=== PATIENT | male | born 1965 ===

== ENCOUNTER 2023-10-28 15:34 | Outpatient (REF) | payer MEDICARE, SELFPAY ==
--- NOTE | ~2023-10-28 | CT_ITS ---
EXAMINATION: CT SOFT TISSUE NECK WITH CONTRAST CLINICAL INFORMATION: Nontoxic thyroid nodule COMPARISON: None. TECHNIQUE: Following the administration of 60 mL of Omnipaque 300 intravenous contrast, helical imaging was performed in the axial plane with generation of coronal and sagittal reformatted images. This CT examination was performed using dose optimization techniques as appropriate, variously including the following: *Automated exposure control. *Adjustment of mA and/or kV according to patient size (this includes techniques or standardized protocols for targeted exams where dose is matched to indication/reason for exam; i.e. extremities or head). *Use of iterative reconstruction technique. DLP: 403 mGy-cm. FINDINGS: Please note that assessment of the lower neck soft tissues is partially nondiagnostic related to artifact from patient's body habitus. Nondiagnostic assessment of the thyroid gland. The fat planes of the skull base and soft tissues of the nasopharynx are unremarkable. Chronic mucoperiosteal thickening of the right maxillary sinus. Mineralized lesion along the anterior floor of the left maxillary sinus which may be postinflammatory or reflective of a mycetoma. The temporomandibular joints are normal. Dentulous maxillary alveolus. The oral cavity is normal. The soft palate is interposed between the dorsal tongue and posterior nasopharyngeal wall, limiting assessment of the mucosal surfaces. Presumably lobulated lingual tonsillar hyperplasia projects into the vallecula and along the median glossoepiglottic fold. Asymmetric prominence of the left laryngeal ventricle that can be correlated for left vocal cord paresis/paralysis with otherwise unremarkable larynx. The submandibular and parotid glands are normal. No pathologic size criteria or morphologically suspicious cervical chain lymph nodes. The partially visualized lung apices are clear. Normal opacification of the major neck vessels. Mild cervical spondylosis. The imaged portions of the brain parenchyma are unremarkable. Mild patchy calcific plaque along the carotid siphons. CT/CT soft tissue neck w IV con IMPRESSION: 1. Essentially nondiagnostic assessment of the thyroid gland that would be better evaluated with dedicated soft tissue ultrasound. 2. Asymmetric prominence of the left laryngeal ventricle that can be correlated for left vocal cord paresis/paralysis Electronically signed by: Ira Haney MD 11/17/2023 01:45 PM EDT
[2023-11-01] MEDS: iohexoL 350 MG/ML 100 ML INFUS..BTL 60 ML IV (09:32)
[2023-11-07 09:04] LABS: Creatinine POC 0.7 mg/dL (0.5-1.4); GFR POC > 60
== END 2023-10-28 15:35 | disposition home or self-care (01) ==
LOC: HO.CT 15:34
PROVIDERS: PCP Pediatrics; Visit Provider Pediatrics
DX: E04.1 Nontoxic single thyroid nodule (principal)
CPT/HCPCS: 70491; 82565; Q9967

== ENCOUNTER 2025-01-17 15:00 | Outpatient (REF) | payer MEDICARE, SELFPAY ==
--- NOTE | ~2025-01-17 | US_ITS ---
EXAMINATION: US THYROID HISTORY: NONTOXIC GOITER TECHNIQUE: Real-time grayscale ultrasound imaging was performed and images were reviewed. COMPARISON: CT of the soft tissues of the neck October 2023 FINDINGS: SIZE: The right thyroid lobe measures 3.9 x 2.4 x 1.9 cm. The left thyroid lobe measures 3.7 x 2.2 x 1.7 cm. The isthmus measures 4 mm. The thyroid gland is normal in size. FLOW: Flow to the gland is normal. ECHOGENICITY: The echotexture of the gland is normal. NODULES: No nodules. US/US thyroid IMPRESSION: Unremarkable thyroid ultrasound. Electronically signed by: Anitha Riddle MD 01/17/2025 04:25 PM [facility]
--- OUTSIDE RECORDS SUMMARY | 2025-01-17 18:21 | XMS_ITS ---
Author Name Donavon Fernandez NP Address [address] [place] [address] Phone [phone] [facility] Care Team Providers Care Fur Mixer Name Role Phone Jim oDnavon Unavailable [phone] Jaye Dickey Unavailable [phone] Reason for Referral Not Available Allergies, adverse reactions, alerts Allergen Type Reaction Severity Status Onset Date Aspirin Allergy to substance (disorder) Unknown Active N/A History of medication use Medication Class Instructions Start Date End Date amLODIPine Besylate 5 mg Tab No Data Available 2023-07 No Data Available Spironolactone 50 mg Tab 1 tablets orally BID No Data Available Docusate Sodium 100 mg Cap TAKE 1 CAPSUL E BY MOUTH EVERY DAY 2022-09-01 No Data Available Allopurinol 100 mg Tab TAKE 2 TABLETS BY MOUTH EVERY BID 2023-07-07 No Data Available Atorvastatin Calcium 20 mg Tab TAKE 1 TABLET BY MOUTH EVERY DAY 2023-03-09 No Data Available Torsemide 10 mg Tab 3 tablets twice daily 2023-09-02 No Data Available Tadalafil 20 mg Tab TAKE ONE TABLET BY M OUTH EVERY DAY NEEDED 2023-09-08 No Data Available Metoprolol Succinate ER 200 mg Tab ER 24hr TAKE 1 TABLET BY MOUTH DAILY 2023-01-29 No Data Available VITAMIN D 1000IU H/PTNCY CAPSULES TAKE 1 CAPSULE BY MOUTH DAILY 2023-10-04 No Data Available Eliquis 5 mg Tab TAKE 1 TABLET BY RUBEN TH TWICE DAILY 2023-10-04 No Data Available Terbinafine 250 mg Tab TAKE 1 TABLET BY MOUTH DAILY 2023-11-11 No Data Available Ciprofloxacin 500 mg Tab TAKE 1 TABLET B Y MOUTH EVERY 12 HOURS FOR 14 DAYS 2024-01-31 No Data Available VITAMIN D3 1000UNIT SOFTGEL CAPS TAKE 1 CAPSULE BY MOUTH DAILY 2024-06-12 No Data Available Problem List Problem Status Onset Date Resolved Date Synopsis Major depressive disorder, recurrent, moderate Active 2024-01-21 N/A Rx: not curr ently on medicationFollow up prn with local providers and call CB prn Essential hypertension Active 2024-01-21 N/A Rx : Amlodipine, Spironolactone, Metoprolol Succinate, TorsemideMonitor BP dailyLow sodium diet Exercise as toleratedRoutine follow up with labsCardiology follow up Gout Active 2024-01-21 N/A Rx: Allopurino lEat more fruits, vegetables and whole grains, which provide complex carbohydrates. Avoid foods and beverages with high-fructose corn syrup, and limit consumption of naturally sweet fruit juices. Water. Stay well-hydrated by drinking waterFollow up PRNCardiology follow upNo recent flares Hypercoagulable state due to chronic atrial fibrillation Active 2024-01-21 N/A Rx: Eliquis, Metoprolol SuccinateContinue CV medications as directedFollow up PRN Peripheral vascular disease, unspecifiedHyperlipidemia Active 2024-01-21 N/A Rx: At orvastatinContinue CV medicationsMonitor BP dailyRoutine follow up with labs Morbid obesity due to excess caloriesBMI 38.0-38.9,adult Active 2024-01-28 N/A BMI 38.75 on 05/30/24 ECCAHealthy diet to assist with weight loss, take medications as prescribed, avoid alcohol, spicy and fatty foods, caffeine, do not eat late at night, and do not lay down after meals for at least 30 minutes. Follow up prn. 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 Active 2024-01-21 N/A Rx: Tadalafilsym ptoms present following radiation to prostateFollow up PRN Other problems related to medical facilities and other health care Active 2024-01-28 N/A HEART FAILURE CONTINGENCY PLANLast updated: 01/28/2024Member to call for the following symptoms: Edema/ Exertional dyspnea/ Weight gain or lossPlanned intervention: Increase torsemide (Demadex) to 20 mg for 3 days/ Order chest x-ray/ Elevate legs/ Put on compression stockings/ Eat lower sodium foods/ Take medication every single day Chronic pain syndromeRotator cuff injury Active 2024-05-30 N/A Has been told he has rotator cuff injuryHas PCP f/u 3/31/25, would like ortho referral or PT if appropriate Hypertensive heart disease with heart failureSecondary pulmonary arterial hypertensionSecondary hyperaldosteronism Active 2024-01-21 N/A Rx: Metoprolo l Succinate, Spironolactone, Torsemide, AmlodipineeGFR 90 (01/19/24 Outside Care)EDW 310-314 lbs, monitors daily for edemaMonitor VS daily and prnLow sodium diet and exercise as toleratedMonitor daily weight and call if weight gain > 3 lbs over 24 hrs or 5 lbs over one week. Routine follow up with labsx: Amlodipine, Spironolactone, Metoprolol Succinate, TorsemideMonitor BP dailyLow sodium diet Exercise as toleratedRoutine follow up with labsCardiology follow up DOREEN (obstructive sleep apnea)Pulmonary hypertensionChronic respiratory failure Active 2024-05-30 N/A Wears CPAP a nd 2.5 - 3L oxygen overnightSleep pulm follow up Malignant neoplasm of prostate Active 2024-01-21 N/A Treated with radiationFollow up prn Encounters Encounters Type Facility Date of Service Diagnosis/Complaint New patient, 30-44min 1 stable chronic or 2 minor; add modifier 95 for video, modifier 93 for phone [facility], [place] 01/21/2024 Gout, unspecifiedEssential ( primary) hypertensionErectile dysfunction following radiation therapyOther thrombophiliaChronic atrial fibrillation, unspecifiedMajor depressive disorder, recurrent, moderatePeripheral vascular disease, unspecifiedHyperlipidemia, unspecifiedMalignant neoplasm of prostatePersonal history of malignant neoplasm of prostateChronic diastolic (congestive) heart failureSecondary hyperaldosteronismSecondary pulmonary arterial hypertensionMorbid (severe) obesity due to excess caloriesBody mass index (bmi) 38.0-38.9, adultOther problems related to medical facilities and other health care New patient, 30-44min 1 stable chronic or 2 minor; add modifier 95 for video, modifier 93 for phone [facility], ([place] 01/21/2024 New patient, 30-44min 1 stable chronic or 2 minor; add modifier 95 for video, modifier 93 for phone [facility], ([place] 01/21/2024 New patient, 30-44min 1 stable chronic or 2 minor; add modifier 95 for video, modifier 93 for phone [facility] New patient, 30-44min 1 stable chronic or 2 minor; add modifier 95 for video, modifier 93 for phone [facility] 01/21/2024 New patient, 30-44min 1 stable chronic or 2 minor; add modifier 95 for video, modifier 93 for phone [facility] 01/21/2024 New patient, 30-44min 1 stable chronic or 2 minor; add modifier 95 for video, modifier 93 for phone [facility] 01/21/2024 New patient, 30-44min 1 stable chronic or 2 minor; add modifier 95 for video, modifier 93 for phone [facility] ([place] 01/21/2024 New patient, 30-44min 1 stable chronic or 2 minor; add modifier 95 for video, modifier 93 for phone [facility] 01/21/2024 Estab. patient 20-29min; 1 stable chronic or 2 minor; add add modifier 95 for video, modifier 93 for phone [facility], ([place] 05/30/2024 Gout, unspecifiedErectile dy sfunction following radiation therapyOther thrombophiliaChronic atrial fibrillation, unspecifiedMajor depressive disorder, recurrent, moderatePeripheral vascular disease, unspecifiedHyperlipidemia, unspecifiedMalignant neoplasm of prostatePersonal history of malignant neoplasm of prostateSecondary hyperaldosteronismHypertensive heart disease with heart failureChronic diastolic (congestive) heart failureSecondary pulmonary arterial hypertensionMorbid (severe) obesity due to excess caloriesBody mass index (bmi) 38.0-38.9, adultChronic pain syndromeUnsp inj musc/tend the rotator cuff of unsp shldr, sequelaChronic respiratory failure, unsp w hypoxia or hypercapniaPulmonary hypertension, unspecifiedObstructive sleep apnea (adult) (pediatric)Other problems related to medical facilities and other health care Estab. patient 20-29min; 1 stable chronic or 2 minor; add add modifier 95 for video, modifier 93 for phone [facility] Estab. patient 20-29min; 1 stable chronic or 2 minor; add add modifier 95 for video, modifier 93 for phone [facility], [place] 05/30/2024 Estab. patient 20-29min; 1 stable chronic or 2 minor; add add modifier 95 for video, modifier 93 for phone [facility], ([place] 05/30/2024 Estab. patient 20-29min; 1 stable chronic or 2 minor; add add modifier 95 for video, modifier 93 for phone [facility], ([place] 05/30/2024 Vital Signs Date of Collection Vitals 2024-01-21 12:15:55 Height - 190.5 cmWei ght - 138.8 kgBody Mass Index (BMI) - 38.25 kg/m2BP Diastolic - 85.0 mm[Hg]BP Systolic - 122.0 mm[Hg] 2024-05-30 12:00:04 Weight - 140.62 kgBo dy Mass Index (BMI) - 38.75 kg/m2 Social History Social History Social History Observation Description Effec tive Time Current Smoking Status Never smoker 2025-01-06 2 Sex Male History of Procedures Procedures Service Procedure code Service date Servicing provider Phone# New patient, 30-44min 1 stable chronic or 2 minor; add modifier 95 for video, modifier 93 for phone [id number] 2024-01-21 No Data Available No Data Available BMI obtained (3008F) 3008F 2024-01-21 No Data Availab le No Data Available Advance Care Directive Advance care planning discussion documented in the medical record (1158F) 1158F 2024-01-21 No Data Available No Data Availa ble SBP < 130 (3074F) 3074F 2024-01-21 No Data Available No Data Available DBP 80-89 (3079F) 3079F 2024-01-21 No Data Available No Data Available Pain Assessment - NO pain present (1126F) 1126F 2024-01-21 No Data Available No Data A vailable No Data Available G8510 2024-01-21 No Data Available No Data Available Functional Status Assessed (1170F) 1170F 2024-01-21 No Data Available No Data Avail able Medication List Documented (1159F) 1159F 2024-01-21 No Data Available No Data Cammie ilable Estab. patient 20-29min; 1 stable chronic or 2 minor; add add modifier 95 for video, modifier 93 for phone [id number] 2024-05-30 No Data Available No Data Availa ble Medication List Documented (1159F) 1159F 2024-05-30 No Data Available No Data Cammie ilable Medication Review by prescribing provider or pharmacist documented (1160F) 1160F 2024-05-30 No Data Available No Data Cammie ilable Functional Status Assessed (1170F) 1170F 2024-05-30 No Data Available No Data Avail able Pain Assessment - NO pain present (1126F) 1126F 2024-05-30 No Data Available No Data A vailable Functional Status Functional Category Effective Dates ADL: Bathing Independent , D ressing Independent , Eating Independent , Transferring Independent and Toileting Independent 2024-01-21 IADL: Medication Independent , Meal Prep Needs Assistance , Shopping Needs Assistance , Driving or Public Transport Needs Assistance , Housework Needs Assistance , Finances Needs Assistance 2024-01-21 How many falls within the last 6 months? None 2024-01-21 Near falls within the last 6 months? Non e 2024-01-21 Do you feel unsteady on your feet? No 20 29-01-15 Do you worry about falling? No 2024-01-07 5 DME used with ambulation: None 2024-01-07 5 Social Supports - # of Inter actions with Friends/Family in a typical week: Daily 2024-05-30 Uses knee brace 2024-05-30 Mental Status Status Date Cognition Status: Oriented to Person, Pl som and Time 2024-05-30 Assessments Date of Service Assessments 2024-01-21 12:15:55 GoutEssential hypert ension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Hypercoagulable state due to chronic atrial fibrillationMajor depressive disorder, recurrent, moderatePeripheral vascular disease, unspecifiedHyperlipidemiaMalignant neoplasm of prostateChronic diastolic (congestive) heart failureSecondary pulmonary arterial hypertensionSecondary hyperaldosteronismMorbid obesity due to excess caloriesBMI 38.0-38.9,adultOther problems related to medical facilities and other health care 2024-05-30 12:00:04 GoutEssential hypert ension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Hypercoagulable state due to chronic atrial fibrillationMajor depressive disorder, recurrent, moderatePeripheral vascular disease, unspecifiedHyperlipidemiaMalignant neoplasm of prostateChronic diastolic (congestive) heart failureSecondary pulmonary arterial hypertensionSecondary hyperaldosteronismMorbid obesity due to excess caloriesBMI 38.0-38.9,adultOther problems related to medical facilities and other health careChronic pain syndromeRotator cuff injuryOSA (obstructive sleep apnea)Pulmonary hypertensionChronic respiratory failure Plan of Care Date of Service Plans 2024-01-21 12:15:55 BMI obtained (3008F) SBPDBPTelevideo new patient, 30-44min 1 stable chronic or 2 minor; add modifier 95Advance care planning discussed and documented in the medical record beneficiary/patient did not wish to or was unable to provide an advance care plan or name a surrogate decision-maker. (1124F)Pain Assessment - NO pain documented (1126F)Continue to see PCP. Follow-up with [facility] as needed for any acute or disease education needs that may arise 28/09.Rx: AllopurinolEat more fruits, vegetables and whole grains, which provide complex carbohydrates. Avoid foods and beverages with high-fructose corn syrup, and limit consumption of naturally sweet fruit juices. Water. Stay well-hydrated by drinking water.Follow up prnRx: amlodipine, spironolactone, metoprolol succinate, TorsemideMonitor Bp dailyLow sodium diet Exercise as toleratedRoutine follow up with labsRx: Tadalafilsymptoms present following radiation to prostateFollow up prnRx: Eliquis, metoprolol succinateContinue CV medications as directedFollow up prnRx: not currently on medicationFollow up prn with local providers and call CB prnRx: atorvastatinContinue CV medicationsMonitor Bp dailyRoutine follow up with labsTreated with radiationFollow up prnRx: metoprolol succinate, spironolactone, Torsemide, amlodipineMonitor VS daily and prnLow sodium diet and exercise as toleratedMonitor daily weight and call if weight gain > 3 lbs over 24 hrs or 5 lbs over one week. Routine follow up with labsBMI 38.25Healthy diet to assist with weight loss, take medications as prescribed, avoid alcohol, spicy and fatty foods, caffeine, do not eat late at night, and do not lay down after meals for at least 30 minutes. Follow up prn.HEART FAILURE CONTINGENCY PLANLast updated: 01/28/2024 to call for the following symptoms: Edema/ Exertional dyspnea/ Weight gain or lossPlanned intervention: Increase torsemide (Demadex) to 20 mg for 3 days/ Order chest x-ray/ Elevate legs/ Put on compression stockings/ Eat lower sodium foods/ Take medication every single day 2024-05-30 12:00:04 Functional Status As sessed (1170F)Advance Care Directive Advance care planning discussion documented in the medical record (1158F)Advance care planning discussed and documented advance care plan or surrogate decision-maker was documented in the medical record. (1123F)Estab. patient 20-29min; 1 stable chronic or 2 minor; add add modifier 95 for video, modifier 93 for phoneMedication List Documented (1159F)Medication Review by prescribing provider or pharmacist documented (1160F)Pain Assessment - NO pain present (1126F)Continue to see PCP. Follow-up with [facility] as needed for any acute or disease education needs that may arise.Rx: AllopurinolEat more fruits, vegetables and whole grains, which provide complex carbohydrates. Avoid foods and beverages with high-fructose corn syrup, and limit consumption of naturally sweet fruit juices. Water. Stay well-hydrated by drinking waterFollow up PRNCardiology follow upNo recent flaresRx: Amlodipine, Spironolactone, Metoprolol Succinate, TorsemideMonitor BP dailyLow sodium diet Exercise as toleratedRoutine follow up with labsCardiology follow upRx: Tadalafilsymptoms present following radiation to prostateFollow up PRNRx: Eliquis, Metoprolol SuccinateContinue CV medications as directedFollow up PRNRx: not currently on medicationFollow up prn with local providers and call CB prnRx: AtorvastatinContinue CV medicationsMonitor BP dailyRoutine follow up with labsTreated with radiationFollow up prnRx: Metoprolol Succinate, Spironolactone, Torsemide, AmlodipineeGFR 90 (01/19/24 Outside Care)Monitor VS daily and prnLow sodium diet and exercise as toleratedMonitor daily weight and call if weight gain > 3 lbs over 24 hrs or 5 lbs over one week. Routine follow up with labsBMI 38.75 on 05/30/24 ECCAHealthy diet to assist with weight loss, take medications as prescribed, avoid alcohol, spicy and fatty foods, caffeine, do not eat late at night, and do not lay down after meals for at least 30 minutes. Follow up prn.HEART FAILURE CONTINGENCY PLANLast updated: 01/28/2024Member to call for the following symptoms: Edema/ Exertional dyspnea/ Weight gain or lossPlanned intervention: Increase torsemide (Demadex) to 20 mg for 3 days/ Order chest x-ray/ Elevate legs/ Put on compression stockings/ Eat lower sodium foods/ Take medication every single dayHas been told he has rotator cuff injuryHas PCP f/u 06/05/24, would like ortho referral or PT if appropriateWears CPAP and 2.5 - 3L oxygen overnightSleep pulm follow up Health Concerns Date Concern 2024-05-30 Visit completed radha reeves audio/video. Patient/Guardian agreed to visit via telehealth. Today, patient has chief complaint of: follow up care and comprehensive review.Reviewed Allergies, Medications, Active Medical conditions, past medical/surgical history, Social history. 2024-05-30 Advance Care Planjenna reeves - See Legal 2024-05-30 Most recent hospital stay(s) or ER visit(s) and precipitating factors: Denies 2024-05-30 Open HEDIS Measure r carlo: Controlling High Blood Pressure < 140/90Colorectal Cancer Screening - COL-E
--- OUTSIDE RECORDS SUMMARY | 2025-01-17 18:21 | XMS_ITS | Data Portability ---
Author Organization [facility], Main Office Address [address] [facility] [place] [address] Care Team Providers Care Accounting Coordinator Name Role Phone SETH SOLORZANO Primary Care Provider [phone] MILENA WANG Sleep Medicine [facility] ([facility]) Orthopedic Surgeon VINOD PRESTON Booking Clerk RUSS PLAZA Classification Case Manager [facility] Sleep Medicine TJ RODAS Orthopedic Surgeon KATHY STEVE Warranty Administrator TOMMY TINEO Referring Provider [phone] GRANT DANIEL Urologist IVNOD MAHONEY Junior Legal Secretary [facility] Orthopedic Surgeon Assessment No assessment recorded. Plan of Treatment Reminders Order Date Submit Date Provider Last Modified By Organization Details Last Modified Time Details Appointments [id number] 2025 11:00A M Seth Solorzano MD Not available Not available Not available Lab thyroi d cascad e, serum 2023 024 [place], [address] [place], [address], 08/11/2023 19:24:53 CMP, serum or plasma 2023 024 [facility], [address] [place], [address], 08/11/2023 19:16:41 Referral orthop edic surgeo n referr al - for eval of right shoudl er pain, 2024 025 GUY Fisher MD, [address] [place] [address] [address], [address], [place], [address], 10/26/2024 10:05:42 orthop edic ximenao n referr al - for eval of chroni c right should er pain 2024 025 [email or web address] [facility], [address], [address], [place], [address], 07/11/2024 15:54:48 nutrit ionist /racqueli mary ann referr al 2023 024 Not available 01/31/2024 14:07:28 orthop edic ximenao n referr al - for eval of right should er pain 2023 024 MADALYN Rodas MD, [address], [place], [address], 04/06/2024 12:46:24 Procedures nerve conduc tion study/ EMG, upper extrem ity (PROC) - rule out bilate ral carpal tunnel 2024 025 [facility] (Imaging), [address] [place], [address], 12/11/2024 14:15:49 Surgeries None record ed. Imaging US, thyroi d - f/u (para) thyroi d nodule /mass 2024 025 [email or web address] [facility] (Ultrasound), [address] [place], [address], 10/24/2024 15:27:41 Medication Orders meloxi cam 15 mg tablet 2024 025 [id number], [address], [place], [place], [id number], 10/26/2024 09:59:35 ciprof loxaci n 500 mg tablet 2023 024 [email or web address] Not available 06/05/2024 10:33:24 tadala harpreet 20 mg tablet 2023 024 [id number], [address] [place], [address], 11/29/2024 07:41:00 Patient TargetsNo targets recorded. Patient Instructions Encounter Date Encounter Id Patient Instructions Last Modified By Organization Details Last Modified Time 08/10/2023 [id number] high blood pressure: care instructions awychowski Not available 08/10/2023 10:32:08 learning about high blood pressure awychowski Not available 08/10/2023 10:32:08 01/31/2024 [id number] preventing falls: care instructions awychowski Not available 01/31/2024 13:53:39 well visit, over 65: care instructions awychowski Not available 01/31/2024 13:53:39 Starting a Weight-Loss Plan: Care Instructions awychowski Not available 01/31/2024 13:53:40 Nutrition Referral and Weight Management Follow-up Information awychowski Not available 01/31/2024 13:53:39 06/05/2024 [id number] high cholesterol: care instructions awychowski Not available 06/05/2024 11:14:33 carpal tunnel syndrome: care instructions awychowski Not available 06/05/2024 11:15:56 high blood pressure: care instructions awychowski Not available 06/05/2024 11:14:33 learning about high blood pressure awychowski Not available 06/05/2024 11:14:33 12/11/2024 [id number] high cholesterol: care instructions awychowski Not available 12/11/2024 12:12:16 Reason for Referral Advertising Display Rotator/dietitian Refer ral for Body mass index 40+ - severely obese Referring Physician: Seth Solorzano, Family Medicine, Encounter Date: 01/31/2024 Orthopedic Surgeon Referral for Pain of right shoulder joint for eval of right shoulder pain Referring Physician: Seth Solorzano [facility], Encounter Date: 01/31/2024 Orthopedic Surgeon Referral for Pain of right shoulder joint for eval of chronic right shoulder pain Referring Physician: Seth Solorzano [facility], Encounter Date: 06/05/2024 Orthopedic Surgeon Referral for Pain of right shoulder joint for eval of right shoudler pain, Referring Physician: Seth Solorzano [facility], Encounter Date: 10/26/2024 Results Created Date Observation Date Name Description Value Unit Range Abnormal Flag Note LastModifiedBy Organization Detail LastModifiedTime 06/02/1906/01/2024 URINA LYSIS WITH REFLE X MICRO SCOPI C specific gravity urine 1.007 1.003- 1.030 Not Available [address], [address], 06/01/2024 14:25:55 06/02/1906/01/2024 URINA LYSIS WITH REFLE X MICRO SCOPI C pH, urine 6.5 pH 5.0-8. 0 Not Available [address], [address], 06/01/2024 14:25:55 06/02/19 25 06/01/2024 URINA LYSIS WITH REFLE X MICRO SCOPI C leukocytes, urine NEGATI VE negati ve Not Available [address], [address], 06/01/2024 14:25:55 06/02/1906/01/2024 URINA LYSIS WITH REFLE X MICRO SCOPI C nitrite, urine NEGATI VE negati ve Not Available [address], [address], 06/01/2024 14:25:55 06/02/19 25 06/01/2024 URINA LYSIS WITH REFLE X MICRO SCOPI C protein, urine NEGATI VE mg/dL <=trac e Not Available [address], [address], 06/01/2024 14:25:55 06/02/19 25 06/01/2024 URINA LYSIS WITH REFLE X MICRO SCOPI C glucose, urine NEGATI VE mg/dL negati ve Not Available [address], [address], 06/01/2024 14:25:55 06/02/19 25 06/01/2024 URINA LYSIS WITH REFLE X MICRO SCOPI C ketones, urine NEGATI VE mg/dL negati ve Not Available [address], [address], 06/01/2024 14:25:55 06/02/19 25 06/01/2024 URINA LYSIS WITH REFLE X MICRO SCOPI C urobilinogen , urine 0.2 mg/dL 0.2-1. 0 Not Available [address], [address], 06/01/2024 14:25:55 06/02/19 25 06/01/2024 URINA LYSIS WITH REFLE X MICRO SCOPI C bilirubin, urine NEGATI VE negati ve Not Available [address], [address], 06/01/2024 14:25:55 06/02/19 25 06/01/2024 URINA LYSIS WITH REFLE X MICRO SCOPI C blood, urine NEGATI VE negati ve Not Available [address], [address], 06/01/2024 14:25:55 06/02/19 25 06/01/2024 URINA LYSIS WITH REFLE X MICRO SCOPI C note SEE REPORT [facility], [address] [facility] [address], Marekin cezar d, [place] [facility] [place] [address] Not Available [address], [address], 06/01/2024 14:25:55 06/02/19 25 06/01/2024 LIPID PANEL WITH REFLE X TO DIREC T LDL cholesterol 168 mg/dL 0-200 Not Available [address], [address], 06/01/2024 16:07:09 06/02/19 25 06/01/2024 LIPID PANEL WITH REFLE X TO DIREC T LDL triglyceride s 122 mg/dL 0-150 Not Available [address], [address], 06/01/2024 16:07:09 06/02/19 25 06/01/2024 LIPID PANEL WITH REFLE X TO DIREC T LDL HDL 48 mg/dL >=40 Not Available [address], [address], 06/01/2024 16:07:09 06/02/19 25 06/01/2024 LIPID PANEL WITH REFLE X TO DIREC T LDL LDL calculated 96 mg/dL 0-100 Not Available [address], [address], 06/01/2024 16:07:09 06/02/19 25 06/01/2024 LIPID PANEL WITH REFLE X TO DIREC T LDL VLDL cholesterol curtis 24.4 mg/dL Not Available [address], [address], 06/01/2024 16:07:09 06/02/19 25 06/01/2024 LIPID PANEL WITH REFLE X TO DIREC T LDL non HDL chol. (LDL+VLDL) 120 mg/dL <145 Not Available [address], [address], 06/01/2024 16:07:09 06/02/19 25 06/01/2024 LIPID PANEL WITH REFLE X TO DIREC T LDL chol/HDL ratio 3.5 0.0-4. 4 Not Available [address], [address], 06/01/2024 16:07:09 06/02/19 25 06/01/2024 LIPID PANEL WITH REFLE X TO DIREC T LDL note SEE REPORT [facility], [address], [place], [place] [address] Not Available [address], [address], 06/01/2024 16:07:09 06/02/19 25 06/01/2024 COMPR EHENS LIUDMILA METAB OLIC PANEL sodium 135 mmol/ L 133-14 5 Not Available [address], [address], 06/01/2024 16:07:18 06/02/19 25 06/01/2024 COMPR EHENS LIUDMILA METAB OLIC PANEL potassium 4.4 mmol/ L 3.5-5. 5 Not Available [address], [address], 06/01/2024 16:07:18 06/02/19 25 06/01/2024 COMPR EHENS LIUDMILA METAB OLIC PANEL chloride 97 mmol/ L 96-110 Not Available [address], [address], 06/01/2024 16:07:18 06/02/19 25 06/01/2024 COMPR EHENS LIUDMILA METAB OLIC PANEL CO2 33 mmol/ L 21-32 high Not Available [address], [address], 06/01/2024 16:07:18 06/02/19 25 06/01/2024 COMPR EHENS LIUDMILA METAB OLIC PANEL anion gap 5 3-11 Not Available [address], [address], 06/01/2024 16:07:18 06/02/19 25 06/01/2024 COMPR EHENS LIUDMILA METAB OLIC PANEL glucose 100 mg/dL 70-100 Not Available [address], [address], 06/01/2024 16:07:18 06/02/19 25 06/01/2024 COMPR EHENS LIUDMILA METAB OLIC PANEL BUN 12 mg/dL 5-25 Not Available [address], [address], 06/01/2024 16:07:18 06/02/19 25 06/01/2024 COMPR EHENS LIUDMILA METAB OLIC PANEL creatinine 1.11 mg/dL 0.70-1 .30 Not Available [address], [address], 06/01/2024 16:07:18 06/02/19 25 06/01/2024 COMPR EHENS LIUDMILA METAB OLIC PANEL eGFR 76 mL/mi n/1.7 3m2 >=60 Calcu latio n based on the C hroni c Kidne y Disea se Epide miolo gy Colla borat ion (CKD- EPI) equat ion refit w [facility] tment for race. Not Available [address], [address], 06/01/2024 16:07:18 06/02/19 25 06/01/2024 COMPR EHENS LIUDMILA METAB OLIC PANEL BUN/creatini ne ratio 10.8 Not Available [address], [address], 06/01/2024 16:07:18 06/02/19 25 06/01/2024 COMPR EHENS LIUDMILA METAB OLIC PANEL calcium 9.8 mg/dL 8.5-10 .5 Not Available [address], [address], 06/01/2024 16:07:18 06/02/19 25 06/01/2024 COMPR EHENS LIUDMILA METAB OLIC PANEL AST (SGOT) 13 unit/ L 10-42 Not Available [address], [address], 06/01/2024 16:07:18 06/02/19 25 06/01/2024 COMPR EHENS LIUDMILA METAB OLIC PANEL ALT (SGPT) 16 unit/ L 10-60 Not Available [address], [address], 06/01/2024 16:07:18 06/02/19 25 06/01/2024 COMPR EHENS LIUDMILA METAB OLIC PANEL alkaline phosphatase 134 unit/ L 42-121 high Not Available [address], [address], 06/01/2024 16:07:18 06/02/19 25 06/01/2024 COMPR EHENS LIUDMILA METAB OLIC PANEL total protein 7.8 g/dL 6.0-8. 0 Not Available [address], [address], 06/01/2024 16:07:18 06/02/19 25 06/01/2024 COMPR EHENS LIUDMILA METAB OLIC PANEL albumin 3.8 g/dL 3.2-5. 0 Not Available [address], [address], 06/01/2024 16:07:18 06/02/19 25 06/01/2024 COMPR EHENS LIUDMILA METAB OLIC PANEL total bilirubin 0.4 mg/dL 0.0-1. 4 Not Available [address], [address], 06/01/2024 16:07:18 06/02/19 25 06/01/2024 COMPR EHENS LIUDMILA METAB OLIC PANEL note SEE REPORT [facility], [address] [facility] [address], Lisa robb d, [place] [address] Not Available [address], [address], 06/01/2024 16:07:18 06/02/19 25 06/01/2024 VITAM IN D 25 HYDRO XY vit D, 25-hydroxy 41.2 NG/mL 30.0-8 0.0 Not Available [address], [address], 06/01/2024 16:50:24 06/02/19 25 06/01/2024 VITAM IN D 25 HYDRO XY note SEE REPORT [facility], [address] [facility], Lisa leviabram shah, [facility] [place] [address] Not Available [address], [address], 06/01/2024 16:50:24 06/02/19 25 06/01/2024 HEMOG LOBIN A1C hemoglobin A1C 6.2 % <6.5 Not Available [address], [address], 06/01/2024 21:27:48 06/02/19 25 06/01/2024 HEMOG LOBIN A1C mean bld glu estim. 131 mg/dL Not Available [address], [address], 06/01/2024 21:27:48 06/02/19 25 06/01/2024 HEMOG LOBIN A1C note SEE REPORT [facility], [address] [facility], Lisa leviabram shah, [facility] [place] [address] Not Available [address], [address], 06/01/2024 21:27:48 08/11/19 24 08/11/2023 COMPR EHENS LIUDMILA METAB OLIC PANEL comments [facility], winston rahman r of [facility]olyn [facility] [address] [facility] [place] [address] Medic al Direc kenneth reza MD Not Available [facility] [address] [place] [address], [place], [address], 08/11/2023 19:16:41 08/11/19 24 08/11/2023 COMPR EHENS LIUDMILA METAB OLIC PANEL glucose 71 mg/dL 70-100 Refer ence range appli cable to fasti ng speci mens only Not Available [facility] [address] [place], [address], 08/11/2023 19:16:41 08/11/19 24 08/11/2023 COMPR EHENS LIUDMILA METAB OLIC PANEL BUN 13 mg/dL 5-25 Not Available [facility] [address] [place], [address], 08/11/2023 19:16:41 08/11/19 24 08/11/2023 COMPR EHENS LIUDMILA METAB OLIC PANEL creat 1.11 mg/dL 0.7-1. 3 Not Available [facility] [address] [place], [address], 08/11/2023 19:16:41 08/11/19 24 08/11/2023 COMPR EHENS LIUDMILA METAB OLIC PANEL glomerular filtration rate 77 >60 This eGFR resul t was calcu lated using the CKD-E PI 2020 Creat inine Equat ion Not Available [facility] [address] [place], [address], 08/11/2023 19:16:41 08/11/19 24 08/11/2023 COMPR EHENS LIUDMILA METAB OLIC PANEL sodium 139 mEq/L 135-14 5 Not Available [facility] [address] [place], [address], 08/11/2023 19:16:41 08/11/19 24 08/11/2023 COMPR EHENS LIUDMILA METAB OLIC PANEL potassium 3.7 mmol/ L 3.5-5. 5 Not Available [facility] [address] [place], [address], 08/11/2023 19:16:41 08/11/19 24 08/11/2023 COMPR EHENS LIUDMILA METAB OLIC PANEL chloride 102 mmol/ L 96-110 Not Available [facility] [address] [place], [address], 08/11/2023 19:16:41 08/11/19 24 08/11/2023 COMPR EHENS LIUDMILA METAB OLIC PANEL CO2 32 mmol/ L 21-32 Not Available [facility] [address] [place], [address], 08/11/2023 19:16:41 08/11/19 24 08/11/2023 COMPR EHENS LIUDMILA METAB OLIC PANEL anion gap 5 3-11 Not Available [facility] [address] [place], [address], 08/11/2023 19:16:41 08/11/19 24 08/11/2023 COMPR EHENS LIUDMILA METAB OLIC PANEL calcium 9.5 mg/dL 8.5-10 .5 Not Available [facility] [address] [place], [address], 08/11/2023 19:16:41 08/11/19 24 08/11/2023 COMPR EHENS LIUDMILA METAB OLIC PANEL total protein 7.5 g/dL 6.0-8. 0 Not Available [facility] [address] [place], [address], 08/11/2023 19:16:41 08/11/19 24 08/11/2023 COMPR EHENS LIUDMILA METAB OLIC PANEL albumin 3.9 g/dL 3.2-5. 0 Not Available [facility] [address] [place], [address], 08/11/2023 19:16:41 08/11/19 24 08/11/2023 COMPR EHENS LIUDMLIA METAB OLIC PANEL bili,total 0.5 mg/dL 0.0-1. 4 Not Available [facility] [address] [place], [address], 08/11/2023 19:16:41 08/11/19 24 08/11/2023 COMPR EHENS LIUDMILA METAB OLIC PANEL SGOT 15 U/L 10-42 Not Available [facility] [address] [place], [address], 08/11/2023 19:16:41 08/11/19 24 08/11/2023 COMPR EHENS LIUDMILA METAB OLIC PANEL SGPT 14 U/L 10-60 Not Available [facility] [address] [place], [address], 08/11/2023 19:16:41 08/11/19 24 08/11/2023 COMPR EHENS LIUDMILA METAB OLIC PANEL alk phos 115 U/L 42-121 Not Available [facility] [address] [place], [address], 08/11/2023 19:16:41 08/11/19 24 08/11/2023 TSH CASCA DE comments [facility] [address] [facility] [place] [address] Medic al Direc kenneth reza MD Not Available [facility] [address] [place], [address], 08/11/2023 19:24:53 08/11/19 24 08/11/2023 TSH CASCA DE TSH cascade 0.71 uIU/m L 0.40-4 .00 Not Available [facility] [address] [place], [address], 08/11/2023 19:24:53 12/22/19 24 12/22/2023 HEMOG LOBIN A1C hemoglobin A1C 6.2 % 4.8-5. 6 above high normal Predi abete s: 5.7 - 6.4 Diabe gisell: >6.4 Glyce lonny contr ol for adult s with diabe gisell: <7.0 Not Available [facility] ([facility]) [address] [facility], [place], [address], 12/23/2023 06:08:18 12/31/19 24 01/01/2024 CBC WITH DIFFE RENTI AL/PL ATELE T WBC 7.9 x10e3 /uL 3.4-10 .8 normal Not Available [facility] ([facility]) [address] [facility], [place], [address], 01/01/2024 06:08:23 12/31/19 24 01/01/2024 CBC WITH DIFFE RENTI AL/PL ATELE T RBC 4.77 x10e6 /uL 4.14-5 .80 normal Not Available [facility] ([facility]) [address] [place], [address], 01/01/2024 06:08:23 12/31/1901/01/2024 CBC WITH DIFFE RENTI AL/PL ATELE T hemoglobin 12.9 g/dL 13.0-1 7.7 below low normal Not Available [facility] ([facility]) [address] [place], [address], 01/01/2024 06:08:23 12/31/1901/01/2024 CBC WITH DIFFE RENTI AL/PL ATELE T hematocrit 39.9 % 37.5-5 1.0 normal Not Available [facility] ([facility]) [address] [place], [address], 01/01/2024 06:08:23 12/31/1901/01/2024 CBC WITH DIFFE RENTI AL/PL ATELE T MCV 84 fL 79-97 normal Not Available [facility] ([facility]) [address] [place], [address], 01/01/2024 06:08:23 12/31/1901/01/2024 CBC WITH DIFFE RENTI AL/PL ATELE T MCH 27.0 pg 26.6-3 3.0 normal Not Available [facility] ([facility]) [address] [place], [address], 01/01/2024 06:08:23 12/31/1901/01/2024 CBC WITH DIFFE RENTI AL/PL ATELE T MCHC 32.3 g/dL 31.5-3 5.7 normal Not Available [facility] ([facility]) [address] [place], [address], 01/01/2024 06:08:23 12/31/1901/01/2024 CBC WITH DIFFE RENTI AL/PL ATELE T RDW 14.5 % 11.6-1 5.4 Not Available [facility] ([facility]) [address] [facility], [place], [address], 01/01/2024 06:08:23 12/31/1901/01/2024 CBC WITH DIFFE RENTI AL/PL ATELE T platelets 269 x10e3 /uL 150-45 0 normal Not Available [facility] ([facility]) [address] [facility], [place], [address], 01/01/2024 06:08:23 12/31/1901/01/2024 CBC WITH DIFFE RENTI AL/PL ATELE T neutrophils 66 % not estab. normal Not Available [facility] ([facility]) [address] [facility], [place], [address], 01/01/2024 06:08:23 12/31/1901/01/2024 CBC WITH DIFFE RENTI AL/PL ATELE T lymphs 22 % not estab. normal Not Available [facility] ([facility]) [address] [facility], [place], [address], 01/01/2024 06:08:23 12/31/1901/01/2024 CBC WITH DIFFE RENTI AL/PL ATELE T monocytes 8 % not estab. normal Not Available [facility] ([facility]) [address] [facility], [place], [address], 01/01/2024 06:08:23 12/31/1901/01/2024 CBC WITH DIFFE RENTI AL/PL ATELE T eos 3 % not estab. normal Not Available [facility] ([facility]) [address] [facility], [place], [address], 01/01/2024 06:08:23 12/31/1912/3101/01/2024 CBC WITH DIFFE RENTI AL/PL ATELE T basos 1 % not estab. normal Not Available [facility] ([facility]) [address] [place], [address], 01/01/2024 06:08:23 12/31/19 24 01/01/2024 CBC WITH DIFFE RENTI AL/PL ATELE T immature cells AIR SUPPORT CONTROL OFFICER Not Available [facility] ([facility]) [address] [place], [address], 01/01/2024 06:08:23 12/31/1901/01/2024 CBC WITH DIFFE RENTI AL/PL ATELE T neutrophils (absolute) 5.3 x10e3 /uL 1.4-7. 0 normal Not Available [facility] ([facility]) [address] [place], [address], 01/01/2024 06:08:23 12/31/19 24 01/01/2024 CBC WITH DIFFE RENTI AL/PL ATELE T lymphs (absolute) 1.7 x10e3 /uL 0.7-3. 1 normal Not Available [facility] ([facility]) [address] [place], [address], 01/01/2024 06:08:23 12/31/19 24 01/01/2024 CBC WITH DIFFE RENTI AL/PL ATELE T monocytes(ab solute) 0.6 x10e3 /uL 0.1-0. 9 normal Not Available [facility] ([facility]) [address] [place], [address], 01/01/2024 06:08:23 12/31/1901/01/2024 CBC WITH DIFFE RENTI AL/PL ATELE T eos (absolute) 0.2 x10e3 /uL 0.0-0. 4 normal Not Available [facility] ([facility]) [address] [place], [address], 01/01/2024 06:08:23 12/31/19 24 01/01/2024 CBC WITH DIFFE RENTI AL/PL ATELE T baso (absolute) 0.0 x10e3 /uL 0.0-0. 2 normal Not Available [facility] ([facility]) [address] [facility], [place], [address], 01/01/2024 06:08:23 12/31/1901/01/2024 CBC WITH DIFFE RENTI AL/PL ATELE T immature granulocytes 0 % not estab. Not Available [facility] ([facility]) [address] [place], [address], 01/01/2024 06:08:23 12/31/1901/01/2024 CBC WITH DIFFE RENTI AL/PL ATELE T immature grans (abs) 0.0 x10e3 /uL 0.0-0. 1 Not Available [facility] ([facility]) [address] [facility], [place], [address], 01/01/2024 06:08:23 12/31/1901/01/2024 CBC WITH DIFFE RENTI AL/PL ATELE T NRBC AIR SUPPORT CONTROL OFFICER Not Available [facility] ([facility]) [address] [facility], [place], [address], 01/01/2024 06:08:23 12/31/1901/01/2024 CBC WITH DIFFE RENTI AL/PL ATELE T hematology comments: AIR SUPPORT CONTROL OFFICER Not Available [facility] ([facility]) [address] [place], [address], 01/01/2024 06:08:23 12/31/1901/01/2024 HEMOG LOBIN A1C hemoglobin A1C 6.1 % 4.8-5. 6 above high normal Predi abete s: 5.7 - 6.4 Diabe gisell: >6.4 Glyce lonny contr ol for adult s with diabe gisell: <7.0 Not Available [facility] ([facility]) [address] [facility], [place], [address], 01/01/2024 06:08:24 12/31/1901/01/2024 THYRO ID CASCA DE PROFI LE TSH 0.753 uIU/m L 0.450- 4.500 No appar ent thyro id disor césar. Addit ional testi ng not indic ated. In rare insta nces, Secon jaqueline Hypot hyroi dism as well as Subcl inica l Hypot hyroi dism have been repor chapito in some patie nts with sera l TSH value s. Not Available [facility] ([facility]) [address] [facility], [place], [address], 01/01/2024 06:08:25 11/17/1910/28/2023 CT, neck, w/ contr ast No observ ation record ed. [facility] (Medical Records) [address] [place], [address], 01/31/2024 13:40:02 02/09/2002/02/2024 trans thora cic echoc ardio gram (TTE) compl ete (cont rast/ bubbl e/3D PRN) No observ ation record ed. [facility] [address] [facility], [place], [address], 06/05/2024 11:05:08 02/09/2002/02/2024 trans -thor acic echoc ardio gram (TTE) (PROC ) No observ ation record ed. [facility] Not Available 06/05 11:05:08 08/22/19 ECG 12-le ad No observ ation record ed. [facility] [address], [place], [address], 08/29/2024 05:40:05 10/25/19 25 10/23/2024 US head neck soft tissu e See Note [facility] , [facility] t Name: NOVA WILKINSON Date of : 1965 Reason for Exam: NON TOXIC GOITER UNSPEC IFIED . Exam Date: 2024 [id number] EST Report Status : Final Orderi ng Provid er: SETH MCFARLAND PCP: SETH MCFARLAND HISTOR Y: Goiter TECHNI QUE: Graysc tim assess ment of the thyroi d was perfor med with a high freque ncy linear transd ucer. COMPAR BRISA: None FINDIN GS: Qualit y: The study is somewh at limite d. The patien t habitu s limits assess ment in the lower aspect of the gland The right lobe of the thyroi d measur es: 4.2 x 2.3 x 2.0 cm Previo us measur ement: No previo us availa ble Right lobe contou r: The right lobe contou r is smooth . Right lobe echoge nicity : Homoge neous Right lobe vascul arity: Normal The left lobe of the thyroi d measur es: 3.4 x 2.4 x 1.6 cm Previo us measur ement: No previo us availa ble Left lobe contou r: The left lobe contou r is smooth . Left lobe echoge nicity : Homoge neous Left lobe vascul arity: Normal Isthmu s measur es (AP): 0.3 cm Previo us measur ement: No previo us availa ble Isthmu s contou r: The isthmi c contou r is smooth . Isthmu s echoge nicity : Homoge neous Isthmu s vascul arity: Normal Masses : No suspic ious masses OTHER: Extrat hyroid al extens ion: None Region al lymph nodes: No enlarg ed lymph nodes demons trated IMPRES DEX: Slight ly limite d assess ment of the lower aspect of the gland. No mass demons trated TI-RAD S Assess ment (updat ed June 2016) Compos ition: cystic or spongi form: 0 pt mixed cystic and solid: 1 pt solid or almost comple tely solid: 2 pts Echoge nicity : anecho ic: 0 pt hypere choic or isoech oic: 1 pt hypoec hoic: 2 pts very hypoec hoic: 3 pt Shape: wider than tall: 0 pt taller than wide: 3 pts Margin : smooth : 0 pt ill-de fined: 0 pt lobula chapito/ir regula r: 2 pts extra- thyroi claudia extens ion: 3 pts Echoge veronique foci none or large comet tail artifa ct: 0 pt macro- calcif icatio n: 1 pt periph eral/r im ca++: 2 pts puncta te echoge veronique foci: 3 pts TR1: 0 pts; benign ; no follow -up TR2: 2 pts; not suspic ious; no FNA TR3: 3 pts; mildly suspic ious; < or = 1.5 cm f/u; > or = 2.5 cm FNA TR4: 4-6 pts; modera tely suspic ious; < or = 1.0 cm follow -up; 1.5 cm FNA TR5: 7 or > pts; highly suspic ious; .5-.9 cm f/u; 1.0 cm or > FNA ------ -- FINAL REPORT ------ -- Dictat ed By: Darrin Palmer Dictat ed Date: 2024 11:58 ET Assign ed Physic kim: Darrin Palmer Review ed and Electr onical ly Signed By: Darrin Palmer Signed Date: 2024 12:00 ET Workst ation ID: [id number] Transc ribed By: Self Edit Transc ribed Date: 2024 11:58 ET [email or web address] [facility]/S Dept [address] [place] [address], [address], 11/09/2024 10:38:24 12/26/1912/25/2024 ECG 12-le ad No observ ation record ed. [facility]/S Dept [address] [place] [address], [address], 12/26/2024 06:47:48 12/26/19 ECG 12-le ad No observ ation record ed. [facility] [address] [place], [address], 12/26/2024 06:47:48 01/12/2001/08/2025 nm stres s test with myoca rdial perfu dex No observ ation record ed. [facility]/S Dept [address] [place], [address], 01/12/2025 06:55:15 01/16/2001/09/2025 nucle ar stres s test No observ ation record ed. [facility] (Human Resources) [address], [place], [address], 01/16/2025 07:25:18 01/18/2001/17/2025 US, thyro id No observ ation record ed. [facility] (Medical Records) [address] [place], [address], 01/17/2025 16:29:59 Result Notes None recorded. Problems Name Problem SNOMED Code Status Onset Date Resolution Date Notes Provider Name and Address Organization Details Recorded Time Pain of wrist region 44891161 Completed 07/13/2014 Seth Solorzano MD [address] [facility] [address], [place], [address] , [facility] 5 14:20:56 Dyspnea on exertion 96282252 Completed 07/13/2014 [facility], [facility] 7 12:55:52 Body mass index 30+ - obesity 286332742 Completed 07/21/2017 Seth Solorzano MD [address], [place], [address] , [facility] 8 11:57:46 Irregula r heart beat 090303683 Completed 11/10/2016 RALPH Aceves, [facility] 7 12:55:33 Atrial fibrilla tion and flutter 187757118 Completed 07/21/2017 Seth Solorzano MD [address] [facility] [address], [place], [address] , [facility] 8 11:59:07 Body mass index 40+ - severely obese 035730115 Completed 11/10/2016 Seth Solorzano MD [address] [facility] [address], [place], [address] , [facility] 1 09:19:07 Excessiv e thirst 41552272 Completed 11/10/2016 RALPH Aceves, [facility] 7 12:55:17 Dyspnea on exertion 63293845 Completed 11/10/2016 RALPH Aceves, [facility] 7 12:55:52 Increase d frequenc y of urinatio n 209536425 Completed 11/10/2016 RALPH Aceves, [facility] 7 12:55:11 Dyspnea 354592714 Completed 11/10/2016 RALPH Aceves, [facility] 7 12:55:23 Tinea pedis 6340254 Completed 201209/19/2013 RECORDED 04/06/19 13 2:51PM BY ANASTASIIA ISSA MA, ANNOTATI ON/ADDEN DUM Seth Solorzano MD [address] [facility] [address], [place], [address] , [facility] 5 14:20:56 Tinea pedis 1660249 Completed 201210/16/2013 RECORDED 04/06/19 13 2:51PM BY ANASTASIIA ISSA MA, ANNOTATI ON/ADDEN DUM Seth Solorzano MD [address] [facility] [address], [place], [address] , [facility] 5 14:20:56 Essentia l hyperten dex 27060351 Completed 201209/19/2013 RECORDED 04/18/19 13 9:48AM BY DIANE TAMEZ MA, HELEN CABRERA/ALINE Solorzano MD [address], [place], [address] , [facility] 8 11:59:45 Screenin g procedur e Completed 201209/19/2013 IMPRESSI ON: GIVEN FAMILY HISTORY WILL CONTINUE SCREENIN G. EMIL DEFERRED TO NEXT APPT.; RECORDED 05/21/19 13 10:39AM BY DIANE TAMEZ MA, HELEN ON/ALINE Solorzano MD [address], [place], [address] , [facility] 5 14:20:57 Syncope and collapse 647751343 Completed 201209/19/2013 RESOLVED DATE: 02/25/20 12; IMPRESSI ON: NO RECURREN T EVENTS AND GUIVEN NORMAL ECHO, ECG AND HOLTER MONITOR UNLIKEY A SIGNIFIC ANT CARDIAC ISSUE. ADEQUATE HYDRATIO N ADVISED WELL HOLDING DIURETIC DURING TIMES OF SIGNIFIC ANT/SUST AINED NEGATIVE FLUID BALANCE. CALL/GO TO ED IF RECURS.; RECORDED 05/21/19 13 10:39AM BY DIANE TAMEZ MA, HELEN ON/ALINE Solorzano MD [address], [place], [address] , [facility] 5 14:20:56 Screenin g procedur e Completed 201210/16/2013 IMPRESSI ON: GIVEN FAMILY HISTORY WILL CONTINUE SCREENIN G. EMIL DEFERRED TO NEXT APPT.; RECORDED 05/21/19 13 10:39AM BY DIANE TAMEZ MA, ANNOTATI ON/ALINE Solorzano MD [address], [place], [address] , [facility] 5 14:20:57 Syncope and collapse 325046595 Completed 201210/16/2013 RESOLVED DATE: 02/25/20 12; IMPRESSI ON: NO RECURREN T EVENTS AND GUIVEN NORMAL ECHO, ECG AND HOLTER MONITOR UNLIKEY A SIGNIFIC ANT CARDIAC ISSUE. ADEQUATE HYDRATIO N ADVISED WELL HOLDING DIURETIC DURING TIMES OF SIGNIFIC ANT/SUST AINED NEGATIVE FLUID BALANCE. CALL/GO TO ED IF RECURS.; RECORDED 05/21/19 13 10:39AM BY DIANE TAMEZ MA, HELEN ON/ALINE Solorzano MD [address], [place], [address] , [facility] 5 14:20:56 Patient status finding [id number] Completed 201209/19/2013 RECORDED 08/26/19 13 9:30AM BY DIANE TAMEZ MA, HELEN ON/ALINE Solorzano MD [address] [facility] [address], [place], [address] , [facility] 5 14:20:57 Adult health examinat ion Completed 201209/19/2013 IMPRESSI ON: IMMUNIZA TION STATUS UTD WILL SCREEN BASED ON RISK FACTORS. REGULAR DENTAL CARE AND SEATBELT USE ADVISED. DISTRACT ED DRIVING DISCUSSE D.; RECORDED 08/26/19 13 9:30AM BY DIANE TAMEZ MA, HELEN ON/ALINE Solorzano MD [address] [facility] [address], [place], [address] , [facility] 5 14:20:57 Disorder of upper respirat ory system Completed 201209/19/2013 IMPRESSI ON: TRY NASAL SALINE, IF PERSISTA NT TRY NASAL STEROID. ; RECORDED 08/26/19 13 9:30AM BY DIANE TAMEZ MA, HELEN ON/ALINE Solorzano MD [address] [facility] [address], [place], [address] , [facility] 5 14:20:57 Patient status finding [id number] Completed 201210/16/2013 RECORDED 08/26/19 13 9:30AM BY DIANE TAMEZ MA, HELEN ON/ALINE Solorzano MD [address], [place], [address] , [facility] 5 14:20:57 Disorder of upper respirat ory system Completed 201210/16/2013 IMPRESSI ON: TRY NASAL SALINE, IF PERSISTA NT TRY NASAL STEROID. ; RECORDED 08/26/19 13 9:30AM BY DIANE TAMEZ MA, HELEN ON/ALINE Solorzano MD [address] [facility] [address], [place], [address] , [facility] 5 14:20:57 Follow-u p encounte r Completed 201209/19/2013 RECORDED 12/21/19 13 10:31AM BY DIANE TAMEZ MA, HELEN ON/ALINE Solorzano MD [address] [facility] [address], [place], [address] , [facility] 5 14:20:57 Influenz a vaccine needed 28030027630 06 Completed 201209/19/2013 RECORDED 12/21/19 13 10:31AM BY DIANE TAMEZ MA, HELEN ON/ALINE Solorzano MD [address] [facility] [address], [place], [address] , [facility] 5 14:20:57 Pain in limb 22297564 Completed 201209/19/2013 RECORDED 12/21/19 13 10:32AM BY DIANE TAMEZ MA, HELEN CABRERA/ALINE Solorzano MD [address] [facility] [address], [place], [address] , [facility] 5 14:20:56 Follow-u p encounte r Completed 201210/16/2013 RECORDED 12/21/19 13 10:31AM BY DIANE TAMEZ MA, ANNOTATI ON/ADDJESSICA DUM Seth Solorzano MD [address] [facility] [address], [place], [address] , [facility] 5 14:20:57 Influenz a vaccine needed 35932464276 06 Completed 201210/16/2013 RECORDED 12/21/19 13 10:31AM BY DIANE TAMEZ MA, HELEN ON/ALINE Solorzano MD [address] [facility] [address], [place], [address] , [facility] 5 14:20:57 Pain in limb 69866337 Completed 201210/16/2013 RECORDED 12/21/19 13 10:32AM BY DIANE TAMEZ MA, ANNOTATI ON/ALINE Solorzano MD [address] [address], [place], [address] , [facility] 5 14:20:56 Localize d superfic ial swelling of skin 177415321 Completed 201309/19/2013 IMPRESSI ON: ? NEUROMA. WILL CONSULT PODIATRY .; RECORDED 06/03/19 14 12:59PM BY DIANE TAMEZ MA, ANNOTATI ON/ALINE Solorzano MD [address] [address], [place], [address] , [facility] 5 14:20:56 Neck sprain 586312414 Completed 201312/08/2013 IMPRESSI ON: RECURREN T ISSUE IN CONTEXT OF CHRONICA LLY ELEVATE CREATINE KINASE. WILL ASK RHEUM FOR RE-EVALU ATION NOW THAT SYMPTOMS HAVE DEVELOPE D.; RECORDED 06/03/19 14 2:24PM BY DIANE TAMEZ MA, OFFICE VISIT Seth Solorzano MD [address] [address], [place], [address] , [facility] 5 14:20:57 Localize d superfic ial swelling of skin 765616579 Completed 201310/16/2013 IMPRESSI ON: ? NEUROMA. WILL CONSULT PODIATRY .; RECORDED 06/03/19 14 12:59PM BY DIANE TAMEZ MA, ANNOTATI ON/ALINE Solorzano MD [address] [facility] [address], [place], [address] , [facility] 5 14:20:56 Renewal of prescrip tion Completed 201309/19/2013 RECORDED 07/06/19 14 9:12AM BY DIANE TAMEZ MA, ANNOTATI ON/ADDJESSICA DUM Seth Solorzano MD [address] [facility] [address], [place], [address] , [facility] 5 14:20:57 Renewal of prescrip tion Completed 201310/16/2013 RECORDED 07/06/19 14 9:12AM BY DIANE TAMEZ MA, ANNOTATI ON/ALINE Solorzano MD [address] [facility] [address], [place], [address] , [facility] 5 14:20:57 Joint pain in ankle and foot Completed 201307/13/2014 IMPRESSI ON: WEVENT WITH UNIMPRES SICE UA LEVEL, SYMPTOMS RESPONDE D TO COLCHICI NE. WILL CONTINUE PRN AND CONSIDER FURTHER EVAL IF RECURREN T/WORSE. ; RECORDED 08/19/19 14 12:55PM BY SETH Phipps MD, OFFICE VISIT Seth Solorzano MD [address] [facility] [address], [place], [address] , [facility] 5 14:20:56 Asthma 959393388 Completed 201311/21/2019 Seth Solorzano MD [address] [facility] [address], [place], [address] , [facility] 0 11:16:59 Pure hypercho lesterol emia 672016228 Active 2013 Not Available [facility] 3 01:53:06 Essentia l hyperten dex 92908904 Active 2013 Not Available [facility] 3 01:53:07 Insomnia 876976848 Active 2013 Not Available [facility] 3 01:53:06 Fibromyo sitis 98022804 Completed 201312/08/2013 STORY: S/P RHEUM (REMI ) EVAL- PRESUMED PHYSIOLO GIC; IMPRESSI ON: PT ASYMPTOM ATIC, WILL RECHECK TO SEE IF LAB FINDINGS PERSISTA NT.; RECORDED 08/19/19 14 11:39AM BY ANASTASIIA ISSA MA, OFFICE VISIT Seth Solorzano MD [address] [facility] [address], [place], [address] , [facility] 5 14:20:56 Obesity 784756224 Completed 201307/21/2017 RECORDED 08/19/19 14 11:39AM BY ANASTASIIA ISSA MA, OFFICE VISIT Lilia winters, [facility] 0 16:49:59 Obstruct liudmila sleep apnea syndrome 25012227 Active 2013 14cm H2O with 2L O2 Seth Solorzano MD [address] [facility] [address], [place], [address] , [facility] 5 13:41:36 Allergic rhinitis 27271646 Active 2013 Not Available [facility] 3 01:53:07 Psychose xual dysfunct ion 539302836 Active 2013 Not Available [facility] 3 01:53:06 Vitamin D deficien cy 47655660 Active 2013 Not Available [facility] 3 01:53:06 Neck sprain 101359701 Completed 201310/16/2013 IMPRESSI ON: RECURREN T ISSUE IN CONTEXT OF CHRONICA LLY ELEVATE CREATINE KINASE. WILL ASK RHEUM FOR RE-EVALU ATION NOW THAT SYMPTOMS HAVE DEVELOPE D.; RECORDED 08/19/19 14 11:36AM BY ANASTASIIA ISSA MA, ANNOTATI ON/ADDEN DUM Seth Solorzano MD [address], [place], [address] , [facility] 5 14:20:57 Left ventricu lar hypertro phy 64354041 Active 2016 Not Available [facility] 3 01:53:07 Atrial paroxysm al tachycar victor m 841876033 Active 2017 Not Available [facility] 3 01:53:06 Arthriti s of hand 356736612 Completed 201711/21/2019 Seth Solorzano MD [address], [place], [address] , [facility] 0 11:17:38 Chronic atrial fibrilla tion 626655377 Active 2018 Not Available [facility] 3 01:53:07 Impingem ent syndrome of shoulder region 240911009 Completed 201801/31/2024 Seth Solorzano MD [address] [facility] [address], [place], [address] , [facility] 4 13:42:11 Gout 23912189 Active 2019 Kelly Zuluaga MA null, [facility] 5 09:23:33 Paroxysm al atrial fibrilla tion 175323473 Active 2019 Not Available [facility] 3 01:53:06 Divertic ular disease 801250367 Active 2019 Not Available [facility] 3 01:53:07 Polyp of colon 13343203 Active 2019 Not Available [facility] 3 01:53:07 Family history of malignan t neoplasm of prostate 255155034 Active 2019 Not Available [facility] 3 01:53:07 History of asthma 041294894 Active 2019 Not Available [facility] 3 01:53:06 Prediabe gisell 086310863 Completed 201901/15/2023 Seth Solorzano MD [address] [facility] [address], [place], [address] , [facility] 4 06:42:51 Prediabe gisell 417343112 Active 2019 Seth Solorzano MD [address] [facility] [address], [place], [address] , [facility] 4 06:42:51 Morbid obesity 987436420 Active 2019 Not Available [facility] 3 01:53:06 Dyspnea on exertion 87475763 Active 2020 Kelly Zuluaga MA [facility], [facility] 5 09:23:33 Diastoli c heart failure 622810001 Active 2020 Not Available [facility] 3 01:53:07 Body mass index 40+ - severely obese 149836042 Active 2020 Not Available [facility] 3 01:53:07 Pulmonar y arterial hyperten dex 23129454 Active 2021 Not Available [facility] 3 01:53:06 Adjustme nt disorder with mixed emotiona l features 42344067 Completed 202101/31/2024 Seth Solorzano MD [address] [facility] [address], [place], [address] , [facility] 4 13:42:14 Prostate specific antigen above referenc e range 513805971 Active 2022 Not Available [facility] 3 01:53:07 Cholecys titis 49038051 Completed 202212/24/2022 Seth Solorzano MD [address] [facility] [address], [place], [address] , [facility] 3 21:26:05 History of cholecys tectomy 153584674 Active 2022 Sourav Rivas PA-C [address], [place], [address] , [facility] 3 15:25:56 Carcinom a of prostate 666564673 Active 2022 [employer] 3+4, unfavoir able intermed iate risk s/p radiatio n and ADT Seth Solorzano MD [address] [facility] [address], [place], [address] , [facility] 4 22:28:57 Thyroid nodule 533975079 Completed 202310/24/2024 right, 1.5cm Seth Solorzano MD [address] [facility] [address], [place], [address] , [facility] 5 12:36:45 Mass of thyroid gland 053717387 Active 2023 Seth Solorzano MD [address], [place], [address] , [facility] 4 19:26:16 Pain of bilatera l knee joints 77714437190 4104 Active 2023 Seth Solorzano MD [address] [facility] [address], [place], [address] , [facility] 4 06:43:43 Hypoxemi a 381484105 Active 2023 Seth Solorzano MD [address], [place], [address] , [facility] 4 10:25:31 Moderate major depressi on, single episode 72601933 Active 2023 Seth Solorzano MD [address] [facility] [address], [place], [address] , [facility] 4 13:47:37 Pain of right shoulder joint 24928578794 573898 Active 2023 Seth Solorzano MD [address] [address], [place], [address] , [facility] 4 14:14:02 Alkaline phosphat ase above referenc e range 498966170 Active 2024 Seth Solorzano MD [address] [address], [place], [address] , [facility] 5 21:51:37 Paresthe bj of upper limb 15322998 Active 2024 Seth Solorzano MD [address] [address], [place], [address] , [facility] 5 11:01:17 Bilatera l carpal tunnel syndrome 23444147108 899054 Active 2024 Seth Solorzano MD [address] [address], [place], [address] , [facility] 5 11:01:39 Notes:Some problems listed i n Document: #[id number] could not be added to this patient's chart. Please review this document and add these problems to the patient's chart manually as needed. Problem Notes None recorded. Procedures Surgical History Date Name Laterality Status Provider Name and Address Organization Details Recorded Time 01/10/20 25 radionuclide imaging of perfusion of myocardium under exercise stress completed Seth Solorzano MD [address], [address], [facility] 01/12/2025 06:54:44 02/02/20 24 Echo transthoracic completed Seth Solorzano MD [address], [address], [facility] 02/15/2024 07:26:27 01/13/20 23 needle biopsy of prostate completed Seth Solorzano MD [address], [address], [facility] 01/13/2023 08:05:06 12/21/19 23 laparoscopic cholecystectomy completed Nathaly Lacy [facility] 12/21/2022 11:22:23 05/21/19 22 catheterization of right heart completed Seth Solorzano MD [address] [facility] [address] [facility], [place], [address], [facility] 05/27/2021 12:57:10 07/07/19 21 stress echocardiography completed Seth Solorzano MD [address] [facility] [address] [facility], [place], [address], [facility] 06/01/2021 15:25:10 01/10/20 20 complete repair of rotator cuff completed Seth Solorzano MD [address], [address], [facility] 03/26/2020 14:24:20 01/05/20 20 Echo transthoracic completed Seth Solorzano MD [address], [address], [facility] 01/11/2020 19:41:20 10/23/19 20 Colonoscopy completed Seth Solorzano MD [address], [address], [facility] 10/23/2019 19:27:05 10/05/19 20 Cardiac Surgery completed Lisa Carmona CPPM [facility] 10/17/2019 09:23:32 10/05/19 20 Compre ep eval abltj atr fib completed Taylor Gonsalez [facility] 10/17/2019 09:25:03 10/05/19 20 Intracardiac ephys 3d mapg completed Taylor Gonsalez [facility] 10/17/2019 09:25:54 03/22/19 20 Cardioversion electric ext completed Seth Solorzano MD [address] [address], [place], [address], [facility] 04/02/2019 16:11:20 02/15/20 19 Echo transthoracic completed Seth Solorzano MD [address] [facility] [address], [place], [address], [facility] 02/26/2019 20:33:15 11/04/19 17 Echo transthoracic completed Seth Solorzano MD [address] [facility], [place], [address], [facility] 11/17/2016 11:31:41 01/23/20 16 Echo transthoracic completed Seth Solorzano MD [address] [facility], [place], [address], [facility] 02/02/2016 23:09:48 01/27/20 12 Echo Transthoracic completed Seth Solorzano MD [address] [facility] [address] [facility], [place], [address], [facility] 09/26/2015 16:35:39 03/08/19 08 Appendectomy completed Alla Smith MA [facility] 11/25/2020 08:29:52 Appendectomy completed Alla Smith MA [facility] 11/25/2020 08:29:52 Knee Surgery completed Aye Herrera [facility] 11/21/2019 09:56:32 Imaging Results None recorded. Procedure Notes None recorded. Medical Equipment None Reported. Allergies Allergen ID Allergen Name Allergen Category Reaction Reaction Severity Criticality Documentation Date Start Date Code Code System Note Provider Name and Address Organization Details Recorded Time 41291 aspirin medicatio n wheezing moderate Not available 04/03/20192020 1191 [facility] 10:54:50 4472 aspirin medicatio n respirato ry distress Not available Not available 09/19/20132013 1191 RxNorm not from 81 mg dose, only form 325 mg aller gic react ion Not Available [facility] 3 01:53:04 Medications Name Sig Start Date Stop Date Status Note LastModified by Organization Details LastModified Time d3-1000 25 mcg (1000 ut) caps 08/09 completed Not Available Not Available Not Available vitamin d 19842 unit caps active Not Available Not Available No t Available amlodipin e besylate 5 mg tabs active Not Available Not Available No t Available metoprolo l succinate er 25 mg tb24 active Not Available Not Available Not Available lisinopri l 40 mg tabs active Not Available Not Available Not Available tramadol hcl 50 mg tabs active Not Available Not Available Not Available cyclobenz aprine 10 mg tablet Take 1 tablet every 8 hours by oral route as needed for 4 days. 11/10 completed Not Available Not Available Not Available amoxicill in 500 mg capsule TAKE 1 CAPSULE BY MOUTH THREE TIMES DAILY UNTIL GONE 10/07 completed Not Available Not Available Not Available furosemid e 40 mg tablet TAKE 1 TABLET BY MOUTH TWICE DAILY 08/11 completed Not Available Not Available Not Available acetamino phen 325 mg tablet TAKE 1 TABLET BY MOUTH EVERY 6 HOURS NEEDED FOR PAIN 10/07 completed Not Available Not Available Not Available prednison e 10 mg tablet 09/18 completed Not Available Not Available Not Available atorvasta tin 20 mg tablet TAKE 1 TABLET BY MOUTH EVERY DAY 2024 active Not Available Not Available Not Avai lable torsemide 20 mg tablet Take 2 tablets every day by oral route for 90 days. 10/20 completed Not Available Not Available Not Available trazodone 50 mg tablet Take 1 tablet as needed by oral route at bedtime for 30 days. active Not Available Not Available No t Available atorvasta tin 10 mg tablet TAKE 1 TABLET BY MOUTH EVERY DAY active Not Available Not Available No t Available amiodaron e 200 mg tablet Take 1 tablet every day by oral route. 11/20 completed Not Available Not Available Not Available meloxicam 15 mg tablet TAKE 1 TABLET BY MOUTH EVERY DAY NEEDED FOR RIGHT SHOULDER PAIN 2024 active Not Available Not Available Not Avai lable metoprolo l succinate ER 200 mg tablet,ex tended release 24 hr TAKE 1 TABLET BY MOUTH DAILY active Not Available Not Available No t Available lisinopri l 20 mg tablet Take 1 tablet every day by oral route. 04/25 completed 2.10.20- hold med Not Available Not Available Not Available prednison e 20 mg tablet TK 2 T PO D FOR 5 DAYS 09/18 completed Not Available Not Available Not Available torsemide 10 mg tablet TAKE 3 TABLETS BY MOUTH TWICE DAILY active Not Available Not Available No t Available amlodipin e 5 mg tablet Take 1 tablet every day by oral route for 90 days. active Not Available Not Available No t Available allopurin ol 100 mg tablet TAKE 2 TABLETS BY MOUTH EVERY DAY 2024 active Not Available Not Available Not Avai lable ciproflox acin 500 mg tablet Take 1 tablet every 12 hours by oral route for 14 days. 06/05 completed Not Available Not Available Not Available aspirin 81 mg tablet,de layed release TAKE 1 TABLET BY MOUTH EVERY DAY DIRECTED 04/03 completed Not Available Not Available Not Available acetamino phen 500 mg tablet TAKE 2 TABLETS BY MOUTH EVERY 8 HOURS 01/14 completed Not Available Not Available Not Available spironola ctone 25 mg tablet Take 1 tablet twice a day by oral route. 01/30 completed Not Available Not Available Not Available amoxicill in 500 mg tablet TAKE 1 TABLET BY MOUTH THREE TIMES DAILY UNTIL GONE 03/26 completed Not Available Not Available Not Available terbinafi ne HCl 250 mg tablet TAKE 1 TABLET BY MOUTH DAILY 06/05 completed Not Available Not Available Not Available furosemid e 80 mg tablet Take 40 mg every 24 hours by oral route. 08/11 completed Not Available Not Available Not Available amlodipin e 10 mg tablet Take 1 tablet by mouth daily 11/10 completed Not Available Not Available Not Available prednison e 50 mg tablet Take 1 tablet every day by oral route. 08/02 completed Not Available Not Available Not Available metoprolo l tartrate 50 mg tablet TAKE 1 TABLET BY MOUTH TWICE DAILY DIRECTED 03/17 completed Not Available Not Available Not Available docusate sodium 100 mg capsule TAKE 1 CAPSULE BY MOUTH EVERY DAY 2024 active Not Available Not Available Not Avai lable lisinopri l 20 mg-hydroc hlorothia zide 25 mg tablet TAKE 1 TABLET BY MOUTH EVERY DAY DIRECTED 03/17 completed Not Available Not Available Not Available monteluka st 10 mg tablet TAKE 1 TABLET BY MOUTH EVERY DAY 11/10 completed Not Available Not Available Not Available hydrochlo rothiazid e 25 mg tablet DAILY 03/26 completed RECORDED 04/06/19 13 2:51PM BY SETH Phipps MD, MEDICATI ON AUTO-KARLA CTIVATIO N; Not Available Not Available Not Available furosemid e 20 mg tablet Take 3 tablets every day by oral route for 90 days. 04/15 completed Not Available Not Available Not Available metoprolo l succinate ER 25 mg tablet,ex tended release 24 hr Take 1 tablet every day by oral route. 03/17 completed Not Available Not Available Not Available ergocalci ferol (vitamin D2) 1,250 mcg (50,000 unit) capsule TAKE 1 CAPSULE BY MOUTH EVERY WEEK 11/10 completed Not Available Not Available Not Available Viagra 100 mg tablet Take 1 tablet every day by oral route as needed. 04/03 completed Not Available Not Available Not Available diazepam 10 mg tablet TAKE 30 MINSPRIO R TO PROCEDUR E 01/14 completed Not Available Not Available Not Available ibuprofen 600 mg tablet DAILY NEEDED WITH FOOD active Not Available Not Available No t Available colchicin e 0.6 mg tablet LUCIA, THEN 1 TABLET DAILY NEEDED FOR TOE PAIN 2013 active RECORDED 08/19/19 14 12:03PM BY SETH Phipps MD, OFFICE VISIT; Not Available Not Available Not Available lisinopri l 40 mg tablet TAKE 1 TABLET BY MOUTH DAILY 11/10 completed Not Available Not Available Not Available fluticaso ne propionat e 50 mcg/actua tion nasal spray,katlyn [place] 2 sprays every day by intranas al route. 11/10 completed Not Available Not Available Not Available clotrimaz ole 1 % topical cream Apply 1 applicat ion every day by topical route for 30 days. 07/28 completed Not Available Not Available Not Available loratadin e 10 mg tablet Take 1 tablet every day by oral route for 30 days. 11/10 completed Not Available Not Available Not Available spironola ctone 50 mg tablet Take 1 tablet twice a day by oral route for 90 days. active Not Available Not Available No t Available oxycodone 5 mg tablet TAKE 1 TO 2 TABLETS BY MOUTH EVERY 4 TO 6 HOURS NEEDED FOR SEVERE PAIN OR PAIN 01/14 completed Not Available Not Available Not Available Vitamin D 50,000 unit capsule DAILY active RECORDED 12/02/19 12 11:36AM BY DIANE TAMEZ MA, ANNOTATI ON/ALINE DUM; Not Available Not Available Not Available Vitamin D3 25 mcg (1,000 unit) capsule TAKE 1 CAPSULE EVERY DAY active Not Available Not Available No t Available tadalafil 20 mg tablet Take 1 tablet every day by oral route as needed for 30 days. 2023 active 12/01/22 Refills to [facility] Not Available Not Available Not Available phenyleph rine-acet aminophen 5 mg-325 mg tablet TWO TIMES DAILY 05/20 completed RECORDED 05/21/19 13 11:10AM BY SETH Phipps MD, OFFICE VISIT; Not Available Not Available Not Available aspirin 81 mg 1 po qd 07/20 completed Not Available Not Available Not Available metoprolo l tartrate 50 mg 1 po bid 07/21 completed Not Available Not Available Not Available blood pressure monitor DAILY MONITORI NG OF BP FOR HTN 12/30 completed RECORDED 04/28/19 14 11:42AM BY DIANE TAMEZ MA, MEDICATI ON AUTO-KARLA CTIVATIO N; Not Available Not Available Not Available cholecalc iferol (vitamin D3) 25 mcg (1,000 unit) tablet Take 1 tablet every day by oral route. 11/27 completed Not Available Not Available Not Available hydrochlo rothiazid e 12.5 mg tablet TAKE 1 TABLET BY MOUTH DAILY active Not Available Not Available No t Available diclofena c 1 % topical gel Apply 1 g twice a day by topical route for 7 days. 07/28 completed Not Available Not Available Not Available DOK 100 mg tablet TAKE 1 TABLET BY MOUTH TWICE DAILY NEEDED FOR CONSTIPA TION 01/14 completed Not Available Not Available Not Available GaviLyte- G 236 gram-22.7 4 gram-6.74 gram-5.86 gram oral solution MIX AND DRINK 8 OZ PO DIRECTED 09/18 completed Not Available Not Available Not Available testoster one 2 mg/24 hour transderm al 24 hour patch DAILY active RECORDED 12/02/19 12 11:36AM BY DIANE TAMEZ MA, ANNOTATI ON/ADDEN DUM; Not Available Not Available Not Available Eliquis 5 mg tablet TAKE 1 TABLET BY MOUTH TWICE DAILY active Not Available Not Available No t Available Kapspargo Sprinkle 200 mg capsule,e xtended release Take every 24 hours by oral route. 08/11 completed Not Available Not Available Not Available COVID-19 test specimen collectio n TEST DIRECTED TODAY 08/11 completed Not Available Not Available Not Available torsemide 40 mg tablet Take 1 tablet every day by oral route. 09/23 completed INSURANC E DOES NOT COVER 1 TABELETS . WILL COVER 2 20MG TABLETS Not Available Not Available Not Available Vitals Date Recorded Body height Body mass index (BMI) Body weight Heart rate Oxygen saturation Oxygen saturation in Arterial blood by Pulse oximetry Body temperature Systolic And Diastolic Provider Name and Address Organization Details Last Updated DateTime 5 184.79 cm 41.7 kg/m2 020479 g 67 /min 95 % 95 % 96.8 [degF] 122/67 mm[Hg] Xiao Payton [facility] 5 10:36:00 Date Recorded Body height Body mass index (BMI) Body weight Heart rate Oxygen saturation Oxygen saturation in Arterial blood by Pulse oximetry Body temperature Systolic And Diastolic Provider Name and Address Organization Details Last Updated DateTime 4 184.79 cm 41.5 kg/m2 980917. 62 g 66 /min 96 % 96 % 97.9 [degF] 119/72 mm[Hg] Arely Eli LPN [facility] 4 09:57:01 Date Recorded Body height Body mass index (BMI) Body weight Heart rate Oxygen saturation Oxygen saturation in Arterial blood by Pulse oximetry Body temperature Systolic And Diastolic Provider Name and Address Organization Details Last Updated DateTime 5 184.79 cm 40.9 kg/m2 011433. 45 g 57 /min 96 % 96 % 97.3 [degF] 117/73 mm[Hg] Kelly Zuluaga MA [facility] 5 09:27:31 Date Recorded Body height Body mass index (BMI) Body weight Heart rate Oxygen saturation Oxygen saturation in Arterial blood by Pulse oximetry Body temperature Systolic And Diastolic Provider Name and Address Organization Details Last Updated DateTime 5 184.79 cm 40.2 kg/m2 441298. 49 g 68 /min 95 % 95 % 97.5 [degF] 117/74 mm[Hg] Kelly Zuluaga MA [facility] 5 11:42:14 Date Recorded Body height Body mass index (BMI) Body weight Heart rate Oxygen saturation Oxygen saturation in Arterial blood by Pulse oximetry Body temperature Systolic And Diastolic Provider Name and Address Organization Details Last Updated DateTime 4 184.79 cm 40.6 kg/m2 993112. 27 g 60 /min 97 % 97 % 98.2 [degF] 117/68 mm[Hg] Xiao Payton MA [facility] 4 13:05:17 Social History Question Answer Notes LastModified by Organizat ion Details LastModified Time Tobacco Smoking Status Never Smoker Not Available [facility] 01/09/2020 03:36:40 Do You Have An Advance Directive? Yes HCP/ Girlfriend-Caitlin , Mother-Brandie chase Information not available 11/27/2021 Is Blood Transfusion Acceptable In An Emergency? Yes [id number] Information not available 01/09/2020 What Is Your Level Of Caffeine Consumption? Occasional Tea Information not available 12/01/2022 How Much Tobacco Do You Chew? None [id number] Information not available 01/09/2020 In The 14 Days Before Symptom Onset, Have You Had Close Contact With A Laboratory-conf irmed COVID-19 While That Case Was Ill? No Information not available 11/27/2021 In The 14 Days Before Symptom Onset, Have You Had Close Contact With A Person Who Is Under Investigation For COVID-19 While That Person Was Ill? No Information not available 11/27/2021 Have You Been To An Area Known To Be High Risk For COVID-19? No Information not available 11/27/2021 What Type Of Diet Are You Following? SPECIFIC Low Sodium, Eating Better, Fruits And Veggies [id number] Information not available 01/09/2020 Which Illicit Or Recreational Drugs Have You Used? None [id number] Information not available 01/09/2020 Live Alone Or With Others? With Others Girlfriend (Gabrielle Solo),2 Dtr, 2 Sons And 3 Grandchildren Information not available 12/01/2022 Do You Take Precautions To Prevent Distracted Driving? Yes [email or web address] Information not available 02/21/2015 How Often Do You Need To Have Someone Help You When You Read Instructions, Pamphlets, Or Other Written Material From Your Doctor Or Pharmacy? Never Information not available 07/21/2017 Have You Served In The ? No Information not available 07/18/2019 Have You Or Anyone In Your Household Had Any Of The Following Symptoms In The Last 14 Days: Sore Throat, Cough, Chills, Body Aches For Unknown Reasons, Shortness Of Breath For Unknown Reasons, Loss Of Smell, Loss Of Taste, Fever At Or Greater Than 100 Degrees Fahrenheit? No Information not available 09/19/2019 Are You Or Anyone In Your Household A Health Care Provider Or Emergency Responder? No Information not available 09/19/2019 To The Best Of Your Knowledge Have You Been In Close Proximity To Any Individual Who Tested Positive For COVID-19? No Information not available 09/19/2019 *AWV ONLY* Are You Presently Prescribed Opioid Medication By PCP Or Specialist? If YES -Provider Assess The Benefit For Other, Non-opioid Pain Therapies Instead, Even If The Patient Does Not Have OUD But Is Possibly At Risk. No Information not available 11/21/2019 Have You Recently Traveled To A COVID-19 High Risk Area Or Gathering In The Last 10 Days? No Information not available 03/26/2020 What Was The Date Of Your Most Recent Tobacco Screening? 06/05/2024 Information not available 06/05/2024 How Many Children Do You Have? 2 Son And Dtr [id number] Information not available 01/09/2020 Do You Use Protection During Sex? Always [id number] Information not available 01/09/2020 Do You Use Your Seat Belt Or Car Seat Routinely? No Information not available 11/25/2020 Seat Belts Used Routinely Yes Information not available 11/27/2021 Are You Sexually Active? Yes [id number] Information not available 01/09/2020 Smoke Alarm In Home Yes Information not available 11/27/2021 Do You Have Smoke And Carbon Monoxide Detectors In Your Home? Yes Information not available 11/25/2020 At What Age Did You Start Smoking Tobacco? 1 [id number] Information not available 01/09/2020 Are You Passively Exposed To Smoke? Yes Information not available 12/08/2013 How Much Tobacco Do You Smoke? No [id number] Information not available 01/09/2020 General Stress Level Medium Information not available 11/27/2021 Do You Use Sunscreen Routinely? Yes [id number] Information not available 01/09/2020 How Many Years Have You Smoked Tobacco? 0 [id number] Information not available 01/09/2020 Sex: Unknown Functional Status Question Answer Note LastModified by Organizat ion Details LastModified Time Do you use any illicit or recreational drugs? No Information not available 11/27/2021 Do you or have you ever used any other forms of tobacco or nicotine? No Information not available 11/27/2021 What is your level of alcohol consumption? Occasional [id number] Information not available 01/09/2020 Do you or have you ever used smokeless tobacco? Never used smokeless tobacco [id number] Information not available 01/09/2020 Are you currently employed? No disabled [id number] Information not available 01/09/2020 Are you able to walk independently without assistance or assistive devices? YESWOREST Information not available 11/27/2021 Are you able to care for yourself independently? Yes [id number] Information not available 01/09/2020 Do you or have you ever used e-cigarettes or vape? Never used electronic cigarettes Information not available 11/27/2021 What is your exercise level? Moderate Information not available 11/25/2020 Mental Status None recorded. Family History Relationship Description Onset Age of this Age Resolved Age Notes LastModified by Organization Details LastModified Time Father Malignant neoplastic disease prosta te Not available 11/27/2021 08:37:54 Father Hypertensive disorder abolcun Not available 2015 10:31:38 Father Pneumonia 72 Not available 11/27/2021 08:37:54 Mother Hypertensive disorder abolcun Not available 2015 10:31:38 Brother Well adult Not availabl e 11/27/2021 08:37:54 Brother Well adult Not availabl e 11/27/2021 08:37:54 Sister Well adult Not available 11/27/2021 08:37:54 Son Well adult rena Not avail able 11/27/2021 09:03:41 Daughter Well adult rena Not edwin ilable 11/27/2021 09:03:47 Medical History Condition Response Coronary Artery Disease N Other N Gout Y Kidney Stones N Blood Diseases N Hyperthyroidism N Breast Cancer N mrsa exposure N COPD N Depression Y Lung Disease N Hypothyroidism N Defects or Inherited Disease N Developmental or Behavioral Disorders N Breast Problem N Anesthesia Complications N Headaches/Migraines N Varicose Veins N Anxiety Disorder N Muscle, Joint, or Bone Problems N Obesity Y Vision or Eye Problems N Arthritis N Head Injury/Concussion N Polyps N Infertility N Mental Disorder N Congenital Anomalies N Acid Reflux (GERD) N Cancer N Stroke N ADHD N Endometriosis N High Cholesterol Y Liver Disease N Fibromyalgia N Headaches N Kidney Disease N Heart Problems Y Ear or Hearing Problems N Hospitalizations N Thyroid Problems N GI Problems N Developmental Delay N Acne N Skin Problems N Eating Disorder N Anemia N Constipation N Bladder Problems N Mental Illness N Ovarian Cancer N Diabetes N Bedwetting N Blood Transfusions N Seizures/Epilepsy N Heart Problems/Murmur N Tuberculosis N AIDS/HIV N Congestive Heart Failure (CHF) N Eczema N Diverticulitis N Abuse/Domestic Violence N Asthma Y Allergies Y Reflux/GERD N Hepatitis N Heart Disease N Pulmonary Embolism N Hypertension Y Osteoporosis N Chicken Pox N Autism Spectrum Disorder (ASD) N Immunizations Vaccine Type Date Status Note Provider Name and Address Organization Details Recorded Time pneumococcal polysaccharide PPV23 017 completed Not Available [facility] 12/15/2022 01:53:07 pneumococcal polysaccharide PPV23 020 completed Not Available [facility] 12/15/2022 01:53:07 COVID-19, mRNA, LNP-S, PF, 30 mcg/0.3 mL dose 021 completed Not Available [facility] 12/15/2022 01:53:07 COVID-19, mRNA, LNP-S, PF, 30 mcg/0.3 mL dose 021 completed Not Available [facility] 12/15/2022 01:53:07 Influenza, split virus, quadrivalent, PF 020 completed Not Available [facility] 01:53:07 COVID-19, mRNA, LNP-S, PF, 30 mcg/0.3 mL dose 021 completed Not Available [facility] 12/15/2022 01:53:07 Influenza, split virus, trivalent, PF 014 completed Not Available [facility] 12/15/2022 01:53:07 Influenza, split virus, quadrivalent, PF 015 completed Not Available [facility] 12/15/2022 01:53:07 Influenza, split virus, quadrivalent, PF 018 completed Not Available [facility] 12/15/2022 01:53:07 Influenza, split virus, quadrivalent, PF 020 completed Not Available [facility] 12/15/2022 01:53:08 Influenza, split virus, quadrivalent, PF 016 completed Not Available [facility] 12/15/2022 01:53:08 COVID-19, mRNA, LNP-S, bivalent, PF, 30 mcg/0.3 mL dose 022 completed Not Available [facility] 12/15/2022 01:53:07 Td (adult), 2 Lf tetanus toxoid, preservative free, adsorbed 005 completed Not Available [facility] 12/15/2022 01:53:07 Tdap 012 completed Not Available [facility] 12/15/2022 01:53:07 Influenza, split virus, trivalent, preservative 012 completed Not Available [facility] 12/15/2022 01:53:07 influenza, seasonal, intradermal, preservative free 013 completed Not Available [facility] 12/15/2022 01:53:07 Td (adult), 2 Lf tetanus toxoid, preservative free, adsorbed 022 completed RALPH Deutsch MA - [facility] 11/27/2021 13:20:56 Influenza, split virus, quadrivalent, PF 022 completed Diane Tamez MA null, [facility] 11/27/2021 13:22:40 Influenza, split virus, quadrivalent, PF 023 completed Seth Solorzano MD [address] [facility] [address], [place], [address], [facility] 12/01/2022 10:22:09 Influenza, split virus, trivalent, PF 024 cancelled patient objection Seth Solorzano MD [address] [facility] [address], [place], [address], [facility] 01/31/2024 14:10:48 Influenza, split virus, trivalent, PF 025 completed RALPH Ruiz, [facility] 12/11/2024 11:43:14 Past Encounters Encounter ID Performer Location Encounter Start Date Encounter Closed Date Diagnosis/Indication Diagnosis SNOMED-CT Code Diagnosis ICD10 Code Diagnosis IMO Codes Diagnosis Note [id number] [facility] [facility] [address] [facility] [facility] [place] [address] 12/02/2011 00:00:00 [id number] autoEComm erce [address] [facility] [place] [address] 12/25/2011 00:00:00 [id number] auto[employer]Comm erce [address] [facility] [place] [address] 01/05/2012 00:00:00 [id number] auto[employer]Comm erce [address] [facility] [place] [address] 02/25/2012 00:00:00 [id number] autoEComm erce [address] [facility] [place] [address] 04/18/2012 00:00:00 [id number] auto[employer] erce [address] [facility] [place] [address] 05/20/2012 00:00:00 [id number] auto[employer] erce [address] [place] [address] 08/25/2012 00:00:00 [id number] [address] [address] [place] [address] 12/02/2012 00:00:00 [id number] [place] [address] 12/22/2012 00:00:00 [id number] auto[employer]Comm erce [address] [place] [address] 04/28/2013 00:00:00 [id number] [address] [address] [place] [address] 06/02/2013 00:00:00 [id number] auto[employer]Comm erce [address] [facility] [place] [address] 07/05/2013 00:00:00 [id number] auto[employer]Comm erce [address] [facility] [place] [address] 08/18/2013 00:00:00 [id number] Seth Solorzano MD Main Office [address] [facility] [address] [place], [place] [address] 12/08/2013 12:52:04 12/08/2013 14:00:06 Adult health examination [id number] WIll update immunizati on status and screen based on risk factors. Regular dental and ophtho care advised as well as sunscreen and seatbelt use. Distracted driving discussed. Advanc edirective s discussed. Needs infl uenza immunization [id number] Essential hypertension 96704204 Obesity 594836531 Obstructiv e sleep apnea syndrome 54304678 Vitamin D deficiency 24211938 Insomnia 442535424 [id number] Seth Solorzano MD Main Office [address] [facility] [address] [place] [address] 03/07/2014 10:20:49 03/07/2014 11:19:05 Pain of wrist region 71290334 Resolvi ng likely tendon vs muscle strain. Will continue splint at night and supportive tx otherwise. OK to RTW. Call if pain persists/w orsens as ortho referral would be next step. Essential hypertension 13764470 Psychosexu al dysfunction 034324602 Effective in the past. Refill requested. [id number] Seth Solorzano MD Main Office [address] [facility] [address] [place] [address] 07/06/2014 08:17:06 07/06/2014 09:36:51 Essential hypertension 15932844 Well controlled , continue other medication s for now. Dyspnea on exertion 75533398 Likely related to new onset atrial fibrillati on. Will screen for evidence of CHF or ischemia. If abnormal would warrant acute evaluation . Body mass index 30+ - obesity 363983680 Atrial fibrillation 64553554 New onset, potentiall y acute issue. Possibly paroxysmal . Pt had syncopal event on 2011 which prompted ECG, holter and ECHO that were unremarkab le except for mild biatrial enlargemen t. Certainly has risk factors predisposi ng him to this. Will arrange f/u ECHO and now cardiology consult. Pt is allergic to aspirin and CHADs score of 1 makes him lower risk. Will defer anticoagul ation until evalution is comlete and diagnosis confirmed. Will focus on rate control for now. [id number] Seth Solorzano MD Main Office [address] [facility] [address] [place] [address] 07/13/2014 08:58:22 07/13/2014 09:54:20 Atrial fibrillation 03555182 Appears paroxysmal . Pt had syncopal event on 2011 which prompted ECG, holter and ECHO that were unremarkab le except for mild biatrial enlargemen t. Certainly has risk factors predisposi ng him to this. ECHO and cardiology consult are pending. Pt is allergic to aspirin and CHADs score of 1 makes him lower risk. Will hold BB for now, and arrange holter to try and capture recurrent events. Insomnia 628007166 Obstructiv e sleep apnea syndrome 83453532 [id number] Seth Solorzano MD Main Office [address] [facility] [address] [place] [address] 07/16/2014 08:21:08 07/16/2014 09:57:55 Irregular heart beat [id number] Seth Solorzano MD Main Office [address] [address] [place] [address] 07/17/2014 08:36:36 07/17/2014 09:06:16 [id number] Seth Solorzano MD Main Office [address] [address] [place] [address] 11/14/2014 12:38:13 11/14/2014 13:55:10 Needs influenza immunization 436114406 Essential hypertension 44423772 Asymptomat ic but poor control secondary to compliance . Will resume CCB and ACEI lucia. Has apt with cardiology in 1 week, I will re-evaluat e his pressure back on meds, in 4 weeks. Atrial fib rillation and flutter 980032661 Pt did not start BB as prescribed by cards. Rx sent. Obstructiv e sleep apnea syndrome 10517326 Pt reports intermitte nt compliance with this as well. Advised him to be more consistent to help with energy levels and hope to minimize CV and pulmonary disease risk. Vitamin D deficiency 12695677 On high dose supplement , will reassess dosing effectiven ess. [id number] Seth Solorzano MD Main Office [address] [address] [place], [place] [address] 02/21/2015 13:33:10 02/21/2015 14:53:52 Adult health examination 696561104 Z00.00 Immunizati on status utd, will screen based on risk factors. Regular dental and ophtho care advised as well as sunscreen and seatbelt use. Distracted driving discussed. Advance directives discussed. Body mass index 40+ - severely obese 226666496 Z68.41 Excessive thirst 1694745 7 R63.1 Screen for DI. Essential hypertension 06321057 I10 Obstructiv e sleep apnea syndrome 96158954 G47.33 Pt reports intermitte nt compliance with this as well. Advised him to be more consistent to help with energy levels and hope to minimize CV and pulmonary disease risk. Vitamin D deficiency 347 62066 E55.9 On high dose supplement , will reassess dosing effectiven ess. Pure hypercholesterolemia 702035931 E78.0 Dyspnea on exertion 6084 5006 R06.09 Stable, likely weight related. Advised to call if persistent /worse or associated with chest pain. [id number] Seth Solorzano MD Main Office [address] [facility] [address] [place] [address] 05/23/2015 13:44:17 05/23/2015 14:30:18 Essential hypertension 44216466 I10 Well controlled on recheck. Continue current regimen. Increased frequency of urination 874684394 R35.0 Will see if u/s shows outflow obstructio n. Consider trial of terazosin is so. Atrial fib rillation and flutter 365172821 I48.0 No evidence for recurrence on BB. Will monitor clinically and refer back to cards if recurs. Allergic rhinitis 534757 04 J30.9 Call inb/worse Screening for malignant neoplasm of colon 636130917 Z12.11 [id number] Seth Solorzano MD Main Office [address] [facility] [address] [place] [address] 09/25/2015 10:17:49 09/25/2015 11:30:13 Essential hypertension 19806227 I10 Not well controlled but weight gain and BB non compliance are likely contributi ng factors. Will resume BB. Pt advised to limit Na and calorie intake with increasing physical activity. Atrial fib rillation and flutter 940254847 I48.0 No evidence for recurrence on BB. Will monitor clinically and refer back to cards if recurs. Asthma 176009048 J45.90 9 Vitamin D deficiency 347 18790 E55.9 Was on high dose supplement , but ran out. Will resume and reassess dosing effectiven ess. Dyspnea 503535397 R06.02 ? secondary to deconditio arianna/wt gain vs asthma vs CHF. Depending on lab results and symptom reassessme nt with better BP control further evaluation may be required. [id number] Seth Solorzano MD Main Office [address] [facility] [address] [facility] [address] 10/21/2015 10:54:06 10/21/2015 11:27:47 Dyspnea 267086473 R06.02 ? secondary to deconditio arianna/wt gain vs asthma vs CHF. Some improvemen t with addition of singulair. Will go for labs today. Essential hypertension 93736605 I10 Not well controlled but weight gain and amlodipine non compliance are likely contributi ng factors. Will resume amlodipine . Pt advised to limit Na and calorie intake with increasing physical activity. [id number] Seth Solorzano MD Main Office [address] [place] [address] 11/04/2015 11:11:26 11/04/2015 12:17:31 Essential hypertension 20896639 I10 Improving, will titrate amlodipine dose further, to goal BP control. Dyspnea 748156058 R06.02 likely secondary to deconditio arianna vs asthma vs diastolic dysfunctio n. Will check CXR and if persistent with adequate BP control will consider PFT's and f/u ECHO. [id number] Seth Solorzano MD Main Office [address] [place] [address] 11/28/2015 10:41:58 11/28/2015 11:45:28 Pure hypercholesterolemia 027797205 E78.0 Essential hypertension 68415691 I10 Improving, will titrate amlodipine dose further, to goal BP control. Dyspnea on exertion 6084 5006 R06.09 Better, but now need to suspect afib as contributo r. Needs infl uenza immunization 155865790 Z23 Obstructiv e sleep apnea syndrome 55575799 G47.33 Pt reports intermitte nt compliance with this as well. Advised him to be more consistent to help with energy levels and hope to minimize CV and pulmonary disease risk. Atrial tachycardia 99853 6006 I47.1 Atrial fibrillation 4943 6004 I48.91 Appears paroxysmal and rate controlled . Pt had syncopal event on 2011 which prompted ECG, holter and ECHO that were unremarkab le except for mild biatrial enlargemen t. Has had echo and cardiology consult in the past, will reassess echo. Pt is allergic to aspirin and CHADs score of 1 makes him lower risk. [id number] Seth Solorzano MD Main Office [address] [place] [address] 01/09/2016 09:58:01 01/09/2016 10:53:33 Atrial fibrillation and flutter 502147196 I48.0 Still irregular on exam. CHADs score of one does not justify anticoagul ation at this time. Will try again to book echo. Await cardiology input. Essential hypertension 22998813 I10 Well controlled . Continue current regimen. Obstructiv e sleep apnea syndrome 93276362 G47.33 Pt reports intermitte nt compliance with this as well. Pt will go to sleep medicine today to schedule a follow up. [id number] Sourav Rivas PA-C Main Office [address] [facility] [address] [place] [address] 11/10/2016 12:52:45 11/10/2016 13:59:00 Chest pain 52601996 R07.9 cp resolved, and nl stress test. pt admitted to 8.27 - 8. for cp and hypertensi ve urgency - had cardiac w/u - rev. card consult note, will attempt to get dc summary. Essential hypertension 05877323 I10 stable, cont meds as dir cont to f/u c PVC as an outpt had nl bmp on 10.31.16 Dyspnea on exertion 6084 5006 R06.09 better lately, had nl stress test, ? if endurance / obesity related Body mass index 40+ - severely obese 666724277 Z68.41 Obstructiv e sleep apnea syndrome 33553576 G47.33 cont doreen, f/u c sleep specialist Atrial fib rillation and flutter 607388566 I48.91 in sinus rhythm Morbid obesity 651552486 E66.01 [id number] Sourav Rivas PA-C Main Office [address] [facility] [address] [place] [address] 11/18/2016 13:36:47 11/18/2016 15:24:27 Pain in left knee 8351172969 27364 M25.562 most likely d/t PFS, and degree of pain has raised his BP as well - had NL bp here last week - pending see card Essential hypertension 34388932 I10 increased d/t pain, cont meds as dir pending see PVC as an outpt had nl bmp on 10.31.16 Patellofem oral stress syndrome 194241994 M22.2X9 [id number] Seth Solorzano MD Main Office [address] [facility] [address] [place] [address] 07/21/2017 11:07:17 07/21/2017 12:14:28 Adult health examination 130374128 Z00.00 Immunizati on status utd, flu advised in the Fall. Will screen based on risk factors. Regular dental and ophtho care advised as well as sunscreen and seat belt use. Distracted driving discussed. Advance directives discussed. Morbid obesity 734386015 E66.01 Atrial par oxysmal tachycardia 449037185 I47.1 Due for cardiology follow up which he will arrange. Pure hypercholesterolemia 894154012 E78.00 Statin therapy recommende d/offered based on CVD risk score but pt declines and wants to see what impact TLC has on his levels. Psychosexu al dysfunction 102524685 F52.9 Effective in the past. Refill requested. Vitamin D deficiency 347 28975 E55.9 Level on the low end of normal. Advised to start low dose daily supplement year round. Essential hypertension 01318404 I10 Well controlled . Continue current regimen. Obstructiv e sleep apnea syndrome 97278469 G47.33 Pt reports intermitte nt compliance with this as well. Pt will go to sleep medicine today to schedule a follow up. Screening for malignant neoplasm of colon 267601801 Z12.11 Overdue for screening. Did not discuss during visit but will forward pt a copy of GI contact info. Will f/u in 4 months. Body mass index 40+ - severely obese 263768385 E66.01 Z68.41 [id number] Seth Solorzano MD Main Office [address] [facility] [address] [facility] [place] [address] 11/22/2017 08:18:49 11/22/2017 08:56:13 Essential hypertension 11651350 I10 Well controlled . Continue current regimen. Needs infl uenza immunization 878015847 Z23 Atrial par oxysmal tachycardia 448094929 I47.1 Establishe d with cards. Rate well controlled . On ASA. Allergic rhinitis 222136 04 J30.9 Call inb/worse. ICS technique discussed. Bursitis of shoulder 239 771457 M75.50 vs tendinitis . WIll see if NSAID and home PT helps. If not will need ortho eval. [id number] Seth Solorzano MD Main Office [address] [facility] [address] [facility] [place] [address] 11/10/2018 15:17:31 11/10/2018 16:13:05 Essential hypertension 44729441 I10 Well controlled . Continue current regimen. Overdue for labs. Atrial par oxysmal tachycardia 953001427 I47.1 Establishe d with cards. Rate well controlled . On ASA. Need to re establish with cardiology to see if mgmt options have changed. Vitamin D deficiency 347 77886 E55.9 Level on the low end of normal. Advised to start low dose daily supplement year round. Pain of le ft shoulder joint 0269596260 9826518 M25.512 Chronic issue. Likely ACJ pathology. Will ask ortho for help. Chronic at rial fibrillation 170590661 I48.2 Based on CHADS score of 1 will continue with ASA for risk reduction at this time. [id number] Seth Solorzano MD Main Office [address] [place] [address] 03/17/2019 14:06:01 03/17/2019 15:27:10 Adult health examination 775278928 Z00.00 Immunizati on status utd, flu advised in the Fall. Will screen based on risk factors. Regular dental and ophtho care advised as well as sunscreen and seat belt use. Distracted driving discussed. Advance directives discussed. Morbid obesity 523428920 E66.01 Atrial par oxysmal tachycardia 989234338 I47.1 Establishe d with cards. Rate not well controlled . On ASA. Body mass index 40+ - severely obese 713969674 E66.01 Z68.41 Chronic at rial fibrillation 224079186 I48.21 Suspect this is chronic. Will request recent holter report that was done by cardiology per patient. Left sided chest pain 28 7623509 R07.9 Pt presented for routine physical but having left sided chest pressure with edema. Significan t concern for ACS or at least decompensa chapito afib with RVR. EMS [place] [facility] [place] Needs infl uenza immunization 470911565 Z23 [id number] Seth Solorzano MD Main Office [address] [place] [address] 04/03/2019 15:08:52 04/03/2019 16:48:47 Congestive heart failure 96051006 I50.9 c reduced EF - pt has re-gained 8 lbs since dc - ? d/t pred use for gout and/or fluid - pt states has been on lasix 20mg bid lately - advised him to take 2 tabs of furosemide 20mg in am and 1 tab at 2 pm advised low salt diet, cont fluid restrictio n as per card cont meds and cardiac rehab as dir by card *will fwd this note to Dr. Preston* Gout 52403201 M10.9 pt took pred pulse at dc since colchicine not covered - will initiate allopurino l and check uric acid level Essential hypertension 30452056 I10 likely increased d/t pain of ankle (had nl bp c card on 03.29.19) - cont meds as dir c slightly increase furosemide as above, cont to monitor Acute nont raumatic kidney injury 4147949455 38665 N17.9 recheck bmp - see above Atrial fibrillation 4943 6004 I48.91 cont f/u c card, has pending ablation, cont meds as dir [id number] Seth Solorzano MD Main Office [address] [facility] 207 [facility] [place] [address] 04/17/2019 09:20:51 04/17/2019 10:52:29 Chronic atrial fibrillation 204771749 I48.20 cont meds, f/u c card Congestive heart failure 66986741 I50.9 c reduced EF - pt cont to gain wt but likely d/t eating too much over w/e (pt is euvolemic) - believe wt gain d/t calories not fluid - advised him to decrease furosemide 20mg to 1 tab am and 1 tab at 2 pm stressed importance of low salt diet, cont fluid restrictio n as per card - make sure is water as opposed to juice or energy drinks cont meds and cardiac rehab as dir by card *will fwd this note to Dr. Preston* Gout 87983156 M10.9 pt tolerating allopurino l and feeling much better - no further flares Chronic ki dney disease stage 3 474714512 N18.3 consider renal eval if cr cont to climb despite decrease in diuretics and holding acei - see below Essential hypertension 26374001 I10 bp stabilized - no longer in pain from gout flare - rec hold acei for a few days then recheck bmp in a few days, resume acei if bp climbs [id number] Seth Solorzano MD Main Office [address] [place] [address] 04/25/2019 13:00:15 04/25/2019 14:53:44 Chronic atrial fibrillation 434242903 I48.20 stable - cont meds, f/u c card - ? next 3.2.20 Essential hypertension 76997239 I10 bp stabilized - cont meds as dir - off acei Congestive heart failure 59441598 I50.9 c reduced EF - pt cont to gain wt but likely d/t eating too much over w/e (pt is euvolemic) - believe wt gain d/t calories not fluid - advised him to cont. furosemide 20mg to 1 tab am and 1 tab at 2 pm stressed importance of low salt diet, cont fluid restrictio n as per card - make sure is water as opposed to juice or energy drinks cont meds and cardiac rehab as dir by card *will fwd this note to Dr. Preston* Chronic ki dney disease stage 3 402842345 N18.3 consider renal eval if cr cont to climb despite decrease in diuretics and holding acei - see below check bmp in a few wks - a day or two ac see card Body mass index 30+ - obesity 844843080 Z68.[address] 05.17.19 Obesity 120815890 E66.9 [id number] Seth Solorzaon MD Main Office [address] [facility] [address] [facility] [place] [address] 07/14/2019 08:18:20 07/14/2019 13:06:10 Gout 41013931 M10.9 Sounds like a gout flare which is a little unusual given his reported compliance with allopurino l and most recent uric acid level of 6.9. Given his comorbidit ies phuc try to simmer down his flare with a short course of prednisone . COnsider colchicine trial vs rheum referral at f/u to help confirm the diagnosis. [id number] Seth Solorzano MD Main Office [address] [facility] [address] [facility] [place] [address] 07/18/2019 13:14:57 07/18/2019 14:17:48 Essential hypertension 14936654 I10 Not well controlled and appears to be fluid overloaded . Will increase diuretic dose and follow BP and labs. Screening for malignant neoplasm of colon 766013807 Z12.11 Overdue for screening. Did not discuss during visit but will forward pt a copy of GI contact info. Varicella vaccination 68 846027 Z23 Gout 82807626 M10.9 Sounds like a gout flare which is a little unusual given his reported compliance with allopurino l and most recent uric acid level of 6.9. Given his comorbidit ies phuc try to simmer down his flare with a short course of prednisone . COnsider colchicine trial vs rheum referral at f/u to help confirm the diagnosis. Impingemen t syndrome of shoulder region 359793963 M75.42 Pt will call to arrange f/u. [id number] Seth Solorzano MD Telehealt h [address] [place] [address] 08/03/2019 11:27:51 08/03/2019 14:13:53 Essential hypertension 92167851 I10 Unable to measure response to diuretic increase today because of virtual visit. Will continue current diuretic regimen and BB for now. Recheck labs Gout 80907525 M10.9 Has follow up labs pending since starting allopurino l. Will titrate to goal <6.5. Chronic at rial fibrillation 020704830 I48.21 Pt reports taking amiodarone BID. Review of recent cardiology note reports that it should be QD only. Pt advised to f/u with cards/EP in September as planned. Advised to call cardiology for refills on amio as I am not comfortabl e managing this. Screen for thyroid issues. Diastolic heart failure 757701186 I50.30 Seems fluid overloaded . Will await labs and adjust diuretic regimen as warranted. Paroxysmal atrial fibrillation 099975318 I48.0 Pt reports taking amiodarone BID. Review of recent cardiology note reports that it should be QD only. Pt advised to f/u with cards/EP in September as planned. Advised to call cardiology for refills on amio as I am not comfortabl e managing this. Screen for thyroid issues. [id number] Seth Solorzano MD Main Office [address] [place] [address] 09/19/2019 13:22:20 09/19/2019 15:21:04 Essential hypertension 50942502 I10 Well controlled , will continue current Gout 97973216 M10.9 Well controlled , continue current dose. Chronic at rial fibrillation 526730935 I48.21 Pt advised to f/u with cards/EP in September as planned. Advised to call cardiology for refills on amio as I am not comfortabl e managing this. Screen for thyroid issues. Obstructiv e sleep apnea syndrome 60924705 G47.33 Pt reports intermitte nt compliance with this as well. Will arrange sleep medicine f/u lcuia. Fatigue 97599838 R53.83 Potentiall y multifacto rial. Will arrange sleep med f/u and reassess after cardiac ablation. If persistent /worse consider depression as a factor. BB also a possible issue which can hopefully be stopped after ablation. Screening for malignant neoplasm of prostate 941149264 Z12.5 [id number] Seth Solorzano MD Main Office [address] [facility] [place] [address] 11/21/2019 09:53:15 11/21/2019 11:29:13 Adult health examination 512098272 Z00.00 Immunizati on status utd, flu advised in the Fall. Will screen based on risk factors. Regular dental and ophtho care advised as well as sunscreen and seat belt use. Distracted driving discussed. Advance directives discussed. Varicella vaccination 68 745848 Z23 Gout 37434032 M10.9 Well controlled , continue current dose. Essential hypertension 60727096 I10 Well controlled , will continue current Body mass index 40+ - severely obese 171534747 E66.01 Z68.41 Restless l egs syndrome 88948248 G25.81 Screen for anemia. See what sleep study showed. Obstructiv e sleep apnea syndrome 85691924 G47.33 Had sleep study last week. Will request report. Will likely need to resume CPAP. Polyp of colon 96081112 K63.5 Impingemen t syndrome of shoulder region 039853649 M75.42 Pt will call to arrange f/u with ortho. Family his tory of malignant neoplasm of prostate 625145711 Z80.42 Pure hypercholesterolemia 118717180 E78.00 Reassess CVD risk score and discuss mgmt based on results. Vitamin D deficiency 347 16150 E55.9 Lelvel was normal last year on current supplement dose. Will continue. Chronic go uty arthritis 80820510 M1A.0110 Screen for inflammato ry arthropath y. Consider rheum referral. Impaired f asting glycemia 962349096 R73.01 [id number] Mayito Boston MD Main Office [address] [facility] [place] [address] 12/29/2019 08:59:16 12/29/2019 09:45:51 Pre-surgery evaluation 975793096 Z01.818 pre-surger y evaluation Pre-Surgic al Evaluation /Surgical Clearance for b/l Left rotator cuff injury -- Clinical cardiac predictor( s): Afib, LVH -- Surgical risk level: Moderate - Functional Status: EXCELLENT -- Revised Cardiac Risk Index (RCRI) for Pre-Operat liudmila Risk: 1 -- Vitals and labs reviewed -- Imaging: Not indicated -- Surgeon not requesting labs he had recent labs done 11/2019-- EKG: Preformed in chart -- I advised him to confirm with cardiologi st regarding holding eliquis (on it for afib), 48 hrs of procedure and metoprolol morning off. All other medication can be taken the night off procedure. -- Plan of care discussed with patient. -- Medical clearance: Stable to proceed for procedure from a medical stand point only after clearance from a cardiology given cardiac comorbidit ies. He has appointmen t with cardiologi sts on 01/03/2020 . Patient is at low/modera te risk for cardiopulm onary complicati ons with planned procedure based on comorbidit ies, good exertional tolerance and overall procedure risk. Advised to avoid aspirin and NSAIDS for 7 days prior and to confirm with cardiologi st regarding eliquis and metoprolol .HAHN Score: 0.1 % Risk of myocardial infarction or cardiac arrest, intraopera tively or up to 30 days post-op Inflammati on of rotator cuff tendon 129643887 M67.819 patient to have surgery Essential hypertension 53327185 I10 Needs infl uenza immunization 098461853 Z23 [id number] Seth Solorzano MD Main Office [address] [place] [address] 03/26/2020 13:37:55 03/26/2020 14:38:29 Gout 66468424 M10.9 Well controlled based on symptoms and uric acid level. Continue current dose. Essential hypertension 21983885 I10 Suspect fluid overload might be a factor. Will monitor with increased diuretic dose. Prediabetes 177197087 R7 3.03 Stable. Will continue monitor. Dyspnea 482151919 R06.02 Likely secondary to deconditio arianna. Screen for failure and try titrating diuretic dose. [id number] Seth Solorzano MD Main Office [address] [address] [place] [address] 04/16/2020 10:44:47 04/16/2020 11:15:13 Essential hypertension 00937223 I10 Well controlled . Continue current regimen. Chronic at rial fibrillation 496917172 I48.21 Pt advised to f/u with cards in June. Obstructiv e sleep apnea syndrome 47706084 G47.33 Following with sleep medicine to work on CPAP compliance . [id number] Sourav Rivas PA-C Main Office [address] [address] [place] [address] 10/07/2020 09:03:08 10/07/2020 10:31:23 Syncope 052870321 R55 more so pre-syncop e twice about 2 wks ago - will check glucose and ekg - no h/o DM glucose stable ekg - sinus rhythm, no significan t S-T changes ? had orthostasi s, now better p off ccb - rec stay hydrated - see below Essential hypertension 00389392 I10 bp stable - cont meds as dir -- has been off aml x ~ 2 wks as per card -- no further pre-syncop e Paroxysmal atrial fibrillation 867975986 I48.0 HR controlled , cont meds, f/u c card as dir [id number] Seth Solorzano MD Main Office [address] [place] [address] 11/25/2020 08:16:30 11/25/2020 09:34:28 Adult health examination 937761069 Z00.00 Immunizati on status utd, flu advised when available. Will screen based on risk factors. Regular dental and ophtho care advised as well as sunscreen and seat belt use. Distracted driving discussed. Advance directives discussed. Pain in bi lateral feet 1576198169 9034517 M79.671 M79.672 suspect lipoma are the cause. Will see if u/s confirms and refer to podiatry or ortho depending on result. Body mass index 40+ - severely obese 358743981 E66.01 Z68.41 Diastolic heart failure 975156079 I50.32 Chronic at rial fibrillation 941762745 I48.21 Pt advised to f/u with cards in June. Family his tory of malignant neoplasm of prostate 334868404 Z80.42 If PSA elevated or urinary symptoms worsen will refer to urology. Gout 65942710 M10.9 Well controlled based on symptoms and uric acid level. Continue current dose. Obstructiv e sleep apnea syndrome 33845852 G47.33 Following with sleep medicine to work on CPAP compliance . Prediabetes 801539260 R7 3.03 Stable. Will continue monitor. Pure hypercholesterolemia 517741074 E78.01 Reassess CVD risk score and discuss mgmt based on results. Vitamin D deficiency 347 81596 E55.9 Level was normal last year on current supplement dose. Will continue. Mass of foot 630824551 R 22.41 Nocturia 789827489 R35.1 Primary er ectile dysfunction 064856598 N52.9 [id number] Seth Solorzano MD Telehealt h [address] [facility] [address] [facility] [address] 03/21/2021 07:59:06 03/21/2021 15:38:44 Exposure to viral disease 0626542814 03018 Z03.818 Advised to continue wearing mask and to have testing done lucia. If positive will likely be out of the window for Mab therapy. Psychosexu al dysfunction 536622995 F52.9 Effective in the past. Refill requested. Acute sinusitis 83114047 J01.90 At this poitn still most likely a viral process. Need to r/o COVID. If negative and symptoms worsen/per sist or if second sickening occurs will prescribe abx for sinusitis. Cough 39208969 R05.1 Secondary to URI. Consider CXR depensing on symptom progressio n and COVID 19 status. [id number] Seth Solorzano MD Main Office [address] [facility] [address] [facility] [place] [address] 05/15/2021 14:53:40 05/15/2021 15:53:43 Prediabetes 476600342 R73.03 Stable. Will continue monitor. Discussed need to reduce CHO intake and work on weight loss. Atrial par oxysmal tachycardia 155989009 I47.1 Establishe d with cards. Rate well controlled on BB and DOAC. Essential hypertension 16478136 I10 Well controlled . Continue current regimen. Psychosexu al dysfunction 153402119 F52.9 Effective in the past. Refill requested. Pure hypercholesterolemia 479892953 E78.01 Based on CVD score statin warranted but declined. Will continue to monitor. Pulmonary hypertension 91612318 I27.[address] Steve at [facility] and [facility] for right heart cath on 05/20. [id number] Seth Solorzano MD Main Office [address] [facility] [address] [place] [address] 08/11/2021 12:43:10 08/11/2021 13:19:26 Prediabetes 747721456 R73.03 Stable. Will continue monitor. Discussed need to reduce CHO intake and work on weight loss. Essential hypertension 15970923 I10 Well controlled . Continue current regimen. Pure hypercholesterolemia 409856198 E78.01 Based on CVD score statin warranted will start low dose atorvastat in and titrate as tolerated to goal LDL <100. Vitamin D deficiency 347 03365 E55.9 Level was normal last year on current supplement dose. Will continue. Constipation 66208936 K5 9.00 [id number] Seth Solorzano MD Main Office [address] [facility] [address] [place] [address] 11/27/2021 08:37:31 11/27/2021 09:27:17 Adult health examination 387102495 Z00.00 Immunizati on status updated short of COVID 19 which was advised via local pharmacy. Screening utd based on risk factors. Regular dental and ophtho care advised as well as sunscreen and seat belt use. Distracted driving discussed. Advance directives discussed. Varicella vaccination 68 501120 Z23 Pure hypercholesterolemia 489287058 E78.01 Well controlled on low dose statin. Essential hypertension 75831738 I10 Well controlled . Continue current regimen. Viral hepatitis C 510102 07 B19.20 Requires a tetanus booster 289201017 Z23 Needs infl uenza immunization 363534752 Z23 Psychosexu al dysfunction 234075065 F52.9 Effective in the past. Refill requested. Prediabetes 946649701 R7 3.03 Stable. Will continue monitor. Discussed need to reduce CHO intake and work on weight loss. Body mass index 40+ - severely obese 966849386 E66.01 Will refer to weight management to see if they have suggestion s. Adjustment disorder with mixed emotional features 75272004 F43.23 Coping fairly well except for some anhedonia. Will monitor for now. [id number] Seth Solorzano MD Main Office [address] [facility] [address] [facility] [address] 03/31/2022 10:44:55 03/31/2022 11:20:53 Morbid obesity 696297505 E66.01 Adjustment disorder with mixed emotional features 92469440 F43.23 Coping fairly well except for some anhedonia. Will monitor for now. Diastolic heart failure 105633934 I50.32 Will titrate diuretic dose for 40mg daily. Pt will go for labs 1-2 weeks after. Prediabetes 464246510 R7 3.03 Stable. Will continue monitor. Discussed need to reduce CHO intake and work on weight loss. Due for labs. Psychosexu al dysfunction 189792413 F52.9 Effective in the past. Refill requested. Atrial par oxysmal tachycardia 778801571 I47.1 Establishe d with cards. Rate well controlled on BB and on DOAC. Nocturia 194218735 R35.1 Obstructiv e sleep apnea syndrome 35513536 G47.33 Following with sleep medicine to work on CPAP compliance . [id number] Seth Solorzano MD Main Office [address] [facility] [address] [facility] [address] 07/28/2022 09:46:42 07/28/2022 10:51:24 Prediabetes 359580776 R73.03 Stable. Will continue monitor. Discussed need to reduce CHO intake and work on weight loss. Due for labs. Chronic at rial fibrillation 727745098 I48.21 Following with cardiology . Body mass index 40+ - severely obese 807215236 E66.01 Z68.41 Has failed conservati ve treatment approaches /nutrition al counseling . May be a candidate for GLP1 agonist tx trial. Prostate s pecific antigen above reference range 025471448 R97.20 Persistent issue, urology input needed. Family his tory of malignant neoplasm of prostate 667389870 Z80.42 Will refer to urology. Psychosexu al dysfunction 955617136 F52.9 Effective in the past. Refill requested. Heart fail ure with normal ejection fraction 070413932 I50.32 Titrate diuretic based on weight shifts/BP. Diastolic heart failure 091601238 I50.32 Currently compensate d, followed by cards. [id number] Seth Solorzano MD Main Office [address] [facility] [address] [facility] [place] [address] 10/20/2022 11:30:41 10/20/2022 12:12:29 Prostate specific antigen above reference range 618450072 R97.20 Has urology f/u next week, going for PSA check this Wednesday. From there MRI vs biopsy will be discussed. Body mass index 40+ - severely obese 733560302 E66.01 Z68.41 Has failed conservati ve treatment approaches /nutrition al counseling . May be a candidate for GLP1 agonist tx trial. Prediabetes 334488108 R7 3.03 Stable. Will continue monitor. Discussed need to reduce CHO intake and work on weight loss. Due for labs. [facility] but insurance is not covering. Will call [facility] to see if maybe they particiapt e. Essential hypertension 05099395 I10 Well controlled . Continue current regimen. Serum crea tinine above reference range 492876722 R79.89 Likely from over diuresis. Will reassess following recent dose change. Hepatitis C screening 41 2709395 Z11.59 [id number] Seth Solorzano MD Main Office [address] [facility] [address] [facility] [address] 12/01/2022 09:15:46 12/01/2022 10:19:23 Adult health examination 732157983 Z00.00 Immunizati on status updated short of COVID booster which was advised via local pharmacy. Screening utd based on risk factors. Regular dental and ophtho care advised as well as sunscreen and seat belt use. Distracted driving discussed. Advance directives discussed. Needs infl uenza immunization 985561818 Z23 Varicella vaccination 68 946080 Z23 Prediabetes 484680612 R7 3.03 Stable. Will continue monitor. Discussed need to reduce CHO intake and work on weight loss. Due for labs. He wants to see a nutritioni st but insurance is not covering. Prostate s pecific antigen above reference range 152576784 R97.20 Being scheduled for biopsy Pure hypercholesterolemia 762584904 E78.01 LDL >100, will titrate statin dose. Vitamin D deficiency 347 66882 E55.9 Level was normal last year on current supplement dose. Will continue. Body mass index 40+ - severely obese 706313091 E66.01 Z68.41 Has failed conservati ve treatment approaches /nutrition al counseling . May be a candidate for GLP1 agonist tx trial. Insurance would not cover nutritiona l counseling . Obstructiv e sleep apnea syndrome 15368094 G47.33 Reprts compliance and good symptoms relief with CPAP therapy. [id number] Seth Solorzano MD Main Office [address] [place] [address] 12/24/2022 15:01:48 12/24/2022 17:46:53 [id number] Seth Solorzano MD Main Office [address] [place] [address] [place] [address] 01/14/2023 14:13:15 01/14/2023 15:30:09 History of cholecystectomy 835822761 Z90.49 recently dc'd ~ 3 wks ago - had lap phillip on 12.18.21 - doing okay now, pending f/u c general surgeon next week Prostate s pecific antigen above reference range 781994519 R97.20 just had prostate bx 2 days ago, pending results, cont f/u c uro Essential hypertension 22939084 I10 bp stable - cont meds as dir Prediabetes 786992086 R7 3.03 Diastolic heart failure 351440805 I50.32 stable, cont meds as dir, cont f/u c card Chronic at rial fibrillation 208134557 I48.21 stable - cont meds, f/u c card [id number] Seth Solorzano MD Main Office [address] [facility] [address] [facility] [address] 04/05/2023 10:00:03 04/05/2023 10:58:42 Essential hypertension 16917566 I10 Well controlled . Continue current regimen. Pain of bi lateral knee joints 4594361839 14643 M25.561 M25.562 Will ask ortho to help evaluate further Carcinoma of prostate 25 7513764 C61 Scheduling prostatect ayanna with Dr. Daniel Mass of thyroid gland [address] scan scheduling to elaborate further on anatomy, screen for abnl thyroid function. [id number] Seth Solorzano MD Main Office [address] [place] [address] 08/10/2023 09:44:56 08/10/2023 10:35:14 Essential hypertension 27930240 I10 Well controlled . Continue current regimen. Pulmonary arterial hypertension 97613687 I27.21 Symptomati meredith stable, on diuretic regimen and following with pulm in [place]. Chronic at ria fibrillation 469179487 I48.21 Following with cardiology . Mass of thyroid gland [address] scan at [facility] for comparison reasons with previous u/s. Thyroid nodule 214420793 E04.1 [id number] Seth Solorzano MD Main Office [address] [facility] [address] [place] [address] 01/31/2024 12:51:54 01/31/2024 14:00:20 Adult health examination 726969972 Z00.00 PCV20, COVID and Shingrix were advised via local pharmacy. Screening utd based on risk factors. Regular dental and ophtho care advised as well as sunscreen and seat belt use. Distracted driving discussed. Advance directives discussed. Psychosexu al dysfunction 740377567 F52.9 Low T post prostate CA treatment is likely a factor. Effective in the past. Refill requested. Needs infl uenza immunization 732308952 Z23 patient will get flu shot after [place] Carcinoma of prostate 25 7634371 C61 s/p ADT/radiat ion therapy, following closely with Dr. Daniel. Body mass index 40+ - severely obese 959340322 E66.01 Z68.41 Has failed conservati ve treatment approaches /nutrition al counseling . Insurance would not cover nutritiona l counseling . Administra tion of pneumococcal vaccine 87209174 Z23 Varicella vaccination 68 175897 Z23 Pain of ri ght shoulder joint 4258340330 5730224 M25.511 Pt would like to follow up with Dr. Rodas who addressed his left shoulder issues. Thyroid nodule 938285129 E04.1 need u/s in Oct 2024 Moderate m ajor depression, single episode 13427795 F32.1 Symptoms currently not limiting. Will monitor. Acute prostatitis 562546 02 N41.0 Having symptoms, so will treat but if persistent /worse advised to follow up with urology. Pulmonary arterial hypertension 94404969 I27.21 Symptomati meredith stable, on diuretic regimen and following with pulm in [place]. Chronic at rial fibrillation 516730096 I48.21 Following with cardiology . Essential hypertension 75125008 I10 Well controlled . Continue current regimen. [id number] Seth Solorzano MD Main Office [address] [place] [address] 06/05/2024 10:20:53 06/05/2024 11:12:41 Essential hypertension 28626414 I10 Well controlled . Continue current regimen. Prediabetes 029798831 R7 3.03 Stable. Will continue monitor. Discussed need to reduce CHO intake and work on weight loss. Due for labs. He wants to see a nutritioni st but insurance is not covering. Pain of ri ght shoulder joint 4131366677 3258193 M25.511 Could not see [facility] because of insurance. Will refer to [facility]. Bilateral carpal tunnel syndrome 5117147206 1651473 G56.03 Will use splints and consider EMG/ortho referral inb/worse. Mass of thyroid gland 23 0361624 E04.9 Will schedule US in the Fall for follow up for comparison . Pure hypercholesterolemia 534403044 E78.01 LDL <100, continue current statin dose. Major depr ession single episode, in partial remission 31502393 F32.4 Symptoms currently not limiting, not on meds. Will monitor. [id number] Seth Solorzano MD Main Office [address] [place] [address] 10/26/2024 09:13:36 10/26/2024 10:04:24 Pain of right shoulder joint 8958682641 1016670 M25.511 [id number] Could not see [facility] because of insurance. Will refer to [facility], see if NSAID helps in meantime. [id number] Seth Solorzano MD Main Office [address] [facility] [place] [address] 12/11/2024 11:20:01 12/11/2024 12:18:28 Bilateral carpal tunnel syndrome 3422044638 9956859 G56.03 Persistent issue with shoulder pain, will refer for EMG to differenti ate between brachial plexopathy vs CTS vs cervical radiculopa thy. Needs infl uenza immunization 556998831 Z23 19 YEARS AND OLDER ONLY Pure hypercholesterolemia 619326334 E78.00 25534204 Well controlled on low dose statin. Will continue current dose and monitor. Mass of thyroid gland 23 6363736 E04.9 Labs and f/u imaging have been normal. Will monitor clinically for now. Chronic at rial fibrillation 092237633 I48.21 Rate well controlled on DOAC. Following with cardiology . Health Concerns Section Related Observation LastModified by Organization Detai ls LastModified Time None Recorded Concern Status LastModified by Organization Details LastModified Time None Recorded Advance Directives Directive Y: HCP/ Girlfriend-Yunior Anthony [facility] Payers Insurance Date Sequence Insurance Name Policy Number Policy Martinez Covered Member ID Martinez Member ID Guarantor Name 12/21/2024 1 [facility] (MEDICARE REPLACEMENT/ ADVANTAGE - HMO) MAMMP Nova Dark [id number] Nova Dark 01/20/2022 1 [employer] (PPO) Nova Dark [id number] Nova Dark 01/20/2022 1 [place] Nova Dark [id number] Nova Dark 01/20/2022 1 [employer] [id number] Nova Dark [id number] Nova Dark 01/20/2022 3 [place] Nova Dark [id number] Nova Dark 01/20/2022 1 [employer] [facility] (MEDICAID REPLACEMENT - HMO) [id number] Nova Dark [id number] Nova Dark 01/20/2022 1 [employer] (POS) [id number] Nova Dark IV [id number] Nova Dark 12/11/2024 2 [place] Nova Dark [id number] Nova Dark 01/20/2022 1 [facility] MEDICAID ESSENTIAL (MEDICAID HMO) [id number] Nova Wilkinson [id number] Nova Wilkinson Notes Date Note Type Note Provider Name and Address Organization Details Recorded Time 08/10/19 24 text/htm l CHF F/UReported by PatientHass not gone for follow up labs yet. Thyroid/Parathyroid NoduleReported by PatientHad a 1.7cm right lobe lesion, unclear if definite nodule. Endo reviewed scan and recommended additional imaging. CT scan ordered but pt missed the appt. Hypertension F/UReported by PatientHPIFor associated symptoms, patient reportsno dizziness,no lightheadedness,no chest pain,no shortness of breath,no palpitations,no edema, andno calf pain with exertion. For lifestyle, patient reportsregular exerciseandlimiting/avoiding salt. For medications, patient reportstaking medications as directedandno side effects from medication.Taking 60mg of torsemide daily. Creatinine high end of normal. Atrial FibrillationReported by PatientHPIFor associated symptoms, patient reportsno chest discomfort,no dyspnea,no decline in exercise capacity,no fatigue, andno associated dizziness.Feeling better. s/p ablation. Having some dyspnea/orthopnea. No exercising regularly. Responding to weight loss and diuretic dosing adjustment Seth Solorzano MD [address] [address], [place], [address], [facility] 08/10/2023 10:38:56 01/31/20 24 text/htm l Medicare Annual Wellness VisitReported by PatientSocial/Behavioral HistoryFor diet and nutrition, patient reportshigh carbohydrate mealsbut reportshealthy diet. For physical activity, patient reportsdecreased physical activity. For fracture risk, patient reportsno history of fractures,no recent explained fracture,no sudden unexplained fractures, andno previous musculoskeletal injuries.Mental Status:For depression risk, patient reportsnever feels sad, empty, or tearful,no significant changes in weight,no thoughts of suicide,no history of depression, andno history of mood disorders. For orientation, patient reportsno disorientation to time,no disorientation to date, andno disorientation to place. For concentration and memory, patient reportsno decreased concentrating ability,no memory lapses or loss, anddoes not forget words. For speech/motor difficulties, patient reportsno speech difficulties,no difficulty expressing formulated concepts,no difficulty with fine manipulative tasks,no difficulty writing/copying, anddoes not knock things over when trying to pick them up.Functional AbilityFor vision, patient reportsslow partial vision loss. For hearing, patient reportsno loss of hearing. For activities of daily living, patient reportsable to bathe with limited or no assistance,able to contol urination and bowels,able to dress with limited or no assistance,able to feed self with limited or no assistance,able to get out of chair or bed with limited or no assistance,able to groom with limited or no assistance, andable to toilet with limited or no assistance. For instrumental activities of daily living, patient reportsable to do house work with limited or no assistance,able to grocery shop with limited or no assistance,able to manage medications with limited or no assistance,able to manage money with limited or no assistance,able to prepare meals with limited or no assistance, andable to use the phone with limited or no assistance. For falls risk assessment, patient reportsno frequent falls while walking,no fall in the past year,no fall since last visit, andno dizziness/vertigo. For home safety, patient reportsno unsafe joseph hazzards,no unsafe stairs,working smoke/co detectors,use of seatbelts,no fire arms, andhas hand bars in the bathroom/shower.ROS as noted in the HPI Seth Solorzano MD [address] [address], [place], [address], [facility] 01/31/2024 14:16:37 06/06/19 25 text/htm l Musculoskeletal PainReported by PatientHPIFor quality, patient reportsachingandtingling. For severity, patient reportsworsening. For associated symptoms, patient reportstinglingbut reportsno feverandno weak limbs. For location, patient reportsright shoulderandbilateral hand. For duration, patient reportspresent for 1-6 months. For timing, patient reportsintermittentandpain at night.intermittent b/l hand numbness sparing 4th/5th digits on right occurring often at night. Was unable to follow up with [facility] for shoulder pain Thyroid/Parathyroid NoduleReported by PatientHad a 1.7cm right lobe lesion, unclear if definite thyroid nodule. CT scan did not demonstrate any concerning masses/characteristics. Hypertension F/UReported by PatientHPIFor associated symptoms, patient reportsno dizziness,no lightheadedness,no chest pain,no shortness of breath,no palpitations,no edema, andno calf pain with exertion. For lifestyle, patient reportsregular exerciseandlimiting/avoiding salt. For medications, patient reportstaking medications as directedandno side effects from medication.Taking 60mg of torsemide daily. Recnt renal function normal. HyperlipidemiaReported by PatientHPIFor type of hyperlipidemia, patient reportshypercholesterolemia. For duration, patient reportschronic. For compliance, patient reportsnoncompliant,noncomplia nt with diet, anddoes not exercise. For complications, patient reportscardiovascular diseasebut reportsno coronary artery diseaseandno peripheral artery disease. For risk factors, patient reportshypertensionandobesity. For control, patient reportsusually well controlledandat goal. For current therapy, patient reportscurrently taking: (atorvastatin 20mg),last cholesterol level: (168),last ldl level: (96),last triglyceride level: (122), andlast hdl level: (48). Atrial FibrillationReported by PatientHPIFor associated symptoms, patient reportsno chest discomfort,no dyspnea,no decline in exercise capacity,no fatigue, andno associated dizziness.Feeling better. s/p ablation. Having some dyspnea/orthopnea. No exercising regularly. Responding to weight loss and diuretic dosing adjustment Seth Solorzano MD [address], [address], [facility] 06/05/2024 16:23:23 10/27/19 25 text/htm l Musculoskeletal PainReported by PatientHPIFor quality, patient reportsaching. For severity, patient reportsworsening,interference with sleep, andinterference with workbut reportspain level without meds 09/14. For location, patient reportsright shoulder. For duration, patient reportspresent for >12 months. For associated symptoms, patient reportsno fever.Seen at [facility] for left shoulder ACJ arthritis/impingement in the past. Having difficulities connecting with [facility] becasue of insurance contracts. Seth Solorzano MD [address] [place], [address], [facility] 11/23/2024 07:27:58 12/12/19 25 text/htm l Musculoskeletal PainReported by PatientHPIFor quality, patient reportsachingandtingling. For severity, patient reportsworsening. For associated symptoms, patient reportstinglingbut reportsno feverandno weak limbs. For location, patient reportsright shoulderandbilateral hand. For duration, patient reportspresent for 1-6 months. For timing, patient reportsintermittentandpain at night.intermittent b/l hand numbness sparing 4th/5th digits on right occurring often at night. Was unable to follow up with [facility] for shoulder pain, Referral made to [facility] but pt did not connect with them. Thyroid/Parathyroid NoduleReported by PatientHad a 1.7cm right lobe lesion, unclear if definite thyroid nodule. CT scan did not demonstrate any concerning masses/characteristics. U/s last month was negative. Hypertension F/UReported by PatientHPIFor associated symptoms, patient reportsno dizziness,no lightheadedness,no chest pain,no shortness of breath,no palpitations,no edema, andno calf pain with exertion. For lifestyle, patient reportsregular exerciseandlimiting/avoiding salt. For medications, patient reportstaking medications as directedandno side effects from medication.Taking 60mg of torsemide daily. Recent renal function normal. HyperlipidemiaReported by PatientHPIFor type of hyperlipidemia, patient reportshypercholesterolemia. For duration, patient reportschronic. For complications, patient reportscardiovascular diseasebut reportsno coronary artery diseaseandno peripheral artery disease. For risk factors, patient reportshypertensionandobesity. For control, patient reportsusually well controlledandat goal. For current therapy, patient reportscurrently taking: (atorvastatin 20mg),last cholesterol level: (168),last ldl level: (96),last triglyceride level: (122), andlast hdl level: (48). For compliance, patient reportscompliant,compliant with diet, andexercises. Atrial FibrillationReported by PatientHPIFor associated symptoms, patient reportsno chest discomfort,no dyspnea,no decline in exercise capacity,no fatigue, andno associated dizziness.Feeling better. s/p ablation. Having some dyspnea/orthopnea more from [facility]. Seth Solorzano MD [address] [facility] [address], [place], [address], [facility] 12/11/2024 12:28:12
--- OUTSIDE RECORDS SUMMARY | 2025-01-17 18:22 | XMS_ITS | Encounter Summary ---
Author Organization [facility] Address [address] [facility] [address] [place] [phone] Phone Care Team Providers Care Home Builder Name Role Phone Seth Jordan MD Primary Care Provider Encounter Details Date Type Department Care Team (Late st Contact Info) Description 05/20/2021 Procedure Pass [facility] Cardiac Commissioned Fire Officer [address] [place] [id number] Social History Tobacco Use Types Packs/Day Years Used Date Smoking Tobacco: Never Smokeless Tobacco: Never Sex and Gender Information Value Date Recorded Sex Assigned at Male 08/16/2020 12:31 PM EDT Legal Sex Male 12:16 PM EDT Gender Identity Male 08/16/2020 12:31 PM EDT Sexual Orientation Straight 08/16/2020 12 :31 PM EDT documented as of this encounter Plan of Treatment Upcoming Encounters Date Type Department Care Team (Late st Contact Info) Description 01/24/2025 11:00 AM EST Office Visit [facility] Pulmonary Medicine Hypertension [address] [place] [address] Christian Steve MD, PhD [address] [place] [phone] [email or web address] documented as of this encounter Visit Diagnoses Not on filedocumented in this encounter Care Teams Home Builder Relationship Specialty Start Date End Date Seth Jordan MD [address] [place] [address] PCP - General Internal Medicine 08/16/20 documented as of this encounter Additional Source Comments The information contained in this document represents components of the legal health record. It is not the complete legal health record.[facility]
--- OUTSIDE RECORDS SUMMARY | 2025-01-17 18:22 | XMS_ITS | Clinical Summary ---
Author Organization [facility] Address [address] [place] [address] Care Team Providers Care Waste Hand Name Role Phone Unavailable Primary Care Provider Unavailabl e Social History Tobacco Use Types Packs/Day Years Used Date Smoking Tobacco: Never Assessed Sex and Gender Information Value Date Recorded Sex Assigned at Not on file Gender Identity Not on file Sexual Orientation Not on file Job Start Date Occupation Industry Not on file Not on file Not on file Plan of Treatment Health Maintenance Due Date Last Done Comments Hepatitis B Vaccines (1 of 3 - 3-dose series) 1965 Hepatitis C Screening 1965 COVID-19 Vaccine (#1) 1965 Depression Screening 1977 Preventative Health Evaluation 1983 DTap / Tdap / Td (1 - Tdap) 1984 Colon Cancer Screening (Colonoscopy) 2010 Shingrix-Zoster Vaccine (1 of 2) 2015 Influenza Vaccine (#1) 2024 Pneumococcal Vaccine Aged Out No long er eligible based on patient's age to complete this topic RSV Ped < 20 months Aged Out No longe r eligible based on patient's age to complete this topic
--- OUTSIDE RECORDS SUMMARY | 2025-01-17 18:22 | XMS_ITS | Clinical Summary ---
Author Organization [facility] Address [address] [facility] [address] [place] [phone] Phone Care Team Providers Care Bottle Sorter Name Role Phone Seth Jordan MD Primary Care Provider Allergies Active Allergy Reactions Criticality Noted Date Comments Aspirin Wheezing Medium 09/04/2020 Medications metoprolol succinate 200 mg CSpX daily. Active apixaban (ELIQUIS) 5 mg tablet Take 5 mg by mouth 2 (two) times a day. Active cholecalciferol (VITAMIN D3) 25 MCG (1,000 unit) tablet daily. Active allopurinol (ZYLOPRIM) 100 MG tablet allopurinol 100 mg tablet TAKE 2 TABLETS BY MOUTH EVERY DAY Active atorvastatin (LIPITOR) 10 MG tablet Take 20 mg by mouth every morning. 3 Active docusate sodium (COLACE) 100 MG capsule Take 1 capsule by mouth daily. Active spironolactone (ALDACTONE) 50 MG tablet Take 1 tablet (50 mg total) by mouth 2 (two) times a day. 180 tablet 3 4 Active amLODIPine (NORVASC) 2.5 MG tabletIndication s:Heart failure with preserved left ventricular function (HFpEF),Hyperten dex, unspecified type Take 1 tablet (2.5 mg total) by mouth daily. 30 tablet 11 5 Active torsemide (DEMADEX) 10 MG tablet Take 3 tablets (30 mg total) by mouth 2 (two) times a day (once in the morning and once in the afternoon). TAKE 3 TABLETS BY MOUTH 2 TIMES A DAY(ONCE IN THE MORNING AND ONCE IN THE AFTERNOON) 200 tablet 6 5 Active Active Problems Problem Noted Date Diagnosed Date Heart failure with preserved left ventricular function (HFpEF) 07/29/2022 Assessment & Plan (01/19/2024 5:05 PM EST): We are going to have you continue your medications as follows: 1) Spironolactone 50mg twice daily 2) Continue torsemide 30mg twice daily Continue the following dietary restrictions: 1) Follow a low-salt diet (no more than 2g daily) 2) Restrict your fluid to less than 2L (64 ounces) per day 3) Weigh yourself every morning Follow up in 6-months Assessment & Plan (07/07/2023 10:34 AM EDT): We are going to have you continue your medications as follows: 1) Continue spironolactone 25mg twice daily 2) Continue torsemide 30mg twice daily Continue the following dietary restrictions: 1) Follow a low-salt diet (no more than 2g daily) 2) Restrict your fluid to less than 2L (64 ounces) per day 3) Weigh yourself every morning Follow up in 6-months Assessment & Plan (01/20/2023 11:10 AM EST): We are going to have you continue your medications as follows: 1) Continue spironolactone 25mg twice daily 2) Continue torsemide 30mg twice daily Continue the following dietary restrictions: 1) Follow a low-salt diet (no more than 2g daily) 2) Restrict your fluid to less than 2L (64 ounces) per day 3) Weigh yourself every morning Follow up in 6-months Assessment & Plan (07/29/2022 2:31 PM EDT): We are going to have you continue your medications as follows: 1) Continue spironolactone 25mg twice daily 2) Continue torsemide 30mg twice daily Continue the following dietary restrictions: 1) Follow a low-salt diet (no more than 2g daily) 2) Restrict your fluid to less than 2L (64 ounces) per day 3) Weigh yourself every morning Follow up in 6-months KEVIN (dyspnea on exertion) 05/20/2021 Dyspnea on exertion 09/04/2020 Assessment & Plan (07/02/2021 7:21 PM EDT): -- for diuretics, will plan to do the following: Stop furosemide Start torsemide 30mg BID Start spironolactone 25mg qd -- will check labs now, then again 5-7 days after initiation of new diuretic regimen -- will likely benefit from addition of SGLT-2 inhibitor -- depending on trajectory of improvement with diuresis, will consider reduction in beta-blockade -- counseled on: Salt restriction to 2g qd Fluid restriction to 2L (64 ounces) qd Assessment & Plan (09/04/2020 3:40 PM EDT): Weigh yourself every morning Limit liquid intake to less than 2L/day (64oz) Limit salt to less than 2gm per day Continue Lasix 40mg twice daily Level-3 CPET to be scheduled Diverticular disease 10/23/2019 Gout 03/31/2019 Chronic atrial fibrillation 11/13/2018 Obstructive sleep apnea syndrome 08/18/2013 Vitamin D deficiency 08/18/2013 Pure hypercholesterolemia 08/18/2013 Encounters Date Type Department Care Team Description 10/25/2024 Refill [facility] [address] [address] Christian Steve MD, PhD Medication Refill from Last 3 Months Immunizations Immunization Administration Dates Next Due COVID-19 (Pre-12/28) Pfizer Vaccine, mRNA, PF 07/09/2020,06/18/2020 INFLUENZA, SPLIT VIRUS, TRIVALENT PF 12/08/2013 INFLUENZA, SPLIT VIRUS, TRIV ALENT W/ PRESERVATIVE IM 12/02/2011 Influenza Quadrivalent Prese rvative Free IM 12/29/2019,03/17/2019,11/22/2017,11/27,11/14/2014 Influenza trivalent preserva tive free intradermal 12/02/2012 Pneumococcal polysaccharide PPSV23 03/19/2019, Td (adult),2 Lf Tetanus Toxo id, PF, Adsorbed 11/13/2004 Tdap 04/29/2011 Family History Medical History Relation Comments Hypertension Father Hypertension Mother Relation Status Comments Father Mother Social History Tobacco Use Types Packs/Day Years Used Date Smoking Tobacco: Never Smokeless Tobacco: Never Tobacco Cessation:Counseling Given: Not Answered Education Answer Date Recorded Are you interested in more education? Not on harpreet e 07/04/2022 Are you concerned about learning? Not on file 07/04/2022 No 07/04/2022 No 07/04/2022 Digital Access Answer Date Recorded No 07/29/2022 No 07/29/2022 Reliable internet access at home? Not on file 07/29/2022 Device with a working camera? Not on file Sex and Gender Information Value Date Recorded Sex Assigned at Male 08/16/2020 12:31 PM EDT Legal Sex Male 12:16 PM EDT Gender Identity Male 08/16/2020 12:31 PM EDT Sexual Orientation Straight 08/16/2020 12 :31 PM EDT Last Filed Vital Signs Vital Sign Reading Time Taken Comments Blood Pressure 106/64 07/19/2024 2:58 PM EDT Pulse 67 07/19/2024 2:58 PM EDT Temperature 36.1 C (97 F) 05/20/2021 1:47 PM EDT Respiratory Rate 14 05/20/2021 2:01 PM EDT Oxygen Saturation 98% 07/19/2024 2:58 PM EDT Inhaled Oxygen Concentration - - Weight 141.1 kg (311 lb 1.6 oz) 07/19/2024 2:58 PM EDT Height 188 cm (6' 2 ) 05/20/2021 12:00 PM EDT Body Mass Index 39.94 05/20/2021 12:00 PM EDT Plan of Treatment Upcoming Encounters Date Type Department Care Team (Late st Contact Info) Description 01/24/2025 11:00 AM EST Office Visit [facility] Pulmonary Medicine Hypertension [address] [place] [phone] Christian Steve MD, PhD [address] [place] [address] [email or web address] Health Maintenance Due Date Last Done Comments DEPRESSION SCREENING 1977 HEPATITIS C SCREENING 1983 HIV ONE-TIME SCREENING (18-65 YEARS) 1983 COLOGUARD 2010 COLONOSCOPY 2010 COLORECTAL CANCER SCREENING 2010 FIT TEST 2010 FOBT 2010 SIGMOIDOSCOPY 2010 VIRTUAL COLONOSCOPY 2010 RSV VACCINE (1 - Risk 50-74 years 1-dose series) 2015 ZOSTER VACCINES (1 of 2) 2015 PNEUMOCOCCAL VACCINES (50+ years) (2 of 2 - PCV) 03/19/2020 03/19/2019, 10/06/2016 INFLUENZA VACCINE (#1) 2024 , 11/27/2021, 12/29/2019, Additional history exists COVID-19 VACCINE (2024- season) 2024 02/11/2021, 07/09/2020, 06/18/2020 CREATININE LEVEL 01/18/2025 01/19/2024, 03/2023, 07/02/2021, Additional history exists POTASSIUM LEVEL 01/18/2025 01/19/2024, 05/0 03/2023, 07/02/2021, Additional history exists SCREENING FOR DIABETES 01/18/2027 01/19/2024, 2023 LIPID PANEL 06/01/2029 06/01/2024 Adult Td,Tdap Booster 11/28/2031 11/27/2021 , 04/29/2011, 11/13/2004 SMOKING STATUS SCREENING (Once After 26 Yrs) Completed 07/19/2024 HEPATITIS A VACCINES Aged Out No long er eligible based on patient's age to complete this topic HIB VACCINES Aged Out No longer eligi ble based on patient's age to complete this topic IPV VACCINES Aged Out No longer eligi ble based on patient's age to complete this topic MENINGOCOCCAL VACCINES (ACWY) Aged Out No longer eligible based on patient's age to complete this topic MENINGOCOCCAL VACCINES (B) Aged Out N o longer eligible based on patient's age to complete this topic Medical Devices Not on file Procedures Procedure Name Priority Date/Time Associated Diagnosis Comments COMPREHENSIVE METABOLIC PANEL (CMP) Routine 01/19/2024 5:09 PM EST Chronic diastolic heart failure from Last 3 Months or Most Recently Relevant to Health Maintenance Results * (ABNORMAL) Comprehensive metabolic panel (01/19/2024 5:09 PM EST) SODIUM 141 136 - 145 mmol/L [facility] POTASSIUM 4.2 3.4 - 5.1 mmol/L [facility] CHLORIDE 101 98 - 107 mmol/L [facility] CO2 31 22 - 31 mmol/L [facility] BUN 13 6 - 23 mg/dL [facility] CREATININE 0.97 0.50 - 1.20 mg/dL [facility] GLUCOSE 90 70 - 100 mg/dL [facility] ALBUMIN 4.2 3.5 - 5.2 g/dL [facility] TOTAL PROTEIN 7.4 6.4 - 8.3 g/dL [facility] CALCIUM 9.5 8.8 - 10.7 mg/dL [facility] ALKALINE PHOSPHATASE 132(H) 35 - 130 U/L [facility] TOTAL BILIRUBIN 0.2 0.0 - 1.0 mg/dL [facility] AST 12 10 - 50 U/L [facility] ALT 9(L) 10 - 50 U/L [facility] GLOBULIN 3.2 2.2 - 4.2 g/dL [facility] EGFR 90 >59 mL/min/1. 73m2 [facility] Comment:Estimated glomerular filtration rate calculated using the CKD-EPI refit equation. ANION GAP 9 7 - 17 mmol/L [facility] 01/19/2024 5:09 PM EST 01/19/2024 5:12 PM EST us Christian Steve MD, PhD LAB BLOOD BKR ORDERABLES Final Result [facility] [address] [place] [phone] from Last 3 Months or Most Recently Relevant to Health Maintenance Insurance [employer] MEDICARE REPLACEMENT [place] [address] MEDICARE REPLACEMENT [facility] MEDICARE REPLACEMENT [place] [address] MEDICARE REPLACEMENT [facility] MEDICARE REPLACEMENT [facility] MEDICARE REPLACEMENT Care Teams Bottle Sorter Relationship Specialty Start Date End Date Seth Jordan MD [address] [place] [address] [address] [place] [address] PCP - General Internal Medicine 08/16/20 Additional Source Comments The information contained in this document represents components of the legal health record. It is not the complete legal health record.[facility]
== END 2025-01-17 15:01 | disposition home or self-care (01) ==
LOC: HO.US 15:00
PROVIDERS: PCP Pediatrics; Visit Provider Pediatrics
DX: E04.9 Nontoxic goiter, unspecified (principal)
CPT/HCPCS: 76536

== ENCOUNTER → 2025-01-17 15:04 | Outpatient (BNV) | payer MEDICARE, SELFPAY | PROVIDERS: PCP Pediatrics; Visit Provider Radiology Diagnostic Radiology | DX: E04.9 Nontoxic goiter, unspecified (principal) | CPT/HCPCS: 76536 ==

== ENCOUNTER 2025-02-23 06:27 | Outpatient (REF) | payer MEDICARE, SELFPAY ==
--- NOTE | ~2025-02-23 | XR_ITS ---
EXAMINATION: XR SHOULDER, RIGHT CLINICAL INFORMATION: M25.511 - Pain in right shoulder COMPARISON: None available. TECHNIQUE: AP view, Y-view and axillary projection,of the right shoulder. FINDINGS: No acute fracture or dislocation. No lytic or blastic lesions. Mild degenerative changes in the acromioclavicular joint and subchondral cyst formation greater tuberosity of the humerus. No soft tissue calcification. XR/XR shoulder RT min 2V IMPRESSION: Mild degenerative changes, acromioclavicular joint. Electronically signed by: Yair Izquierdo MD 02/23/2025 08:54 AM EST
--- OUTSIDE RECORDS SUMMARY | 2025-02-23 06:30 | XMS_ITS | Clinical Summary ---
Author Organization [facility] Address [address] [facility] [address] [place] [phone] Phone Care Team Providers Care Client Service Associate Name Role Phone Seth Jordan MD Primary [...] Encounters Date Type Department Care Team Description 01/24/2025 11:00 AM EST Office Visit [facility] [address] [place] [address] Christian Steve MD, PhD Heart failure with preserved left ventricular function (HFpEF) (Primary Dx) from Last 3 Months Immunizations Immunization Administration [...] Sign Reading Time Taken Comments Blood Pressure 110/64 01/24/2025 11:39 AM EST Pulse 66 01/24/2025 11:39 AM EST Temperature 36.1 C (97 F) 05/20/2021 1:47 PM EDT Respiratory Rate 14 05/20/2021 2:01 PM EDT Oxygen Saturation 100% 01/24/2025 11:39 AM EST Inhaled Oxygen Concentration - - Weight 139.7 kg (308 lb) 01/24/2025 11:39 AM EST w shoes Height 188 cm (6' 2 ) 05/20/2021 12:00 PM EDT Body Mass Index 39.54 05/20/2021 12:00 PM EDT Plan of Treatment Upcoming Encounters Date Type Department Care Team (Late st Contact Info) Description 07/25/2025 10:00 AM EDT Office Visit [facility] [address] [place], [place] [phone] Christian Steve MD, PhD [address] [place] [address] [email or web address] Health Maintenance Due Date Last Done Comments [...] of 2 - PCV) 03/19/2020 03/19/2019, 10/06/2016 COVID-19 VACCINE (4 - 2024- season) 2024 02/11/2021, 07/09/2020, 06/18/2020 CREATININE LEVEL 01/18/2025 01/19/2024, 03/2023, 07/02/2021, Additional history exists POTASSIUM LEVEL 01/18/2025 01/19/2024, 05/0 03/2023, 07/02/2021, Additional history exists SCREENING FOR DIABETES 01/18/2027 01/19/2024, 2023 LIPID PANEL 06/01/2029 06/01/2024 Adult Td,Tdap Booster 11/28/2031 11/27/2021 , 04/29/2011, 11/13/2004 INFLUENZA VACCINE Completed 12/11/2024, , 11/27/2021, Additional history exists SMOKING STATUS SCREENING (Once After 26 Yrs) Completed 01/24/2025 HEPATITIS A VACCINES Aged Out No long [...] EST) SODIUM 141 136 - 145 mmol/L [facility] POTASSIUM 4.2 3.4 - 5.1 mmol/L [facility] CHLORIDE 101 98 - 107 mmol/L [facility] CO2 31 22 - 31 mmol/L [facility] BUN 13 6 - 23 mg/dL [facility] CREATININE 0.97 0.50 - 1.20 mg/dL [facility] GLUCOSE 90 70 - 100 mg/dL [facility] ALBUMIN 4.2 3.5 - 5.2 g/dL [facility] TOTAL PROTEIN 7.4 6.4 - 8.3 g/dL [facility] CALCIUM 9.5 8.8 - 10.7 mg/dL [facility] ALKALINE PHOSPHATASE 132(H) 35 - 130 U/L [facility] TOTAL BILIRUBIN 0.2 0.0 - 1.0 mg/dL [facility] AST 12 10 - 50 U/L [facility] ALT 9(L) 10 - 50 U/L [facility] GLOBULIN 3.2 2.2 - 4.2 g/dL [facility] EGFR 90 >59 mL/min/1. 73m2 [facility] Comment:Estimated glomerular filtration rate calculated using the CKD-EPI refit equation. ANION GAP 9 7 - 17 mmol/L [facility] 01/19/2024 5:09 PM EST 01/19/2024 5:12 PM EST us Christian Steve MD, PhD LAB BLOOD BKR ORDERABLES Final Result [facility] [address] [place] [phone] from Last 3 Months or Most Recently Relevant to Health Maintenance Insurance [employer] MEDICARE RE[place] [address] [address] MEDICARE REPLACEMENT [facility] MEDICARE REPLACEMENT [facility] MEDICARE REPLACEMENT Member Subscriber Plan / Payer (Ef fective 2022-) Name:Oscar Young IV Relation to Subscriber:Self Name:Oscar Young IV Payer ID:[id number] (NAIC) Group ID:[id number] Type:Medicare Address: [place] [phone] [facility] MEDIC[facility] REPLACEMENT Member Subscriber Plan / Payer ( fective 2022-Present) Name:Oscar Young IV Relation to Subscriber:Self Name:Oscar oYung IV Payer ID:[id number] (NAIC) Group ID:[id number] Type:Medicare Address: [place] [phone] [facility] MEDICARE REPLACEMENT Member Subscriber Plan / Payer (Ef fective 2022-Present) Name:Oscar Young IV Relation to Subscriber:Self Name:Oscar Young IV Payer ID:[id number] (NAIC) Group ID:[id number] Type:Medicare Address: [place] [phone] Care Teams Client Service Associate Relationship Specialty Start Date End Date Seth Jordan MD [address] [place] [address] [address] [place] [address] PCP - General Internal Medicine 08/16/20 Additional Source Comments The information contained in this document represents components of the legal health record. It is not the complete legal health record.[facility]
--- OUTSIDE RECORDS SUMMARY | 2025-02-23 06:31 | XMS_ITS | Clinical Summary ---
Author Organization [facility] Address [address] [place] [address] Care Team Providers Care Intervention Manager Name Role Phone Seth Jordan MD Primary Care Provider [phone] Allergies Active Allergy Reactions Criticality Noted Date Comments Aspirin 12/21/2023 Medications allopurinoL (ZYLOPRIM) 100 mg tablet Take 1 tablet (100 mg total) by mouth 2 (two) times a day. Active apixaban (ELIQUIS) 5 mg tablet Take 1 tablet (5 mg total) by mouth 2 (two) times a day. Active atorvastatin (LIPITOR) 20 mg tablet Take 1 tablet (20 mg total) by mouth 1 (one) time each day. Active cholecalciferol (VITAMIN D-3) 25 mcg (1,000 unit) capsule Take 1,000 mcg by mouth 1 (one) time each day. Active clotrimazole (LOTRIMIN) 1 % cream 2 Active diclofenac (VOLTAREN) 1 % topical gel Apply 4 g topically 2 (two) times a day. 2 Active docusate sodium (COLACE) 100 mg capsule Take 1 capsule (100 mg total) by mouth 1 (one) time each day. Active tadalafiL (CIALIS) 20 mg tablet Take 1 tablet (20 mg total) by mouth 1 (one) time each day. Active traZODone (DESYREL) 50 mg tablet Take 1 tablet (50 mg total) by mouth at bedtime as needed. for 30 days. Active spironolactone (ALDACTONE) 50 mg tablet Take 1 tablet (50 mg total) by mouth 2 (two) times a day. Active torsemide (DEMADEX) 10 mg tablet Take 3 tablets (30 mg total) by mouth 2 (two) times a day. 4 Active amLODIPine (NORVASC) 2.5 mg tablet Take 1 tablet (2.5 mg total) by mouth 1 (one) time each day. Active metoprolol succinate (TOPROL-XL) 200 mg 24 hr tablet TAKE 1 TABLET BY MOUTH DAILY 90 tablet 3 5 Active meloxicam (MOBIC) 15 mg tablet Take 1 tablet (15 mg total) by mouth if needed. 5 Active Active Problems Problem Noted Date Diagnosed Date Gout 05/27/2023 Pulmonary HTN 11/06/2020 Dyspnea on exertion 06/17/2020 Atrial fibrillation 04/24/2020 Overview (12/21/2023): Atrial fibrillation Last Assessment & Plan: Patient denies perception of recurrence of arrhythmia. He continues to be anticoagulated on full dose Eliquis as his weight is greater than 60 kg and his age is less than 80. His [id number] score is 2 for heart failure and hypertension. Educated on risks and benefits of continuing with anticoagulation including increased risk for hemorrhage and decreased risk for stroke. Encouraged to seek emergent medical attention should the patient sustain a fall involving a head strike. The patient understands these risks and agrees to continue. Assessment & Plan (12/25/2024 12:01 PM EDT): Denies perception of arrhythmia. Continues to be anticoagulated with full dose Eliquis as his age is less than 80 years and his weight is greater than 60 kg. Educated on risks and benefits of continuing with anticoagulation including increased risk for hemorrhage and decreased risk for stroke. Encouraged to seek emergent medical attention should the patient sustain a fall involving a head strike. The patient understands these risks and agrees to continue. We will continue on his current dose of metoprolol succinate 200 mg. Assessment & Plan (08/21/2024 10:29 AM EDT): Orders: ECG 12 lead Cardiomyopathy 04/24/2020 Overview (12/21/2023): Last Assessment & Plan: Patient is euvolemic upon exam today. We will update surveillance echocardiogram. Patient educated on the importance of following a low-sodium diet and performing daily weights. He will call our office should he experience a 2 pound weight gain in 1 day or 5 pounds in 5 days accompanied by peripheral edema, abdominal distention and shortness of breath. At this time he will continue on his current dose of furosemide. Dyslipidemia 04/24/2020 Overview (12/21/2023): Dyslipidemia Last Assessment & Plan: Last fasting lipid profile from January 2023 revealed an LDL of 67. Continue on his current dose of statin therapy and be mindful of his dietary fat intake. Assessment & Plan (12/25/2024 12:01 PM EDT): He will continue on Lipitor 20 mg be mindful of dietary fat intake. Can consider updating fasting lipid profile prior to his next office visit unless already performed by his PCP. His fasting lipid profile from 6 months ago revealed an LDL of 96. Hypertensive disorder 04/24/2020 Overview (12/21/2023): Hypertensive disorder Assessment & Plan (12/25/2024 12:01 PM EDT): Blood pressure well-controlled during today's exam with a reading of 112/64. Continue amlodipine, metoprolol and spironolactone. Educated on the importance of diet lifestyle to help further assist in reducing blood pressure. The patient was encouraged to follow low-salt low-fat diet, make purposeful strides towards weight loss, and engage in routine aerobic exercise as tolerated. Assessment & Plan (08/21/2024 10:45 AM EDT): Paroxysmal atrial flutter 04/24/2020 Overview (12/21/2023): Paroxysmal atrial flutter Encounters Date Type Department Care Team Description 01/11/2025 Results Follow-Up [facility] - [address] [place] [address] Trupti Valiente NP 01/09/2025 9:00 AM EST Ancillary Procedure [facility] [address] [place] [address] 01/08/2025 9:30 AM EST Ancillary Procedure [facility] [address] [facility] [address] [place] [address] Chest pain, unspecified type 12/25/2024 11:10 AM EDT Office Visit [facility] - [facility] [address] [facility] [address] [place] [address] Trupti Valiente NP Chest pain, unspecified type (Primary Dx); Paroxysmal atrial fibrillation (CMS/HCC V24, CMS/HCC V28); Primary hypertension; Dyslipidemia from Last 3 Months Immunizations Immunization Administration Dates Next Due Pfizer SARS-CoV-2 COVID-19, mRNA, LNP-S, preservative free 07/09/2020,06/18/2020 Family History Medical History Relation Name Comments Other: Irregular Heart Rate Father Hypertension Maternal Grandmother Hypertension Mother Relation Name Status Comments Father Maternal Grandmother Mother Social History Tobacco Use Types Packs/Day Years Used Date Smoking Tobacco: Never Smokeless Tobacco: Never Alcohol Use Standard Drinks/Week Comments Not Currently 2 (1 standard drink = 0.6 oz pur e alcohol) Sex and Gender Information Value Date Recorded Sex Assigned at Male 10/11/2024 12:42 PM EDT Legal Sex Male 2:53 PM EST Gender Identity Male 10/11/2024 12:42 PM EDT Sexual Orientation Straight 10/11/2024 12 :42 PM EDT Last Filed Vital Signs Vital Sign Reading Time Taken Comments Blood Pressure 118/71 01/09/2025 9:24 AM EST Pulse 64 12/25/2024 11:10 AM EDT Temperature - - Respiratory Rate - - Oxygen Saturation 96% 12/25/2024 11:10 AM EDT Inhaled Oxygen Concentration - - Weight 140 kg (309 lb) 01/09/2025 9:22 AM EST Height 190.5 cm (6' 3 ) 01/09/2025 9:22 AM EST Body Mass Index 38.62 01/09/2025 9:22 AM EST Plan of Treatment Health Maintenance Due Date Last Done Comments Colorectal Cancer Screening: Colonoscopy 1965 Hepatitis B Vaccines (1 of 3 - 19+ 3-dose series) 1984 RSV Immunization Adult Patients (1 - Risk 50-74 years 1-dose series) 2015 Zoster Vaccines (1 of 2) 2015 Pneumococcal Vaccine: 50+ Years (2 of 2 - PCV) 03/19/2020 03/19/2019, 10/06/2016 HIV Screening 02/12/2022 Hepatitis C Screening 02/12/2022 Medicare Annual Wellness Visit 02/12/2022 Social Influencers of Health Screening 02/12/2022 Depression Screening 03/08/2024 COVID-19 Vaccine ( season) 2024 02/19/2022, 02/11/2021, 07/09/2020, Additional history exists Hypertension/CHF/CAD Annual BMP Blood Test 06/01/2025 06/01/2024, 01/19/2024, 07/07/2023, Additional history exists Cholesterol Screening (Lipid Panel) 06/01/2029 06/01/2024 DTaP,Tdap,and Td Vaccines (4 - Td or Tdap) 11/28/2031 11/27/2021, 04/29/2011, 11/13/2004 Influenza Vaccine Completed 12/11/2024, , 11/27/2021, Additional history exists HIB Vaccines Aged Out No longer eligi ble based on patient's age to complete this topic HPV Vaccines Aged Out No longer eligi ble based on patient's age to complete this topic Hepatitis A Vaccines Aged Out No long er eligible based on patient's age to complete this topic IPV Vaccines Aged Out No longer eligi ble based on patient's age to complete this topic MMR Vaccines Aged Out No longer eligi ble based on patient's age to complete this topic Meningococcal ACWY Vaccine Aged Out N o longer eligible based on patient's age to complete this topic Meningococcal B Vaccine Aged Out No l onger eligible based on patient's age to complete this topic RSV Immunization Patients Under 20 months Aged Out No longer eligible based on patient's age to complete this topic Varicella Vaccines Aged Out No longer eligible based on patient's age to complete this topic Procedures Procedure Name Priority Date/Time Associated Diagnosis Comments NM LEXISCAN STRESS TEST W/ MYOCARDIAL PERFUSION Routine 01/09/2025 11:01 AM EST Chest pain, unspecified type ECG 12-LEAD Routine 12/25/2024 12:01 PM EDT Chest pain, unspecified type COMPREHENSIVE METABOLIC PANEL Routine 06/01/2024 12:31 PM EDT High blood pressure Vitamin D deficiency disease Pre-diabetes LIPID PANEL WITH REFLEX TO DIRECT LDL Routine 06/01/2024 12:31 PM EDT High blood pressure Vitamin D deficiency disease Pre-diabetes from Last 3 Months or Most Recently Relevant to Health Maintenance Results * NM LEXISCAN STRESS TEST W/ MYOCARDIAL PERFUSION (01/09/2025 11:01 AM EST) BSA 2.72 m2 CV PACS STRESS Exercise/inject ion duration (min) 0 CV PACS STRESS Exercise/inject ion duration (sec) 47 CV PACS STRESS Peak SBP 132 mmHg CV PACS STRESS Peak DBP 70 mmHg CV PACS STRESS Peak HR 93 bpm CV PACS STRESS Baseline HR 66 bpm CV PACS STRESS Baseline SBP 118 mmHg CV PACS STRESS Baseline DBP 71 mmHg CV PACS STRESS Estimated workload 1.0 METS CV PACS STRESS Percent HR 58 % CV PACS STRESS Rate Pressure Product 12,276.0 mmHg*bpm CV PACS STRESS Target HR 137 bpm CV PACS STRESS TID 1.28 CV PACS STRESS Nuc Stress EF 71 % CV PAC S STRESS Nuc Rest EF 78 % CV PACS STRESS O2 sat rest 97 % CV PACS STRESS ST Depression (mm) 0 mm CV PACS STRESS Anatomical Region Laterality Modality Nuclear Medicine 01/09/2025 9:24 AM EST 01/09/2025 9:56 AM EST Impressions 01/11/2025 3:06 PM EST 1. Abnormal pharmacological nuclear stress test. 2. Symptoms: No chest pain during the regadenoson infusion 3. Stress ECG: No ischemic ECG changes with the regadenoson infusion 4. Myocardial perfusion imaging: - The myocardial perfusion imaging showed evidence of a medium in size and moderate in intensity fixed perfusion defect in the basal to apical anterior wall. There is evidence of soft tissue attenuation on the raw images. However, this perfusion defect persisted even after attenuation correction was applied. This perfusion defect could represent evidence of an infarct of the anterior wall. Nevertheless, there is no significant wall motion abnormalities noted on the gated images. As such, this perfusion defect could also represent soft tissue attenuation artifact of the anterior wall that persisted despite attenuation correction attempts. If this were to be the case (persistent soft tissue attenuation artifact), then cannot rule out the possibility of underlying ischemia of the anterior wall. -No evidence of any reversible perfusion defects on the attenuation corrected myocardial images to suggest the presence of ischemia. 5. TID was normal at 1.28. 6. Gated images revealed normal LV wall motion and thickening; with a normal LV systolic function (LVEF 78%). Given the noted perfusion abnormality on the myocardial perfusion images (anterior wall infarct versus persistent soft tissue attenuation artifact), would recommend to consider alternatives testing (stress echocardiogram, cardiac nuclear PET scan, cardiac CT scan, or left heart catheterization) for further evaluation if there is ongoing concerns about the possibility of underlying CAD. Narrative 01/11/2025 3:06 PM EST Stress Findings A pharmacological stress test was performed using regadenoson, 0.4 mg IV over 10-15 seconds, followed by radiopharmacological injection 10 seconds post infusion. Total stress time was 0 min and 47 sec. The patient reached the end of the protocol. Blood pressure demonstrated a normal response. Heart rate demonstrated a normal response. The patient reported no symptoms during the stress test. ECG 69-year-old male with a past medical history significant for A-fib, hypertension, pulmonary hypertension, dyslipidemia, dyspnea on exertion and cardiomyopathy who has been experiencing chest pressure with radiation to the left arm on exertion, testing to rule out ischemia. Patient is on metoprolol and amlodipine during testing. Baseline EKG: Sinus rhythm There were no arrhythmias during stress. There is no ST segment changes during stress. There were no arrhythmias during recovery. The result of the stress ECG was negative for ischemia. Nuclear Study Quality Study technique: MPI, SPECT, multi, rest and stress, 2 day. Overall image quality is good. CT attenuation correction was utilized. Diaphragmatic attenuation artifact is present. There was no increased lung uptake of the radiopharmaceutical. No radiopharmaceutical dose was extravasated. The time from injection to rest imaging is 45 mins. The time from injection to stress imaging is 55 mins. Perfusion Defect Conclusion There is no evidence of transient ischemic dilation (TID). Stress Function Comments Left ventricular systolic function post-stress is normal. Stress ejection fraction is 71%. Rest Function Comments Left ventricular function at rest was normal. Resting ejection fraction was 78%. Stress Combined Conclusion SCAN FINDINGS: Nuclear imaging of the left ventricle reveals normal cavity size at rest with no change with stress imaging. Myocardial perfusion imaging of the left ventricle revealed a medium in size and moderate in intensity fixed perfusion defect in the basal to apical anterior wall. There is also a small in size and moderate in intensity fixed perfusion defect in the basal to mid inferior wall and basal inferoseptal wall. The raw images demonstrated the presence of diaphragmatic attenuation as well as soft tissue attenuation. CT attenuation correction was applied to the study which partially corrects the previously mentioned perfusion abnormality. The peer was noted fixed defect in the inferior wall/inferoseptal wall was completely corrected. However, even after attenuation correction was applied, there is evidence of a medium in size and moderate in intensity fixed perfusion defect in the basal to apical anterior wall. No evidence of ischemia. Gated SPECT imaging was performed which demonstrated normal LV function and thickening with a calculated LVEF of 78% Perfusion Scoring Resting Summed Score: 6 Percent Normal: 8.82% Moderate count reduction in the following segments: basal anterior, mid anterior and apical anterior. All other segments are normal. AC resting images Perfusion Scoring Stress Summed Score: 6 Percent Normal: 8.82% Moderate count reduction in the following segments: basal anterior, mid anterior and apical anterior. All other segments are normal. AC stress images Perfusion Scores: SRS Score: 6 Percentage Abnormal: 8.82% Perfusion Scores: SSS Score: 6 Percentage Abnormal: 8.82% Perfusion Scores: SDS Score: 0 Percentage Abnormal: 0.00% us Trupti Valiente NP CV STRESS PROCEDURES F inal Result * ECG 12 lead (12/25/2024 12:01 PM EDT) Ventricular Rate ECG 57 BPM GEMUSE Atrial Rate 57 BPM GEMUSE P-R Interval 176 ms GEMUSE QRS Duration 90 ms GEMUSE Q-T Interval 442 ms GEMUSE QTc 430 ms GEMUSE P Wave [place] 74 degrees GEMUSE R [place] 79 degrees GEMUSE T [place] 61 degrees GEMUSE ECG Interpretation Sinus bradycardia Nonspecific ST and T wave abnormality Abnormal ECG When compared with ECG of 21-AUG-2024 10:11, No significant change was found Confirmed by MD Rich Christopher ([id number]) on 12/25/2024 4:05:51 PM GEMUSE 12/25/2024 11:4 2 AM EDT 12/25/2024 4:05 PM EDT us Trupti Valiente NP ECG ORDERABLES Edited Result - Final GEMUSE * Lipid panel with reflex to direct LDL (06/01/2024 12:31 PM EDT) Cholesterol 168 0 - 200 mg/dL LAB CHEMISTRY METHOD 06/01/2024 4:04 PM EDT [facility] Triglycerides 122 0 - 150 mg/dL LAB CHEMISTRY METHOD 06/01/2024 4:04 PM EDT [facility] HDL 48 >=40 mg/dL LAB CHEMISTRY METHOD 06/01/2024 4:04 PM T [facility] LDL Calculated 96 0 - 100 mg/dL LAB CHEMISTRY METHOD 06/01/2024 4:04 PM [facility] VLDL Cholesterol Abbe 24.4 mg/dL LAB CHEMISTRY METHOD 06/01/2024 4:04 PM T [facility] Non HDL Chol. (LDL+VLDL) 120 <145 mg/dL LAB CHEMISTRY METHOD 06/01/2024 4:04 PM T [facility] Chol/HDL Ratio 3.5 0.0 - 4.4 LAB CHEMISTRY METHOD 06/01/2024 4:04 PM [facility] Blood Venous blood specimen / Unknown Venipuncture / Unknown 06/01/2024 12:31 PM EDT 06/01/2024 1:26 PM EDT us Seth Jordan MD LAB BLOOD ORDERABLES Final Res ult [facility] [address] [place] [address], [place] [phone] * (ABNORMAL) Comprehensive metabolic panel (06/01/2024 12:31 PM EDT) Sodium 135 133 - 145 mmol/L LAB CHEMISTRY METHOD 06/01/2024 4:04 PM T [facility] Potassium 4.4 3.5 - 5.5 mmol/L LAB CHEMISTRY METHOD 06/01/2024 4:04 PM [facility] Chloride 97 96 - 110 mmol/L LAB CHEMISTRY METHOD 06/01/2024 4:04 PM [facility] CO2 33(H) 21 - 32 mmol/L LAB CHEMISTRY METHOD 06/01/2024 4:04 PM [facility] Anion Gap 5 3 - 11 LAB CHEMISTRY METHOD 06/01/2024 4:04 PM [facility] Glucose 100 70 - 100 mg/dL LAB CHEMISTRY METHOD 06/01/2024 4:04 PM [facility] BUN 12 5 - 25 mg/dL LAB CHEMISTRY METHOD 06/01/2024 4:04 PM [facility] Creatinine 1.11 0.70 - 1.30 mg/dL LAB CHEMISTRY METHOD 06/01/2024 4:04 PM [facility] eGFR 76 >=60 mL/min/1. 73m2 LAB CHEMISTRY METHOD 06/01/2024 4:04 PM [facility] Comment:Calculation based on the Chronic Kidney Disease Epidemiology Collaboration (CKD-EPI) equation refit without adjustment for race. BUN/Creatinine Ratio 10.8 LAB CHEMISTRY METHOD 06/01/2024 4:04 PM [facility] Calcium 9.8 8.5 - 10.5 mg/dL LAB CHEMISTRY METHOD 06/01/2024 4:04 PM EDT [facility] AST (SGOT) 13 10 - 42 unit/L LAB CHEMISTRY METHOD 06/01/2024 4:04 PM EDT [facility] ALT (SGPT) 16 10 - 60 unit/L LAB CHEMISTRY METHOD 06/01/2024 4:04 PM EDT [facility] Alkaline Phosphatase 134(H) 42 - 121 unit/L LAB CHEMISTRY METHOD 06/01/2024 4:04 PM EDT [facility] Total Protein 7.8 6.0 - 8.0 g/dL LAB CHEMISTRY METHOD 06/01/2024 4:04 PM EDT [facility] Albumin 3.8 3.2 - 5.0 g/dL LAB CHEMISTRY METHOD 06/01/2024 4:04 PM [facility] Total Bilirubin 0.4 0.0 - 1.4 mg/dL LAB CHEMISTRY METHOD 06/01/2024 4:04 PM EDT [facility] Blood Venous blood specimen / Unknown Venipuncture / Unknown 06/01/2024 12:31 PM EDT 06/01/2024 1:26 PM EDT us Seth Jordan MD LAB BLOOD ORDERABLES Final Res ult [facility] [address] [place] [address], from Last 3 Months or Most Recently Relevant to Health Maintenance Insurance [employer] MEDICARE MEDICAID - [place] Care Teams Intervention Manager Relationship Specialty Start Date End Date Seth Jordan MD [address] PCP - General Internal Medicine 01/05/12
--- OUTSIDE RECORDS SUMMARY | 2025-02-23 06:31 | XMS_ITS | Clinical Summary ---
Author Organization [facility] Prior to 08/05/24 Address [address] [place] [address] Care Team Providers Care Rn Flight Name Role Phone Unavailable Primary Care Provider [...]
--- OUTSIDE RECORDS SUMMARY | 2025-02-23 06:31 | XMS_ITS | Data Portability ---
Author Organization [facility], Main Office Address [address] [place] [address] Care Team Providers Care Overnight Associate Name Role Phone SETH SOLORZANO Primary Care Provider MILENA WANG Sleep Medicine [employer] ([facility]) Orthopedic Surgeon VINOD PRESTON 4Th Grade Teacher [phone] [place] Content Specialist [phone] [facility] Sleep Medicine TJ RODAS Orthopedic Surgeon KATHY STEVE Clinical Support Manager TOMMY TINEO Referring Provider GRANT DANIEL Urologist VINOD MAHONEY Manager Acquisition [phone] [facility] Orthopedic Surgeon Assessment No assessment recorded. Plan of Treatment Reminders Order Date Submit Date Provider Last Modified By Organization Details Last Modified Time Details Appointments [id number] 2025 11:00A M Seth Solorzano MD Not available Not available Not available Lab thyroi d cascad e, serum 2023 024 [facility], [address] [place], [address], 08/11/2023 19:24:53 CMP, serum or plasma 2023 024 [facility], [address] [place], [address], 08/11/2023 19:16:41 Referral orthop edic surgeo n referr al - for eval of right shoudl er pain, 2024 025 GUY Fisher MD, [address] [place] [address] Dr, [address], [place], [address], 10/26/2024 10:05:42 orthop edic ximenao n referr al - for eval of chroni c right should er pain 2024 025 [place] [facility], [address], [address], [place], [address], 07/11/2024 15:54:48 nutrit ionist /racqueli mary ann referr al 2023 024 [email or web address] Not available 01/31/2024 14:07:28 orthop edic ximenao n referr al - for eval of right should er pain 2023 024 MADALYN oRdas MD, [address], [place], [address], 04/06/2024 12:46:24 Procedures nerve conduc tion study/ EMG, upper extrem ity (PROC) - rule out bilate ral carpal tunnel 2024 025 [facility], [address] [place], [address], 01/30/2025 15:15:26 Surgeries None record ed. Imaging US, thyroi d - f/u (para) thyroi d nodule /mass 2024 025 [email or web address] [facility] (Ultrasound), [address] [facility] [place], [address], 10/24/2024 15:27:41 Medication Orders meloxi cam 15 mg tablet 2024 025 [id number], [address], [place], [id number], 10/26/2024 09:59:35 ciprof loxaci n 500 mg tablet 2023 024 [email or web address] Not available 06/05/2024 10:33:24 tadala harpreet 20 mg tablet 2023 024 [id number] [facility], [address] [place], [address], 11/29/2024 07:41:00 Patient TargetsNo targets recorded. Patient Instructions Encounter Date Encounter Id Patient Instructions Last Modified By Organization Details Last Modified Time 08/10/2023 [id number] high blood pressure: care instructions [email or web address] Not available 08/10/2023 10:32:08 learning about high blood pressure awychowski Not available 08/10/2023 10:32:08 01/31/2024 [id number] preventing falls: care instructions [email or web address] Not available 01/31/2024 13:53:39 well visit, over 65: care instructions awychowski Not available 01/31/2024 13:53:39 Starting a Weight-Loss Plan: Care Instructions awychowski Not available 01/31/2024 13:53:40 Nutrition Referral and Weight Management Follow-up Information awychowski Not available 01/31/2024 13:53:39 06/05/2024 [id number] high cholesterol: care instructions awychowski Not available 06/05/2024 11:14:33 carpal tunnel syndrome: care instructions awychowski Not available 06/05/2024 11:15:56 high blood pressure: care instructions awychowski Not available 06/05/2024 11:14:33 learning about high blood pressure awychowski Not available 06/05/2024 11:14:33 12/11/2024 [id number] high cholesterol: care instructions awychowski Not available 12/11/2024 12:12:16 Reason for Referral 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/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 Refer ral for Body mass index 40+ - severely obese Referring Physician: Seth Solorzano, Family Medicine, Encounter Date: 01/31/2024 Orthopedic Surgeon Referral for Pain of right shoulder joint for eval of right shoulder pain Referring Physician: Seth Solorzano [facility], Encounter Date: 01/31/2024 Orthopedic Surgeon Referral for Pain of right shoulder joint for eval of chronic right shoulder pain Referring Physician: Seth Solorzano [facility], Encounter Date: 06/05/2024 Orthopedic Surgeon Referral for Pain of right shoulder joint for eval of right shoudler pain, Referring Physician: Seth Solorzano [facility], Encounter Date: 10/26/2024 Results Created Date Observation Date Name Description Value Unit Range Abnormal Flag Note LastModifiedBy Organization Detail LastModifiedTime 06/02/1906/01/2024 URINA LYSIS WITH REFLE X MICRO SCOPI C specific gravity urine 1.007 1.003- 1.030 Not Available [address], [address], 06/01/2024 14:25:55 06/02/1906/01/2024 URINA LYSIS WITH REFLE X MICRO SCOPI C pH, urine 6.5 pH 5.0-8. 0 Not Available [address], [address], 06/01/2024 14:25:55 06/02/19 25 06/01/2024 URINA LYSIS WITH REFLE X MICRO SCOPI C leukocytes, urine NEGATI VE negati ve Not Available [address], [address], 06/01/2024 14:25:55 06/02/1906/01/2024 URINA LYSIS WITH REFLE X MICRO SCOPI C nitrite, urine NEGATI VE negati ve Not Available [address], [address], 06/01/2024 14:25:55 06/02/1906/01/2024 URINA LYSIS WITH REFLE X MICRO SCOPI C protein, urine NEGATI VE mg/dL <=trac e Not Available [address], [address], 06/01/2024 14:25:55 06/02/19 25 06/01/2024 URINA LYSIS WITH REFLE X MICRO SCOPI C glucose, urine NEGATI VE mg/dL negati ve Not Available [address], [address], 06/01/2024 14:25:55 06/02/19 25 06/01/2024 URINA LYSIS WITH REFLE X MICRO SCOPI C ketones, urine NEGATI VE mg/dL negati ve Not Available [address], [address], 06/01/2024 14:25:55 06/02/19 25 06/01/2024 URINA LYSIS WITH REFLE X MICRO SCOPI C urobilinogen , urine 0.2 mg/dL 0.2-1. 0 Not Available [address], [address], 06/01/2024 14:25:55 06/02/19 25 06/01/2024 URINA LYSIS WITH REFLE X MICRO SCOPI C bilirubin, urine NEGATI VE negati ve Not Available [address], [address], 06/01/2024 14:25:55 06/02/19 25 06/01/2024 URINA LYSIS WITH REFLE X MICRO SCOPI C blood, urine NEGATI VE negati ve Not Available [address], [address], 06/01/2024 14:25:55 06/02/19 25 06/01/2024 URINA LYSIS WITH REFLE X MICRO SCOPI C note SEE REPORT [facility], [address] [facility] [address] [facility] [address], Mare[place] cezar d, [place] [facility] [place] [address] Not Available [address], [address], 06/01/2024 14:25:55 06/02/19 25 06/01/2024 LIPID PANEL WITH REFLE X TO DIREC T LDL cholesterol 168 mg/dL 0-200 Not Available [address], [address], 06/01/2024 16:07:09 06/02/19 25 06/01/2024 LIPID PANEL WITH REFLE X TO DIREC T LDL triglyceride s 122 mg/dL 0-150 Not Available [address], [address], 06/01/2024 16:07:09 06/02/19 25 06/01/2024 LIPID PANEL WITH REFLE X TO DIREC T LDL HDL 48 mg/dL >=40 Not Available [address], [address], 06/01/2024 16:07:09 06/02/19 25 06/01/2024 LIPID PANEL WITH REFLE X TO DIREC T LDL LDL calculated 96 mg/dL 0-100 Not Available [address], [address], 06/01/2024 16:07:09 06/02/19 25 06/01/2024 LIPID PANEL WITH REFLE X TO DIREC T LDL VLDL cholesterol curtis 24.4 mg/dL Not Available [address], [address], 06/01/2024 16:07:09 06/02/19 25 06/01/2024 LIPID PANEL WITH REFLE X TO DIREC T LDL non HDL chol. (LDL+VLDL) 120 mg/dL <145 Not Available [address], [address], 06/01/2024 16:07:09 06/02/19 25 06/01/2024 LIPID PANEL WITH REFLE X TO DIREC T LDL chol/HDL ratio 3.5 0.0-4. 4 Not Available [address], [address], 06/01/2024 16:07:09 06/02/19 25 06/01/2024 LIPID PANEL WITH REFLE X TO DIREC T LDL note SEE REPORT [facility], [address], [place], [place] [address] Not Available [address], [address], 06/01/2024 16:07:09 06/02/19 25 06/01/2024 COMPR EHENS LIUDMILA METAB OLIC PANEL sodium 135 mmol/ L 133-14 5 Not Available [address], [address], 06/01/2024 16:07:18 06/02/19 25 06/01/2024 COMPR EHENS LIUDMILA METAB OLIC PANEL potassium 4.4 mmol/ L 3.5-5. 5 Not Available [address], [address], 06/01/2024 16:07:18 06/02/19 25 06/01/2024 COMPR EHENS LIUDMILA METAB OLIC PANEL chloride 97 mmol/ L 96-110 Not Available [address], [address], 06/01/2024 16:07:18 06/02/19 25 06/01/2024 COMPR EHENS LIUDMILA METAB OLIC PANEL CO2 33 mmol/ L 21-32 high Not Available [address], [address], 06/01/2024 16:07:18 06/02/19 25 06/01/2024 COMPR EHENS LIUDMILA METAB OLIC PANEL anion gap 5 3-11 Not Available [address], [address], 06/01/2024 16:07:18 06/02/19 25 06/01/2024 COMPR EHENS LIUDMILA METAB OLIC PANEL glucose 100 mg/dL 70-100 Not Available [address], [address], 06/01/2024 16:07:18 06/02/19 25 06/01/2024 COMPR EHENS LIUDMILA METAB OLIC PANEL BUN 12 mg/dL 5-25 Not Available [address], [address], 06/01/2024 16:07:18 06/02/19 25 06/01/2024 COMPR EHENS LIUDMILA METAB OLIC PANEL creatinine 1.11 mg/dL 0.70-1 .30 Not Available [address], [address], 06/01/2024 16:07:18 06/02/19 25 06/01/2024 COMPR EHENS LIUDMILA METAB OLIC PANEL eGFR 76 mL/mi n/1.7 3m2 >=60 Calcu latio n based on the C hroni c Kidne y Disea se Epide miolo gy Colla borat ion (CKD- EPI) equat ion refit w ith t [facility] tment for race. Not Available [address], [address], 06/01/2024 16:07:18 06/02/19 25 06/01/2024 COMPR EHENS LIUDMILA METAB OLIC PANEL BUN/creatini ne ratio 10.8 Not Available [address], [address], 06/01/2024 16:07:18 06/02/19 25 06/01/2024 COMPR EHENS LIUDMILA METAB OLIC PANEL calcium 9.8 mg/dL 8.5-10 .5 Not Available [address], [address], 06/01/2024 16:07:18 06/02/19 25 06/01/2024 COMPR EHENS LIUDMILA METAB OLIC PANEL AST (SGOT) 13 unit/ L 10-42 Not Available [address], [address], 06/01/2024 16:07:18 06/02/19 25 06/01/2024 COMPR EHENS LIUDMILA METAB OLIC PANEL ALT (SGPT) 16 unit/ L 10-60 Not Available [address], [address], 06/01/2024 16:07:18 06/02/19 25 06/01/2024 COMPR EHENS LIUDMILA METAB OLIC PANEL alkaline phosphatase 134 unit/ L 42-121 high Not Available [address], [address], 06/01/2024 16:07:18 06/02/19 25 06/01/2024 COMPR EHENS LIUDMILA METAB OLIC PANEL total protein 7.8 g/dL 6.0-8. 0 Not Available [address], [address], 06/01/2024 16:07:18 06/02/19 25 06/01/2024 COMPR EHENS LIUDMILA METAB OLIC PANEL albumin 3.8 g/dL 3.2-5. 0 Not Available [address], [address], 06/01/2024 16:07:18 06/02/19 25 06/01/2024 COMPR EHENS LIUDMILA METAB OLIC PANEL total bilirubin 0.4 mg/dL 0.0-1. 4 Not Available [address], [address], 06/01/2024 16:07:18 06/02/19 25 06/01/2024 COMPR EHENS LIUDMILA METAB OLIC PANEL note SEE REPORT [facility], [address] [facility] [address], Lisa robb d, [place] [facility] [place] [address] Not Available [address], [address], 06/01/2024 16:07:18 06/02/19 25 06/01/2024 VITAM IN D 25 HYDRO XY vit D, 25-hydroxy 41.2 NG/mL 30.0-8 0.0 Not Available [address], [address], 06/01/2024 16:50:24 06/02/19 25 06/01/2024 VITAM IN D 25 HYDRO XY note SEE REPORT [facility], [address] [facility], [place] le[place]abram shah, [facility] [place] [address] Not Available [address], [address], 06/01/2024 16:50:24 06/02/19 25 06/01/2024 HEMOG LOBIN A1C hemoglobin A1C 6.2 % <6.5 Not Available [address], [address], 06/01/2024 21:27:48 06/02/19 25 06/01/2024 HEMOG LOBIN A1C mean bld glu estim. 131 mg/dL Not Available [address], [address], 06/01/2024 21:27:48 06/02/19 25 06/01/2024 HEMOG LOBIN A1C note SEE REPORT [facility], [address] [facility], [place] leviabram shah, [facility] [place] [address] Not Available [address], [address], 06/01/2024 21:27:48 08/11/19 24 08/11/2023 COMPR EHENS LIUDMILA METAB OLIC PANEL comments [facility] gabriele mejia, winston rahman [facility] [address] [facility] [place] [address] Medic al Direc kenneth reza MD Not Available [facility] [address] [place] [address], [place], [address], 08/11/2023 19:16:41 08/11/19 24 08/11/2023 COMPR EHENS LIUDMILA METAB OLIC PANEL glucose 71 mg/dL 70-100 Refer ence range appli cable to fasti ng speci mens only Not Available [facility] [address] [place], [address], 08/11/2023 19:16:41 08/11/19 24 08/11/2023 COMPR EHENS LIUDMILA METAB OLIC PANEL BUN 13 mg/dL 5-25 Not Available [facility] [address] [place], [address], 08/11/2023 19:16:41 08/11/19 24 08/11/2023 COMPR EHENS LIUDMILA METAB OLIC PANEL creat 1.11 mg/dL 0.7-1. 3 Not Available [facility] [address] [place], [address], 08/11/2023 19:16:41 08/11/19 24 08/11/2023 COMPR EHENS LIUDMILA METAB OLIC PANEL glomerular filtration rate 77 >60 This eGFR resul t was calcu lated using the CKD-E PI 2020 Creat inine Equat ion Not Available [facility] [address] [place], [address], 08/11/2023 19:16:41 08/11/19 24 08/11/2023 COMPR EHENS LIUDMILA METAB OLIC PANEL sodium 139 mEq/L 135-14 5 Not Available [facility] [address] [place], [address], 08/11/2023 19:16:41 08/11/19 24 08/11/2023 COMPR EHENS LIUDMILA METAB OLIC PANEL potassium 3.7 mmol/ L 3.5-5. 5 Not Available [facility] [address] [place], [address], 08/11/2023 19:16:41 08/11/19 24 08/11/2023 COMPR EHENS LIUDMILA METAB OLIC PANEL chloride 102 mmol/ L 96-110 Not Available [facility] [address] [place], [address], 08/11/2023 19:16:41 08/11/19 24 08/11/2023 COMPR EHENS LIUDMILA METAB OLIC PANEL CO2 32 mmol/ L 21-32 Not Available [facility] [address] [place], [address], 08/11/2023 19:16:41 08/11/19 24 08/11/2023 COMPR EHENS LIUDMILA METAB OLIC PANEL anion gap 5 3-11 Not Available [facility] [address] [place], [address], 08/11/2023 19:16:41 08/11/19 24 08/11/2023 COMPR EHENS LIUDMILA METAB OLIC PANEL calcium 9.5 mg/dL 8.5-10 .5 Not Available [facility] [address] [place], [address], 08/11/2023 19:16:41 08/11/19 24 08/11/2023 COMPR EHENS LIUDMILA METAB OLIC PANEL total protein 7.5 g/dL 6.0-8. 0 Not Available [facility] [address] [place], [address], 08/11/2023 19:16:41 08/11/19 24 08/11/2023 COMPR EHENS LIUDMILA METAB OLIC PANEL albumin 3.9 g/dL 3.2-5. 0 Not Available [facility] [address] [place], [address], 08/11/2023 19:16:41 08/11/19 24 08/11/2023 COMPR EHENS LIUDMILA METAB OLIC PANEL bili,total 0.5 mg/dL 0.0-1. 4 Not Available [facility] [address] [place], [address], 08/11/2023 19:16:41 08/11/19 24 08/11/2023 COMPR EHENS LIUDMILA METAB OLIC PANEL SGOT 15 U/L 10-42 Not Available [facility] [address] [place], [address], 08/11/2023 19:16:41 08/11/19 24 08/11/2023 COMPR EHENS LIUDMILA METAB OLIC PANEL SGPT 14 U/L 10-60 Not Available [facility] [address] [place], [address], 08/11/2023 19:16:41 08/11/19 24 08/11/2023 COMPR EHENS LIUDMILA METAB OLIC PANEL alk phos 115 U/L 42-121 Not Available [facility] [address] [place], [address], 08/11/2023 19:16:41 08/11/19 24 08/11/2023 TSH CASCA DE comments [facility], a [facility] of [facility] [address] [facility] [place] [address] Medic al Direc kenneth reza MD Not Available [facility] [address] [place], [address], 08/11/2023 19:24:53 08/11/19 24 08/11/2023 TSH CASCA DE TSH cascade 0.71 uIU/m L 0.40-4 .00 Not Available [facility] [address] [place], [address], 08/11/2023 19:24:53 12/22/19 24 12/22/2023 HEMOG LOBIN A1C hemoglobin A1C 6.2 % 4.8-5. 6 above high normal Predi abete s: 5.7 - 6.4 Diabe gisell: >6.4 Glyce lonny contr ol for adult s with diabe gisell: <7.0 Not Available [facility] ([facility] [place] [place] [facility] [address] [facility], [place], [address], 12/23/2023 06:08:18 12/31/19 24 01/01/2024 CBC WITH DIFFE RENTI AL/PL ATELE T WBC 7.9 x10e3 /uL 3.4-10 .8 normal Not Available [facility] ([facility] [place] [place] [facility] [address] [facility], [place], [address], 01/01/2024 06:08:23 12/31/19 24 01/01/2024 CBC WITH DIFFE RENTI AL/PL ATELE T RBC 4.77 x10e6 /uL 4.14-5 .80 normal Not Available [facility] ([facility] [place] [place] [facility] [address] [place], [address], 01/01/2024 06:08:23 12/31/1901/01/2024 CBC WITH DIFFE RENTI AL/PL ATELE T hemoglobin 12.9 g/dL 13.0-1 7.7 below low normal Not Available [facility] ([facility] [place] [place] [facility] [address] [place], [address], 01/01/2024 06:08:23 12/31/1901/01/2024 CBC WITH DIFFE RENTI AL/PL ATELE T hematocrit 39.9 % 37.5-5 1.0 normal Not Available [facility] ([facility] [place] [place] [facility] [address] [place], [address], 01/01/2024 06:08:23 12/31/1901/01/2024 CBC WITH DIFFE RENTI AL/PL ATELE T MCV 84 fL 79-97 normal Not Available [facility] ([facility] [place] [place] [facility] [address] [place], [address], 01/01/2024 06:08:23 12/31/1901/01/2024 CBC WITH DIFFE RENTI AL/PL ATELE T MCH 27.0 pg 26.6-3 3.0 normal Not Available [facility] ([facility] [place] [place] [facility]) [address] [place], [address], 01/01/2024 06:08:23 12/31/1901/01/2024 CBC WITH DIFFE RENTI AL/PL ATELE T MCHC 32.3 g/dL 31.5-3 5.7 normal Not Available [facility] ([facility] [place] [place] [facility]) [address] [place], [address], 01/01/2024 06:08:23 12/31/1901/01/2024 CBC WITH DIFFE RENTI AL/PL ATELE T RDW 14.5 % 11.6-1 5.4 Not Available [facility] ([facility] [place] [place] [facility] [address] [facility], [place], [address], 01/01/2024 06:08:23 12/31/1901/01/2024 CBC WITH DIFFE RENTI AL/PL ATELE T platelets 269 x10e3 /uL 150-45 0 normal Not Available [facility] ([facility] [place] [place] [facility]) [address] [facility], [place], [address], 01/01/2024 06:08:23 12/31/1901/01/2024 CBC WITH DIFFE RENTI AL/PL ATELE T neutrophils 66 % not estab. normal Not Available [facility] ([facility] [place] [place] [facility] [address] [facility], [place], [address], 01/01/2024 06:08:23 12/31/1901/01/2024 CBC WITH DIFFE RENTI AL/PL ATELE T lymphs 22 % not estab. normal Not Available [facility] ([facility] [place] [place] [facility] [address] [facility], [place], [address], 01/01/2024 06:08:23 12/31/1901/01/2024 CBC WITH DIFFE RENTI AL/PL ATELE T monocytes 8 % not estab. normal Not Available [facility] ([facility] [place] [place] [facility] [address] [facility], [place], [address], 01/01/2024 06:08:23 12/31/1901/01/2024 CBC WITH DIFFE RENTI AL/PL ATELE T eos 3 % not estab. normal Not Available [facility] ([facility] [place] [place] [facility]) [address] [facility], [place], [address], 01/01/2024 06:08:23 12/31/1901/01/2024 CBC WITH DIFFE RENTI AL/PL ATELE T basos 1 % not estab. normal Not Available [facility] (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 [place] [place] [facility]) [address] [place], [address], 01/01/2024 06:08:23 12/31/1901/01/2024 CBC WITH DIFFE RENTI AL/PL ATELE T neutrophils (absolute) 5.3 x10e3 /uL 1.4-7. 0 normal Not Available [facility] ([facility] [place] [place] [facility]) [address] [place], [address], 01/01/2024 06:08:23 12/31/19 24 01/01/2024 CBC WITH DIFFE RENTI AL/PL ATELE T lymphs (absolute) 1.7 x10e3 /uL 0.7-3. 1 normal Not Available [facility] ([facility] [place] [place] [facility]) [address] [place], [address], 01/01/2024 06:08:23 12/31/19 24 01/01/2024 CBC WITH DIFFE RENTI AL/PL ATELE T monocytes(ab solute) 0.6 x10e3 /uL 0.1-0. 9 normal Not Available [facility] ([facility] [place] [place] [facility] [address] [place], [address], 01/01/2024 06:08:23 12/31/1901/01/2024 CBC WITH DIFFE RENTI AL/PL ATELE T eos (absolute) 0.2 x10e3 /uL 0.0-0. 4 normal Not Available [facility] ([facility] [place] [place] [facility] [address] [place], [address], 01/01/2024 06:08:23 12/31/19 24 01/01/2024 CBC WITH DIFFE RENTI AL/PL ATELE T baso (absolute) 0.0 x10e3 /uL 0.0-0. 2 normal Not Available [facility] ([facility] [place] [place] [facility] [address] [facility], [place], [address], 01/01/2024 06:08:23 12/31/1901/01/2024 CBC WITH DIFFE RENTI AL/PL ATELE T immature granulocytes 0 % not estab. Not Available [facility] ([facility] [place] [place] [facility] [address] [place], [address], 01/01/2024 06:08:23 12/31/1901/01/2024 CBC WITH DIFFE RENTI AL/PL ATELE T immature grans (abs) 0.0 x10e3 /uL 0.0-0. 1 Not Available [facility] (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 [place] [facility] [address] [place], [address], 01/01/2024 06:08:23 12/31/1901/01/2024 HEMOG LOBIN A1C hemoglobin A1C 6.1 % 4.8-5. 6 above high normal Predi abete s: 5.7 - 6.4 Diabe gisell: >6.4 Glyce lonny contr ol for adult s with diabe gisell: <7.0 Not Available [facility] ([facility] [place] [place] [facility] [address] [facility], [place], [address], 01/01/2024 06:08:24 12/31/1901/01/2024 THYRO ID CASCA DE [...] l TSH value s. Not Available [facility] ([facility] [place] [place] [facility] [address] [facility], [place], [address], 01/01/2024 06:08:25 11/17/1910/28/2023 CT, neck, w/ contr ast No observ ation record ed. [facility] (Medical Records) [address] [place], [address], 01/31/2024 13:40:02 02/09/2002/02/2024 trans thora cic echoc ardio gram (TTE) compl ete (cont rast/ bubbl e/3D PRN) No observ ation record ed. [facility] [address] [facility], [place], [address], 06/05/2024 11:05:08 02/09/2002/02/2024 trans -thor acic echoc ardio gram (TTE) (PROC ) No observ ation record ed. [facility] Not Available 06/05 11:05:08 08/22/19 ECG 12-le ad No observ ation record ed. [facility] U/S Dept [address], [place], [address], 08/29/2024 05:40:05 10/25/19 25 10/23/2024 US head neck soft tissu e See Note [facility] , a [facility] Name: NOVA WILKINSON Date of : 1965 Reason for Exam: NON TOXIC GOITER UNSPEC IFIED . Exam Date: 2024 [id number] EST Report Status : Final Orderi ng [...] Transc ribed Date: 2024 11:58 ET [email or web address] [facility]/S Dept [address] [place] [address], [address], 11/09/2024 10:38:24 12/26/1912/25/2024 ECG 12-le ad No observ ation record ed. [facility]/S Dept [address] [place], [address], 12/26/2024 06:47:48 12/26/19 ECG 12-le ad No observ ation record ed. [facility] [address] [place], [address], 12/26/2024 06:47:48 01/12/2001/08/2025 nm stres s test with myoca rdial perfu dex No observ ation record ed. [facility]/S Dept [address] [place], [address], 01/12/2025 06:55:15 01/16/2001/09/2025 nucle ar stres s test No observ ation record ed. [facility] (Human Resources) [address], [place], [address], 01/16/2025 07:25:18 01/18/2001/17/2025 [place], thyro id No observ ation record ed. [facility] (Medical Records) [address] [place], [address], 01/18/2025 12:04:04 Result Notes None recorded. Problems Name Problem SNOMED Code Status Onset Date Resolution Date Notes Provider Name and Address Organization Details Recorded Time Pain of wrist region 73427887 Completed 07/13/2014 Seth Solorzano MD [address] [facility] [address], [place], [address] , [facility] 5 14:20:56 Dyspnea on exertion [id number] Completed 07/13/2014 [facility] 7 12:55:52 Body mass index 30+ - obesity [id number] Completed 07/21/2017 Seth Solorzano MD [address] [facility] [address], [place], [address] , [place] [facility] 8 11:57:46 Irregula r heart beat [id number] Completed 11/10/2016 RALPH Aceves, [facility] 7 12:55:33 Atrial fibrilla tion and flutter 784490606 Completed 07/21/2017 Seth Solorzano MD [address], [place], [address] , [facility] 8 11:59:07 Body mass index 40+ - severely obese 842124728 Completed 11/10/2016 Seth Solorzano MD [address] [facility] [address], [place], [address] , [facility] 1 09:19:07 Excessiv e thirst 04882635 Completed 11/10/2016 RALPH Aceves, [facility] 7 12:55:17 Dyspnea on exertion 37892931 Completed 11/10/2016 RALPH Aceves, [facility] 7 12:55:52 Increase d frequenc y of urinatio n 025734469 Completed 11/10/2016 RALPH Aceves, [facility] 7 12:55:11 Dyspnea 739857106 Completed 11/10/2016 RALPH Aceves, [facility] 7 12:55:23 Tinea pedis 8502288 Completed 201209/19/2013 RECORDED 04/06/19 13 2:51PM BY ANASTASIIA ISSA MA, ANNOTATI ON/ADDEN DUM Seth Solorzano MD [address] [facility] [address], [place], [address] , [facility] 5 14:20:56 Tinea pedis 8752479 Completed 201210/16/2013 RECORDED 04/06/19 13 2:51PM BY ANASTASIIA ISSA MA, ANNOTATI ON/ADDEN DUM Seth Solorzano MD [address] [facility] [address], [place], [address] , [facility] 5 14:20:56 Essentia l hyperten dex 20499007 Completed 201209/19/2013 RECORDED 04/18/19 13 9:48AM BY WILMER MCELROY MA, HELEN CABRERA/ALINE Solorzano MD [address], [place], [address] , [facility] 8 11:59:45 Screenin lala procedur e Completed 201209/19/2013 IMPRESSI ON: GIVEN FAMILY HISTORY WILL CONTINUE SCREENIN G. EMIL DEFERRED TO NEXT APPT.; RECORDED 05/21/19 13 10:39AM BY WILMER MCELROY MA, HELEN ON/ALINE Solorzano MD [address], [place], [address] , [facility] 5 14:20:57 Syncope and collapse 435472366 Completed 201209/19/2013 RESOLVED DATE: 02/25/20 12; IMPRESSI ON: NO RECURREN T EVENTS AND GUIVEN NORMAL ECHO, ECG AND HOLTER MONITOR UNLIKEY A SIGNIFIC ANT CARDIAC ISSUE. ADEQUATE HYDRATIO N ADVISED WELL HOLDING DIURETIC DURING TIMES OF SIGNIFIC ANT/SUST AINED NEGATIVE FLUID BALANCE. CALL/GO TO ED IF RECURS.; RECORDED 05/21/19 13 10:39AM BY WILMER MCELROY MA, HELEN ON/ALINE Solorzano MD [address], [place], [address] , [facility] 5 14:20:56 Screenin g procedur e Completed 201210/16/2013 IMPRESSI ON: GIVEN FAMILY HISTORY WILL CONTINUE SCREENIN G. EMIL DEFERRED TO NEXT APPT.; RECORDED 05/21/19 13 10:39AM BY WILMER MCELROY MA, ANNOTATI ON/ALINE Solorzano MD [address], [place], [address] , [facility] 5 14:20:57 Syncope and collapse [id number] Completed 201210/16/2013 RESOLVED DATE: 02/25/20 12; IMPRESSI ON: NO RECURREN T EVENTS AND GUIVEN NORMAL ECHO, ECG AND HOLTER MONITOR UNLIKEY A SIGNIFIC ANT CARDIAC ISSUE. ADEQUATE HYDRATIO N ADVISED WELL HOLDING DIURETIC DURING TIMES OF SIGNIFIC ANT/SUST AINED NEGATIVE FLUID BALANCE. CALL/GO TO ED IF RECURS.; RECORDED 05/21/19 13 10:39AM BY WILMER MCELROY MA, HELEN ON/ALINE Solorzano MD [address], [place], [address] , [facility] 5 14:20:56 Patient status finding [id number] Completed 201209/19/2013 RECORDED 08/26/19 13 9:30AM BY WILMER MCELROY MA, HELEN ON/ALINE Solorzano MD [address], [place], [address] , [facility] 5 14:20:57 Adult health examinat ion Completed 201209/19/2013 IMPRESSI ON: IMMUNIZA TION STATUS UTD WILL SCREEN BASED ON RISK FACTORS. REGULAR DENTAL CARE AND SEATBELT USE ADVISED. DISTRACT ED DRIVING DISCUSSE D.; RECORDED 08/26/19 13 9:30AM BY WILMER MCELROY MA, HELEN ON/ALINE Solorzano MD [address], [place], [address] , [facility] 5 14:20:57 Disorder of upper respirat ory system Completed 201209/19/2013 IMPRESSI ON: TRY NASAL SALINE, IF PERSISTA NT TRY NASAL STEROID. ; RECORDED 08/26/19 13 9:30AM BY WILMER MCELROY MA, HELEN ON/ALINE Solorzano MD [address], [place], [address] , [facility] 5 14:20:57 Patient status finding [id number] Completed 201210/16/2013 RECORDED 08/26/19 13 9:30AM BY WILMER MCELROY MA, HELEN ON/ALINE Solorzano MD [address], [place], [address] , [facility] 5 14:20:57 Disorder of upper respirat ory system Completed 201210/16/2013 IMPRESSI ON: TRY NASAL SALINE, IF PERSISTA NT TRY NASAL STEROID. ; RECORDED 08/26/19 13 9:30AM BY WILMER MCELROY MA, HELEN ON/ALINE Solorzano MD [address] [facility] [address], [place], [address] , [facility] 5 14:20:57 Follow-u p encounte r Completed 201209/19/2013 RECORDED 12/21/19 13 10:31AM BY WILMER MCELROY MA, HELEN ON/ALINE Solorzano MD [address] [facility] [address], [place], [address] , [facility] 5 14:20:57 Influenz a vaccine needed [id number] 06 Completed 201209/19/2013 RECORDED 12/21/19 13 10:31AM BY WILEMR MCELROY MA, HELEN ON/ALINE Solorzano MD [address] [facility] [address], [place], [address] , [facility] 5 14:20:57 Pain in limb 17809233 Completed 201209/19/2013 RECORDED 12/21/19 13 10:32AM BY WILMER MCELROY MA, ANNOTATI ON/ALINE Solorzano MD [address] [facility] [address], [place], [address] , [facility] 5 14:20:56 Follow-u p encounte r Completed 201210/16/2013 RECORDED 12/21/19 13 10:31AM BY WILMER MCELROY MA, ANNOTATI ON/ADDBELINDA DUM Seth Solorzano MD [address] [facility] [address], [place], [address] , [facility] 5 14:20:57 Influenz a vaccine needed 78460004485 06 Completed 201210/16/2013 RECORDED 12/21/19 13 10:31AM BY WILMER MCELROY MA, HELEN ON/ALINE Solorzano MD [address] [facility] [address], [place], [address] , [facility] 5 14:20:57 Pain in limb 52092625 Completed 201210/16/2013 RECORDED 12/21/19 13 10:32AM BY WILMER MCELROY MA, ANNOTATI ON/ALINE Solorzano MD [address] [address], [place], [address] , [facility] 5 14:20:56 Localize d superfic ial swelling of skin 555602581 Completed 201309/19/2013 IMPRESSI ON: ? NEUROMA. WILL CONSULT PODIATRY .; RECORDED 06/03/19 14 12:59PM BY WILMER MCELROY MA, ANNOTATI ON/ALINE Solorzano MD [address] [address], [place], [address] , [facility] 5 14:20:56 Neck sprain 162896912 Completed 201312/08/2013 IMPRESSI ON: RECURREN T ISSUE IN CONTEXT OF CHRONICA LLY ELEVATE CREATINE KINASE. WILL ASK RHEUM FOR RE-EVALU ATION NOW THAT SYMPTOMS HAVE DEVELOPE D.; RECORDED 06/03/19 14 2:24PM BY WILMER MCELROY MA, OFFICE VISIT Seth Solorzano MD [address] [facility] [address], [place], [address] , [facility] 5 14:20:57 Localize d superfic ial swelling of skin 771418049 Completed 201310/16/2013 IMPRESSI ON: ? NEUROMA. WILL CONSULT PODIATRY .; RECORDED 06/03/19 14 12:59PM BY WILMER MCELROY MA, ANNOTATI ON/ALINE Solorzano MD [address] [facility] [address], [place], [address] , [facility] 5 14:20:56 Renewal of prescrip tion Completed 201309/19/2013 RECORDED 07/06/19 14 9:12AM BY WILMER MCELROY MA, ANNOTATI ON/ADDEN DUM Seth Solorzano MD [address] [facility] [address], [place], [address] , [facility] 5 14:20:57 Renewal of prescrip tion Completed 201310/16/2013 RECORDED 07/06/19 14 9:12AM BY WILMER MCELROY MA, ANNOTATI ON/ADDBELINDA Solorzano MD [address] [facility] [address], [place], [address] , [facility] 5 14:20:57 Joint pain in ankle and foot Completed 201307/13/2014 IMPRESSI ON: WEVENT WITH UNIMPRES SICE UA LEVEL, SYMPTOMS RESPONDE D TO COLCHICI NE. WILL CONTINUE PRN AND CONSIDER FURTHER EVAL IF RECURREN T/WORSE. ; RECORDED 08/19/19 14 12:55PM BY SETH Phipps MD, OFFICE VISIT Seth Solorzano MD [address] [facility] [address], [place], [address] , [facility] 5 14:20:56 Asthma 172623972 Completed 201311/21/2019 Seth Solorzano MD [address] [facility] [address], [place], [address] , [facility] 0 11:16:59 Pure hypercho lesterol emia 997764042 Active 2013 Not Available [facility] 3 01:53:06 Essentia l hyperten dex 85859465 Active 2013 Not Available [facility] 3 01:53:07 Insomnia 810133596 Active 2013 Not Available [facility] 3 01:53:06 Fibromyo sitis 30225581 Completed 201312/08/2013 STORY: S/P RHEUM (REMI ) EVAL- PRESUMED PHYSIOLO GIC; IMPRESSI ON: PT ASYMPTOM ATIC, WILL RECHECK TO SEE IF LAB FINDINGS PERSISTA NT.; RECORDED 08/19/19 14 11:39AM BY ANASTASIIA ISSA MA, OFFICE VISIT Seth Solorzano MD [address] [facility] [address], [place], [address] , [facility] 5 14:20:56 Obesity 285392965 Completed 201307/21/2017 RECORDED 08/19/19 14 11:39AM BY ANASTASIIA ISAS MA, OFFICE VISIT Lilia winters, [facility] 0 16:49:59 Obstruct liudmila sleep apnea syndrome 87552257 Active 2013 14cm H2O with 2L O2 Seth Solorzano MD [address] [facility] [address], [place], [address] , [facility] 5 13:41:36 Allergic rhinitis 19535249 Active 2013 Not Available [facility] 3 01:53:07 Psychose xual dysfunct ion 177756919 Active 2013 Not Available [facility] 3 01:53:06 Vitamin D deficien cy 49942363 Active 2013 Not Available [facility] 3 01:53:06 Neck sprain 730765691 Completed 201310/16/2013 IMPRESSI ON: RECURREN T ISSUE IN CONTEXT OF CHRONICA LLY ELEVATE CREATINE KINASE. WILL ASK RHEUM FOR RE-EVALU ATION NOW THAT SYMPTOMS HAVE DEVELOPE D.; RECORDED 08/19/19 14 11:36AM BY ANASTASIIA ISSA MA, ANNOTATI ON/ADDEN DUM Seth Solorzano MD [address], [place], [address] , [facility] 5 14:20:57 Left ventricu lar hypertro phy 38620117 Active 2016 Not Available [facility] 3 01:53:07 Atrial paroxysm al tachycar victor m 497737322 Active 2017 Not Available [facility] 3 01:53:06 Arthriti s of hand 527885131 Completed 201711/21/2019 Seth Solorzano MD [address], [place], [address] , [facility] 0 11:17:38 Chronic atrial fibrilla tion 958605480 Active 2018 Not Available [facility] 3 01:53:07 Impingem ent syndrome of shoulder region 870685634 Completed 201801/31/2024 Seth Solorzano MD [address], [place], [address] , [facility] 4 13:42:11 Gout 23212512 Active 2019 Kelly Zuluaga MA null, [facility] 5 09:23:33 Paroxysm al atrial fibrilla tion 497020138 Active 2019 Not Available [facility] 3 01:53:06 Divertic ular disease 331251239 Active 2019 Not Available [facility] 3 01:53:07 Polyp of colon 51455790 Active 2019 Not Available [facility] 3 01:53:07 Family history of malignan t neoplasm of prostate 843709852 Active 2019 Not Available [facility] 3 01:53:07 History of asthma 581648370 Active 2019 Not Available [facility] 3 01:53:06 Prediabe gisell 961396258 Completed 201901/15/2023 Seth Solorzano MD [address] [facility] [address], [place], [address] , [facility] 4 06:42:51 Prediabe gisell 989843115 Active 2019 Seth Solorzano MD [address] [facility] [address], [place], [address] , [facility] 4 06:42:51 Morbid obesity 948459809 Active 2019 Not Available [facility] 3 01:53:06 Dyspnea on exertion 48947543 Active 2020 Kelly Zuluaga MA [facility], [facility] 5 09:23:33 Diastoli c heart failure 590152837 Active 2020 Not Available [facility] 3 01:53:07 Body mass index 40+ - severely obese 184751346 Active 2020 Not Available [facility] 3 01:53:07 Pulmonar y arterial hyperten dex 10987946 Active 2021 Not Available [facility] 3 01:53:06 Adjustme nt disorder with mixed emotiona l features 25122677 Completed 202101/31/2024 Seth Solorzano MD [address] [facility] [address], [place], [address] , [facility] 4 13:42:14 Prostate specific antigen above referenc e range 345240128 Active 2022 Not Available [facility] 3 01:53:07 Cholecys titis 04767590 Completed 202212/24/2022 Seth Solorzano MD [address] [facility] [address], [place], [address] , [facility] 3 21:26:05 History of cholecys tectomy 821481986 Active 2022 Sourav Rivas PA-C [address] [facility] [address], [place], [address] , [facility] 3 15:25:56 Carcinom a of prostate 194565699 Active 2022 [place] 3+4, unfavoir able intermed iate risk s/p radiatio n and ADT Seth Solorzano MD [address] [facility] [address], [place], [address] , [facility] 4 22:28:57 Thyroid nodule 919156475 Completed 202310/24/2024 right, 1.5cm Seth Solorzano MD [address] [facility] [address], [place], [address] , [facility] 5 12:36:45 Mass of thyroid gland 775010310 Active 2023 Seth Solorzano MD [address], [place], [address] , [facility] 4 19:26:16 Pain of bilatera l knee joints 64185598075 4104 Active 2023 Seth Solorzano MD [address] [facility] [address], [place], [address] , [facility] 4 06:43:43 Hypoxemi a 250904976 Active 2023 Seth Solorzano MD [address] [facility] [address], [place], [address] , [facility] 4 10:25:31 Moderate major depressi on, single episode 17024226 Active 2023 Seth Solorzano MD [address] [facility] [address], [place], [address] , [facility] 4 13:47:37 Pain of right shoulder joint 02631330962 901414 Active 2023 Seth Solorzano MD [address] [address], [place], [address] , [facility] 4 14:14:02 Alkaline phosphat ase above referenc e range 048237199 Active 2024 Seth Solorzano MD [address] [address], [place], [address] , [facility] 5 21:51:37 Paresthe bj of upper limb 73345895 Active 2024 Seth Solorzano MD [address] [address], [place], [address] , [facility] 5 11:01:17 Bilatera l carpal tunnel syndrome 31820752019 336090 Active 2024 Seth Solorzano MD [address] [address], [place], [address] , [facility] 5 11:01:39 Notes:Some problems listed i n Document: #[id number] could not be added to this patient's chart. Please review this document and add these problems to the patient's chart manually as needed. Problem Notes None recorded. Procedures Surgical History Date Name Laterality Status Provider Name and Address Organization Details Recorded Time 01/10/20 25 radionuclide imaging of perfusion of myocardium under exercise stress completed Seth Solorzano MD [address], [address], [facility] 01/12/2025 06:54:44 02/02/20 24 Echo transthoracic completed Seth Solorzano MD [address], [address], [facility] 02/15/2024 07:26:27 01/13/20 23 needle biopsy of prostate completed Seth Solorzano MD [address], [address], [facility] 01/13/2023 08:05:06 12/21/19 23 laparoscopic cholecystectomy completed Nathaly Lacy [facility] 12/21/2022 11:22:23 05/21/19 22 catheterization of right heart completed Seth Solorzano MD [address] [facility] [address] [facility], [place], [address], [facility] 05/27/2021 12:57:10 07/07/19 21 stress echocardiography completed Seth Solorzano MD [address] [facility] [address] [facility], [place], [address], [facility] 06/01/2021 15:25:10 01/10/20 20 complete repair of rotator cuff completed Seth Solorzano MD [address], [address], [facility] 03/26/2020 14:24:20 01/05/20 20 Echo transthoracic completed Seth Solorzano MD [address], [address], [facility] 01/11/2020 19:41:20 10/23/19 20 Colonoscopy completed Seth Solorzano MD [address], [address], [facility] 10/23/2019 19:27:05 10/05/19 20 Cardiac Surgery completed Lisa Carmona CPPM [facility] 10/17/2019 09:23:32 10/05/19 20 Compre ep eval abltj atr fib completed Taylor Wallace [facility] 10/17/2019 09:25:03 10/05/19 20 Intracardiac ephys 3d mapg completed Taylorgregory Gonsalez [facility] 10/17/2019 09:25:54 03/22/19 20 Cardioversion electric ext completed Seth Solorzano MD [address] [address], [place], [address], [facility] 04/02/2019 16:11:20 02/15/20 19 Echo transthoracic completed Seth Solorzano MD [address] [address], [place], [address], [facility] 02/26/2019 20:33:15 11/04/19 17 Echo transthoracic completed Seth Solorzano MD [address] [facility], [place], [address], [facility] 11/17/2016 11:31:41 01/23/20 16 Echo transthoracic completed Seth Solorzano MD [address] [facility] [address] [facility], [place], [address], [facility] 02/02/2016 23:09:48 01/27/20 12 Echo Transthoracic completed Seth Solorzano MD [address] [facility] [address] [facility], [place], [address], [facility] 09/26/2015 16:35:39 03/08/19 08 Appendectomy completed Alla Smith MA [facility] 11/25/2020 08:29:52 Appendectomy completed Alla Smith MA [facility] 11/25/2020 08:29:52 Knee Surgery completed Aye Herrera [facility] 11/21/2019 09:56:32 Imaging Results None recorded. Procedure Notes None recorded. Medical Equipment None Reported. Allergies Allergen ID Allergen Name Allergen Category Reaction Reaction Severity Criticality Documentation Date Start Date Code Code System Note Provider Name and Address Organization Details Recorded Time 05229 aspirin medicatio n wheezing moderate Not available 04/03/20192020 1191 RxNorm [facility] 3 10:54:50 4472 aspirin medicatio n respirato ry distress Not available Not available 09/19/20132013 1191 RxNorm not from 81 mg dose, only form 325 mg aller gic react ion Not Available [facility] 3 01:53:04 Medications Name Sig Start Date Stop Date Status Note LastModified by Organization Details LastModified Time d3-1000 25 mcg (1000 ut) caps 08/09 completed Not Available Not Available Not Available vitamin d 60419 unit caps active Not Available Not Available [...] e 50 mcg/actua tion nasal spray,katlyn pension [place] 2 sprays every day by intranas al [...] DAILY active RECORDED 12/02/19 12 11:36AM BY WILMER MCELROY MA, ANNOTATI ON/ALINE DUM; Not Available Not [...] 12/30 completed RECORDED 04/28/19 14 11:42AM BY WILMER MCELROY MA, MEDICATI ON AUTO-KARLA CTIVATIO N; Not [...] DAILY active RECORDED 12/02/19 12 11:36AM BY WILMER MCELROY MA, ANNOTATI ON/ADDEN DUM; Not Available Not [...] (BMI) Body weight Heart rate Oxygen saturation Body temperature Systolic And Diastolic Provider Name and Address Organization Details Last Updated DateTime 5 184.79 cm 41.7 kg/m2 069104 g 67 /min 95 % 96.8 [degF] 122/67 mm[Hg] Xiao [facility] 5 10:36:00 Date Recorded Body height Body mass index (BMI) Body weight Heart rate Oxygen saturation Body temperature Systolic And Diastolic Provider Name and Address Organization Details Last Updated DateTime 4 184.79 cm 41.5 kg/m2 006647. 62 g 66 /min 96 % 97.9 [degF] 119/72 mm[Hg] Arely Eli LPN [facility] 4 09:57:01 Date Recorded Body height Body mass index (BMI) Body weight Heart rate Oxygen saturation Body temperature Systolic And Diastolic Provider Name and Address Organization Details Last Updated DateTime 5 184.79 cm 40.9 kg/m2 856857. 45 g 57 /min 96 % 97.3 [degF] 117/73 mm[Hg] Kelly Zuluaga MA [facility] 5 09:27:31 Date Recorded Body height Body mass index (BMI) Body weight Heart rate Oxygen saturation Body temperature Systolic And Diastolic Provider Name and Address Organization Details Last Updated DateTime 5 184.79 cm 40.2 kg/m2 463166. 49 g 68 /min 95 % 97.5 [degF] 117/74 mm[Hg] Kelly Zuluaga MA [facility] 5 11:42:14 Date Recorded Body height Body mass index (BMI) Body weight Heart rate Oxygen saturation Body temperature Systolic And Diastolic Provider Name and Address Organization Details Last Updated DateTime 4 184.79 cm 40.6 kg/m2 557967. 27 g 60 /min 97 % 98.2 [degF] 117/68 mm[Hg] Xiao [facility] 4 13:05:17 Social History Question Answer Notes LastModified by Organizat ion Details LastModified Time Tobacco Smoking Status Never Smoker Not Available [facility] 01/09/2020 03:36:40 Do You Have An Advance Directive? Yes HCP/ Girlfriend-Caitlin , Mother-Brandie chase Information not available 11/27/2021 Is Blood Transfusion Acceptable In An Emergency? Yes [id number] Information not available 01/09/2020 What Is Your Level Of Caffeine Consumption? Occasional Tea Information not available 12/01/2022 How Much Tobacco Do You Chew? None [id number] Information not available 01/09/2020 In The 14 [...] Low Sodium, Eating Better, Fruits And Veggies [id number] Information not available 01/09/2020 Which Illicit Or Recreational Drugs Have You Used? None [id number] Information not available 01/09/2020 Live Alone Or [...] Do You Have? 2 Son And Dtr [id number] Information not available 01/09/2020 Do You Use Protection During Sex? Always [id number] Information not available 01/09/2020 Do You Use Your Seat Belt Or Car Seat Routinely? No Information not available 11/25/2020 Seat Belts Used Routinely Yes Information not available 11/27/2021 Are You Sexually Active? Yes [id number] Information not available 01/09/2020 Smoke Alarm In Home Yes Information not available 11/27/2021 Do You Have Smoke And Carbon Monoxide Detectors In Your Home? Yes Information not available 11/25/2020 At What Age Did You Start Smoking Tobacco? 1 [id number] Information not available 01/09/2020 Are You Passively Exposed To Smoke? Yes Information not available 12/08/2013 How Much Tobacco Do You Smoke? No [id number] Information not available 01/09/2020 General Stress Level Medium Information not available 11/27/2021 Do You Use Sunscreen Routinely? Yes [id number] Information not available 01/09/2020 How Many Years Have You Smoked Tobacco? 0 [id number] Information not available 01/09/2020 Sex: Unknown Functional Status Question Answer Note LastModified by Organizat ion Details LastModified Time Do you use any illicit or recreational drugs? No Information not available 11/27/2021 Do you or have you ever used any other forms of tobacco or nicotine? No Information not available 11/27/2021 What is your level of alcohol consumption? Occasional [id number] Information not available 01/09/2020 Do you or have you ever used smokeless tobacco? Never used smokeless tobacco [id number] Information not available 01/09/2020 Are you currently employed? No disabled [id number] Information not available 01/09/2020 Are you able to walk independently without assistance or assistive devices? YESWOREST Information not available 11/27/2021 Are you able to care for yourself independently? Yes [id number] Information not available 01/09/2020 Do you or have you ever used e-cigarettes or vape? Never used electronic cigarettes Information not available 11/27/2021 What is your exercise level? Moderate [id number] Information not available 11/25/2020 Mental Status None [...] Eczema N Diverticulitis N Abuse/Domestic Violence N Allergies Y Asthma Y Reflux/GERD N Hepatitis N Heart Disease N Pulmonary Embolism N Hypertension Y Osteoporosis N Chicken Pox N Autism Spectrum Disorder (ASD) N Immunizations Vaccine Type Date Status Note Provider Name and Address Organization Details Recorded Time pneumococcal polysaccharide PPV23 017 completed Not Available [facility] 12/15/2022 01:53:07 pneumococcal polysaccharide PPV23 020 completed Not Available [facility] 12/15/2022 01:53:07 COVID-19, mRNA, LNP-S, PF, 30 mcg/0.3 mL dose 021 completed Not Available [facility] 12/15/2022 01:53:07 COVID-19, mRNA, LNP-S, PF, 30 mcg/0.3 mL dose 021 completed Not Available [facility] 12/15/2022 01:53:07 Influenza, split virus, quadrivalent, PF 020 completed Not Available [facility] 12/15/2022 01:53:07 COVID-19, mRNA, LNP-S, PF, 30 mcg/0.3 mL dose 021 completed Not Available [facility] 12/15/2022 01:53:07 Influenza, split virus, trivalent, PF 014 completed Not Available [facility] 12/15/2022 01:53:07 Influenza, split virus, quadrivalent, PF 015 completed Not Available [facility] 12/15/2022 01:53:07 Influenza, split virus, quadrivalent, PF 018 completed Not Available [facility] 12/15/2022 01:53:07 Influenza, split virus, quadrivalent, PF 020 completed Not Available [facility] 12/15/2022 01:53:08 Influenza, split virus, quadrivalent, PF 016 completed Not Available [facility] 12/15/2022 01:53:08 COVID-19, mRNA, LNP-S, bivalent, PF, 30 mcg/0.3 mL dose 022 completed Not Available [facility] 12/15/2022 01:53:07 Td (adult), 2 Lf tetanus toxoid, preservative free, adsorbed 005 completed Not Available [facility] 12/15/2022 01:53:07 Tdap 012 completed Not Available [facility] 12/15/2022 01:53:07 Influenza, split virus, trivalent, preservative 012 completed Not Available [facility] 12/15/2022 01:53:07 influenza, seasonal, intradermal, preservative free 013 completed Not Available [facility] 12/15/2022 01:53:07 Td (adult), 2 Lf tetanus toxoid, preservative free, adsorbed 022 completed RALPH Deutsch [facility] 11/27/2021 13:20:56 Influenza, split virus, quadrivalent, PF 022 completed RALPH Deutsch [facility] 11/27/2021 13:22:40 Influenza, split virus, quadrivalent, PF 023 completed Seth Solorzano MD [address], [place], [address], [facility] [place] 12/01/2022 10:22:09 Influenza, split virus, trivalent, PF 024 cancelled patient objection Seth Solorzano MD [address], [place], [address], [facility] 01/31/2024 14:10:48 Influenza, split virus, trivalent, PF 025 completed Kelly Zuluaga MA null, [facility] 12/11/2024 11:43:14 Past Encounters Encounter ID Performer Location Encounter Start Date Encounter Closed Date Diagnosis/Indication Diagnosis SNOMED-CT Code Diagnosis ICD10 Code Diagnosis IMO Codes Diagnosis Note [id number] auto[facility]Comm erce [address] [facility] [place] [address] 12/02/2011 00:00:00 [id number] autoEComm erce [address] [facility] [place] [address] 12/25/2011 00:00:00 [id number] autoEComm erce [address] [facility] [place] [address] 01/05/2012 00:00:00 [id number] autoEComm erce [address] [facility] [place] [address] 02/25/2012 00:00:00 [id number] autoEComm erce [address] [facility] [place] [address] 04/18/2012 00:00:00 [id number] autoEComm erce [address] [facility] [place] [address] 05/20/2012 00:00:00 [id number] autoEComm erce [address] [facility] [place] [address] 08/25/2012 00:00:00 [id number] autoEComm erce [address] [facility] [place], [place] [address] 12/02/2012 00:00:00 [id number] autoEComm christose [address] [facility] [place], [place] [address] 12/22/2012 00:00:00 [id number] autoEComm christose [address] [facility] [place], [place] [address] 04/28/2013 00:00:00 [id number] [facility]Comm [facility] [address] [facility] [place], [place] [address] 06/02/2013 00:00:00 [id number] [facility] [address] [facility] [place], [place] [address] 07/05/2013 00:00:00 [id number] autoEComm christ[place] [address] [facility] [place], [place] [address] 08/18/2013 00:00:00 [id number] Seth Solorzano MD Main Office [address] [address] [place] [address] 12/08/2013 12:52:04 12/08/2013 14:00:06 Adult health examination [id number] WIll update immunizati on status and screen based on risk factors. Regular dental and ophtho care advised as well as sunscreen and seatbelt use. Distracted driving discussed. Advanc edirective s discussed. Needs infl uenza immunization 411155400 Essential hypertension 28044236 Obesity 856219002 Obstructiv e sleep apnea syndrome 67692162 Vitamin D deficiency 53740361 Insomnia 361362560 [id number] Seth Solorzano MD Main Office [address] [address] [place] [address] 03/07/2014 10:20:49 03/07/2014 11:19:05 Pain of wrist region 34415511 Resolvi ng likely tendon vs muscle strain. Will continue splint at night and supportive tx otherwise. OK to RTW. Call if pain persists/w orsens as ortho referral would be next step. Essential hypertension 86838499 Psychosexu al dysfunction 838572692 Effective in the past. Refill requested. [id number] Seth Solorzano MD Main Office [address] [place] [address] 07/06/2014 08:17:06 07/06/2014 09:36:51 Essential hypertension 35239286 Well controlled , continue other medication s for now. Dyspnea on exertion 08681063 Likely related to new onset atrial fibrillati on. Will screen for evidence of CHF or ischemia. If abnormal would warrant acute evaluation . Body mass index 30+ - obesity 549555041 Atrial fibrillation 45962854 New onset, potentiall y acute issue. Possibly [...] Will focus on rate control for now. [id number] Seth Solorzano MD Main Office [address] [place] [address] 07/13/2014 08:58:22 07/13/2014 09:54:20 Atrial fibrillation 38865644 Appears paroxysmal . Pt had syncopal event [...] to try and capture recurrent events. Insomnia 471299903 Obstructiv e sleep apnea syndrome 57710226 [id number] Seth Solorzano MD Main Office [address] [place] [address] 07/16/2014 08:21:08 07/16/2014 09:57:55 Irregular heart beat 880929921 [id number] Seth Solorzano MD Main Office [address] [place] [address] 07/17/2014 08:36:36 07/17/2014 09:06:16 [id number] Seth Solorzano MD Main Office [address] [place] [address] 11/14/2014 12:38:13 11/14/2014 13:55:10 Needs influenza immunization 354843510 Essential hypertension 15950616 Asymptomat ic but poor control secondary to compliance . Will resume CCB and ACEI lucia. Has apt with cardiology in 1 week, I will re-evaluat e his pressure back on meds, in 4 weeks. Atrial fib rillation and flutter 320688446 Pt did not start BB as prescribed by cards. Rx sent. Obstructiv e sleep apnea syndrome 57813095 Pt reports intermitte nt compliance with this as well. Advised him to be more consistent to help with energy levels and hope to minimize CV and pulmonary disease risk. Vitamin D deficiency 52246595 On high dose supplement , will reassess dosing effectiven ess. [id number] Seth Solorzano MD Main Office [address] [address] [place] [address] 02/21/2015 13:33:10 02/21/2015 14:53:52 Adult health examination 003820888 Z00.00 Immunizati on status utd, will screen based on risk factors. Regular dental and ophtho care advised as well as sunscreen and seatbelt use. Distracted driving discussed. Advance directives discussed. Body mass index 40+ - severely obese 535040217 Z68.41 Excessive thirst 7000723 7 R63.1 Screen for DI. Essential hypertension 23872002 I10 Obstructiv e sleep apnea syndrome 27106399 G47.33 Pt reports intermitte nt compliance with this as well. Advised him to be more consistent to help with energy levels and hope to minimize CV and pulmonary disease risk. Vitamin D deficiency 347 66113 E55.9 On high dose supplement , will reassess dosing effectiven ess. Pure hypercholesterolemia 781680799 E78.0 Dyspnea on exertion 6084 5006 R06.09 Stable, likely weight related. Advised to call if persistent /worse or associated with chest pain. [id number] Seth Solorzano MD Main Office [address] [facility] [address] [place] [address] 05/23/2015 13:44:17 05/23/2015 14:30:18 Essential hypertension 27357003 I10 Well controlled on recheck. Continue current regimen. Increased frequency of urination 085725078 R35.0 Will see if u/s shows outflow obstructio n. Consider trial of terazosin is so. Atrial fib rillation and flutter 123301315 I48.0 No evidence for recurrence on BB. Will monitor clinically and refer back to cards if recurs. Allergic rhinitis 255563 04 J30.9 Call inb/worse Screening for malignant neoplasm of colon 064633213 Z12.11 [id number] Seth Solorzano MD Main Office [address] [facility] [address] [place] [address] 09/25/2015 10:17:49 09/25/2015 11:30:13 Essential hypertension 98698715 I10 Not well controlled but weight gain and BB non compliance are likely contributi ng factors. Will resume BB. Pt advised to limit Na and calorie intake with increasing physical activity. Atrial fib rillation and flutter 829584813 I48.0 No evidence for recurrence on BB. Will monitor clinically and refer back to cards if recurs. Asthma 636422922 J45.90 9 Vitamin D deficiency 347 61794 E55.9 Was on high dose supplement , but ran out. Will resume and reassess dosing effectiven ess. Dyspnea 191212409 R06.02 ? secondary to deconditio arianna/wt gain vs asthma vs CHF. Depending on lab results and symptom reassessme nt with better BP control further evaluation may be required. [id number] Seth Solorzano MD Main Office [address] [facility] [address] [place] [address] 10/21/2015 10:54:06 10/21/2015 11:27:47 Dyspnea 888422732 R06.02 ? secondary to deconditio arianna/wt gain vs asthma vs CHF. Some improvemen t with addition of singulair. Will go for labs today. Essential hypertension 02840048 I10 Not well controlled but weight gain and amlodipine non compliance are likely contributi ng factors. Will resume amlodipine . Pt advised to limit Na and calorie intake with increasing physical activity. [id number] Seth Solorzano MD Main Office [address] [facility] [address] [place] [address] 11/04/2015 11:11:26 11/04/2015 12:17:31 Essential hypertension 74104357 I10 Improving, will titrate amlodipine dose further, to goal BP control. Dyspnea 731158845 R06.02 likely secondary to deconditio arianna vs asthma vs diastolic dysfunctio n. Will check CXR and if persistent with adequate BP control will consider PFT's and f/u ECHO. [id number] Seth Solorzano MD Main Office [address] [place] [address] 11/28/2015 10:41:58 11/28/2015 11:45:28 Pure hypercholesterolemia 177082589 E78.0 Essential hypertension 92668125 I10 Improving, will titrate amlodipine dose further, to goal BP control. Dyspnea on exertion 6084 5006 R06.09 Better, but now need to suspect afib as contributo r. Needs infl uenza immunization 175508066 Z23 Obstructiv e sleep apnea syndrome 42926702 G47.33 Pt reports intermitte nt compliance with this as well. Advised him to be more consistent to help with energy levels and hope to minimize CV and pulmonary disease risk. Atrial tachycardia 68634 6006 I47.1 Atrial fibrillation 4943 6004 I48.91 Appears paroxysmal and rate controlled . Pt had syncopal event on 2011 which prompted ECG, holter and ECHO that were unremarkab le except for mild biatrial enlargemen t. Has had echo and cardiology consult in the past, will reassess echo. Pt is allergic to aspirin and CHADs score of 1 makes him lower risk. [id number] Seth Solorzano MD Main Office [address] [facility] [address] [place] [address] 01/09/2016 09:58:01 01/09/2016 10:53:33 Atrial fibrillation and flutter 581548801 I48.0 Still irregular on exam. CHADs score of one does not justify anticoagul ation at this time. Will try again to book echo. Await cardiology input. Essential hypertension 71453187 I10 Well controlled . Continue current regimen. Obstructiv e sleep apnea syndrome 02896690 G47.33 Pt reports intermitte nt compliance with this as well. Pt will go to sleep medicine today to schedule a follow up. [id number] Sourav Rivas PA-C Main Office [address] [place] [address] 11/10/2016 12:52:45 11/10/2016 13:59:00 Chest pain 20356856 R07.9 cp resolved, and nl stress test. pt admitted to 8. - 8 for cp and hypertensi ve urgency - had cardiac w/u - rev. card consult note, will attempt to get dc summary. Essential hypertension 26609115 I10 stable, cont meds as dir cont to f/u c PVC as an outpt had nl bmp on 10.31. Dyspnea on exertion 6084 5006 R06.09 better lately, had nl stress test, ? if endurance / obesity related Body mass index 40+ - severely obese 748212614 Z68.41 Obstructiv e sleep apnea syndrome 99614397 G47.33 cont doreen, f/u c sleep specialist Atrial fib rillation and flutter 029886658 I48.91 in sinus rhythm Morbid obesity 581873867 E66.01 [id number] Sourav Rivas PA-C Main Office [address] [facility] [address] [facility] [place] [address] 11/18/2016 13:36:47 11/18/2016 15:24:27 Pain in left knee 0211982628 15867 M25.562 most likely d/t PFS, and degree of pain has raised his BP as well - had NL bp here last week - pending see card Essential hypertension 63245836 I10 increased d/t pain, cont meds as dir pending see PVC as an outpt had nl bmp on 10.31.16 Patellofem oral stress syndrome 967022740 M22.2X9 [id number] Seth Solorzano MD Main Office [address] [place] [address] 07/21/2017 11:07:17 07/21/2017 12:14:28 Adult health examination 802636449 Z00.00 Immunizati on status utd, flu advised in the Fall. Will screen based on risk factors. Regular dental and ophtho care advised as well as sunscreen and seat belt use. Distracted driving discussed. Advance directives discussed. Morbid obesity 062031014 E66.01 Atrial par oxysmal tachycardia 189506728 I47.1 Due for cardiology follow up which he will arrange. Pure hypercholesterolemia 994988143 E78.00 Statin therapy recommende d/offered based on CVD risk score but pt declines and wants to see what impact TLC has on his levels. Psychosexu al dysfunction 947685566 F52.9 Effective in the past. Refill requested. Vitamin D deficiency 347 26979 E55.9 Level on the low end of normal. Advised to start low dose daily supplement year round. Essential hypertension 38222985 I10 Well controlled . Continue current regimen. Obstructiv e sleep apnea syndrome 82131595 G47.33 Pt reports intermitte nt compliance with this as well. Pt will go to sleep medicine today to schedule a follow up. Screening for malignant neoplasm of colon 210994920 Z12.11 Overdue for screening. Did not discuss during visit but will forward pt a copy of GI contact info. Will f/u in 4 months. Body mass index 40+ - severely obese 506972850 E66.01 Z68.41 [id number] Seth Solorzano MD Main Office [address] [facility] [address] [facility] [place] [address] 11/22/2017 08:18:49 11/22/2017 08:56:13 Essential hypertension 65610408 I10 Well controlled . Continue current regimen. Needs infl uenza immunization 028735754 Z23 Atrial par oxysmal tachycardia 811237305 I47.1 Establishe d with cards. Rate well controlled . On ASA. Allergic rhinitis 064780 04 J30.9 Call inb/worse. ICS technique discussed. Bursitis of shoulder 239 286015 M75.50 vs tendinitis . WIll see if NSAID and home PT helps. If not will need ortho eval. [id number] Seth Solorzano MD Main Office [address] [facility] [address] [facility] [place] [address] 11/10/2018 15:17:31 11/10/2018 16:13:05 Essential hypertension 65242952 I10 Well controlled . Continue current regimen. Overdue for labs. Atrial par oxysmal tachycardia 510973088 I47.1 Establishe d with cards. Rate well controlled . On ASA. Need to re establish with cardiology to see if mgmt options have changed. Vitamin D deficiency 347 47235 E55.9 Level on the low end of normal. Advised to start low dose daily supplement year round. Pain of le ft shoulder joint 0373455379 2121232 M25.512 Chronic issue. Likely ACJ pathology. Will ask ortho for help. Chronic at rial fibrillation 384334466 I48.2 Based on CHADS score of 1 will continue with ASA for risk reduction at this time. [id number] Seth Solorzano MD Main Office [address] [facility] [address] 03/17/2019 14:06:01 03/17/2019 15:27:10 Adult health examination 895960895 Z00.00 Immunizati on status utd, flu advised in the Fall. Will screen based on risk factors. Regular dental and ophtho care advised as well as sunscreen and seat belt use. Distracted driving discussed. Advance directives discussed. Morbid obesity 884791951 E66.01 Atrial par oxysmal tachycardia 363892299 I47.1 Establishe d with cards. Rate not well controlled . On ASA. Body mass index 40+ - severely obese 836893595 E66.01 Z68.41 Chronic at rial fibrillation 534301987 I48.21 Suspect this is chronic. Will request recent holter report that was done by cardiology per patient. Left sided chest pain 28 4524461 R07.9 Pt presented for routine physical but having left sided chest pressure with edema. Significan t concern for ACS or at least decompensa chapito afib with RVR. EMS called for transport to [facility]. Needs infl uenza immunization 651484481 Z23 [id number] Seth Solorzano MD Main Office [address] [facility] [address] [facility] [address] 04/03/2019 15:08:52 04/03/2019 16:48:47 Congestive heart failure 77717927 I50.9 c reduced EF - pt has [...] fwd this note to Dr. Preston* Gout 55262545 M10.9 pt took pred pulse at dc since colchicine not covered - will initiate allopurino l and check uric acid level Essential hypertension 97207859 I10 likely increased d/t pain of ankle (had nl bp c card on 03.29.19) - cont meds as dir c slightly increase furosemide as above, cont to monitor Acute nont raumatic kidney injury 5971646408 47992 N17.9 recheck bmp - see above Atrial fibrillation 4943 6004 I48.91 cont f/u c card, has pending ablation, cont meds as dir [id number] Seth Solorzano MD Main Office [address] [facility] [place] [address] 04/17/2019 09:20:51 04/17/2019 10:52:29 Chronic atrial fibrillation 658307846 I48.20 cont meds, f/u c card Congestive heart failure 13525837 I50.9 c reduced EF - pt cont [...] fwd this note to Dr. Preston* Gout 99572220 M10.9 pt tolerating allopurino l and feeling much better - no further flares Chronic ki dney disease stage 3 483082799 N18.3 consider renal eval if cr cont to climb despite decrease in diuretics and holding acei - see below Essential hypertension 26796092 I10 bp stabilized - no longer in pain from gout flare - rec hold acei for a few days then recheck bmp in a few days, resume acei if bp climbs [id number] Seth Solorzano MD Main Office [address] [facility] [place] [address] 04/25/2019 13:00:15 04/25/2019 14:53:44 Chronic atrial fibrillation 940494706 I48.20 stable - cont meds, f/u c card - ? next 3.2.20 Essential hypertension 09300897 I10 bp stabilized - cont meds as dir - off acei Congestive heart failure 69107644 I50.9 c reduced EF - pt cont [...] Preston* Chronic ki dney disease stage 3 520866502 N18.3 consider renal eval if cr cont to climb despite decrease in diuretics and holding acei - see below check bmp in a few wks - a day or two ac see card Body mass index 30+ - obesity 534583664 Z68.[address] 05.17.19 Obesity 874235123 E66.9 [id number] Seth Solorzano MD Main Office [address] [facility] [address] [facility] [place] [address] 07/14/2019 08:18:20 07/14/2019 13:06:10 Gout 00752136 M10.9 Sounds like a gout flare which is a little unusual given his reported compliance with allopurino l and most recent uric acid level of 6.9. Given his comorbidit ies phuc try to simmer down his flare with a short course of prednisone . COnsider colchicine trial vs rheum referral at f/u to help confirm the diagnosis. [id number] Seth Solorzano MD Main Office [address] [facility] [address] [facility] [place] [address] 07/18/2019 13:14:57 07/18/2019 14:17:48 Essential hypertension 63228676 I10 Not well controlled and appears to be fluid overloaded . Will increase diuretic dose and follow BP and labs. Screening for malignant neoplasm of colon 868472086 Z12.11 Overdue for screening. Did not discuss during visit but will forward pt a copy of GI contact info. Varicella vaccination 68 754868 Z23 Gout 13824730 M10.9 Sounds like a gout flare which is a little unusual given his reported compliance with allopurino l and most recent uric acid level of 6.9. Given his comorbidit ies phuc try to simmer down his flare with a short course of prednisone . COnsider colchicine trial vs rheum referral at f/u to help confirm the diagnosis. Impingemen t syndrome of shoulder region 461834243 M75.42 Pt will call to arrange f/u. [id number] Seth Solorzano MD [facility] [address] [facility] [address] [facility] [place] [address] 08/03/2019 11:27:51 08/03/2019 14:13:53 Essential hypertension 55881059 I10 Unable to measure response to diuretic increase today because of virtual visit. Will continue current diuretic regimen and BB for now. Recheck labs Gout 14693172 M10.9 Has follow up labs pending since starting allopurino l. Will titrate to goal <6.5. Chronic at rial fibrillation 796623580 I48.21 Pt reports taking amiodarone BID. Review of recent cardiology note reports that it should be QD only. Pt advised to f/u with cards/EP in September as planned. Advised to call cardiology for refills on amio as I am not comfortabl e managing this. Screen for thyroid issues. Diastolic heart failure 497520215 I50.30 Seems fluid overloaded . Will await labs and adjust diuretic regimen as warranted. Paroxysmal atrial fibrillation 710948800 I48.0 Pt reports taking amiodarone BID. Review of recent cardiology note reports that it should be QD only. Pt advised to f/u with cards/EP in September as planned. Advised to call cardiology for refills on amio as I am not comfortabl e managing this. Screen for thyroid issues. [id number] Seth Solorzano MD Main Office [address] [facility] [address] [facility] [place] [address] 09/19/2019 13:22:20 09/19/2019 15:21:04 Essential hypertension 71582896 I10 Well controlled , will continue current Gout 57681427 M10.9 Well controlled , continue current dose. Chronic at rial fibrillation 992492069 I48.21 Pt advised to f/u with cards/EP in September as planned. Advised to call cardiology for refills on amio as I am not comfortabl e managing this. Screen for thyroid issues. Obstructiv e sleep apnea syndrome 74688429 G47.33 Pt reports intermitte nt compliance with this as well. Will arrange sleep medicine f/u lucia. Fatigue 27909576 R53.83 Potentiall y multifacto rial. Will arrange sleep med f/u and reassess after cardiac ablation. If persistent /worse consider depression as a factor. BB also a possible issue which can hopefully be stopped after ablation. Screening for malignant neoplasm of prostate 669273015 Z12.5 [id number] Seth Solorzano MD Main Office [address] [facility] [address] [facility] [place] [address] 11/21/2019 09:53:15 11/21/2019 11:29:13 Adult health examination 674917992 Z00.00 Immunizati on status utd, flu advised in the Fall. Will screen based on risk factors. Regular dental and ophtho care advised as well as sunscreen and seat belt use. Distracted driving discussed. Advance directives discussed. Varicella vaccination 68 271294 Z23 Gout 72508991 M10.9 Well controlled , continue current dose. Essential hypertension 00041441 I10 Well controlled , will continue current Body mass index 40+ - severely obese 837966155 E66.01 Z68.41 Restless l egs syndrome 86448890 G25.81 Screen for anemia. See what sleep study showed. Obstructiv e sleep apnea syndrome 87127380 G47.33 Had sleep study last week. Will request report. Will likely need to resume CPAP. Polyp of colon 63897607 K63.5 Impingemen t syndrome of shoulder region 903560817 M75.42 Pt will call to arrange f/u with ortho. Family his tory of malignant neoplasm of prostate 256379508 Z80.42 Pure hypercholesterolemia 752900621 E78.00 Reassess CVD risk score and discuss mgmt based on results. Vitamin D deficiency 347 65730 E55.9 Lelvel was normal last year on current supplement dose. Will continue. Chronic go uty arthritis 79008553 M1A.0110 Screen for inflammato ry arthropath y. Consider rheum referral. Impaired f asting glycemia 958968461 R73.01 [id number] Mayito Boston MD Main Office [address] [facility] [address] [place] [address] 12/29/2019 08:59:16 12/29/2019 09:45:51 Pre-surgery evaluation 071662978 Z01.818 pre-surger y evaluation Pre-Surgic al Evaluation [...] post-op Inflammati on of rotator cuff tendon 639502236 M67.819 patient to have surgery Essential hypertension 71188734 I10 Needs infl uenza immunization 001346671 Z23 [id number] Seth Solorzano MD Main Office [address] [facility] [address] [facility] [place] [address] 03/26/2020 13:37:55 03/26/2020 14:38:29 Gout 63897366 M10.9 Well controlled based on symptoms and uric acid level. Continue current dose. Essential hypertension 51442519 I10 Suspect fluid overload might be a factor. Will monitor with increased diuretic dose. Prediabetes 426941503 R7 3.03 Stable. Will continue monitor. Dyspnea 770372908 R06.02 Likely secondary to deconditio arianna. Screen for failure and try titrating diuretic dose. [id number] Seth Solorzano MD Main Office [address] [place] [address] 04/16/2020 10:44:47 04/16/2020 11:15:13 Essential hypertension 90677492 I10 Well controlled . Continue current regimen. Chronic at rial fibrillation 861780820 I48.21 Pt advised to f/u with cards in June. Obstructiv e sleep apnea syndrome 80439367 G47.33 Following with sleep medicine to work on CPAP compliance . [id number] Sourav Rivas PA-C Main Office [address] [place] [address] 10/07/2020 09:03:08 10/07/2020 10:31:23 Syncope 422719034 R55 more so pre-syncop e twice about 2 wks ago - will check glucose and ekg - no h/o DM glucose stable ekg - sinus rhythm, no significan t S-T changes ? had orthostasi s, now better p off ccb - rec stay hydrated - see below Essential hypertension 44512085 I10 bp stable - cont meds as dir -- has been off aml x ~ 2 wks as per card -- no further pre-syncop e Paroxysmal atrial fibrillation 902203669 I48.0 HR controlled , cont meds, f/u c card as dir [id number] Seth Solorzano MD Main Office [address] [place] [address] 11/25/2020 08:16:30 11/25/2020 09:34:28 Adult health examination 121121365 Z00.00 Immunizati on status utd, flu advised when available. Will screen based on risk factors. Regular dental and ophtho care advised as well as sunscreen and seat belt use. Distracted driving discussed. Advance directives discussed. Pain in bi lateral feet 2722002435 4861531 M79.671 M79.672 suspect lipoma are the cause. Will see if u/s confirms and refer to podiatry or ortho depending on result. Body mass index 40+ - severely obese 651995255 E66.01 Z68.41 Diastolic heart failure 321701344 I50.32 Chronic at rial fibrillation 735295431 I48.21 Pt advised to f/u with cards in June. Family his tory of malignant neoplasm of prostate 981555874 Z80.42 If PSA elevated or urinary symptoms worsen will refer to urology. Gout 82161868 M10.9 Well controlled based on symptoms and uric acid level. Continue current dose. Obstructiv e sleep apnea syndrome 41301196 G47.33 Following with sleep medicine to work on CPAP compliance . Prediabetes 202013709 R7 3.03 Stable. Will continue monitor. Pure hypercholesterolemia 438293678 E78.01 Reassess CVD risk score and discuss mgmt based on results. Vitamin D deficiency 347 43435 E55.9 Level was normal last year on current supplement dose. Will continue. Mass of foot 325153444 R 22.41 Nocturia 190944037 R35.1 Primary er ectile dysfunction 640764489 N52.9 [id number] Seth Solorzano MD Telehealt h [address] [facility] 207 [facility] [place] [address] 03/21/2021 07:59:06 03/21/2021 15:38:44 Exposure to viral disease 2247512915 90213 Z03.818 Advised to continue wearing mask and to have testing done lucia. If positive will likely be out of the window for Mab therapy. Psychosexu al dysfunction 851066823 F52.9 Effective in the past. Refill requested. Acute sinusitis 06292329 J01.90 At this poitn still most likely a viral process. Need to r/o COVID. If negative and symptoms worsen/per sist or if second sickening occurs will prescribe abx for sinusitis. Cough 98654489 R05.1 Secondary to URI. Consider CXR depensing on symptom progressio n and COVID 19 status. [id number] Seth Solorzano MD Main Office [address] [facility] [address] [facility] [place] [address] 05/15/2021 14:53:40 05/15/2021 15:53:43 Prediabetes 734853925 R73.03 Stable. Will continue monitor. Discussed need to reduce CHO intake and work on weight loss. Atrial par oxysmal tachycardia 094225466 I47.1 Establishe d with cards. Rate well controlled on BB and DOAC. Essential hypertension 24414623 I10 Well controlled . Continue current regimen. Psychosexu al dysfunction 282853024 F52.9 Effective in the past. Refill requested. Pure hypercholesterolemia 883232502 E78.01 Based on CVD score statin warranted but declined. Will continue to monitor. Pulmonary hypertension 42206641 I27.[address] Steve at [facility] for right heart cath on 05/20. [id number] Seth Solorzano MD Main Office [address] [facility] [address] [place] [address] 08/11/2021 12:43:10 08/11/2021 13:19:26 Prediabetes 940899021 R73.03 Stable. Will continue monitor. Discussed need to reduce CHO intake and work on weight loss. Essential hypertension 18956781 I10 Well controlled . Continue current regimen. Pure hypercholesterolemia 743125031 E78.01 Based on CVD score statin warranted will start low dose atorvastat in and titrate as tolerated to goal LDL <100. Vitamin D deficiency 347 63023 E55.9 Level was normal last year on current supplement dose. Will continue. Constipation 19293299 K5 9.00 [id number] Seth Solorzano MD Main Office [address] [facility] [address] [place] [address] 11/27/2021 08:37:31 11/27/2021 09:27:17 Adult health examination 158388071 Z00.00 Immunizati on status updated short of COVID 19 which was advised via local pharmacy. Screening utd based on risk factors. Regular dental and ophtho care advised as well as sunscreen and seat belt use. Distracted driving discussed. Advance directives discussed. Varicella vaccination 68 813602 Z23 Pure hypercholesterolemia 275094933 E78.01 Well controlled on low dose statin. Essential hypertension 52431405 I10 Well controlled . Continue current regimen. Viral hepatitis C 966369 07 B19.20 Requires a tetanus booster 465071796 Z23 Needs infl uenza immunization 368163141 Z23 Psychosexu al dysfunction 561987067 F52.9 Effective in the past. Refill requested. Prediabetes 993506200 R7 3.03 Stable. Will continue monitor. Discussed need to reduce CHO intake and work on weight loss. Body mass index 40+ - severely obese 594730981 E66.01 Will refer to weight management to see if they have suggestion s. Adjustment disorder with mixed emotional features 14028412 F43.23 Coping fairly well except for some anhedonia. Will monitor for now. [id number] Seth Solorzano MD Main Office [address] [facility] [address] [facility] [place] [address] 03/31/2022 10:44:55 03/31/2022 11:20:53 Morbid obesity 467013000 E66.01 Adjustment disorder with mixed emotional features 33255653 F43.23 Coping fairly well except for some anhedonia. Will monitor for now. Diastolic heart failure 080724612 I50.32 Will titrate diuretic dose for 40mg daily. Pt will go for labs 1-2 weeks after. Prediabetes 003931736 R7 3.03 Stable. Will continue monitor. Discussed need to reduce CHO intake and work on weight loss. Due for labs. Psychosexu al dysfunction 263565901 F52.9 Effective in the past. Refill requested. Atrial par oxysmal tachycardia 652171996 I47.1 Establishe d with cards. Rate well controlled on BB and on DOAC. Nocturia 833354875 R35.1 Obstructiv e sleep apnea syndrome 81180857 G47.33 Following with sleep medicine to work on CPAP compliance . [id number] Seth Solorzano MD Main Office [address] [facility] [address] [facility] [address] 07/28/2022 09:46:42 07/28/2022 10:51:24 Prediabetes 003643979 R73.03 Stable. Will continue monitor. Discussed need to reduce CHO intake and work on weight loss. Due for labs. Chronic at rial fibrillation 561801430 I48.21 Following with cardiology . Body mass index 40+ - severely obese 047550574 E66.01 Z68.41 Has failed conservati ve treatment approaches /nutrition al counseling . May be a candidate for GLP1 agonist tx trial. Prostate s pecific antigen above reference range 653537798 R97.20 Persistent issue, urology input needed. Family his tory of malignant neoplasm of prostate 396715011 Z80.42 Will refer to urology. Psychosexu al dysfunction 524842090 F52.9 Effective in the past. Refill requested. Heart fail ure with normal ejection fraction 767057052 I50.32 Titrate diuretic based on weight shifts/BP. Diastolic heart failure 941386821 I50.32 Currently compensate d, followed by cards. [id number] Seth Solorzano MD Main Office [address] [facility] [address] [facility] [address] 10/20/2022 11:30:41 10/20/2022 12:12:29 Prostate specific antigen above reference range 710216257 R97.20 Has urology f/u next week, going for PSA check this Wednesday. From there MRI vs biopsy will be discussed. Body mass index 40+ - severely obese 342386994 E66.01 Z68.41 Has failed conservati ve treatment approaches /nutrition al counseling . May be a candidate for GLP1 agonist tx trial. Prediabetes 352332707 R7 3.03 Stable. Will continue monitor. Discussed need to reduce CHO intake and work on weight loss. Due for labs. He wants to see a nutritioni st but insurance is not covering. Will call [facility] to see if maybe they particiapt e. Essential hypertension 08359084 I10 Well controlled . Continue current regimen. Serum crea tinine above reference range 400847040 R79.89 Likely from over diuresis. Will reassess following recent dose change. Hepatitis C screening 41 7563350 Z11.59 [id number] Seth Solorzano MD Main Office [address] [facility] [address] [facility] [address] 12/01/2022 09:15:46 12/01/2022 10:19:23 Adult health examination 717120940 Z00.00 Immunizati on status updated short of COVID booster which was advised via local pharmacy. Screening utd based on risk factors. Regular dental and ophtho care advised as well as sunscreen and seat belt use. Distracted driving discussed. Advance directives discussed. Needs infl uenza immunization 628297830 Z23 Varicella vaccination 68 140931 Z23 Prediabetes 884117237 R7 3.03 Stable. Will continue monitor. Discussed need to reduce CHO intake and work on weight loss. Due for labs. He wants to see a nutritioni st but insurance is not covering. Prostate s pecific antigen above reference range 556874945 R97.20 Being scheduled for biopsy Pure hypercholesterolemia 859091766 E78.01 LDL >100, will titrate statin dose. Vitamin D deficiency 347 85205 E55.9 Level was normal last year on current supplement dose. Will continue. Body mass index 40+ - severely obese 120082991 E66.01 Z68.41 Has failed conservati ve treatment approaches /nutrition al counseling . May be a candidate for GLP1 agonist tx trial. Insurance would not cover nutritiona l counseling . Obstructiv e sleep apnea syndrome 83709517 G47.33 Reprts compliance and good symptoms relief with CPAP therapy. [id number] Seth Solorzano MD Main Office [address] [facility] [address] [facility] [address] 12/24/2022 15:01:48 12/24/2022 17:46:53 [id number] Seth Solorzano MD Main Office [address] [facility] [address] [facility] [address] 01/14/2023 14:13:15 01/14/2023 15:30:09 History of cholecystectomy 582458010 Z90.49 recently dc'd ~ 3 wks ago - had lap phillip on 12.18.21 - doing okay now, pending f/u c general surgeon next week Prostate s pecific antigen above reference range 297211578 R97.20 just had prostate bx 2 days ago, pending results, cont f/u c uro Essential hypertension 41511805 I10 bp stable - cont meds as dir Prediabetes 220265428 R7 3.03 Diastolic heart failure 140934836 I50.32 stable, cont meds as dir, cont f/u c card Chronic at rial fibrillation 627711566 I48.21 stable - cont meds, f/u c card [id number] Seth Solorzano MD Main Office [address] [facility] [address] [facility] [address] 04/05/2023 10:00:03 04/05/2023 10:58:42 Essential hypertension 16339627 I10 Well controlled . Continue current regimen. Pain of bi lateral knee joints 5191807562 72935 M25.561 M25.562 Will ask ortho to help evaluate further Carcinoma of prostate 25 7054348 C61 Scheduling prostatect ayanna with Dr. Daniel Mass of thyroid gland [address] scan scheduling to elaborate further on anatomy, screen for abnl thyroid function. [id number] Seth Solorzano MD Main Office [address] [place] [address] 08/10/2023 09:44:56 08/10/2023 10:35:14 Essential hypertension 79827924 I10 Well controlled . Continue current regimen. Pulmonary arterial hypertension 77300870 I27.21 Symptomati meredith stable, on diuretic regimen and following with pulm in [place]. Chronic at rial fibrillation 453451993 I48.21 Following with cardiology . Mass of thyroid gland [address]04[address] scan at [facility] for comparison reasons with previous u/s. Thyroid nodule 064269116 E04.1 [id number] Seth Solorzano MD Main Office [address] [facility] [address] [place] [address] 01/31/2024 12:51:54 01/31/2024 14:00:20 Adult health examination 329087718 Z00.00 PCV20, COVID and Shingrix were advised via local pharmacy. Screening utd based on risk factors. Regular dental and ophtho care advised as well as sunscreen and seat belt use. Distracted driving discussed. Advance directives discussed. Psychosexu al dysfunction 832146754 F52.9 Low T post prostate CA treatment is likely a factor. Effective in the past. Refill requested. Needs infl uenza immunization 878358527 Z23 patient will get flu shot after Thanks[place] Carcinoma of prostate 25 4215001 C61 s/p ADT/radiat ion therapy, following closely with Dr. Daniel. Body mass index 40+ - severely obese 177979870 E66.01 Z68.41 Has failed conservati ve treatment approaches /nutrition al counseling . Insurance would not cover nutritiona l counseling . Administra tion of pneumococcal vaccine 91435634 Z23 Varicella vaccination 68 885491 Z23 Pain of ri ght shoulder joint 7175708607 7173833 M25.511 Pt would like to follow up with Dr. Rodas who addressed his left shoulder issues. Thyroid nodule 065443619 E04.1 need u/s in Oct 2024 Moderate m ajor depression, single episode 91411884 F32.1 Symptoms currently not limiting. Will monitor. Acute prostatitis 456601 02 N41.0 Having symptoms, so will treat but if persistent /worse advised to follow up with urology. Pulmonary arterial hypertension 69369772 I27.21 Symptomati meredith stable, on diuretic regimen and following with pulm in [place]. Chronic at rial fibrillation 948050687 I48.21 Following with cardiology . Essential hypertension 50373338 I10 Well controlled . Continue current regimen. [id number] Seth Solorzano MD Main Office [address] [facility] [address] [place] [address] 06/05/2024 10:20:53 06/05/2024 11:12:41 Essential hypertension 55591925 I10 Well controlled . Continue current regimen. Prediabetes 927619529 R7 3.03 Stable. Will continue monitor. Discussed need to reduce CHO intake and work on weight loss. Due for labs. He wants to see a nutritioni st but insurance is not covering. Pain of ri ght shoulder joint 0507849821 6395759 M25.511 Could not see [facility] because of insurance. Will refer to [facility]. Bilateral carpal tunnel syndrome 1733080792 0175634 G56.03 Will use splints and consider EMG/ortho referral inb/worse. Mass of thyroid gland 23 2686852 E04.9 Will schedule US in the Fall for follow up for comparison . Pure hypercholesterolemia 643664555 E78.01 LDL <100, continue current statin dose. Major depr ession single episode, in partial remission 90316961 F32.4 Symptoms currently not limiting, not on meds. Will monitor. [id number] Seth Solorzano MD Main Office [address] [facility] [address] [place] [address] 10/26/2024 09:13:36 10/26/2024 10:04:24 Pain of right shoulder joint 3322820696 9157064 M25.511 [id number] Could not see [facility] because of insurance. Will refer to [facility], see if NSAID helps in meantime. [id number] Seth Solorzano MD Main Office [address] [facility] [address] [place] [address] 12/11/2024 11:20:01 12/11/2024 12:18:28 Bilateral carpal tunnel syndrome 9608722852 8392786 G56.03 Persistent issue with shoulder pain, will refer for EMG to differenti ate between brachial plexopathy vs CTS vs cervical radiculopa thy. Needs infl uenza immunization 975514004 Z23 19 YEARS AND OLDER ONLY Pure hypercholesterolemia 405802345 E78.00 03490713 Well controlled on low dose statin. Will continue current dose and monitor. Mass of thyroid gland 23 3179891 E04.9 Labs and f/u imaging have been normal. Will monitor clinically for now. Chronic at rial fibrillation 075616433 I48.21 Rate well controlled on DOAC. Following with cardiology . Health Concerns Section Related Observation LastModified by Organization Detai ls LastModified Time None Recorded Concern Status LastModified by Organization Details LastModified Time None Recorded Advance Directives Directive Y: HCP/ Girlfriend-Yunior Anthony other-JohnEsther Payers Insurance Date Sequence Insurance Name Policy Number Policy Martinez Covered Member ID Martinez Member ID Guarantor Name 12/21/2024 1 [facility] (MEDICARE REPLACEMENT/ ADVANTAGE - HMO) MAMMP Nova Dark [id number] Nova Dark 01/20/2022 1 [employer] (PPO) Nova Dark [id number] Nova Dark 01/20/2022 1 [place] Nova Dark [id number] Nova Dark 01/20/2022 1 [employer] [id number] Nova Dark [id number] Nova Dark 01/20/2022 3 [place] Nova Dark [id number] Nova Dark 01/20/2022 1 [facility] (MEDICAID REPLACEMENT - HMO) [id number] Nova Dark [id number] Nova Dark 01/20/2022 1 [employer] (POS) [id number] Nova Dark [id number] Nova Dark 12/11/2024 2 [place] Nova Dark [id number] Nova Dark 01/20/2022 1 [facility] - MEDICAID ESSENTIAL (MEDICAID HMO) [id number] Nova Dark [id number] Nova Dark Notes Date Note Type Note Provider Name [...] diuretic dosing adjustment Seth Solorzano MD [address], [address], [facility] 08/10/2023 10:38:56 01/31/20 24 text/htm l Medicare [...] in the HPI Seth Solorzano MD [address] [address], [place], [address], [facility] 01/31/2024 14:16:37 06/06/19 25 text/htm l Musculoskeletal [...] diuretic dosing adjustment Seth Solorzano MD [address] [address], [place], [address], [facility] 06/05/2024 16:23:23 10/27/19 25 text/htm l Musculoskeletal PainReported by PatientHPIFor quality, patient reportsaching. For severity, patient reportsworsening,interference with sleep, andinterference with workbut reportspain level without meds 09/14. For location, patient reportsright shoulder. For duration, patient reportspresent for >12 months. For associated symptoms, patient reportsno fever.Seen at [facility] for left shoulder ACJ arthritis/impingement in the past. Having difficulities connecting with [facility] becasue of insurance contracts. Seth Solorzano MD [address] [facility] [address], [place], [address], [facility] 11/23/2024 07:27:58 12/12/19 25 text/htm l Musculoskeletal [...] [facility] for shoulder pain, Referral made to [facility] but pt did not connect with [...] dyspnea/orthopnea more from DOREEN. Seth Solorzano MD [address], [address], [facility] 12/11/2024 12:28:12
--- OUTSIDE RECORDS SUMMARY | 2025-02-23 06:31 | XMS_ITS | Encounter Summary ---
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 Glass Cutter Name Role Phone Seth Jordan MD Primary Care Provider Encounter Details Date Type Department Care Team (Late st Contact Info) Description 05/20/2021 Procedure Pass [facility] Cardiac Pyridine Recovery Operator [address] [place] [address] Social History Tobacco Use Types Packs/Day Years [...] Description 07/25/2025 10:00 AM EDT Office Visit [facility] Pulmonary Hypertension at the [facility] [address] [place] [address] Christian Steve MD, PhD [address] [id number] [email or web address] documented as of this encounter Visit Diagnoses Not on filedocumented in this encounter Care Teams Oval Or Circular Glass Cutter Relationship Specialty Start Date End Date Seth Jordan MD [address] [place] [address] PCP - General Internal Medicine 08/16/20 documented as of this encounter Additional Source Comments The information contained in this document represents components of the legal health record. It is not the complete legal health record.[facility]
--- OUTSIDE RECORDS SUMMARY | 2025-02-23 06:31 | XMS_ITS ---
Author Name Donavon Fernandez NP Address [address] [place] [address] Phone [phone] [facility] Care Team Providers Care Customer Program Specialist Name Role Phone Jim Donavon Unavailable [phone] Jaye Dickey Unavailable [phone] Reason for Referral Not Available Allergies, adverse [...] 95 for video, modifier 93 for phone [facility] [place] 01/21/2024 Gout, unspecifiedEssential ( primary) hypertensionErectile dysfunction [...] 95 for video, modifier 93 for phone [facility] [place] 01/21/2024 New patient, 30-44min 1 stable chronic or 2 minor; add modifier 95 for video, modifier 93 for phone [facility] [place] 01/21/2024 New patient, 30-44min 1 stable chronic or 2 minor; add modifier 95 for video, modifier 93 for phone [facility] [place] 01/21/2024 New patient, 30-44min 1 stable chronic or 2 minor; add modifier 95 for video, modifier 93 for phone [facility] [place] 01/21/2024 New patient, 30-44min 1 stable chronic or 2 minor; add modifier 95 for video, modifier 93 for phone [facility] [place] 01/21/2024 New patient, 30-44min 1 stable chronic or 2 minor; add modifier 95 for video, modifier 93 for phone [facility] [place] 01/21/2024 New patient, 30-44min 1 stable chronic or 2 minor; add modifier 95 for video, modifier 93 for phone [facility], [place] 01/21/2024 New patient, 30-44min 1 stable chronic or 2 minor; add modifier 95 for video, modifier 93 for phone [facility] [place] 01/21/2024 Estab. patient 20-29min; 1 stable chronic or 2 minor; add add modifier 95 for video, modifier 93 for phone [facility] 05/30/2024 Gout, unspecifiedErectile dy sfunction following [...] 95 for video, modifier 93 for phone [facility] [place] 05/30/2024 Estab. patient 20-29min; 1 stable chronic or 2 minor; add add modifier 95 for video, modifier 93 for phone [facility] [place] 05/30/2024 Estab. patient 20-29min; 1 stable chronic or 2 minor; add add modifier 95 for video, modifier 93 for phone [facility] [place] 05/30/2024 Estab. patient 20-29min; 1 stable chronic or 2 minor; add add modifier 95 for video, modifier 93 for phone [facility] [place] 05/30/2024 Vital Signs Date of Collection Vitals 2024-01-21 12:15:55 Height - 190.5 cmWei ght - 138.8 kgBody Mass Index (BMI) - 38.25 kg/m2BP Diastolic - 85.0 mm[Hg]BP Systolic - 122.0 mm[Hg] 2024-05-30 12:00:04 Weight - 140.62 kgBo dy Mass Index (BMI) - 38.75 kg/m2 Social History Social History Social History Observation Description Effec tive Time Current Smoking Status Never smoker 2025-02-05 9 Sex Male History of Procedures Procedures Service Procedure code Service date Servicing provider Phone# New patient, 30-44min 1 stable chronic or 2 minor; add modifier 95 for video, modifier 93 for phone [id number] 2024-01-21 No Data Available No Data Available [...] 95 for video, modifier 93 for phone [id number] 2024-05-30 No Data Available No Data Availa [...]
--- OUTSIDE RECORDS SUMMARY | 2025-02-23 06:32 | XMS_ITS | Continuity of Care Document ---
Author Organization [facility], Main Office Address [address] [place] [address] Care Team Providers Care Employee Welfare Manager Name Role Phone SETH SOLORZANO Primary Care Provider [phone] MILENA WANG Sleep Medicine [facility]) Orthopedic Surgeon VINOD PRESTON [employer] Manager [employer] Operator [facility] Sleep Medicine TJ WATKINS Orthopedic Surgeon [phone] KATHY RILEY Tin Roofer TOMMY TINEO Referring Provider [phone] GRANT COOL Urologist VINOD MAHONEY Refresh Technician [facility] Orthopedic Surgeon Assessment No assessment recorded. Plan of Treatment Reminders Order Date Submit Date Provider Last Modified By Organization Details Last Modified Time Details Appointments [id number] 2025 11:00A M Seth Solorzano MD Not available Not available Not available Lab None recorded. Referral None recorded. Procedures nerve conductio n study/EMG , upper extremity (PROC) - rule out bilateral carpal tunnel 2024 025 [facility], [address] [facility], [place], [address], 01/30/2025 15:15:26 Surgeries None recorded. Imaging None recorded. Medication Orders None recorded. Patient TargetsNo targets recorded. Patient Instructions Encounter Date Encounter Id Patient Instructions Last Modified By Organization Details Last Modified Time 12/11/2024 [id number] high cholesterol: care instructions rena Not available 12/11/2024 12:12:16 Reason for Referral None Reported. Results Created Date Observation Date Name Description Value Unit Range Abnormal Flag Note LastModifiedBy Organization Detail LastModifiedTime 12/26/1912/25/2024 ECG 12-le ad No observ ation record ed. [facility]S Dept [address] [place] [address], [id number], 12/26/2024 06:47:48 12/26/19 ECG 12-le ad No observ ation record ed. [facility] Dept [address] [place] [address], [address], 12/26/2024 06:47:48 01/12/2001/08/2025 nm stres s test with myoca rdial perfu dex No observ ation record ed. [facility] Dept [address] [place] [address], [address], 01/12/2025 06:55:15 01/16/20 25 01/09/2025 nucle ar stres s test No observ ation record ed. [facility] (Human Resources) [address] [facility], [place], [address], 01/16/2025 07:25:18 01/18/20 25 01/17/2025 US, thyro id No observ ation record ed. [facility] (Medical Records) [address] [facility], [place], [address], 01/18/2025 12:04:04 Result Notes None recorded. Problems Name Problem SNOMED Code Status Onset Date Resolution Date Notes Provider Name and Address Organization Details Recorded Time Pain of wrist region 68261304 Completed 07/13/2014 Seth Solorzano MD [address], [place], [address] , [facility] 5 14:20:56 Dyspnea on exertion 68750341 Com[facility] 7 12:55:52 Body mass index 30+ - obesity 894704474 Completed 07/21/2017 Seth Solorzano MD [address], [place], [address] , [facility] 8 11:57:46 Irregula r heart beat 456882734 Completed 11/10/2016 RALPH Aceves, [facility] 7 12:55:33 Atrial fibrilla tion and flutter 087263484 Completed 07/21/2017 Seth Solorzano MD [address], [place], [address] , [facility] 8 11:59:07 Body mass index 40+ - severely obese 378648829 Completed 11/10/2016 Seth Solorzano MD [address] [facility] [address], [place], [address] , [facility] 1 09:19:07 Excessiv e thirst 39237358 Completed 11/10/2016 RALPH Aceves, [facility] 7 12:55:17 Dyspnea on exertion 86151984 Completed 11/10/2016 RALPH Aceves, [facility] 7 12:55:52 Increase d frequenc y of urinatio n 982881409 Completed 11/10/2016 RALPH Aceves, [facility] 7 12:55:11 Dyspnea 067171744 Completed 11/10/2016 RALPH Aceves, [facility] 7 12:55:23 Tinea pedis 8550904 Completed 201209/19/2013 RECORDED 04/06/19 13 2:51PM BY ANASTASIIA ISSA MA, ANNOTATI ON/ALINE Solorzano MD [address], [place], [address] , [facility] 5 14:20:56 Jeannine arteaga 5095090 Completed 201210/16/2013 RECORDED 04/06/19 13 2:51PM BY ANASTASIIA ISSA MA, OSCARATI ON/ALINE Solorzano MD [address], [place], [address] , [facility] 5 14:20:56 Maryuri pulido hyperten dex 42819539 Completed 201209/19/2013 RECORDED 04/18/19 13 9:48AM BY WILMER MCELROY MA, HELEN ON/ALINE Solorzano MD [address], [place], [address] , [facility] 8 11:59:45 Screenin g procedur e Completed 201209/19/2013 IMPRESSI ON: GIVEN FAMILY HISTORY WILL CONTINUE SCREENIN G. EMIL DEFERRED TO NEXT APPT.; RECORDED 05/21/19 13 10:39AM BY WILMER MCELROY MA, HELEN ON/ALINE Solorzano MD [address], [place], [address] , [facility] 5 14:20:57 Syncope and collapse 704690195 Completed 201209/19/2013 RESOLVED DATE: 02/25/20 12; IMPRESSI [...] [address], [place], [address] , [facility] 5 14:20:56 Screenin g procedur e Completed 201210/16/2013 IMPRESSI ON: GIVEN FAMILY HISTORY WILL CONTINUE SCREENIN G. EMIL DEFERRED TO NEXT APPT.; RECORDED 05/21/19 13 10:39AM BY WILMER MCELROY MA, HELEN ON/ALINE Solorzano MD [address], [place], [address] , [facility] 5 14:20:57 Syncope and collapse 967513238 Completed 201210/16/2013 RESOLVED DATE: 02/25/20 12; IMPRESSI [...] [address], [place], [address] , [facility] 5 14:20:56 Patient status finding [id number] Completed 201209/19/2013 RECORDED 08/26/19 13 9:30AM BY WILMER MCELROY MA, ANNOTATI ON/ALINE Solorzano MD [address], [place], [address] , [facility] 5 14:20:57 Adult health examinat ion Completed 201209/19/2013 IMPRESSI ON: IMMUNIZA TION STATUS UTD WILL SCREEN BASED ON RISK FACTORS. REGULAR DENTAL CARE AND SEATBELT USE ADVISED. DISTRACT ED DRIVING [place]; RECORDED 08/26/19 13 9:30AM BY WILMER MCELROY MA, OSCARATI ON/ALINE Solorzano MD [address], [place], [address] , [facility] 5 14:20:57 Disorder of upper respirat ory system Completed 201209/19/2013 IMPRESSI ON: TRY NASAL SALINE, IF PERSISTA NT TRY NASAL STEROID. ; RECORDED 08/26/19 13 9:30AM BY WILMER MCELROY MA, HELEN ON/ALINE Solorzano MD [address], [place], [address] , [facility] 5 14:20:57 Patient status finding [id number] Completed 201210/16/2013 RECORDED 08/26/19 13 9:30AM BY WILMER MCELROY MA, HELEN ON/ALINE Solorzano MD [address], [place], [address] , [facility] 5 14:20:57 Disorder of upper respirat ory system Completed 201210/16/2013 IMPRESSI ON: TRY NASAL SALINE, IF PERSISTA NT TRY NASAL STEROID. ; RECORDED 08/26/19 13 9:30AM BY WILMER MCELROY MA, HELEN ON/ALINE Solorzano MD [address] [facility], [place], [address] , [facility] 5 14:20:57 Follow-u p encounte r Completed 201209/19/2013 RECORDED 12/21/19 13 10:31AM BY WILMER MCELROY MA, HELEN CABRERA/ALINE Solorzano MD [address], [place], [address] , [facility] 5 14:20:57 Influenz a vaccine needed 29038533838 06 Completed 201209/19/2013 RECORDED 12/21/19 13 10:31AM BY WILMER MCELROY MA, ANNOTPRIYA ON/ALINE Solorzano MD [address] [facility] [address], [place], [address] , [facility] 5 14:20:57 Pain in limb 43317200 Completed 201209/19/2013 RECORDED 12/21/19 13 10:32AM BY WILMER MCELROY MA, HELEN ON/ALINE Solorzano MD [address] [facility] [address], [place], [address] , [facility] 5 14:20:56 Follow-u p encounte r Completed 201210/16/2013 RECORDED 12/21/19 13 10:31AM BY WILMER MCELROY MA, HELEN ON/ALINE Solorzano MD [address] [facility] [address], [place], [address] , [facility] 5 14:20:57 Influenz a vaccine needed 58695618572 06 Completed 201210/16/2013 RECORDED 12/21/19 13 10:31AM BY WILMER MCELROY MA, HELEN ON/ALINE Solorzano MD [address] [facility] [address], [place], [address] , [facility] 5 14:20:57 Pain in limb 39624853 Completed 201210/16/2013 RECORDED 12/21/19 13 10:32AM BY WILMER MCELROY MA, HELEN ON/ALINE Solorzano MD [address] [facility] [address], [place], [address] , [facility] 5 14:20:56 Localize d superfic ial swelling of skin 722181447 Completed 201309/19/2013 IMPRESSI ON: ? NEUROMA. WILL CONSULT PODIATRY .; RECORDED 06/03/19 14 12:59PM BY WILMER MCELROY MA, HELEN ON/ADDJESSICA Solorzano MD [address] [address], [place], [address] , [facility] 5 14:20:56 Neck sprain 070539534 Completed 201312/08/2013 IMPRESSI ON: RECURREN T ISSUE IN CONTEXT OF CHRONICA LLY ELEVATE CREATINE KINASE. WILL ASK RHEUM FOR RE-EVALU ATION NOW THAT SYMPTOMS HAVE DEVELOPE D.; RECORDED 06/03/19 14 2:24PM BY WILMER MCELROY MA, OFFICE VISIT Seth Solorzano MD [address] [address], [place], [address] , [facility] 5 14:20:57 Localize d superfic ial swelling of skin 015495826 Completed 201310/16/2013 IMPRESSI ON: ? NEUROMA. WILL CONSULT PODIATRY .; RECORDED 06/03/19 14 12:59PM BY WILMER MCELROY MA, ANNOTATI ON/ADDJESSICA DUM Seth Solorzano MD [address] [address], [place], [address] , [facility] 5 14:20:56 Renewal of prescrip tion Completed 201309/19/2013 RECORDED 07/06/19 14 9:12AM BY WILMER MCELROY MA, HELEN ON/ALINE Solorzano MD [address] [address], [place], [address] , [facility] 5 14:20:57 Renewal of prescrip tion Completed 201310/16/2013 RECORDED 07/06/19 14 9:12AM BY WILMER MCELROY MA, HELEN ON/ALINE Solorzano MD [address] [address], [place], [address] , [facility] 5 14:20:57 Joint pain in ankle and foot Completed 201307/13/2014 IMPRESSI ON: WEVENT WITH UNIMPRES SICE UA LEVEL, SYMPTOMS RESPONDE D TO COLCHICI NE. WILL CONTINUE PRN AND CONSIDER FURTHER EVAL IF RECURREN T/WORSE. ; RECORDED 08/19/19 14 12:55PM BY SETH Phipps MD, OFFICE VISIT Seth Solorzano MD [address], [place], [address] , [facility] 5 14:20:56 Asthma 476717942 Completed 201311/21/2019 Seth Solorzano MD [address] [facility] [address], [place], [address] , [facility] 0 11:16:59 Pure hypercho lesterol emia 450610204 Active 2013 Not Available [facility] 3 01:53:06 Essentia l hyperten dex 45798407 Active 2013 Not Available [facility] 3 01:53:07 Insomnia 380904983 Active 2013 Not Available [facility] 3 01:53:06 Fibromyo sitis 40028274 Completed 201312/08/2013 STORY: S/P RHEUM (REMI ) EVAL- PRESUMED PHYSIOLO GIC; IMPRESSI ON: PT ASYMPTOM ATIC, WILL RECHECK TO SEE IF LAB FINDINGS PERSISTA NT.; RECORDED 08/19/19 14 11:39AM BY ANASTASIIA ISSA MA, OFFICE VISIT Seth Solorzano MD [address], [place], [address] , [facility] 5 14:20:56 Obesity 095087779 Completed 201307/21/2017 RECORDED 08/19/19 14 11:39AM BY ANASTASIIA ISSA MA, OFFICE VISIT Lilia winters, [facility] 0 16:49:59 Obstruct kaleigh sleep apnea syndrome 14250916 Active 2013 14cm H2O with 2L O2 Seth Solorzano MD [address], [place], [address] , [facility] 5 13:41:36 Allergic rhinitis 87471585 Active 2013 Not Available [facility] 3 01:53:07 Psychose xual dysfunct ion 419016665 Active 2013 Not Available [facility] 3 01:53:06 Vitamin D deficien cy 40625436 Active 2013 Not Available [facility] 3 01:53:06 Neck sprain 669055067 Completed 201310/16/2013 IMPRESSI ON: RECURREN T ISSUE IN CONTEXT OF CHRONICA LLY ELEVATE CREATINE KINASE. WILL ASK RHEUM FOR RE-EVALU ATION NOW THAT SYMPTOMS HAVE DEVELOPE D.; RECORDED 08/19/19 14 11:36AM BY ANASTASIIA ISSA MA, ANNOTATI ON/ADDEN DUM Seth Solorzano MD [address], [place], [address] , [facility] 5 14:20:57 Left ventricu lar hypertro phy 57155770 Active 2016 Not Available [facility] 3 01:53:07 Atrial paroxysm al tachycar victor m 651042157 Active 2017 Not Available [facility] 3 01:53:06 Arthriti s of hand 265125406 Completed 201711/21/2019 Seth Solorzano MD [address], [place], [address] , [facility] 0 11:17:38 Chronic atrial fibrilla tion 079946545 Active 2018 Not Available [facility] 3 01:53:07 Impingem ent syndrome of shoulder region 634008663 Completed 201801/31/2024 Seth Solorzano MD [address], [place], [address] , [facility] 4 13:42:11 Gout 99249560 Active 2019 Kelly Zuluaga MA null, [facility] 5 09:23:33 Paroxysm al atrial fibrilla tion 181435407 Active 2019 Not Available [facility] 3 01:53:06 Divertic ular disease 989800077 Active 2019 Not Available [facility] 3 01:53:07 Polyp of colon 33148560 Active 2019 Not Available [facility] 3 01:53:07 Family history of malignan t neoplasm of prostate 185260059 Active 2019 Not Available [facility] 3 01:53:07 History of asthma 626293506 Active 2019 Not Available [facility] 3 01:53:06 Prediabe gisell 997194303 Completed 201901/15/2023 Seth Solorzano MD [address], [place], [address] , [facility] 4 06:42:51 Prediabe gisell 043332800 Active 2019 Seth Solorzano MD [address], [place], [address] , [facility] 4 06:42:51 Morbid obesity 092190723 Active 2019 Not Available [facility] 3 01:53:06 Dyspnea on exertion 91325562 Active 2020 Kelly Zuluaga MA null, [facility] 5 09:23:33 Diastoli c heart failure 049993139 Active 2020 Not Available [facility] 3 01:53:07 Body mass index 40+ - severely obese 331349450 Active 2020 Not Available [facility] 3 01:53:07 Pulmonar y arterial hyperten dex 90322368 Active 2021 Not Available [facility] 3 01:53:06 Adjustme nt disorder with mixed emotiona l features 32495014 Completed 202101/31/2024 Seth Solorzano MD [address], [place], [address] , [facility] 4 13:42:14 Prostate specific antigen above referenc e range 084914358 Active 2022 Not Available [facility] 3 01:53:07 Cholecys titis 13964074 Completed 202212/24/2022 Seth Solorzano MD [address] [facility] [address], [place], [address] , [facility] 3 21:26:05 History of cholecys tectomy 067342456 Active 2022 Sourav Rivas PA-C [address] [facility] [address], [place], [address] , [facility] 3 15:25:56 Carcinom a of prostate 241217960 Active 2022 Nimco 3+4, unfavoir able intermed iate risk s/p radiatio n and ADT Seth Solorzano MD [address], [place], [address] , [facility] 4 22:28:57 Thyroid nodule 157679796 Completed 202310/24/2024 right, 1.5cm Seth Solorzano MD [address], [place], [address] , [facility] 5 12:36:45 Mass of thyroid gland 320578392 Active 2023 Seth Solorzano MD [address], [place], [address] , [facility] 4 19:26:16 Pain of bilatera l knee joints 54907407001 4104 Active 2023 Seth Solorzano MD [address] [facility] [address], [place], [address] , [facility] 4 06:43:43 Hypoxemi a 578144719 Active 2023 Seth Solorzano MD [address] [facility] [address], [place], [address] , [facility] 4 10:25:31 Moderate major depressi on, single episode 94836401 Active 2023 Seth Solorzano MD [address] [address], [place], [address] , [facility] 4 13:47:37 Pain of right shoulder joint 12294818087 557344 Active 2023 Seth Solorzano MD [address] [address], [place], [address] , [facility] 4 14:14:02 Alkaline phosphat ase above referenc e range 499026366 Active 2024 Seth Solorzano MD [address] [address], [place], [address] , [facility] 5 21:51:37 Paresthe bj of upper limb 63407742 Active 2024 Seth Solorzano MD [address] [address], [place], [address] , [facility] 5 11:01:17 Bilatera l carpal tunnel syndrome 03047610791 102547 Active 2024 Seth Solorzano MD [address] [address], [place], [address] , [facility] 5 11:01:39 Notes:Some problems listed i n Document: #[id number] could not be added to this patient's chart. Please review this document and add these problems to the patient's chart manually as needed. Problem Notes None recorded. Procedures Surgical History Date Name Laterality Status Provider Name and Address Organization Details Recorded Time 01/10/20 25 radionuclide imaging of perfusion of myocardium under exercise stress completed Seth Solorzano MD [address], [address], [facility] 01/12/2025 06:54:44 02/02/20 24 Echo transthoracic completed Seth Solorzano MD [address], [address], [facility] 02/15/2024 07:26:27 01/13/20 23 needle biopsy of prostate completed Seth Solorzano MD [address], [address], [facility] 01/13/2023 08:05:06 12/21/19 23 laparoscopic cholecystectomy completed Nathaly Lacy [facility] 12/21/2022 11:22:23 05/21/19 22 catheterization of right heart completed Seth Solorzano MD [address], [address], [facility] 05/27/2021 12:57:10 07/07/19 21 stress echocardiography completed Seth Solorzano MD [address], [address], [facility] 06/01/2021 15:25:10 01/10/20 20 complete repair of rotator cuff completed Seth Solorzano MD [address], [address], [facility] 03/26/2020 14:24:20 01/05/20 20 Echo transthoracic completed Seth Solorzano MD [address], [address], [facility] 01/11/2020 19:41:20 10/23/19 20 Colonoscopy completed Seth Solorzano MD [address], [address], [facility] 10/23/2019 19:27:05 10/05/19 20 Cardiac Surgery completed Lisa Carmona CPPM [facility] 10/17/2019 09:23:32 10/05/19 20 Compre ep eval abltj atr fib completed [facility] Wallace [facility] 10/17/2019 09:25:03 10/05/19 20 Intracardiac ephys 3d mapg completed [facility] 10/17/2019 09:25:54 03/22/19 20 Cardioversion electric ext completed Seth Solorzano MD [address] [place] [address], [address], [facility] 04/02/2019 16:11:20 02/15/20 19 Echo transthoracic completed Seth Solorzano MD [address] [place] [address], [address], [facility] 02/26/2019 20:33:15 11/04/19 17 Echo transthoracic completed Seth Solorzano MD [address] [facility] [place], [address], [facility] 11/17/2016 11:31:41 01/23/20 16 Echo transthoracic completed Seth Solorzano MD [address] [facility] [place], [address], [facility] 02/02/2016 23:09:48 01/27/20 12 Echo Transthoracic completed Seth Solorzano MD [address] [place] [address], [address], [facility] 09/26/2015 16:35:39 03/08/19 08 Appendectomy completed Alla Smith MA [facility] 11/25/2020 08:29:52 Appendectomy completed Alla Smith MA [facility] 11/25/2020 08:29:52 Knee Surgery completed Aye Herrera [facility] 11/21/2019 09:56:32 Imaging Results None recorded. Procedure Notes None recorded. Medical Equipment None Reported. Allergies Allergen ID Allergen Name Allergen Category Reaction Reaction Severity Criticality Documentation Date Start Date Code Code System Note Provider Name and Address Organization Details Recorded Time 44312 aspirin medicatio n wheezing moderate Not available 04/03/20192020 1191 RxNorm RALPH Scott MA [facility] 3 10:54:50 4472 aspirin medicatio n respirato ry distress Not available Not available 09/19/20132013 1191 RxNorm not from 81 mg dose, only form 325 mg aller gic react ion Not Available [facility] 3 01:53:04 Medications Name Sig Start Date Stop Date Status Note LastModified by Organization Details LastModified Time d3-1000 25 mcg (1000 ut) caps 08/09 completed Not Available Not Available Not Available vitamin d 11034 unit caps active Not Available Not Available [...] t Available colchicin e 0.6 mg tablet KERMIT, THEN 1 TABLET DAILY NEEDED FOR TOE PAIN 2013 active RECORDED 08/19/19 14 12:03PM BY SETH Phipps MD, OFFICE VISIT; Not Available Not Available Not Available lisinopri l 40 mg tablet TAKE 1 TABLET BY MOUTH DAILY 11/10 completed Not Available Not Available Not Available fluticaso ne propionat e 50 mcg/actua tion nasal spray,[facility] 2 sprays every day by intranas al [...] Updated DateTime 5 184.79 cm 40.2 kg/m2 674598. 49 g 68 /min 95 % 97.5 [degF] 117/74 mm[Hg] Kelly Zuluaga MA [facility] 5 11:42:14 Social History Question Answer Notes LastModified by Organizat ion Details LastModified Time Tobacco Smoking Status Never Smoker Not Available [facility] 01/09/2020 03:36:40 Do You Have An Advance Directive? Yes HCP/ Girlfriend-Caitlin [email or web address], Mother-Brandie aldrich Information not available 11/27/2021 Is Blood Transfusion Acceptable In An Emergency? Yes [id number] Information not available 01/09/2020 What Is Your Level Of Caffeine Consumption? Occasional Tea [email or web address] Information not available 12/01/2022 How Much Tobacco Do You Chew? None [id number] Information not available 01/09/2020 In The 14 [...] Low Sodium, Eating Better, Fruits And Veggies [id number] Information not available 01/09/2020 Which Illicit Or Recreational Drugs Have You Used? None [id number] Information not available 01/09/2020 Live Alone Or With Others? With Others Girlfriend (Gabrielle Solo),2 Dtr, 2 Sons And 3 Grandchildren [email or web address] Information not available 12/01/2022 Do You Take Precautions To Prevent Distracted Driving? Yes Information not available 02/21/2015 How Often Do [...] Of Your Most Recent Tobacco Screening? 06/05/2024 [email or web address] Information not available 06/05/2024 How Many Children Do You Have? 2 Son And Dtr [id number] Information not available 01/09/2020 Do You Use Protection During Sex? Always [id number] Information not available 01/09/2020 Do You Use Your Seat Belt Or Car Seat Routinely? No [email or web address] Information not available 11/25/2020 Seat Belts Used Routinely Yes Information not available 11/27/2021 Are You Sexually Active? Yes [id number] Information not available 01/09/2020 Smoke Alarm In Home Yes Information not available 11/27/2021 Do You Have Smoke And Carbon Monoxide Detectors In Your Home? Yes [email or web address] Information not available 11/25/2020 At What Age Did You Start Smoking Tobacco? 1 [id number] Information not available 01/09/2020 Are You Passively Exposed To Smoke? Yes Information not available 12/08/2013 How Much Tobacco Do You Smoke? No [id number] Information not available 01/09/2020 General Stress Level Medium Information not available 11/27/2021 Do You Use Sunscreen Routinely? Yes [id number] Information not available 01/09/2020 How Many Years Have You Smoked Tobacco? 0 [id number] Information not available 01/09/2020 Sex: Unknown Functional Status Question Answer Note LastModified by Organizat ion Details LastModified Time Do you use any illicit or recreational drugs? No Information not available 11/27/2021 Do you or have you ever used any other forms of tobacco or nicotine? No Information not available 11/27/2021 What is your level of alcohol consumption? Occasional [id number] Information not available 01/09/2020 Do you or have you ever used smokeless tobacco? Never used smokeless tobacco [id number] Information not available 01/09/2020 Are you currently employed? No disabled [id number] Information not available 01/09/2020 Are you able to walk independently without assistance or assistive devices? YESWOREST Information not available 11/27/2021 Are you able to care for yourself independently? Yes [id number] Information not available 01/09/2020 Do you or have you ever used e-cigarettes or vape? Never used electronic cigarettes Information not available 11/27/2021 What is your exercise level? Moderate [id number] Information not available 11/25/2020 Mental Status None [...] Not available 11/27/2021 08:37:54 Son Well adult [email or web address] Not avail able 11/27/2021 09:03:41 Daughter Well adult [email or web address] Not edwin ilable 11/27/2021 09:03:47 Medical History [...] pneumococcal polysaccharide PPV23 017 completed Not Available [facility] 12/15/2022 01:53:07 pneumococcal polysaccharide PPV23 020 completed Not Available [facility] 12/15/2022 01:53:07 COVID-19, mRNA, LNP-S, PF, 30 mcg/0.3 mL dose 021 completed Not Available [facility] 12/15/2022 01:53:07 COVID-19, mRNA, LNP-S, PF, 30 mcg/0.3 mL dose 021 completed Not Available [facility] 12/15/2022 01:53:07 Influenza, split virus, quadrivalent, PF 020 completed Not Available [facility] 12/15/2022 01:53:07 COVID-19, mRNA, LNP-S, PF, 30 mcg/0.3 mL dose 021 completed Not Available [facility] 12/15/2022 01:53:07 Influenza, split virus, trivalent, PF 014 completed Not Available [facility] 12/15/2022 01:53:07 Influenza, split virus, quadrivalent, PF 015 completed Not Available [facility] 12/15/2022 01:53:07 Influenza, split virus, quadrivalent, PF 018 completed Not Available [facility] 12/15/2022 01:53:07 Influenza, split virus, quadrivalent, PF 020 completed Not Available [facility] 12/15/2022 01:53:08 Influenza, split virus, quadrivalent, PF 016 completed Not Available [facility] 12/15/2022 01:53:08 COVID-19, mRNA, LNP-S, bivalent, PF, 30 mcg/0.3 mL dose 022 completed Not Available [facility] 12/15/2022 01:53:07 Td (adult), 2 Lf tetanus toxoid, preservative free, adsorbed 005 completed Not Available [facility] 12/15/2022 01:53:07 Tdap 012 completed Not Available [facility] 12/15/2022 01:53:07 Influenza, split virus, trivalent, preservative 012 completed Not Available [facility] 12/15/2022 01:53:07 influenza, seasonal, intradermal, preservative free 013 completed Not Available [facility] 12/15/2022 01:53:07 Td (adult), 2 Lf tetanus toxoid, preservative free, adsorbed 022 completed RALPH Deutsch, [facility] 11/27/2021 13:20:56 Influenza, split virus, quadrivalent, PF 022 [facility] 13:22:40 Influenza, split virus, quadrivalent, PF 023 completed Seth Solorzano MD [address] [address], [place], [address], [facility] 12/01/2022 10:22:09 Influenza, split virus, trivalent, PF 024 cancelled patient objection Seth Solorzano MD [address] [address], [place], [address], [facility] 01/31/2024 14:10:48 Influenza, split virus, trivalent, PF 025 [facility]/11/[facility]24 11:43:14 Past Encounters Encounter ID Performer Location Encounter Start Date Encounter Closed Date Diagnosis/Indication Diagnosis SNOMED-CT Code Diagnosis ICD10 Code Diagnosis IMO Codes Diagnosis Note [id number] Seth Solorzano MD Main Office [address] [facility] [place]AL [id number] 12/11/2024 11:20:01 12/11/2024 12:18:28 Bilateral carpal tunnel syndrome 1796080144 4694510 G56.03 Persistent issue with shoulder pain, will refer for EMG to differenti ate between brachial plexopathy vs CTS vs cervical radiculopa thy. Needs infl uenza immunization 224991218 Z23 19 YEARS AND OLDER ONLY Pure hypercholesterolemia 589122328 E78.00 [id number] Well controlled on low dose statin. Will continue current dose and monitor. Mass of thyroid gland 23 9234829 E04.9 Labs and f/u imaging have been normal. Will monitor clinically for now. Chronic at rial fibrillation 013007613 I48.21 Rate well controlled on DOAC. Following with cardiology . Health Concerns Section Related Observation LastModified by Organization Detai ls LastModified Time None Recorded Concern Status LastModified by Organization Details LastModified Time None Recorded Payers Encounter Date Sequence Insurance Name Policy Number Policy Martinez Covered Member ID Martinez Member ID Guarantor Name 12/11/2024 1 [facility] (MEDICARE REPLACEMENT/A DVANTAGE - HMO) MAM[employer] Oscar Dark [id number] Oscar Dark 12/11/2024 2 [place] [facility] Oscar Dark [id number] Oscar Dark Notes Date Note Type Note Provider Name and Address Organization Details Recorded Time 12/12/19 25 text/htm l Musculoskeletal PainReported by [...] NEOS for shoulder pain, Referral made to [facility] but pt did not connect with [...] dyspnea/orthopnea more from DOREEN. Seth Solorzano MD [address] [address], [place], [address], [facility] 12/11/2024 12:28:12
== END 2025-02-23 06:28 | disposition home or self-care (01) ==
LOC: HO.HOSX 06:27
PROVIDERS: Visit Provider Physician Assistant
DX: S46.001A Unspecified injury of muscle(s) and tendon(s) of the rotator cuff of right shoulder, initial encounter (principal); M75.81 Other shoulder lesions, right shoulder; Z79.01 Long term (current) use of anticoagulants; X50.0XXA Overexertion from strenuous movement or load, initial encounter; Y92.9 Unspecified place or not applicable; Y93.9 Activity, unspecified; Y99.9 Unspecified external cause status
CPT/HCPCS: 73030

== ENCOUNTER 2025-02-23 08:42 | Outpatient (AMB) | payer MEDICARE, SELFPAY ==
--- NOTE | 2025-02-23 08:46 | A.OFFVIS_ITS ---
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 Patient referred from [facility] to evaluate right shoulder pain. Patient reports pain has been present for 10 years, however more noticed the last 5 years. 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 Pain with ROM. His pain is located at the anterior and posterior. Complaints of numbness and tingling in his shoulder and arm. No traumatic injury. Allergies aspirin Allergy (Verified 02/23/25 08:53) asthma Medication List - Last Reconciled 02/23/25 by Josh Moffett PA-C allopurinol 200 mg PO DAILY amlodipine 2.5 mg PO DAILY apixaban (Eliquis) 5 mg PO BID atorvastatin 20 mg PO DAILY cholecalciferol (vitamin D3) 25 mcg PO DAILY meloxicam 15 mg PO DAILY metoprolol succinate ER 200 mg PO DAILY spironolactone 50 mg PO BID torsemide mg PO HPI Comments Details: History of Present Illness The patient is a 59 year old male presenting for evaluation of chronic right shoulder pain, which he has had for many years, possibly since 2004, related to a past job involving heavy lifting. The pain is now constant, aggravated by overhead lifting and reaching, and interferes with sleep, making it difficult to lie on his side. He reports associated intermittent numbness and tingling down the arm into the fingers, which has recently improved with the use of gummies at night. He also experiences arm fatigue and weakness that progresses throughout the day. He has had no prior treatment for the right shoulder, including physical therapy, cortisone injections, or surgery. The patient has a history of left rotator cuff repair surgery with tendon reattachment due to overuse, which was performed in approximately 2019. He received one cortisone injection in the left shoulder prior to surgery but avoids them now, stating the pain returned stronger after the medication wore off. His left shoulder has been doing off and on since the surgery. His medical history is notable for being borderline prediabetic. He is currently taking Eliquis. Social History - Employment: He has a history of working a job that involved heavy lifting. - Substance Use: He reports taking gummies from time to time at night to help with relaxation. [facility] Surgical History (Updated 02/23/25 @ 08:55 by RENNY Echavarria) History of left shoulder surgery Social History (Updated 02/23/25 @ 08:55 by RENNY Echavarria) Patient Tobacco Use Status: Never used Tobacco Current occupational status: unemployed Current occupation: right hand dominant Review of Systems Narrative Review of Systems - Musculoskeletal: Reports constant right shoulder pain, aggravated by overhead lifting and reaching. Reports right arm weakness that worsens over the course of the day. Reports his left shoulder has been causing off and on issues since his surgery. - Neurological: Reports intermittent numbness and tingling down the right arm into his hand and fingers. Reports feeling lightheaded upon standing up quickly. - Constitutional: Reports difficulty sleeping due to shoulder pain. Physical Exam Exam Exam: Physical Exam - General: The patient appeared lightheaded on standing. - Musculoskeletal - Right Shoulder: - Palpation: Tenderness over the acromioclavicular (AC) joint and proximal biceps was noted. - Range of Motion: Active forward flexion produced tightness and pain at approximately 90 degrees, with audible clicking. Pain was elicited with internal rotation lift-off from the back. - Strength: Weakness and pain were present with resisted forward flexion (supraspinatus testing). Pain was present with the belly press test (subscapularis testing). External rotation strength was good. - Auscultation: Significant crepitus ( crunching ) was noted with shoulder movement. Vital Signs: BMI result Body Mass Index 38.1 Assessment & Plan Assessment & Plan (1) Injury of right rotator cuff: Code(s): S46.001A - Unspecified injury of muscle(s) and tendon(s) of the rotator cuff of right shoulder, initial encounter Category: Medical Plan Plan The patient's chronic pain, weakness, positive impingement signs on exam, and crepitus are suggestive of rotator cuff pathology, potentially related to the sloped acromion and AC joint arthritis noted on x-ray. To further evaluate the rotator cuff and soft tissues, an MRI of the right shoulder will be ordered. A cortisone injection was offered as a treatment option but was declined by the patient. An order for physical therapy will be placed to begin shoulder stabilization and strengthening exercises. For pain management, the patient is advised to take Tylenol, as anti-inflammatory medications are relatively contraindicated due to his use of Eliquis. Once the MRI has been completed, we will contact him to discuss f.u appt. Patient was informed and verbally consented to the use of an ambient scribe for clinic note documentation during this visit. Orders: Orders PT Evaluation and Treatment Today S46.001A - Unspecified injury of muscle(s) and tendon(s) of the rotator cuff of right shoulder, initial encounter XR shoulder RT min 2V Today M25.511 - Pain in right shoulder MR shoulder RT wo con Today M75.81 - Other shoulder lesions, right shoulder Coding Level of Care Code New Pt Level 3 (11002) Add On Problem Visit Only Diagnoses Injury of right rotator cuff S46.001A
[2025-02-23 08:58] VITALS: BMI 38.1
== END 2025-02-23 09:35 | disposition home or self-care (01) ==
LOC: HO.HOS 08:43
PROVIDERS: PCP Pediatrics; Visit Provider Physician Assistant
DX: S46.001A Unspecified injury of muscle(s) and tendon(s) of the rotator cuff of right shoulder, initial encounter (principal)
CPT/HCPCS: 99203; G2211

== ENCOUNTER → 2025-02-23 08:45 | Outpatient (BNV) | payer MEDICARE, SELFPAY | PROVIDERS: Visit Provider Radiology Diagnostic Radiology | DX: M19.011 Primary osteoarthritis, right shoulder (principal) | CPT/HCPCS: 73030 ==

== ENCOUNTER 2025-02-27 10:07 | Outpatient (REF) | payer MEDICARE, SELFPAY ==
--- NOTE | 2025-02-27 10:13 | EMG_ITS ---
Chief complaint: Pin in both hands Referred by: Kasey Tariq Procedure done: NCS and EMG of bilateral hands Bilateral median and ulnar motor studies were performed. Bilateral median and ulnar mixed sensory studies were performed and radial sensory studies were performed and needle examination was performed. Findings: Right median motor distal latencies was mildly prolonged. Similarly right median mixed distal latencies was moderately prolonged with mild slowing of conduction velocity. Impression: [id number] right median neuropathy across carpal tunnel. Codin 94531 x2 MTDD
--- OUTSIDE RECORDS SUMMARY | 2025-02-27 11:09 | XMS_ITS | Clinical Summary ---
Author Organization [facility] Address [address] [place] [address] Care Team Providers Care Scholarship Counselor Name Role Phone Seth Jordan MD Primary [...] his age is less than 80. His [id number] score is 2 for heart failure and [...] Department Care Team Description 01/11/2025 Results Follow-Up [facility] [address] [place] [address] Trupti Valiente NP 01/09/2025 9:00 AM EST Ancillary Procedure [facility] [address] [place] [address] 01/08/2025 9:30 AM EST Ancillary Procedure [facility] [address] [facility] [address] [place] [address] Chest pain, unspecified type 12/25/2024 11:10 AM EDT Office Visit [facility] [address] [facility] [address] [place] [address] Trupti Valiente NP Chest pain, unspecified type [...] GEMUSE QTc 430 ms GEMUSE P Wave [place] 74 degrees GEMUSE R [place] 79 degrees GEMUSE T [place] 61 degrees GEMUSE ECG Interpretation Sinus bradycardia [...] LAB CHEMISTRY METHOD 06/01/2024 4:04 PM EDT [facility] Triglycerides 122 0 - 150 mg/dL LAB CHEMISTRY METHOD 06/01/2024 4:04 PM EDT [facility] HDL 48 >=40 mg/dL LAB CHEMISTRY METHOD 06/01/2024 4:04 PM T [facility] LDL Calculated 96 0 - 100 mg/dL LAB CHEMISTRY METHOD 06/01/2024 4:04 PM [facility] VLDL Cholesterol Abbe 24.4 mg/dL LAB CHEMISTRY METHOD 06/01/2024 4:04 PM T [facility] Non HDL Chol. (LDL+VLDL) 120 <145 mg/dL LAB CHEMISTRY METHOD 06/01/2024 4:04 PM T [facility] Chol/HDL Ratio 3.5 0.0 - 4.4 LAB CHEMISTRY METHOD 06/01/2024 4:04 PM [facility] Blood Venous blood specimen / Unknown Venipuncture / Unknown 06/01/2024 12:31 PM EDT 06/01/2024 1:26 PM EDT us Seth Jordan MD LAB BLOOD ORDERABLES Final Res ult [facility] [address] [place] [address], [place] [phone] * (ABNORMAL) Comprehensive metabolic panel (06/01/2024 12:31 PM EDT) Sodium 135 133 - 145 mmol/L LAB CHEMISTRY METHOD 06/01/2024 4:04 PM T [facility] Potassium 4.4 3.5 - 5.5 mmol/L LAB CHEMISTRY METHOD 06/01/2024 4:04 PM [facility] Chloride 97 96 - 110 mmol/L LAB CHEMISTRY METHOD 06/01/2024 4:04 PM [facility] CO2 33(H) 21 - 32 mmol/L LAB CHEMISTRY METHOD 06/01/2024 4:04 PM [facility] Anion Gap 5 3 - 11 LAB CHEMISTRY METHOD 06/01/2024 4:04 PM [facility] Glucose 100 70 - 100 mg/dL LAB CHEMISTRY METHOD 06/01/2024 4:04 PM [facility] BUN 12 5 - 25 mg/dL LAB CHEMISTRY METHOD 06/01/2024 4:04 PM [facility] Creatinine 1.11 0.70 - 1.30 mg/dL LAB CHEMISTRY METHOD 06/01/2024 4:04 PM [facility] eGFR 76 >=60 mL/min/1. 73m2 LAB CHEMISTRY METHOD 06/01/2024 4:04 PM [facility] Comment:Calculation based on the Chronic Kidney Disease Epidemiology Collaboration (CKD-EPI) equation refit without adjustment for race. BUN/Creatinine Ratio 10.8 LAB CHEMISTRY METHOD 06/01/2024 4:04 PM [facility] Calcium 9.8 8.5 - 10.5 mg/dL LAB CHEMISTRY METHOD 06/01/2024 4:04 PM EDT [facility] AST (SGOT) 13 10 - 42 unit/L LAB CHEMISTRY METHOD 06/01/2024 4:04 PM EDT [facility] ALT (SGPT) 16 10 - 60 unit/L LAB CHEMISTRY METHOD 06/01/2024 4:04 PM EDT [facility] Alkaline Phosphatase 134(H) 42 - 121 unit/L LAB CHEMISTRY METHOD 06/01/2024 4:04 PM EDT [facility] Total Protein 7.8 6.0 - 8.0 g/dL LAB CHEMISTRY METHOD 06/01/2024 4:04 PM EDT [facility] Albumin 3.8 3.2 - 5.0 g/dL LAB CHEMISTRY METHOD 06/01/2024 4:04 PM [facility] Total Bilirubin 0.4 0.0 - 1.4 mg/dL LAB CHEMISTRY METHOD 06/01/2024 4:04 PM EDT [facility] Blood Venous blood specimen / Unknown Venipuncture / Unknown 06/01/2024 12:31 PM EDT 06/01/2024 1:26 PM EDT us Seth Jordan MD LAB BLOOD ORDERABLES Final Res ult [facility] [address] [place] [address], from Last 3 Months or Most Recently Relevant to Health Maintenance Insurance [employer] MEDICARE MEDICAID - [place] Care Teams Scholarship Counselor Relationship Specialty Start Date End Date Seth Jordan MD [address] PCP - General Internal Medicine 01/05/12
--- OUTSIDE RECORDS SUMMARY | 2025-02-27 11:09 | XMS_ITS | Data Portability ---
Author Organization [facility], Main Office Address [address] [place] [address] Care Team Providers Care Director Of Sales Support Name Role Phone SETH SOLORZANO Primary Care Provider MILENA WANG Sleep Medicine [facility] (G[facility]U MOELLER) Orthopedic Surgeon VINOD PRESTON Heel Varnisher [phone] RUSS PLAZA Equine Science Instructor [facility] Sleep Medicine [phone] TJ RODAS Orthopedic Surgeon KATHY STEVE Pyridine Operator TOMMY TINEO Referring Provider [phone] GRANT DANIEL Urologist VINOD MAHONEY Child Day Care Teacher [facility] Orthopedic Surgeon Assessment No assessment recorded. Plan of Treatment Reminders Order Date Submit Date Provider Last Modified By Organization Details Last Modified Time Details Appointments [id number] 2025 11:00A M Seth Solorzano MD Not available Not available Not available Lab thyroi d cascad e, serum 2023 024 [facility], [address] [place], [address], 08/11/2023 19:24:53 CMP, serum or plasma 2023 024 [facility], [address] [place], [address], 08/11/2023 19:16:41 Referral orthop edic surgeo n referr al - for eval of right shoudl er pain, 2024 025 GUY Fisher MD, [address] [place] [address] [address], [address], [place], [address], 10/26/2024 10:05:42 orthop edic ximenao n referr al - for eval of chroni c right should er pain 2024 025 [email or web address] [facility], [address], [address], [place], [address], 07/11/2024 15:54:48 nutrit ionist /raqcueli mary ann referr al 2023 024 Not available 01/31/2024 14:07:28 orthop edic ximenao n referr al - for eval of right should er pain 2023 024 MADALYN Rodas MD, [address], [place], [address], 04/06/2024 12:46:24 Procedures nerve conduc tion study/ EMG, upper extrem ity (PROC) - rule out bilate ral carpal tunnel 2024 025 [facility], [address] [place], [address], 01/30/2025 15:15:26 Surgeries None record ed. Imaging US, thyroi d - f/u (para) thyroi d nodule /mass 2024 025 [facility] (Ultrasound), [address] [facility] [place], [address], 10/24/2024 15:27:41 Medication Orders meloxi cam 15 mg tablet 2024 025 [id number], [address] [place], [id number], 10/26/2024 09:59:35 ciprof loxaci n 500 mg tablet 2023 024 kcалександрbymontone Not available 06/05/2024 10:33:24 tadala harpreet 20 mg tablet 2023 024 [id number], [address] [place], [address], 11/29/2024 07:41:00 Patient TargetsNo targets recorded. Patient Instructions Encounter Date Encounter Id Patient Instructions Last Modified By Organization Details Last Modified Time 08/10/2023 [id number] high blood pressure: care instructions awychowski Not available 08/10/2023 10:32:08 learning about high blood pressure awychowski Not available 08/10/2023 10:32:08 01/31/2024 [id number] preventing falls: care instructions awychowski Not available 01/31/2024 13:53:39 well visit, over 65: care instructions awychowski Not available 01/31/2024 13:53:39 Starting a Weight-Loss Plan: Care Instructions awychowski Not available 01/31/2024 13:53:40 Nutrition Referral and Weight Management Follow-up Information awychowski Not available 01/31/2024 13:53:39 06/05/2024 [id number] high cholesterol: care instructions awychowski Not available 06/05/2024 11:14:33 carpal tunnel syndrome: care instructions awychowski Not available 06/05/2024 11:15:56 high blood pressure: care instructions awychowski Not available 06/05/2024 11:14:33 learning about high blood pressure awychowski Not available 06/05/2024 11:14:33 12/11/2024 [id number] high cholesterol: care instructions awychowski Not available 12/11/2024 12:12:16 Reason for Referral Credit Card Clerk/dietitian Refer ral for Body mass index 40+ - severely obese Referring Physician: Seth Solorzano, Family Medicine, Encounter Date: 01/31/2024 Orthopedic Surgeon Referral for Pain of right shoulder joint for eval of right shoulder pain Referring Physician: Seth Solorzano [facility], Encounter Date: 01/31/2024 Orthopedic Surgeon Referral for Pain of right shoulder joint for eval of chronic right shoulder pain Referring Physician: Seth Solorzano [facility], Encounter Date: 06/05/2024 Orthopedic Surgeon Referral for Pain of right shoulder joint for eval of right shoudler pain, Referring Physician: Seth Solorzano [facility], Encounter Date: 10/26/2024 Results Created Date Observation Date Name Description Value Unit Range Abnormal Flag Note LastModifiedBy Organization Detail LastModifiedTime 06/02/1906/01/2024 URINA LYSIS WITH REFLE X MICRO SCOPI C specific gravity urine 1.007 1.003- 1.030 Not Available [address], [address], 06/01/2024 14:25:55 06/02/1906/01/2024 URINA LYSIS WITH REFLE X MICRO SCOPI C pH, urine 6.5 pH 5.0-8. 0 Not Available [address], [address], 06/01/2024 14:25:55 06/02/19 25 06/01/2024 URINA LYSIS WITH REFLE X MICRO SCOPI C leukocytes, urine NEGATI VE negati ve Not Available [address], [address], 06/01/2024 14:25:55 06/02/1906/01/2024 URINA LYSIS WITH REFLE X MICRO SCOPI C nitrite, urine NEGATI VE negati ve Not Available [address], [address], 06/01/2024 14:25:55 06/02/1906/01/2024 URINA LYSIS WITH REFLE X MICRO SCOPI C protein, urine NEGATI VE mg/dL <=trac e Not Available [address], [address], 06/01/2024 14:25:55 06/02/19 25 06/01/2024 URINA LYSIS WITH REFLE X MICRO SCOPI C glucose, urine NEGATI VE mg/dL negati ve Not Available [address], [address], 06/01/2024 14:25:55 06/02/19 25 06/01/2024 URINA LYSIS WITH REFLE X MICRO SCOPI C ketones, urine NEGATI VE mg/dL negati ve Not Available [address], [address], 06/01/2024 14:25:55 06/02/19 25 06/01/2024 URINA LYSIS WITH REFLE X MICRO SCOPI C urobilinogen , urine 0.2 mg/dL 0.2-1. 0 Not Available [address], [address], 06/01/2024 14:25:55 06/02/19 25 06/01/2024 URINA LYSIS WITH REFLE X MICRO SCOPI C bilirubin, urine NEGATI VE negati ve Not Available [address], [address], 06/01/2024 14:25:55 06/02/19 25 06/01/2024 URINA LYSIS WITH REFLE X MICRO SCOPI C blood, urine NEGATI VE negati ve Not Available [address], [address], 06/01/2024 14:25:55 06/02/19 25 06/01/2024 URINA LYSIS WITH REFLE X MICRO SCOPI C note SEE REPORT [facility], [address], Marekin cezar d, [facility] [place] [address] Not Available [address], [address], 06/01/2024 14:25:55 06/02/19 25 06/01/2024 LIPID PANEL WITH REFLE X TO DIREC T LDL cholesterol 168 mg/dL 0-200 Not Available [address], [address], 06/01/2024 16:07:09 06/02/19 25 06/01/2024 LIPID PANEL WITH REFLE X TO DIREC T LDL triglyceride s 122 mg/dL 0-150 Not Available [address], [address], 06/01/2024 16:07:09 06/02/19 25 06/01/2024 LIPID PANEL WITH REFLE X TO DIREC T LDL HDL 48 mg/dL >=40 Not Available [address], [address], 06/01/2024 16:07:09 06/02/19 25 06/01/2024 LIPID PANEL WITH REFLE X TO DIREC T LDL LDL calculated 96 mg/dL 0-100 Not Available [address], [address], 06/01/2024 16:07:09 06/02/19 25 06/01/2024 LIPID PANEL WITH REFLE X TO DIREC T LDL VLDL cholesterol curtis 24.4 mg/dL Not Available [address], [address], 06/01/2024 16:07:09 06/02/19 25 06/01/2024 LIPID PANEL WITH REFLE X TO DIREC T LDL non HDL chol. (LDL+VLDL) 120 mg/dL <145 Not Available [address], [address], 06/01/2024 16:07:09 06/02/19 25 06/01/2024 LIPID PANEL WITH REFLE X TO DIREC T LDL chol/HDL ratio 3.5 0.0-4. 4 Not Available [address], [address], 06/01/2024 16:07:09 06/02/19 25 06/01/2024 LIPID PANEL WITH REFLE X TO DIREC T LDL note SEE REPORT [facility], [address], [place], [place] [address] Not Available [address], [address], 06/01/2024 16:07:09 06/02/19 25 06/01/2024 COMPR EHENS LIUDMILA METAB OLIC PANEL sodium 135 mmol/ L 133-14 5 Not Available [address], [address], 06/01/2024 16:07:18 06/02/19 25 06/01/2024 COMPR EHENS LIUDMILA METAB OLIC PANEL potassium 4.4 mmol/ L 3.5-5. 5 Not Available [address], [address], 06/01/2024 16:07:18 06/02/19 25 06/01/2024 COMPR EHENS LIUDMILA METAB OLIC PANEL chloride 97 mmol/ L 96-110 Not Available [address], [address], 06/01/2024 16:07:18 06/02/19 25 06/01/2024 COMPR EHENS LIUDMILA METAB OLIC PANEL CO2 33 mmol/ L 21-32 high Not Available [address], [address], 06/01/2024 16:07:18 06/02/19 25 06/01/2024 COMPR EHENS LIUDMILA METAB OLIC PANEL anion gap 5 3-11 Not Available [address], [address], 06/01/2024 16:07:18 06/02/19 25 06/01/2024 COMPR EHENS LIUDMILA METAB OLIC PANEL glucose 100 mg/dL 70-100 Not Available [address], [address], 06/01/2024 16:07:18 06/02/19 25 06/01/2024 COMPR EHENS LIUDMILA METAB OLIC PANEL BUN 12 mg/dL 5-25 Not Available [address], [address], 06/01/2024 16:07:18 06/02/19 25 06/01/2024 COMPR EHENS LIUDMILA METAB OLIC PANEL creatinine 1.11 mg/dL 0.70-1 .30 Not Available [address], [address], 06/01/2024 16:07:18 06/02/19 25 06/01/2024 COMPR EHENS LIUDMILA METAB OLIC PANEL eGFR 76 mL/mi n/1.7 3m2 >=60 Calcu latio n based on the C hroni c Kidne y Disea se Epide miolo gy Colla borat ion (CKD- EPI) equat ion refit w ith t [facility] tment for race. Not Available [address], [address], 06/01/2024 16:07:18 06/02/19 25 06/01/2024 COMPR EHENS LIUDMILA METAB OLIC PANEL BUN/creatini ne ratio 10.8 Not Available [address], [address], 06/01/2024 16:07:18 06/02/19 25 06/01/2024 COMPR EHENS LIUDMILA METAB OLIC PANEL calcium 9.8 mg/dL 8.5-10 .5 Not Available [address], [address], 06/01/2024 16:07:18 06/02/19 25 06/01/2024 COMPR EHENS LIUDMILA METAB OLIC PANEL AST (SGOT) 13 unit/ L 10-42 Not Available [address], [address], 06/01/2024 16:07:18 06/02/19 25 06/01/2024 COMPR EHENS LIUDMILA METAB OLIC PANEL ALT (SGPT) 16 unit/ L 10-60 Not Available [address], [address], 06/01/2024 16:07:18 06/02/19 25 06/01/2024 COMPR EHENS LIUDMILA METAB OLIC PANEL alkaline phosphatase 134 unit/ L 42-121 high Not Available [address], [address], 06/01/2024 16:07:18 06/02/19 25 06/01/2024 COMPR EHENS LIUDMILA METAB OLIC PANEL total protein 7.8 g/dL 6.0-8. 0 Not Available [address], [address], 06/01/2024 16:07:18 06/02/19 25 06/01/2024 COMPR EHENS LIUDMILA METAB OLIC PANEL albumin 3.8 g/dL 3.2-5. 0 Not Available [address], [address], 06/01/2024 16:07:18 06/02/19 25 06/01/2024 COMPR EHENS LIUDMILA METAB OLIC PANEL total bilirubin 0.4 mg/dL 0.0-1. 4 Not Available [address], [address], 06/01/2024 16:07:18 06/02/19 25 06/01/2024 COMPR EHENS LIUDMILA METAB OLIC PANEL note SEE REPORT [facility], [address] [facility] [address], Lisa robb d, [facility] [place] [address] Not Available [address], [address], 06/01/2024 16:07:18 06/02/19 25 06/01/2024 VITAM IN D 25 HYDRO XY vit D, 25-hydroxy 41.2 NG/mL 30.0-8 0.0 Not Available [address], [address], 06/01/2024 16:50:24 06/02/19 25 06/01/2024 VITAM IN D 25 HYDRO XY note SEE REPORT [facility], [address] [facility], [place] leviabram shah, [facility] [place] [address] Not Available [address], [address], 06/01/2024 16:50:24 06/02/19 25 06/01/2024 HEMOG LOBIN A1C hemoglobin A1C 6.2 % <6.5 Not Available [address], [address], 06/01/2024 21:27:48 06/02/19 25 06/01/2024 HEMOG LOBIN A1C mean bld glu estim. 131 mg/dL Not Available [address], [address], 06/01/2024 21:27:48 06/02/19 25 06/01/2024 HEMOG LOBIN A1C note SEE REPORT [facility], [address] [facility], [place] leviabram shah, [facility] [place] [address] Not Available [address], [address], 06/01/2024 21:27:48 08/11/19 24 08/11/2023 COMPR EHENS LIUDMILA METAB OLIC PANEL comments [facility] gabriele mejia, [facility] [address] [facility] [place] [address] Medic al Direc kenneth reza MD Not Available [facility] [address] [place] [address], [place], [address], 08/11/2023 19:16:41 08/11/19 24 08/11/2023 COMPR EHENS LIUDMILA METAB OLIC PANEL glucose 71 mg/dL 70-100 Refer ence range appli cable to fasti ng speci mens only Not Available [facility] [address] [place], [address], 08/11/2023 19:16:41 08/11/19 24 08/11/2023 COMPR EHENS LIUDMILA METAB OLIC PANEL BUN 13 mg/dL 5-25 Not Available [facility] [address] [place], [address], 08/11/2023 19:16:41 08/11/19 24 08/11/2023 COMPR EHENS LIUDMILA METAB OLIC PANEL creat 1.11 mg/dL 0.7-1. 3 Not Available [facility] [address] [place], [address], 08/11/2023 19:16:41 08/11/19 24 08/11/2023 COMPR EHENS LIUDMILA METAB OLIC PANEL glomerular filtration rate 77 >60 This eGFR resul t was calcu lated using the CKD-E PI 2020 Creat inine Equat ion Not Available [facility] [address] [place], [address], 08/11/2023 19:16:41 08/11/19 24 08/11/2023 COMPR EHENS LIUDMILA METAB OLIC PANEL sodium 139 mEq/L 135-14 5 Not Available [facility] [address] [place], [address], 08/11/2023 19:16:41 08/11/19 24 08/11/2023 COMPR EHENS LIUDMILA METAB OLIC PANEL potassium 3.7 mmol/ L 3.5-5. 5 Not Available [facility] [address] [place], [address], 08/11/2023 19:16:41 08/11/19 24 08/11/2023 COMPR EHENS LIUDMILA METAB OLIC PANEL chloride 102 mmol/ L 96-110 Not Available [facility] [address] [place], [address], 08/11/2023 19:16:41 08/11/19 24 08/11/2023 COMPR EHENS LIUDMILA METAB OLIC PANEL CO2 32 mmol/ L 21-32 Not Available [facility] [address] [place], [address], 08/11/2023 19:16:41 08/11/19 24 08/11/2023 COMPR EHENS LIUDMILA METAB OLIC PANEL anion gap 5 3-11 Not Available [facility] [address] [place], [address], 08/11/2023 19:16:41 08/11/19 24 08/11/2023 COMPR EHENS LIUDMILA METAB OLIC PANEL calcium 9.5 mg/dL 8.5-10 .5 Not Available [facility] [address] [place], [address], 08/11/2023 19:16:41 08/11/19 24 08/11/2023 COMPR EHENS LIUDMILA METAB OLIC PANEL total protein 7.5 g/dL 6.0-8. 0 Not Available [facility] [address] [place], [address], 08/11/2023 19:16:41 08/11/19 24 08/11/2023 COMPR EHENS LIUDMILA METAB OLIC PANEL albumin 3.9 g/dL 3.2-5. 0 Not Available [facility] [address] [place], [address], 08/11/2023 19:16:41 08/11/19 24 08/11/2023 COMPR EHENS LIUDMILA METAB OLIC PANEL bili,total 0.5 mg/dL 0.0-1. 4 Not Available [facility] [address] [place], [address], 08/11/2023 19:16:41 08/11/19 24 08/11/2023 COMPR EHENS LIUDMILA METAB OLIC PANEL SGOT 15 U/L 10-42 Not Available [facility] [address] [place], [address], 08/11/2023 19:16:41 08/11/19 24 08/11/2023 COMPR EHENS LIUDMILA METAB OLIC PANEL SGPT 14 U/L 10-60 Not Available [facility] [address] [place], [address], 08/11/2023 19:16:41 08/11/19 24 08/11/2023 COMPR EHENS LIUDMILA METAB OLIC PANEL alk phos 115 U/L 42-121 Not Available [facility] [address] [place], [address], 08/11/2023 19:16:41 08/11/19 24 08/11/2023 TSH CASCA DE comments [facility], a [facility] [address] [facility] [place] [address] Medic al Direc kenneth reza MD Not Available [facility] [address] [place], [address], 08/11/2023 19:24:53 08/11/19 24 08/11/2023 TSH CASCA DE TSH cascade 0.71 uIU/m L 0.40-4 .00 Not Available [facility] [address] [place], [address], 08/11/2023 19:24:53 12/22/19 24 12/22/2023 HEMOG LOBIN A1C hemoglobin A1C 6.2 % 4.8-5. 6 above high normal Predi abete s: 5.7 - 6.4 Diabe gisell: >6.4 Glyce lonny contr ol for adult s with diabe gisell: <7.0 Not Available [facility] ([facility]) [address] [facility], [place], [address], 12/23/2023 06:08:18 12/31/19 24 01/01/2024 CBC WITH DIFFE RENTI AL/PL ATELE T WBC 7.9 x10e3 /uL 3.4-10 .8 normal Not Available [facility] ([facility]) [address] [facility], [place], [address], 01/01/2024 06:08:23 12/31/19 24 01/01/2024 CBC WITH DIFFE RENTI AL/PL ATELE T RBC 4.77 x10e6 /uL 4.14-5 .80 normal Not Available [facility] ([facility]) [address] [place], [address], 01/01/2024 06:08:23 12/31/1901/01/2024 CBC WITH DIFFE RENTI AL/PL ATELE T hemoglobin 12.9 g/dL 13.0-1 7.7 below low normal Not Available [facility] ([facility]) [address] [place], [address], 01/01/2024 06:08:23 12/31/1901/01/2024 CBC WITH DIFFE RENTI AL/PL ATELE T hematocrit 39.9 % 37.5-5 1.0 normal Not Available [facility] ([facility]) [address] [place], [address], 01/01/2024 06:08:23 12/31/1901/01/2024 CBC WITH DIFFE RENTI AL/PL ATELE T MCV 84 fL 79-97 normal Not Available [facility] ([facility]) [address] [place], [address], 01/01/2024 06:08:23 12/31/1901/01/2024 CBC WITH DIFFE RENTI AL/PL ATELE T MCH 27.0 pg 26.6-3 3.0 normal Not Available [facility] ([facility]) [address] [place], [address], 01/01/2024 06:08:23 12/31/1901/01/2024 CBC WITH DIFFE RENTI AL/PL ATELE T MCHC 32.3 g/dL 31.5-3 5.7 normal Not Available [facility] ([facility]) [address] [place], [address], 01/01/2024 06:08:23 12/31/1901/01/2024 CBC WITH DIFFE RENTI AL/PL ATELE T RDW 14.5 % 11.6-1 5.4 Not Available [facility] ([facility]) [address] [facility], [place], [address], 01/01/2024 06:08:23 12/31/1901/01/2024 CBC WITH DIFFE RENTI AL/PL ATELE T platelets 269 x10e3 /uL 150-45 0 normal Not Available [facility] ([facility]) [address] [facility], [place], [address], 01/01/2024 06:08:23 12/31/1901/01/2024 CBC WITH DIFFE RENTI AL/PL ATELE T neutrophils 66 % not estab. normal Not Available [facility] ([facility]) [address] [facility], [place], [address], 01/01/2024 06:08:23 12/31/1901/01/2024 CBC WITH DIFFE RENTI AL/PL ATELE T lymphs 22 % not estab. normal Not Available [facility] ([facility]) [address] [facility], [place], [address], 01/01/2024 06:08:23 12/31/1901/01/2024 CBC WITH DIFFE RENTI AL/PL ATELE T monocytes 8 % not estab. normal Not Available [facility] ([facility]) [address] [facility], [place], [address], 01/01/2024 06:08:23 12/31/1901/01/2024 CBC WITH DIFFE RENTI AL/PL ATELE T eos 3 % not estab. normal Not Available [facility] ([facility]) [address] [facility], [place], [address], 01/01/2024 06:08:23 12/31/1901/01/2024 CBC WITH DIFFE RENTI AL/PL ATELE T basos 1 % not estab. 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 0 normal Not Available [facility] ([facility]) [address] [place], [address], 01/01/2024 06:08:23 12/31/19 24 01/01/2024 CBC WITH DIFFE RENTI AL/PL ATELE T lymphs (absolute) 1.7 x10e3 /uL 0.7-3. 1 normal Not Available [facility] ([facility]) [address] [place], [address], 01/01/2024 06:08:23 12/31/19 24 01/01/2024 CBC WITH DIFFE RENTI AL/PL ATELE T monocytes(ab solute) 0.6 x10e3 /uL 0.1-0. 9 normal Not Available [facility] ([facility]) [address] [place], [address], 01/01/2024 06:08:23 12/31/1901/01/2024 CBC WITH DIFFE RENTI AL/PL ATELE T eos (absolute) 0.2 x10e3 /uL 0.0-0. 4 normal Not Available [facility] ([facility]) [address] [place], [address], 01/01/2024 06:08:23 12/31/19 24 01/01/2024 CBC WITH DIFFE RENTI AL/PL ATELE T baso (absolute) 0.0 x10e3 /uL 0.0-0. 2 normal Not Available [facility] ([facility]) [address] [facility], [place], [address], 01/01/2024 06:08:23 12/31/1901/01/2024 CBC WITH DIFFE RENTI AL/PL ATELE T immature granulocytes 0 % not estab. Not Available [facility] ([facility]) [address] [place], [address], 01/01/2024 06:08:23 12/31/1901/01/2024 CBC WITH DIFFE RENTI AL/PL ATELE T immature grans (abs) 0.0 x10e3 /uL 0.0-0. 1 Not Available [facility] ([facility]) [address] [facility], [place], [address], 01/01/2024 06:08:23 12/31/1901/01/2024 CBC WITH DIFFE RENTI AL/PL ATELE T NRBC HOUSE MOVING SUPERVISOR Not Available [facility] ([facility]) [address] [place], [address], 01/01/2024 06:08:23 12/31/1901/01/2024 CBC WITH DIFFE RENTI AL/PL ATELE T hematology comments: HOUSE MOVING SUPERVISOR Not Available [facility] ([facility]) [address] [place], [address], 01/01/2024 06:08:23 12/31/1901/01/2024 HEMOG LOBIN A1C hemoglobin A1C 6.1 % 4.8-5. 6 above high normal Predi abete s: 5.7 - 6.4 Diabe gisell: >6.4 Glyce lonny contr ol for adult s with diabe gisell: <7.0 Not Available [facility] ([facility]) [address] [facility], [place], [address], 01/01/2024 06:08:24 12/31/1901/01/2024 THYRO ID CASCA DE [...] l TSH value s. Not Available [facility] ([facility]) [address] [facility], [place], [address], 01/01/2024 06:08:25 11/17/1910/28/2023 CT, neck, w/ contr ast No observ ation record ed. [facility] (Medical Records) [address] [place], [address], 01/31/2024 13:40:02 02/09/2002/02/2024 trans thora cic echoc ardio gram (TTE) compl ete (cont rast/ bubbl e/3D PRN) No observ ation record ed. [facility] [address] [facility], [place], [address], 06/05/2024 11:05:08 02/09/2002/02/2024 trans -thor acic echoc ardio gram (TTE) (PROC ) No observ ation record ed. [facility] Not Available 06/05 11:05:08 08/22/19 ECG 12-le ad No observ ation record ed. [facility] U/S Dept [address], [place], [address], 08/29/2024 05:40:05 10/25/19 25 10/23/2024 US head neck soft tissu e See Note [facility] , a member of [facility] System[facility]inda bae Name: NOVA WILKINSON Date of : 1965 Reason for Exam: NON TOXIC GOITER UNSPEC IFIED . Exam Date: 2024 [id number] EST Report Status : Final Orderi ng [...] Transc ribed Date: 2024 11:58 ET [email or web address]/S Dept [address] [place] [address], [address], 11/09/2024 10:38:24 12/26/1912/25/2024 ECG 12-le ad No observ ation record ed. [facility]/S Dept [address] [place], [address], 12/26/2024 06:47:48 12/26/19 ECG 12-le ad No observ [facility] ed[facility] [address] [place], [address], 12/26/2024 06:47:48 01/12/2001/08/2025 nm stres s test with myoca rdial perfu dex No observ ation record ed. [facility] U/S Dept [address] [place], [address], 01/12/2025 06:55:15 01/16/2001/09/2025 nucle ar stres s test No observ ation record ed. [facility] (Human Resources) [address], [place], [address], 01/16/2025 07:25:18 01/18/2001/17/2025 US, thyro id No observ ation record ed. [facility] (Medical Records) [address] [place], [address], 01/18/2025 12:04:04 Result Notes None recorded. Problems Name Problem SNOMED Code Status Onset Date Resolution Date Notes Provider Name and Address Organization Details Recorded Time Pain of wrist region 94220271 Completed 07/13/2014 Seth Solorzano MD [address] [facility] [address], [place], [address] , [facility] 5 14:20:56 Dyspnea on exertion 26247533 Completed 07/13/2014 [facility] 7 12:55:52 Body mass index 30+ - obesity 069870111 Completed 07/21/2017 Seth Solorzano MD [address] [facility] [address], [place], [address] , [facility] 8 11:57:46 Irregula r heart beat 967274645 Completed 11/10/2016 RALPH Aceves, [facility] 7 12:55:33 Atrial fibrilla tion and flutter 499184218 Completed 07/21/2017 Seth Solorzano MD [address], [place], [address] , [facility] [facility] 8 11:59:07 Body mass index 40+ - severely obese 378727423 Completed 11/10/2016 Seth Solorzano MD [address] [facility] [address], [place], [address] , [facility] 1 09:19:07 Excessiv e thirst 79263366 Completed 11/10/2016 RALPH Aceves, [facility] 7 12:55:17 Dyspnea on exertion 42566981 Completed 11/10/2016 RALPH Aceves, [facility] 7 12:55:52 Increase d frequenc y of urinatio n 426017987 Completed 11/10/2016 RALPH Aceves, [facility] 7 12:55:11 Dyspnea 543153779 Completed 11/10/2016 RALPH Aceves, [facility] 7 12:55:23 Tinea pedis 4465711 Completed 201209/19/2013 RECORDED 04/06/19 13 2:51PM BY ANASTASIIA ISSA MA, ANNOTATI ON/ADDEN DUM Seth Solorzano MD [address] [facility] [address], [place], [address] , [facility] 5 14:20:56 Tinea pedis 5293991 Completed 201210/16/2013 RECORDED 04/06/19 13 2:51PM BY ANASTASIIA ISSA MA, ANNOTATI ON/ADDEN DUM Seth Solorzano MD [address] [facility] [address], [place], [address] , [facility] 5 14:20:56 Essentia l hyperten dex 03253673 Completed 201209/19/2013 RECORDED 04/18/19 13 9:48AM BY WILMER MCELROY MA, HELEN CABRERA/ALINE Solorzano MD [address], [place], [address] , [facility] 8 11:59:45 Screenin lala procedur e Completed 201209/19/2013 IMPRESSI ON: GIVEN FAMILY HISTORY WILL CONTINUE SCREENIN G. EMIL DEFERRED TO NEXT APPT.; RECORDED 05/21/19 13 10:39AM BY WILMER MCELROY MA, HELEN ON/ALINE Solorzano MD [address], [place], [address] , [facility] 5 14:20:57 Syncope and collapse 359345110 Completed 201209/19/2013 RESOLVED DATE: 02/25/20 12; IMPRESSI [...] [address], [place], [address] , [facility] 5 14:20:56 Screenin g procedur e Completed 201210/16/2013 IMPRESSI ON: GIVEN FAMILY HISTORY WILL CONTINUE SCREENIN G. EMIL DEFERRED TO NEXT APPT.; RECORDED 05/21/19 13 10:39AM BY WILMER MCELROY MA, ANNOTATI ON/ALINE Solorzano MD [address], [place], [address] , [facility] 5 14:20:57 Syncope and collapse 986382790 Completed 201210/16/2013 RESOLVED DATE: 02/25/20 12; IMPRESSI [...] MD [address], [place], [address] , [facility] 5 14:20:56 Patient status finding [id number] Completed 201209/19/2013 RECORDED 08/26/19 13 9:30AM BY WILMER MCELROY MA, HELEN ON/ALINE Solorzano MD [address], [place], [address] , [facility] 5 14:20:57 Adult health examinat ion Completed 201209/19/2013 IMPRESSI ON: IMMUNIZA TION STATUS UTD WILL SCREEN BASED ON RISK FACTORS. REGULAR DENTAL CARE AND SEATBELT USE ADVISED. DISTRACT ED DRIVING DISCUSSE D.; RECORDED 08/26/19 13 9:30AM BY WILMER MCELROY MA, HELEN ON/ALINE Solorzano MD [address], [place], [address] , [facility] 5 14:20:57 Disorder of upper respirat ory system Completed 201209/19/2013 IMPRESSI ON: TRY NASAL SALINE, IF PERSISTA NT TRY NASAL STEROID. ; RECORDED 08/26/19 13 9:30AM BY WILMER MCELROY MA, HELNE ON/ALINE Solorzano MD [address], [place], [address] , [facility] 5 14:20:57 Patient status finding [id number] Completed 201210/16/2013 RECORDED 08/26/19 13 9:30AM BY WILMER MCELROY MA, HELEN ON/ALINE Solorzano MD [address], [place], [address] , [facility] 5 14:20:57 Disorder of upper respirat ory system Completed 201210/16/2013 IMPRESSI ON: TRY NASAL SALINE, IF PERSISTA NT TRY NASAL STEROID. ; RECORDED 08/26/19 13 9:30AM BY WILMER MCELROY MA, HELEN ON/ALINE Solorzano MD [address] [facility] [address], [place], [address] , [facility] 5 14:20:57 Follow-u p encounte r Completed 201209/19/2013 RECORDED 12/21/19 13 10:31AM BY WILMER MCELROY MA, HELEN ON/ALINE Solorzano MD [address] [facility] [address], [place], [address] , [facility] 5 14:20:57 Influenz a vaccine needed 96758216816 06 Completed 201209/19/2013 RECORDED 12/21/19 13 10:31AM BY WILMER MCELROY MA, HELEN ON/ALINE Solorzano MD [address] [facility] [address], [place], [address] , [facility] 5 14:20:57 Pain in limb 65352790 Completed 201209/19/2013 RECORDED 12/21/19 13 10:32AM BY WILMER MCELROY MA, ANNOTATI ON/ALINE Solorzano MD [address] [facility] [address], [place], [address] , [facility] 5 14:20:56 Follow-u p encounte r Completed 201210/16/2013 RECORDED 12/21/19 13 10:31AM BY WILMER MCELROY MA, ANNOTATI ON/ADDBELINDA DUM Seth Solorzano MD [address] [facility] [address], [place], [address] , [facility] 5 14:20:57 Influenz a vaccine needed 59631572873 06 Completed 201210/16/2013 RECORDED 12/21/19 13 10:31AM BY WILMER MCELROY MA, HELEN ON/ALINE Solorzano MD [address] [facility] [address], [place], [address] , [facility] 5 14:20:57 Pain in limb 58053686 Completed 201210/16/2013 RECORDED 12/21/19 13 10:32AM BY WILMER MCELROY MA, ANNOTATI ON/ALINE Solorzano MD [address] [address], [place], [address] , [facility] 5 14:20:56 Localize d superfic ial swelling of skin 131143147 Completed 201309/19/2013 IMPRESSI ON: ? NEUROMA. WILL CONSULT PODIATRY .; RECORDED 06/03/19 14 12:59PM BY WILMER MCELROY MA, ANNOTATI ON/ALINE Solorzano MD [address] [address], [place], [address] , [facility] 5 14:20:56 Neck sprain 479945182 Completed 201312/08/2013 IMPRESSI ON: RECURREN T ISSUE IN CONTEXT OF CHRONICA LLY ELEVATE CREATINE KINASE. WILL ASK RHEUM FOR RE-EVALU ATION NOW THAT SYMPTOMS HAVE DEVELOPE D.; RECORDED 06/03/19 14 2:24PM BY WILMER MCELROY MA, OFFICE VISIT Seth Solorzano MD [address] [facility] [address], [place], [address] , [facility] 5 14:20:57 Localize d superfic ial swelling of skin 279340501 Completed 201310/16/2013 IMPRESSI ON: ? NEUROMA. WILL CONSULT PODIATRY .; RECORDED 06/03/19 14 12:59PM BY WILMER MCELROY MA, ANNOTATI ON/ALINE Solorzano MD [address] [facility] [address], [place], [address] , [facility] 5 14:20:56 Renewal of prescrip tion Completed 201309/19/2013 RECORDED 07/06/19 14 9:12AM BY WILMER MCELROY MA, ANNOTATI ON/ADDEN DUM Seth Solorzano MD [address] [facility] [address], [place], [address] , [facility] 5 14:20:57 Renewal of prescrip tion Completed 201310/16/2013 RECORDED 07/06/19 14 9:12AM BY WILMER MCELROY MA, ANNOTATI ON/ADDBELINDA Solorzano MD [address] [facility] [address], [place], [address] , [facility] 5 14:20:57 Joint pain in ankle and foot Completed 201307/13/2014 IMPRESSI ON: WEVENT WITH UNIMPRES SICE UA LEVEL, SYMPTOMS RESPONDE D TO COLCHICI NE. WILL CONTINUE PRN AND CONSIDER FURTHER EVAL IF RECURREN T/WORSE. ; RECORDED 08/19/19 14 12:55PM BY SETH Phipps MD, OFFICE VISIT Seth Solorzano MD [address] [facility] [address], [place], [address] , [facility] 5 14:20:56 Asthma 120693260 Completed 201311/21/2019 Seth Solorzano MD [address] [facility] [address], [place], [address] , [facility] 0 11:16:59 Pure hypercho lesterol emia 456496286 Active 2013 Not Available [facility] 3 01:53:06 [facility] hyperten dex 94328158 Active 2013 Not Available [facility] 3 01:53:07 Insomnia 593595321 Active 2013 Not Available [facility] 3 01:53:06 Fibromyo sitis 71528606 Completed 201312/08/2013 STORY: S/P RHEUM (REMI ) EVAL- PRESUMED PHYSIOLO GIC; IMPRESSI ON: PT ASYMPTOM ATIC, WILL RECHECK TO SEE IF LAB FINDINGS PERSISTA NT.; RECORDED 08/19/19 14 11:39AM BY ANASTASIIA ISSA MA, OFFICE VISIT Seth Solorzano MD [address] [facility] [address], [place], [address] , [facility] 5 14:20:56 Obesity 578452434 Completed 201307/21/2017 RECORDED 08/19/19 14 11:39AM BY ANASTASIIA ISSA MA, OFFICE VISIT Lilia winters, [facility] 0 16:49:59 Obstruct liudmila sleep apnea syndrome 45036934 Active 2013 14cm H2O with 2L O2 Seth Solorzano MD [address] [facility] [address], [place], [address] , [facility] 5 13:41:36 Allergic rhinitis 43548116 Active 2013 Not Available [facility] 3 01:53:07 Psychose xual dysfunct ion 711928712 Active 2013 Not Available [facility] 3 01:53:06 Vitamin D deficien cy 41491669 Active 2013 Not Available [facility] 3 01:53:06 Neck sprain 441537127 Completed 201310/16/2013 IMPRESSI ON: RECURREN T ISSUE IN CONTEXT OF CHRONICA LLY ELEVATE CREATINE KINASE. WILL ASK RHEUM FOR RE-EVALU ATION NOW THAT SYMPTOMS HAVE DEVELOPE D.; RECORDED 08/19/19 14 11:36AM BY ANASTASIIA ISSA MA, ANNOTATI ON/ADDEN DUM Seth Solorzano MD [address], [place], [address] , [facility] 5 14:20:57 Left ventricu lar hypertro phy 41610855 Active 2016 Not Available [facility] 3 01:53:07 Atrial paroxysm al tachycar victor m 602197760 Active 2017 Not Available [facility] 3 01:53:06 Arthriti s of hand 508377955 Completed 201711/21/2019 Seth Solorzano MD [address], [place], [address] , [facility] 0 11:17:38 Chronic atrial fibrilla tion 796399116 Active 2018 Not Available [facility] 3 01:53:07 Impingem ent syndrome of shoulder region 967867879 Completed 201801/31/2024 Seth Solorzano MD [address], [place], [address] , [facility] 4 13:42:11 Gout 88147229 Active 2019 Kelly Zuluaga MA null, [facility] 5 09:23:33 Paroxysm al atrial fibrilla tion 511503003 Active 2019 Not Available [facility] 3 01:53:06 Divertic ular disease 050783588 Active 2019 Not Available [facility] 3 01:53:07 Polyp of colon 52762980 Active 2019 Not Available [facility] 3 01:53:07 Family history of malignan t neoplasm of prostate 508734457 Active 2019 Not Available [facility] 3 01:53:07 History of asthma 590578170 Active 2019 Not Available [facility] 3 01:53:06 Prediabe gisell 718193340 Completed 201901/15/2023 Seth Solorzano MD [address] [facility] [address], [place], [address] , [facility] 4 06:42:51 Prediabe gisell 099174354 Active 2019 Seth Solorzano MD [address] [facility] [address], [place], [address] , [facility] 4 06:42:51 Morbid obesity 433284843 Active 2019 Not Available [facility] 3 01:53:06 Dyspnea on exertion 00959536 Active 2020 Kelly Zuluaga MA [facility], [facility] 5 09:23:33 Diastoli c heart failure 995432250 Active 2020 Not Available [facility] 3 01:53:07 Body mass index 40+ - severely obese 637994197 Active 2020 Not Available [facility] 3 01:53:07 Pulmonar y arterial hyperten dex 21128046 Active 2021 Not Available [facility] 3 01:53:06 Adjustme nt disorder with mixed emotiona l features 52692259 Completed 202101/31/2024 Seth Solorzano MD [address] [facility] [address], [place], [address] , [facility] 4 13:42:14 Prostate specific antigen above referenc e range 029873702 Active 2022 Not Available [facility] 3 01:53:07 Cholecys titis 84703143 Completed 202212/24/2022 Seth Solorzano MD [address] [facility] [address], [place], [address] , [facility] 3 21:26:05 History of cholecys tectomy 421519344 Active 2022 Sourav Rivas PA-C [address] [facility] [address], [place], [address] , [facility] 3 15:25:56 Carcinom a of prostate 099366114 Active 2022 [facility] 3+4, unfavoir able intermed iate risk s/p radiatio n and ADT Seth Solorzano MD [address] [facility] [address], [place], [address] , [facility] 4 22:28:57 Thyroid nodule 733172722 Completed 202310/24/2024 right, 1.5cm Seth Solorzano MD [address] [facility] [address], [place], [address] , [facility] 5 12:36:45 Mass of thyroid gland 223800293 Active 2023 Seth Solorzano MD [address], [place], [address] , [facility] 4 19:26:16 Pain of bilatera l knee joints 28648904735 4104 Active 2023 Seth Solorzano MD [address] [facility] [address], [place], [address] , [facility] 4 06:43:43 Hypoxemi a 070133855 Active 2023 Seth Solorzano MD [address] [facility] [address], [place], [address] , [facility] 4 10:25:31 Moderate major depressi on, single episode 47091392 Active 2023 Seth Solorzano MD [address] [facility] [address], [place], [address] , [facility] 4 13:47:37 Pain of right shoulder joint 04768291748 215941 Active 2023 Seth Solorzano MD [address] [address], [place], [address] , [facility] 4 14:14:02 Alkaline phosphat ase above referenc e range 292052135 Active 2024 Seth Solorzano MD [address] [address], [place], [address] , [facility] 5 21:51:37 Paresthe bj of upper limb 26375497 Active 2024 Seth Solorzano MD [address] [address], [place], [address] , [facility] 5 11:01:17 Bilatera l carpal tunnel syndrome 08093717327 480862 Active 2024 Seth Solorzano MD [address] [address], [place], [address] , [facility] 5 11:01:39 Notes:Some problems listed i n Document: #[id number] could not be added to this patient's chart. Please review this document and add these problems to the patient's chart manually as needed. Problem Notes None recorded. Procedures Surgical History Date Name Laterality Status Provider Name and Address Organization Details Recorded Time 01/10/20 25 radionuclide imaging of perfusion of myocardium under exercise stress completed Seth Solorzano MD [address], [address], [facility] 01/12/2025 06:54:44 02/02/20 24 Echo transthoracic completed Seth Solorzano MD [address], [address], [facility] 02/15/2024 07:26:27 01/13/20 23 needle biopsy of prostate completed Seth Solorzano MD [address], [address], [facility] 01/13/2023 08:05:06 12/21/19 23 laparoscopic cholecystectomy completed Nathaly Lacy [facility] 12/21/2022 11:22:23 05/21/19 22 catheterization of right heart completed Seth Solorzano MD [address] [facility] [address] [facility], [place], [address], [facility] 05/27/2021 12:57:10 07/07/19 21 stress echocardiography completed Seth Solorzano MD [address] [facility] [address] [facility], [place], [address], [facility] 06/01/2021 15:25:10 01/10/20 20 complete repair of rotator cuff completed Seth Solorzano MD [address], [address], [facility] 03/26/2020 14:24:20 01/05/20 20 Echo transthoracic completed Seth Solorzano MD [address], [address], [facility] 01/11/2020 19:41:20 10/23/19 20 Colonoscopy completed Seth Solorzano MD [address], [address], [facility] 10/23/2019 19:27:05 10/05/19 20 Cardiac Surgery completed Lisa Carmona CPPM [facility] 10/17/2019 09:23:32 10/05/19 20 Compre ep eval abltj atr fib completed Taylor Wallace [facility] 10/17/2019 09:25:03 10/05/19 20 Intracardiac ephys 3d mapg completed Taylorgregory Gonsalez [facility] 10/17/2019 09:25:54 03/22/19 20 Cardioversion electric ext completed Seth Solorzano MD [address] [address], [place], [address], [facility] 04/02/2019 16:11:20 02/15/20 19 Echo transthoracic completed Seth Solorzano MD [address] [address], [place], [address], [facility] 02/26/2019 20:33:15 11/04/19 17 Echo transthoracic completed Seth Solorzano MD [address] [facility], [place], [address], [facility] 11/17/2016 11:31:41 01/23/20 16 Echo transthoracic completed Seth Solorzano MD [address] [facility] [address] [facility], [place], [address], [facility] 02/02/2016 23:09:48 01/27/20 12 Echo Transthoracic completed Seth Solorzano MD [address] [facility] [address] [facility], [place], [address], [facility] 09/26/2015 16:35:39 03/08/19 08 Appendectomy completed Alla Smith MA [facility] 11/25/2020 08:29:52 Appendectomy completed Alla Smith MA [facility] 11/25/2020 08:29:52 Knee Surgery completed Aye Herrera [facility] 11/21/2019 09:56:32 Imaging Results None recorded. Procedure Notes None recorded. Medical Equipment None Reported. Allergies Allergen ID Allergen Name Allergen Category Reaction Reaction Severity Criticality Documentation Date Start Date Code Code System Note Provider Name and Address Organization Details Recorded Time 85365 aspirin medicatio n wheezing moderate Not available 04/03/20192020 1191 RxNorm [facility] 3 10:54:50 4472 aspirin medicatio n respirato ry distress Not available Not available 09/19/20132013 1191 RxNorm not from 81 mg dose, only form 325 mg aller gic react ion Not Available [facility] 3 01:53:04 Medications Name Sig Start Date Stop Date Status Note LastModified by Organization Details LastModified Time d3-1000 25 mcg (1000 ut) caps 08/09 completed Not Available Not Available Not Available vitamin d 03798 unit caps active Not Available Not Available [...] e 50 mcg/actua tion nasal spray,[employer] [place] 2 sprays every day by intranas al [...] Updated DateTime 5 184.79 cm 41.7 kg/m2 076294 g 67 /min 95 % 96.8 [degF] 122/67 mm[Hg] Xiao Payton [facility] 5 10:36:00 Date Recorded Body height Body mass index (BMI) Body weight Heart rate Oxygen saturation Body temperature Systolic And Diastolic Provider Name and Address Organization Details Last Updated DateTime 4 184.79 cm 41.5 kg/m2 571515. 62 g 66 /min 96 % 97.9 [degF] 119/72 mm[Hg] Arely Eli LPN [facility] [place] 4 09:57:01 Date Recorded Body height Body mass index (BMI) Body weight Heart rate Oxygen saturation Body temperature Systolic And Diastolic Provider Name and Address Organization Details Last Updated DateTime 5 184.79 cm 40.9 kg/m2 040506. 45 g 57 /min 96 % 97.3 [degF] 117/73 mm[Hg] Kelly Zuluaga MA [facility] 5 09:27:31 Date Recorded Body height Body mass index (BMI) Body weight Heart rate Oxygen saturation Body temperature Systolic And Diastolic Provider Name and Address Organization Details Last Updated DateTime 5 184.79 cm 40.2 kg/m2 403765. 49 g 68 /min 95 % 97.5 [degF] 117/74 mm[Hg] Kelly Zuluaga MA [facility] 5 11:42:14 Date Recorded Body height Body mass index (BMI) Body weight Heart rate Oxygen saturation Body temperature Systolic And Diastolic Provider Name and Address Organization Details Last Updated DateTime 4 184.79 cm 40.6 kg/m2 002912. 27 g 60 /min 97 % 98.2 [degF] 117/68 mm[Hg] Xiao Payton [facility] 4 13:05:17 Social History Question Answer Notes LastModified by Organizat ion Details LastModified Time Tobacco Smoking Status Never Smoker Not Available [facility] 01/09/2020 03:36:40 Do You Have An Advance Directive? Yes HCP/ Girlfriend-Caitlin , Mother-Brandie chase Information not available 11/27/2021 Is Blood Transfusion Acceptable In An Emergency? Yes [id number] Information not available 01/09/2020 What Is Your Level Of Caffeine Consumption? Occasional Tea Information not available 12/01/2022 How Much Tobacco Do You Chew? None [id number] Information not available 01/09/2020 In The 14 [...] Low Sodium, Eating Better, Fruits And Veggies [id number] Information not available 01/09/2020 Which Illicit Or Recreational Drugs Have You Used? None [id number] Information not available 01/09/2020 Live Alone Or [...] Do You Have? 2 Son And Dtr [id number] Information not available 01/09/2020 Do You Use Protection During Sex? Always [id number] Information not available 01/09/2020 Do You Use Your Seat Belt Or Car Seat Routinely? No [email or web address] Information not available 11/25/2020 Seat Belts Used Routinely Yes Information not available 11/27/2021 Are You Sexually Active? Yes [id number] Information not available 01/09/2020 Smoke Alarm In Home Yes Information not available 11/27/2021 Do You Have Smoke And Carbon Monoxide Detectors In Your Home? Yes [email or web address] Information not available 11/25/2020 At What Age Did You Start Smoking Tobacco? 1 [id number] Information not available 01/09/2020 Are You Passively Exposed To Smoke? Yes Information not available 12/08/2013 How Much Tobacco Do You Smoke? No [id number] Information not available 01/09/2020 General Stress Level Medium Information not available 11/27/2021 Do You Use Sunscreen Routinely? Yes [id number] Information not available 01/09/2020 How Many Years Have You Smoked Tobacco? 0 [id number] Information not available 01/09/2020 Sex: Unknown Functional Status Question Answer Note LastModified by Organizat ion Details LastModified Time Do you use any illicit or recreational drugs? No Information not available 11/27/2021 Do you or have you ever used any other forms of tobacco or nicotine? No Information not available 11/27/2021 What is your level of alcohol consumption? Occasional [id number] Information not available 01/09/2020 Do you or have you ever used smokeless tobacco? Never used smokeless tobacco [id number] Information not available 01/09/2020 Are you currently employed? No disabled [id number] Information not available 01/09/2020 Are you able to walk independently without assistance or assistive devices? [email or web address] Information not available 11/27/2021 Are you able to care for yourself independently? Yes [id number] Information not available 01/09/2020 Do you or have you ever used e-cigarettes or vape? Never used electronic cigarettes Information not available 11/27/2021 What is your exercise level? Moderate [email or web address] Information not available 11/25/2020 Mental Status None [...] pneumococcal polysaccharide PPV23 017 completed Not Available [facility] 12/15/2022 01:53:07 pneumococcal polysaccharide PPV23 020 completed Not Available [facility] 12/15/2022 01:53:07 COVID-19, mRNA, LNP-S, PF, 30 mcg/0.3 mL dose 021 completed Not Available [facility] 12/15/2022 01:53:07 COVID-19, mRNA, LNP-S, PF, 30 mcg/0.3 mL dose 021 completed Not Available [facility] 12/15/2022 01:53:07 Influenza, split virus, quadrivalent, PF 020 completed Not Available [facility] 12/15/2022 01:53:07 COVID-19, mRNA, LNP-S, PF, 30 mcg/0.3 mL dose 021 completed Not Available [facility] 12/15/2022 01:53:07 Influenza, split virus, trivalent, PF 014 completed Not Available [facility] 12/15/2022 01:53:07 Influenza, split virus, quadrivalent, PF 015 completed Not Available [facility] 12/15/2022 01:53:07 Influenza, split virus, quadrivalent, PF 018 completed Not Available [facility] 12/15/2022 01:53:07 Influenza, split virus, quadrivalent, PF 020 completed Not Available [facility] 12/15/2022 01:53:08 Influenza, split virus, quadrivalent, PF 016 completed Not Available [facility] 12/15/2022 01:53:08 COVID-19, mRNA, LNP-S, bivalent, PF, 30 mcg/0.3 mL dose 022 completed Not Available [facility] 12/15/2022 01:53:07 Td (adult), 2 Lf tetanus toxoid, preservative free, adsorbed 005 completed Not Available [facility] 12/15/2022 01:53:07 Tdap 012 completed Not Available [facility] 12/15/2022 01:53:07 Influenza, split virus, trivalent, preservative 012 completed Not Available [facility] 12/15/2022 01:53:07 influenza, seasonal, intradermal, preservative free 013 completed Not Available [facility] 12/15/2022 01:53:07 Td (adult), 2 Lf tetanus toxoid, preservative free, adsorbed 022 completed RALPH Deutsch [facility] 11/27/2021 13:20:56 Influenza, split virus, quadrivalent, PF 022 completed RALPH Deutsch [facility] 11/27/2021 13:22:40 Influenza, split virus, quadrivalent, PF 023 completed Seth Solorzano MD [address], [place], [address], [facility] [place] 12/01/2022 10:22:09 Influenza, split virus, trivalent, PF 024 cancelled patient objection Seth Solorzano MD [address], [place], [address], [facility] [place] 01/31/2024 14:10:48 Influenza, split virus, trivalent, PF 025 completed Kelly Zuluaga MA null, [facility] 12/11/2024 11:43:14 Past Encounters Encounter ID Performer Location Encounter Start Date Encounter Closed Date Diagnosis/Indication Diagnosis SNOMED-CT Code Diagnosis ICD10 Code Diagnosis IMO Codes Diagnosis Note [id number] [facility] [address] [facility] [place] [address] 12/02/2011 00:00:00 [id number] auto[facility] erce [address] [facility] [place] [address] 12/25/2011 00:00:00 [id number] auto[employer] erce [address] [facility] [place] [address] 01/05/2012 00:00:00 [id number] auto[facility]Comm erce [address] [facility] [place] [address] 02/25/2012 00:00:00 [id number] auto[facility] erce [address] [facility] [place] [address] 04/18/2012 00:00:00 [id number] [facility] erce [address] [facility] [place] [address] 05/20/2012 00:00:00 [id number] auto[facility]Comm erce [address] [facility] [place] [address] 08/25/2012 00:00:00 [id number] autoEComm erce [address] [facility] [place], [place] [address] 12/02/2012 00:00:00 [id number] autoEComm christ[place] [address] [facility] [place], [place] [address] 12/22/2012 00:00:00 [id number] auto[facility] christose [address] [facility] [place], [place] [address] 04/28/2013 00:00:00 [id number] [facility] [address] [facility] [place], [place] [address] 06/02/2013 00:00:00 [id number] [facility] [address] [facility] [place], [place] [address] 07/05/2013 00:00:00 [id number] autoEComm christ[place] [address] [facility] [place], [place] [address] 08/18/2013 00:00:00 [id number] Seth Solorzano MD Main Office [address] [address] [place] [address] 12/08/2013 12:52:04 12/08/2013 14:00:06 Adult health examination [id number] WIll update immunizati on status and screen based on risk factors. Regular dental and ophtho care advised as well as sunscreen and seatbelt use. Distracted driving discussed. Advanc edirective s discussed. Needs infl uenza immunization 833076779 Essential hypertension 66229187 Obesity 343623702 Obstructiv e sleep apnea syndrome 05009560 Vitamin D deficiency 80012240 Insomnia 277172355 [id number] Seth Solorzano MD Main Office [address] [address] [place] [address] 03/07/2014 10:20:49 03/07/2014 11:19:05 Pain of wrist region 23519593 Resolvi ng likely tendon vs muscle strain. Will continue splint at night and supportive tx otherwise. OK to RTW. Call if pain persists/w orsens as ortho referral would be next step. Essential hypertension 33725351 Psychosexu al dysfunction 241417387 Effective in the past. Refill requested. [id number] Seth Solorzano MD Main Office [address] [place] [address] 07/06/2014 08:17:06 07/06/2014 09:36:51 Essential hypertension 65626649 Well controlled , continue other medication s for now. Dyspnea on exertion 03746322 Likely related to new onset atrial fibrillati on. Will screen for evidence of CHF or ischemia. If abnormal would warrant acute evaluation . Body mass index 30+ - obesity 495190879 Atrial fibrillation 37107594 New onset, potentiall y acute issue. Possibly [...] Will focus on rate control for now. [id number] Seth Solorzano MD Main Office [address] [place] [address] 07/13/2014 08:58:22 07/13/2014 09:54:20 Atrial fibrillation 93620107 Appears paroxysmal . Pt had syncopal event [...] to try and capture recurrent events. Insomnia 386967166 Obstructiv e sleep apnea syndrome 08952713 [id number] Seth Solorzano MD Main Office [address] [place] [address] 07/16/2014 08:21:08 07/16/2014 09:57:55 Irregular heart beat 378557406 [id number] Seth Solorzano MD Main Office [address] [place] [address] 07/17/2014 08:36:36 07/17/2014 09:06:16 [id number] Seth Solorzano MD Main Office [address] [place] [address] 11/14/2014 12:38:13 11/14/2014 13:55:10 Needs influenza immunization 571599649 Essential hypertension 60551762 Asymptomat ic but poor control secondary to compliance . Will resume CCB and ACEI lucia. Has apt with cardiology in 1 week, I will re-evaluat e his pressure back on meds, in 4 weeks. Atrial fib rillation and flutter 275747563 Pt did not start BB as prescribed by cards. Rx sent. Obstructiv e sleep apnea syndrome 74624656 Pt reports intermitte nt compliance with this as well. Advised him to be more consistent to help with energy levels and hope to minimize CV and pulmonary disease risk. Vitamin D deficiency 48711346 On high dose supplement , will reassess dosing effectiven ess. [id number] Seth Solorzano MD Main Office [address] [address] [place] [address] 02/21/2015 13:33:10 02/21/2015 14:53:52 Adult health examination 694737342 Z00.00 Immunizati on status utd, will screen based on risk factors. Regular dental and ophtho care advised as well as sunscreen and seatbelt use. Distracted driving discussed. Advance directives discussed. Body mass index 40+ - severely obese 269713052 Z68.41 Excessive thirst 9103113 7 R63.1 Screen for DI. Essential hypertension 26690670 I10 Obstructiv e sleep apnea syndrome 77939974 G47.33 Pt reports intermitte nt compliance with this as well. Advised him to be more consistent to help with energy levels and hope to minimize CV and pulmonary disease risk. Vitamin D deficiency 347 13434 E55.9 On high dose supplement , will reassess dosing effectiven ess. Pure hypercholesterolemia 627320784 E78.0 Dyspnea on exertion 6084 5006 R06.09 Stable, likely weight related. Advised to call if persistent /worse or associated with chest pain. [id number] Seth Solorzano MD Main Office [address] [facility] [address] [place] [address] 05/23/2015 13:44:17 05/23/2015 14:30:18 Essential hypertension 05334931 I10 Well controlled on recheck. Continue current regimen. Increased frequency of urination 129864133 R35.0 Will see if u/s shows outflow obstructio n. Consider trial of terazosin is so. Atrial fib rillation and flutter 235137554 I48.0 No evidence for recurrence on BB. Will monitor clinically and refer back to cards if recurs. Allergic rhinitis 700383 04 J30.9 Call inb/worse Screening for malignant neoplasm of colon 434572726 Z12.11 [id number] Seth Solorzano MD Main Office [address] [facility] [address] [place] [address] 09/25/2015 10:17:49 09/25/2015 11:30:13 Essential hypertension 14370653 I10 Not well controlled but weight gain and BB non compliance are likely contributi ng factors. Will resume BB. Pt advised to limit Na and calorie intake with increasing physical activity. Atrial fib rillation and flutter 680623591 I48.0 No evidence for recurrence on BB. Will monitor clinically and refer back to cards if recurs. Asthma 378514112 J45.90 9 Vitamin D deficiency 347 51448 E55.9 Was on high dose supplement , but ran out. Will resume and reassess dosing effectiven ess. Dyspnea 036206367 R06.02 ? secondary to deconditio arianna/wt gain vs asthma vs CHF. Depending on lab results and symptom reassessme nt with better BP control further evaluation may be required. [id number] Seth Solorzano MD Main Office [address] [facility] [address] [place] [address] 10/21/2015 10:54:06 10/21/2015 11:27:47 Dyspnea 030236239 R06.02 ? secondary to deconditio arianna/wt gain vs asthma vs CHF. Some improvemen t with addition of singulair. Will go for labs today. Essential hypertension 89009592 I10 Not well controlled but weight gain and amlodipine non compliance are likely contributi ng factors. Will resume amlodipine . Pt advised to limit Na and calorie intake with increasing physical activity. [id number] Seth Solorzano MD Main Office [address] [facility] [address] [place] [address] 11/04/2015 11:11:26 11/04/2015 12:17:31 Essential hypertension 46741681 I10 Improving, will titrate amlodipine dose further, to goal BP control. Dyspnea 449389129 R06.02 likely secondary to deconditio arianna vs asthma vs diastolic dysfunctio n. Will check CXR and if persistent with adequate BP control will consider PFT's and f/u ECHO. [id number] Seth Solorzano MD Main Office [address] [place] [address] 11/28/2015 10:41:58 11/28/2015 11:45:28 Pure hypercholesterolemia 337402576 E78.0 Essential hypertension 68154720 I10 Improving, will titrate amlodipine dose further, to goal BP control. Dyspnea on exertion 6084 5006 R06.09 Better, but now need to suspect afib as contributo r. Needs infl uenza immunization 158709787 Z23 Obstructiv e sleep apnea syndrome 77033597 G47.33 Pt reports intermitte nt compliance with this as well. Advised him to be more consistent to help with energy levels and hope to minimize CV and pulmonary disease risk. Atrial tachycardia 24380 6006 I47.1 Atrial fibrillation 4943 6004 I48.91 Appears paroxysmal and rate controlled . Pt had syncopal event on 2011 which prompted ECG, holter and ECHO that were unremarkab le except for mild biatrial enlargemen t. Has had echo and cardiology consult in the past, will reassess echo. Pt is allergic to aspirin and CHADs score of 1 makes him lower risk. [id number] Seth Solorzano MD Main Office [address] [facility] [address] [place] [address] 01/09/2016 09:58:01 01/09/2016 10:53:33 Atrial fibrillation and flutter 096041325 I48.0 Still irregular on exam. CHADs score of one does not justify anticoagul ation at this time. Will try again to book echo. Await cardiology input. Essential hypertension 22501437 I10 Well controlled . Continue current regimen. Obstructiv e sleep apnea syndrome 32353421 G47.33 Pt reports intermitte nt compliance with this as well. Pt will go to sleep medicine today to schedule a follow up. [id number] Sourav Rivas PA-C Main Office [address] [place] [address] 11/10/2016 12:52:45 11/10/2016 13:59:00 Chest pain 04438112 R07.9 cp resolved, and nl stress test. pt admitted to 8. - 8 for cp and hypertensi ve urgency - had cardiac w/u - rev. card consult note, will attempt to get dc summary. Essential hypertension 87073909 I10 stable, cont meds as dir cont to f/u c PVC as an outpt had nl bmp on 10.31. Dyspnea on exertion 6084 5006 R06.09 better lately, had nl stress test, ? if endurance / obesity related Body mass index 40+ - severely obese 363056526 Z68.41 Obstructiv e sleep apnea syndrome 32788395 G47.33 cont doreen, f/u c sleep specialist Atrial fib rillation and flutter 338497699 I48.91 in sinus rhythm Morbid obesity 430358079 E66.01 [id number] Sourav Rivas PA-C Main Office [address] [facility] [address] [place] [address] 11/18/2016 13:36:47 11/18/2016 15:24:27 Pain in left knee 0255444171 20895 M25.562 most likely d/t PFS, and degree of pain has raised his BP as well - had NL bp here last week - pending see card Essential hypertension 51583578 I10 increased d/t pain, cont meds as dir pending see PVC as an outpt had nl bmp on 10.31.16 Patellofem oral stress syndrome 849369610 M22.2X9 [id number] Seth Solorzano MD Main Office [address] [place] [address] 07/21/2017 11:07:17 07/21/2017 12:14:28 Adult health examination 735778969 Z00.00 Immunizati on status utd, flu advised in the Fall. Will screen based on risk factors. Regular dental and ophtho care advised as well as sunscreen and seat belt use. Distracted driving discussed. Advance directives discussed. Morbid obesity 302076716 E66.01 Atrial par oxysmal tachycardia 384767027 I47.1 Due for cardiology follow up which he will arrange. Pure hypercholesterolemia 716705001 E78.00 Statin therapy recommende d/offered based on CVD risk score but pt declines and wants to see what impact TLC has on his levels. Psychosexu al dysfunction 984726172 F52.9 Effective in the past. Refill requested. Vitamin D deficiency 347 28250 E55.9 Level on the low end of normal. Advised to start low dose daily supplement year round. Essential hypertension 91445810 I10 Well controlled . Continue current regimen. Obstructiv e sleep apnea syndrome 51605010 G47.33 Pt reports intermitte nt compliance with this as well. Pt will go to sleep medicine today to schedule a follow up. Screening for malignant neoplasm of colon 986374589 Z12.11 Overdue for screening. Did not discuss during visit but will forward pt a copy of GI contact info. Will f/u in 4 months. Body mass index 40+ - severely obese 856898094 E66.01 Z68.41 [id number] Seth Solorzano MD Main Office [address] [facility] [address] [facility] [place] [address] 11/22/2017 08:18:49 11/22/2017 08:56:13 Essential hypertension 61026492 I10 Well controlled . Continue current regimen. Needs infl uenza immunization 614943492 Z23 Atrial par oxysmal tachycardia 695560581 I47.1 Establishe d with cards. Rate well controlled . On ASA. Allergic rhinitis 140913 04 J30.9 Call inb/worse. ICS technique discussed. Bursitis of shoulder 239 980642 M75.50 vs tendinitis . WIll see if NSAID and home PT helps. If not will need ortho eval. [id number] Seth Solorzano MD Main Office [address] [facility] [address] [facility] [place] [address] 11/10/2018 15:17:31 11/10/2018 16:13:05 Essential hypertension 32474322 I10 Well controlled . Continue current regimen. Overdue for labs. Atrial par oxysmal tachycardia 393441939 I47.1 Establishe d with cards. Rate well controlled . On ASA. Need to re establish with cardiology to see if mgmt options have changed. Vitamin D deficiency 347 14595 E55.9 Level on the low end of normal. Advised to start low dose daily supplement year round. Pain of le ft shoulder joint 4194909091 2178738 M25.512 Chronic issue. Likely ACJ pathology. Will ask ortho for help. Chronic at rial fibrillation 138514292 I48.2 Based on CHADS score of 1 will continue with ASA for risk reduction at this time. [id number] Seth Solorzano MD Main Office [address] [facility] [address] 03/17/2019 14:06:01 03/17/2019 15:27:10 Adult health examination 285602279 Z00.00 Immunizati on status utd, flu advised in the Fall. Will screen based on risk factors. Regular dental and ophtho care advised as well as sunscreen and seat belt use. Distracted driving discussed. Advance directives discussed. Morbid obesity 968187848 E66.01 Atrial par oxysmal tachycardia 356512546 I47.1 Establishe d with cards. Rate not well controlled . On ASA. Body mass index 40+ - severely obese 200218702 E66.01 Z68.41 Chronic at rial fibrillation 747505632 I48.21 Suspect this is chronic. Will request recent holter report that was done by cardiology per patient. Left sided chest pain 28 7939867 R07.9 Pt presented for routine physical but having left sided chest pressure with edema. Significan t concern for ACS or at least decompensa chapito afib with RVR. EMS called for transport to [facility]. Needs infl uenza immunization 641840758 Z23 [id number] Seth Solorzano MD Main Office [address] [facility] [address] [place] [address] 04/03/2019 15:08:52 04/03/2019 16:48:47 Congestive heart failure 44382822 I50.9 c reduced EF - pt has [...] fwd this note to Dr. Preston* Gout 52434852 M10.9 pt took pred pulse at dc since colchicine not covered - will initiate allopurino l and check uric acid level Essential hypertension 73677599 I10 likely increased d/t pain of ankle (had nl bp c card on 03.29.19) - cont meds as dir c slightly increase furosemide as above, cont to monitor Acute nont raumatic kidney injury 7543849661 01061 N17.9 recheck bmp - see above Atrial fibrillation 4943 6004 I48.91 cont f/u c card, has pending ablation, cont meds as dir [id number] Seth Solorzano MD Main Office [address] [facility] [place] [address] 04/17/2019 09:20:51 04/17/2019 10:52:29 Chronic atrial fibrillation 297123794 I48.20 cont meds, f/u c card Congestive heart failure 09437281 I50.9 c reduced EF - pt cont [...] fwd this note to Dr. Preston* Gout 23359638 M10.9 pt tolerating allopurino l and feeling much better - no further flares Chronic ki dney disease stage 3 000840174 N18.3 consider renal eval if cr cont to climb despite decrease in diuretics and holding acei - see below Essential hypertension 82320258 I10 bp stabilized - no longer in pain from gout flare - rec hold acei for a few days then recheck bmp in a few days, resume acei if bp climbs [id number] Seth Solorzano MD Main Office [address] [facility] [place] [address] 04/25/2019 13:00:15 04/25/2019 14:53:44 Chronic atrial fibrillation 182981130 I48.20 stable - cont meds, f/u c card - ? next 3.2.20 Essential hypertension 26758800 I10 bp stabilized - cont meds as dir - off acei Congestive heart failure 67974274 I50.9 c reduced EF - pt cont [...] Preston* Chronic ki dney disease stage 3 403001723 N18.3 consider renal eval if cr cont to climb despite decrease in diuretics and holding acei - see below check bmp in a few wks - a day or two ac see card Body mass index 30+ - obesity 453745524 Z68.[address] 05.17.19 Obesity 001147637 E66.9 [id number] Seth Solorzano MD Main Office [address] [facility] [address] [facility] [place] [address] 07/14/2019 08:18:20 07/14/2019 13:06:10 Gout 09563403 M10.9 Sounds like a gout flare which is a little unusual given his reported compliance with allopurino l and most recent uric acid level of 6.9. Given his comorbidit ies phuc try to simmer down his flare with a short course of prednisone . COnsider colchicine trial vs rheum referral at f/u to help confirm the diagnosis. [id number] Seth Solorzano MD Main Office [address] [facility] [address] [place] [address] 07/18/2019 13:14:57 07/18/2019 14:17:48 Essential hypertension 45840974 I10 Not well controlled and appears to be fluid overloaded . Will increase diuretic dose and follow BP and labs. Screening for malignant neoplasm of colon 267863098 Z12.11 Overdue for screening. Did not discuss during visit but will forward pt a copy of GI contact info. Varicella vaccination 68 377601 Z23 Gout 00986618 M10.9 Sounds like a gout flare which is a little unusual given his reported compliance with allopurino l and most recent uric acid level of 6.9. Given his comorbidit ies phuc try to simmer down his flare with a short course of prednisone . COnsider colchicine trial vs rheum referral at f/u to help confirm the diagnosis. Impingemen t syndrome of shoulder region 663143404 M75.42 Pt will call to arrange f/u. [id number] Seth Solorzano MD [facility] [address] [facility] [address] [facility] [place] [address] 08/03/2019 11:27:51 08/03/2019 14:13:53 Essential hypertension 08575828 I10 Unable to measure response to diuretic increase today because of virtual visit. Will continue current diuretic regimen and BB for now. Recheck labs Gout 12246297 M10.9 Has follow up labs pending since starting allopurino l. Will titrate to goal <6.5. Chronic at rial fibrillation 658334841 I48.21 Pt reports taking amiodarone BID. Review of recent cardiology note reports that it should be QD only. Pt advised to f/u with cards/EP in September as planned. Advised to call cardiology for refills on amio as I am not comfortabl e managing this. Screen for thyroid issues. Diastolic heart failure 220082241 I50.30 Seems fluid overloaded . Will await labs and adjust diuretic regimen as warranted. Paroxysmal atrial fibrillation 607155011 I48.0 Pt reports taking amiodarone BID. Review of recent cardiology note reports that it should be QD only. Pt advised to f/u with cards/EP in September as planned. Advised to call cardiology for refills on amio as I am not comfortabl e managing this. Screen for thyroid issues. [id number] Seth Solorzano MD Main Office [address] [facility] [address] [facility] [place] [address] 09/19/2019 13:22:20 09/19/2019 15:21:04 Essential hypertension 64095532 I10 Well controlled , will continue current Gout 62055156 M10.9 Well controlled , continue current dose. Chronic at rial fibrillation 792457978 I48.21 Pt advised to f/u with cards/EP in September as planned. Advised to call cardiology for refills on amio as I am not comfortabl e managing this. Screen for thyroid issues. Obstructiv e sleep apnea syndrome 88294283 G47.33 Pt reports intermitte nt compliance with this as well. Will arrange sleep medicine f/u lucia. Fatigue 33380250 R53.83 Potentiall y multifacto rial. Will arrange sleep med f/u and reassess after cardiac ablation. If persistent /worse consider depression as a factor. BB also a possible issue which can hopefully be stopped after ablation. Screening for malignant neoplasm of prostate 644801535 Z12.5 [id number] Seth Solorzano MD Main Office [address] [facility] [address] [facility] [place] [address] 11/21/2019 09:53:15 11/21/2019 11:29:13 Adult health examination 805382502 Z00.00 Immunizati on status utd, flu advised in the Fall. Will screen based on risk factors. Regular dental and ophtho care advised as well as sunscreen and seat belt use. Distracted driving discussed. Advance directives discussed. Varicella vaccination 68 420691 Z23 Gout 72651650 M10.9 Well controlled , continue current dose. Essential hypertension 93072301 I10 Well controlled , will continue current Body mass index 40+ - severely obese 557547314 E66.01 Z68.41 Restless l egs syndrome 67152362 G25.81 Screen for anemia. See what sleep study showed. Obstructiv e sleep apnea syndrome 08478193 G47.33 Had sleep study last week. Will request report. Will likely need to resume CPAP. Polyp of colon 31319928 K63.5 Impingemen t syndrome of shoulder region 121905928 M75.42 Pt will call to arrange f/u with ortho. Family his tory of malignant neoplasm of prostate 389621533 Z80.42 Pure hypercholesterolemia 647127335 E78.00 Reassess CVD risk score and discuss mgmt based on results. Vitamin D deficiency 347 45651 E55.9 Lelvel was normal last year on current supplement dose. Will continue. Chronic go uty arthritis 11256688 M1A.0110 Screen for inflammato ry arthropath y. Consider rheum referral. Impaired f asting glycemia 131555506 R73.01 [id number] Mayito Boston MD Main Office [address] [facility] [address] [place] [address] 12/29/2019 08:59:16 12/29/2019 09:45:51 Pre-surgery evaluation 683438342 Z01.818 pre-surger y evaluation Pre-Surgic al Evaluation [...] post-op Inflammati on of rotator cuff tendon 449823880 M67.819 patient to have surgery Essential hypertension 64013842 I10 Needs infl uenza immunization 574816423 Z23 [id number] Seth Solorzano MD Main Office [address] [facility] [address] [place] [address] 03/26/2020 13:37:55 03/26/2020 14:38:29 Gout 63301158 M10.9 Well controlled based on symptoms and uric acid level. Continue current dose. Essential hypertension 52975408 I10 Suspect fluid overload might be a factor. Will monitor with increased diuretic dose. Prediabetes 523026949 R7 3.03 Stable. Will continue monitor. Dyspnea 856048742 R06.02 Likely secondary to deconditio arianna. Screen for failure and try titrating diuretic dose. [id number] Seth Solorzano MD Main Office [address] [place] [address] 04/16/2020 10:44:47 04/16/2020 11:15:13 Essential hypertension 31657573 I10 Well controlled . Continue current regimen. Chronic at rial fibrillation 803679615 I48.21 Pt advised to f/u with cards in June. Obstructiv e sleep apnea syndrome 61106703 G47.33 Following with sleep medicine to work on CPAP compliance . [id number] Sourav Rivas PA-C Main Office [address] [place] [address] 10/07/2020 09:03:08 10/07/2020 10:31:23 Syncope 315764666 R55 more so pre-syncop e twice about 2 wks ago - will check glucose and ekg - no h/o DM glucose stable ekg - sinus rhythm, no significan t S-T changes ? had orthostasi s, now better p off ccb - rec stay hydrated - see below Essential hypertension 19391959 I10 bp stable - cont meds as dir -- has been off aml x ~ 2 wks as per card -- no further pre-syncop e Paroxysmal atrial fibrillation 523341703 I48.0 HR controlled , cont meds, f/u c card as dir [id number] Seth Solorzano MD Main Office [address] [place] [address] 11/25/2020 08:16:30 11/25/2020 09:34:28 Adult health examination 417413661 Z00.00 Immunizati on status utd, flu advised when available. Will screen based on risk factors. Regular dental and ophtho care advised as well as sunscreen and seat belt use. Distracted driving discussed. Advance directives discussed. Pain in bi lateral feet 0986315552 5910176 M79.671 M79.672 suspect lipoma are the cause. Will see if u/s confirms and refer to podiatry or ortho depending on result. Body mass index 40+ - severely obese 825466451 E66.01 Z68.41 Diastolic heart failure 400322456 I50.32 Chronic at rial fibrillation 149283419 I48.21 Pt advised to f/u with cards in June. Family his tory of malignant neoplasm of prostate 499603268 Z80.42 If PSA elevated or urinary symptoms worsen will refer to urology. Gout 25913833 M10.9 Well controlled based on symptoms and uric acid level. Continue current dose. Obstructiv e sleep apnea syndrome 90186741 G47.33 Following with sleep medicine to work on CPAP compliance . Prediabetes 849626366 R7 3.03 Stable. Will continue monitor. Pure hypercholesterolemia 501573270 E78.01 Reassess CVD risk score and discuss mgmt based on results. Vitamin D deficiency 347 88236 E55.9 Level was normal last year on current supplement dose. Will continue. Mass of foot 652470300 R 22.41 Nocturia 601608033 R35.1 Primary er ectile dysfunction 359569728 N52.9 [id number] Seth Solorzano MD Telehealt h [address] [facility] [address] [facility] [place] [address] 03/21/2021 07:59:06 03/21/2021 15:38:44 Exposure to viral disease 8630592007 28242 Z03.818 Advised to continue wearing mask and to have testing done lucia. If positive will likely be out of the window for Mab therapy. Psychosexu al dysfunction 262001471 F52.9 Effective in the past. Refill requested. Acute sinusitis 07766890 J01.90 At this poitn still most likely a viral process. Need to r/o COVID. If negative and symptoms worsen/per sist or if second sickening occurs will prescribe abx for sinusitis. Cough 38093263 R05.1 Secondary to URI. Consider CXR depensing on symptom progressio n and COVID 19 status. [id number] Seth Solorzano MD Main Office [address] [facility] 207 [place] [address] 05/15/2021 14:53:40 05/15/2021 15:53:43 Prediabetes 568643776 R73.03 Stable. Will continue monitor. Discussed need to reduce CHO intake and work on weight loss. Atrial par oxysmal tachycardia 361273609 I47.1 Establishe d with cards. Rate well controlled on BB and DOAC. Essential hypertension 06254715 I10 Well controlled . Continue current regimen. Psychosexu al dysfunction 612991822 F52.9 Effective in the past. Refill requested. Pure hypercholesterolemia 374771841 E78.01 Based on CVD score statin warranted but declined. Will continue to monitor. Pulmonary hypertension 21233819 I27.[address] Steve at [facility] for right heart cath on 05/20. [id number] Seth Solorzano MD Main Office [address] [facility] [address] [place] [address] 08/11/2021 12:43:10 08/11/2021 13:19:26 Prediabetes 971791358 R73.03 Stable. Will continue monitor. Discussed need to reduce CHO intake and work on weight loss. Essential hypertension 55774210 I10 Well controlled . Continue current regimen. Pure hypercholesterolemia 367541111 E78.01 Based on CVD score statin warranted will start low dose atorvastat in and titrate as tolerated to goal LDL <100. Vitamin D deficiency 347 79299 E55.9 Level was normal last year on current supplement dose. Will continue. Constipation 27013629 K5 9.00 [id number] Seth Solorzano MD Main Office [address] [facility] [address] [place] [address] 11/27/2021 08:37:31 11/27/2021 09:27:17 Adult health examination 863301099 Z00.00 Immunizati on status updated short of COVID 19 which was advised via local pharmacy. Screening utd based on risk factors. Regular dental and ophtho care advised as well as sunscreen and seat belt use. Distracted driving discussed. Advance directives discussed. Varicella vaccination 68 666125 Z23 Pure hypercholesterolemia 858926145 E78.01 Well controlled on low dose statin. Essential hypertension 01733680 I10 Well controlled . Continue current regimen. Viral hepatitis C 467571 07 B19.20 Requires a tetanus booster 182210795 Z23 Needs infl uenza immunization 498421489 Z23 Psychosexu al dysfunction 898304390 F52.9 Effective in the past. Refill requested. Prediabetes 639412012 R7 3.03 Stable. Will continue monitor. Discussed need to reduce CHO intake and work on weight loss. Body mass index 40+ - severely obese 988231561 E66.01 Will refer to weight management to see if they have suggestion s. Adjustment disorder with mixed emotional features 90746366 F43.23 Coping fairly well except for some anhedonia. Will monitor for now. [id number] Seth Solorzano MD Main Office [address] [facility] [address] [facility] [place] [address] 03/31/2022 10:44:55 03/31/2022 11:20:53 Morbid obesity 341591565 E66.01 Adjustment disorder with mixed emotional features 29098352 F43.23 Coping fairly well except for some anhedonia. Will monitor for now. Diastolic heart failure 975377942 I50.32 Will titrate diuretic dose for 40mg daily. Pt will go for labs 1-2 weeks after. Prediabetes 935506664 R7 3.03 Stable. Will continue monitor. Discussed need to reduce CHO intake and work on weight loss. Due for labs. Psychosexu al dysfunction 102419728 F52.9 Effective in the past. Refill requested. Atrial par oxysmal tachycardia 465452888 I47.1 Establishe d with cards. Rate well controlled on BB and on DOAC. Nocturia 258713660 R35.1 Obstructiv e sleep apnea syndrome 42544330 G47.33 Following with sleep medicine to work on CPAP compliance . [id number] Seth Solorzano MD Main Office [address] [facility] [address] [facility] [address] 07/28/2022 09:46:42 07/28/2022 10:51:24 Prediabetes 862643466 R73.03 Stable. Will continue monitor. Discussed need to reduce CHO intake and work on weight loss. Due for labs. Chronic at rial fibrillation 258728019 I48.21 Following with cardiology . Body mass index 40+ - severely obese 780734546 E66.01 Z68.41 Has failed conservati ve treatment approaches /nutrition al counseling . May be a candidate for GLP1 agonist tx trial. Prostate s pecific antigen above reference range 877621030 R97.20 Persistent issue, urology input needed. Family his tory of malignant neoplasm of prostate 742214100 Z80.42 Will refer to urology. Psychosexu al dysfunction 792569856 F52.9 Effective in the past. Refill requested. Heart fail ure with normal ejection fraction 303911585 I50.32 Titrate diuretic based on weight shifts/BP. Diastolic heart failure 115155723 I50.32 Currently compensate d, followed by cards. [id number] Seth Solorzano MD Main Office [address] [facility] [address] [facility] [address] 10/20/2022 11:30:41 10/20/2022 12:12:29 Prostate specific antigen above reference range 037421738 R97.20 Has urology f/u next week, going for PSA check this Wednesday. From there MRI vs biopsy will be discussed. Body mass index 40+ - severely obese 111280405 E66.01 Z68.41 Has failed conservati ve treatment approaches /nutrition al counseling . May be a candidate for GLP1 agonist tx trial. Prediabetes 685248213 R7 3.03 Stable. Will continue monitor. Discussed need to reduce CHO intake and work on weight loss. Due for labs. He wants to see a nutritioni st but insurance is not covering. Will call [facility] to see if maybe they particiapt e. Essential hypertension 48207635 I10 Well controlled . Continue current regimen. Serum crea tinine above reference range 572072006 R79.89 Likely from over diuresis. Will reassess following recent dose change. Hepatitis C screening 41 8898685 Z11.59 [id number] Seth Solorzano MD Main Office [address] [facility] [address] [facility] [address] 12/01/2022 09:15:46 12/01/2022 10:19:23 Adult health examination 375547641 Z00.00 Immunizati on status updated short of COVID booster which was advised via local pharmacy. Screening utd based on risk factors. Regular dental and ophtho care advised as well as sunscreen and seat belt use. Distracted driving discussed. Advance directives discussed. Needs infl uenza immunization 513181860 Z23 Varicella vaccination 68 386904 Z23 Prediabetes 690118725 R7 3.03 Stable. Will continue monitor. Discussed need to reduce CHO intake and work on weight loss. Due for labs. He wants to see a nutritioni st but insurance is not covering. Prostate s pecific antigen above reference range 726256430 R97.20 Being scheduled for biopsy Pure hypercholesterolemia 995874133 E78.01 LDL >100, will titrate statin dose. Vitamin D deficiency 347 30190 E55.9 Level was normal last year on current supplement dose. Will continue. Body mass index 40+ - severely obese 511579837 E66.01 Z68.41 Has failed conservati ve treatment approaches /nutrition al counseling . May be a candidate for GLP1 agonist tx trial. Insurance would not cover nutritiona l counseling . Obstructiv e sleep apnea syndrome 44550617 G47.33 Reprts compliance and good symptoms relief with CPAP therapy. [id number] Seth Solorzano MD Main Office [address] [facility] [address] [place] [address] 12/24/2022 15:01:48 12/24/2022 17:46:53 [id number] Seth Solorzano MD Main Office [address] [facility] [address] [place] [address] 01/14/2023 14:13:15 01/14/2023 15:30:09 History of cholecystectomy 284130351 Z90.49 recently dc'd ~ 3 wks ago - had lap phillip on 12.18.21 - doing okay now, pending f/u c general surgeon next week Prostate s pecific antigen above reference range 581465505 R97.20 just had prostate bx 2 days ago, pending results, cont f/u c uro Essential hypertension 29588847 I10 bp stable - cont meds as dir Prediabetes 959311313 R7 3.03 Diastolic heart failure 753048907 I50.32 stable, cont meds as dir, cont f/u c card Chronic at rial fibrillation 335343769 I48.21 stable - cont meds, f/u c card [id number] Seth Solorzano MD Main Office [address] [facility] [address] [place] [address] 04/05/2023 10:00:03 04/05/2023 10:58:42 Essential hypertension 11934998 I10 Well controlled . Continue current regimen. Pain of bi lateral knee joints 8183982581 86665 M25.561 M25.562 Will ask ortho to help evaluate further Carcinoma of prostate 25 9620405 C61 Scheduling prostatect ayanna with Dr. Daniel Mass of thyroid gland [address] scan scheduling to elaborate further on anatomy, screen for abnl thyroid function. [id number] Seth Solorzano MD Main Office [address] [place] [address] 08/10/2023 09:44:56 08/10/2023 10:35:14 Essential hypertension 70960983 I10 Well controlled . Continue current regimen. Pulmonary arterial hypertension 12118631 I27.21 Symptomati meredith stable, on diuretic regimen and following with pulm in [place]. Chronic at rial fibrillation 797565741 I48.21 Following with cardiology . Mass of thyroid gland 23 0260421 [address]04[address] scan at [facility] for comparison reasons with previous u/s. Thyroid nodule 733529847 E04.1 [id number] Seth Solorzano MD Main Office [address] [facility] [address] [place] [address] 01/31/2024 12:51:54 01/31/2024 14:00:20 Adult health examination 930526189 Z00.00 PCV20, COVID and Shingrix were advised via local pharmacy. Screening utd based on risk factors. Regular dental and ophtho care advised as well as sunscreen and seat belt use. Distracted driving discussed. Advance directives discussed. Psychosexu al dysfunction 913385282 F52.9 Low T post prostate CA treatment is likely a factor. Effective in the past. Refill requested. Needs infl uenza immunization 562357145 Z23 patient will get flu shot after [place] Carcinoma of prostate 25 5377920 C61 s/p ADT/radiat ion therapy, following closely with Dr. Daniel. Body mass index 40+ - severely obese 043269460 E66.01 Z68.41 Has failed conservati ve treatment approaches /nutrition al counseling . Insurance would not cover nutritiona l counseling . Administra tion of pneumococcal vaccine 02154073 Z23 Varicella vaccination 68 788709 Z23 Pain of ri ght shoulder joint 4941653467 5367617 M25.511 Pt would like to follow up with Dr. Rodas who addressed his left shoulder issues. Thyroid nodule 443297405 E04.1 need u/s in Oct 2024 Moderate m ajor depression, single episode 08238964 F32.1 Symptoms currently not limiting. Will monitor. Acute prostatitis 448307 02 N41.0 Having symptoms, so will treat but if persistent /worse advised to follow up with urology. Pulmonary arterial hypertension 91880882 I27.21 Symptomati meredith stable, on diuretic regimen and following with pulm in [place]. Chronic at rial fibrillation 491997903 I48.21 Following with cardiology . Essential hypertension 91911276 I10 Well controlled . Continue current regimen. [id number] Seth Solorzano MD Main Office [address] [facility] [address] [place] [address] 06/05/2024 10:20:53 06/05/2024 11:12:41 Essential hypertension 07787484 I10 Well controlled . Continue current regimen. Prediabetes 856161069 R7 3.03 Stable. Will continue monitor. Discussed need to reduce CHO intake and work on weight loss. Due for labs. He wants to see a nutritioni st but insurance is not covering. Pain of ri ght shoulder joint 9898332807 1047436 M25.511 Could not see [facility] because of insurance. Will refer to [place] [facility]. Bilateral carpal tunnel syndrome 0825293607 1140245 G56.03 Will use splints and consider EMG/ortho referral inb/worse. Mass of thyroid gland 23 2530377 E04.9 Will schedule US in the Fall for follow up for comparison . Pure hypercholesterolemia 538177699 E78.01 LDL <100, continue current statin dose. Major depr ession single episode, in partial remission 04703323 F32.4 Symptoms currently not limiting, not on meds. Will monitor. [id number] Seth Solorzano MD Main Office [address] [facility] [address] [place] [address] 10/26/2024 09:13:36 10/26/2024 10:04:24 Pain of right shoulder joint 0361209300 9373013 M25.511 060816 Could not see [facility] because of insurance. Will refer to [place] [facility], see if NSAID helps in meantime. [id number] Seth Solorzano MD Main Office [address] [facility] [address] [place] [address] 12/11/2024 11:20:01 12/11/2024 12:18:28 Bilateral carpal tunnel syndrome 6028487778 1446492 G56.03 Persistent issue with shoulder pain, will refer for EMG to differenti ate between brachial plexopathy vs CTS vs cervical radiculopa thy. Needs infl uenza immunization 781037890 Z23 19 YEARS AND OLDER ONLY Pure hypercholesterolemia 397154485 E78.00 45610999 Well controlled on low dose statin. Will continue current dose and monitor. Mass of thyroid gland 23 2975257 E04.9 Labs and f/u imaging have been normal. Will monitor clinically for now. Chronic at rial fibrillation 084530666 I48.21 Rate well controlled on DOAC. Following with cardiology . Health Concerns Section Related Observation LastModified by Organization Detai ls LastModified Time None Recorded Concern Status LastModified by Organization Details LastModified Time None Recorded Advance Directives Directive Y: HCP/ Girlfriend-Yunior Anthony other-JohnEsther Payers Insurance Date Sequence Insurance Name Policy Number Policy Martinez Covered Member ID Martinez Member ID Guarantor Name 12/21/2024 1 [facility] (MEDICARE REPLACEMENT/ ADVANTAGE - HMO) MAMMP Nova Dark [id number] Nova Dark 01/20/2022 1 [employer] (PPO) Nova Dark [id number] Nova Dark 01/20/2022 1 [place] Nova Dark [id number] Nova Dark 01/20/2022 1 [employer] [id number] Nova Dark [id number] Nova Dark 01/20/2022 3 [place] Nova Dark [id number] Nova Dark 01/20/2022 1 [facility] (MEDICAID REPLACEMENT - HMO) [id number] Nova Dark [id number] Nova Dark 01/20/2022 1 [employer] (POS) [id number] Nova Dark IV [id number] Nova Dark 12/11/2024 2 [place] Nova Dark [id number] Nova Dark 01/20/2022 1 [facility] - MEDICAID ESSENTIAL (MEDICAID HMO) [id number] Nova Dark [id number] Nova Dark Notes Date Note Type Note [...] diuretic dosing adjustment Seth Solorzano MD [address], [address], [facility] 08/10/2023 10:38:56 01/31/20 24 text/htm l Medicare [...] in the HPI Seth Solorzano MD [address] [address], [place], [address], [facility] 01/31/2024 14:16:37 06/06/19 25 text/htm l Musculoskeletal [...] diuretic dosing adjustment Seth Solorzano MD [address] [address], [place], [address], [facility] 06/05/2024 16:23:23 10/27/19 25 text/htm l Musculoskeletal PainReported by PatientHPIFor quality, patient reportsaching. For severity, patient reportsworsening,interference with sleep, andinterference with workbut reportspain level without meds 09/14. For location, patient reportsright shoulder. For duration, patient reportspresent for >12 months. For associated symptoms, patient reportsno fever.Seen at [facility] for left shoulder ACJ arthritis/impingement in the past. Having difficulities connecting with [facility] becasue of insurance contracts. Seth Solorzano MD [address] [facility] [address], [place], [address], [facility] [place] 11/23/2024 07:27:58 12/12/19 25 text/htm l [...] [facility] for shoulder pain, Referral made to [place] [facility] but pt did not connect with [...] dyspnea/orthopnea more from DOREEN. Seth Solorzano MD [address], [address], [facility] 12/11/2024 12:28:12
--- OUTSIDE RECORDS SUMMARY | 2025-02-27 11:09 | XMS_ITS | Clinical Summary ---
Author Organization [facility] Address [address] [facility] [address] [place] [address] Phone Care Team Providers Care Tire Rebuilder Name Role Phone Seth Jordan MD Primary [...] [facility] at the [facility] [address] [place] [address] Christian Steve MD, PhD Heart failure with [...] [facility] at [facility] [address] [place], [place] [id number] Christian Steve MD, PhD [address] [place] [address] [email or web address] Health Maintenance Due Date Last Done [...] EST) SODIUM 141 136 - 145 mmol/L [facility] POTASSIUM 4.2 3.4 - 5.1 mmol/L [facility] CHLORIDE 101 98 - 107 mmol/L [facility] CO2 31 22 - 31 mmol/L [facility] BUN 13 6 - 23 mg/dL [facility] CREATININE 0.97 0.50 - 1.20 mg/dL [facility] GLUCOSE 90 70 - 100 mg/dL [facility] ALBUMIN 4.2 3.5 - 5.2 g/dL [facility] TOTAL PROTEIN 7.4 6.4 - 8.3 g/dL [facility] CALCIUM 9.5 8.8 - 10.7 mg/dL [facility] ALKALINE PHOSPHATASE 132(H) 35 - 130 U/L [facility] TOTAL BILIRUBIN 0.2 0.0 - 1.0 mg/dL [facility] AST 12 10 - 50 U/L [facility] ALT 9(L) 10 - 50 U/L [facility] GLOBULIN 3.2 2.2 - 4.2 g/dL [facility] EGFR 90 >59 mL/min/1. 73m2 [facility] Comment:Estimated glomerular filtration rate calculated using the CKD-EPI refit equation. ANION GAP 9 7 - 17 mmol/L [facility] 01/19/2024 5:09 PM EST 01/19/2024 5:12 PM EST us Christian Steve MD, PhD LAB BLOOD BKR ORDERABLES Final Result [facility] [address] [place] [id number] from Last 3 Months or Most Recently Relevant to Health Maintenance Insurance [employer] MEDICARE REPLACEMENT [address] [address] [place] [address] MEDICARE REPLACEMENT [facility] MEDICARE REPLACEMENT [facility] MEDICARE REPLACEMENT Member Subscriber Plan / Payer (Ef fective 2022-) Name:Oscar Young IV Relation to Subscriber:Self Name:Oscar Young IV Payer ID:[id number] (NAIC) Group ID:[id number] Type:Medicare Address: [place] [phone] [facility] MEDICARE REPLACEMENT Member Subscriber Plan / Payer ( fective 2022-Present) Name:Oscar Young IV Relation to Subscriber:Self Name:Oscar Yuong IV Payer ID:[id number] (NAIC) Group ID:[id number] Type:Medicare Address: [place] [phone] [facility] MEDICARE REPLACEMENT Member Subscriber Plan / Payer (Ef fective 2022-Present) Name:Oscar Young IV Relation to Subscriber:Self Name:Oscar Young IV Payer ID:[id number] (NAIC) Group ID:[id number] Type:Medicare Address: [place] [phone] Care Teams Tire Rebuilder Relationship Specialty Start Date End Date Seth Jordan MD [address] [place] [address] [address] [place] [address] PCP - General Internal Medicine 08/16/20 Additional Source Comments The information contained in this document represents components of the legal health record. It is not the complete legal health record.[facility]
--- OUTSIDE RECORDS SUMMARY | 2025-02-27 11:09 | XMS_ITS | Clinical Summary ---
Author Organization [facility] Prior to 08/05/24 Address [address] [place] [address] Care Team Providers Care Auto Mechanic Apprentice Name Role Phone Unavailable Primary Care Provider [...]
--- OUTSIDE RECORDS SUMMARY | 2025-02-27 11:09 | XMS_ITS ---
Author Name Donavon Fernandez NP Address [address] [place] [address] Phone [phone] [facility] Care Team Providers Care Computer Application Developer Name Role Phone Jim Donavon Unavailable [phone] Jaye Dickey Unavailable [phone] Reason for Referral Not Available Allergies, adverse [...] 95 for video, modifier 93 for phone [facility], ([place]) 01/21/2024 Gout, unspecifiedEssential ( primary) hypertensionErectile dysfunction [...] 95 for video, modifier 93 for phone [facility] 01/21/2024 New patient, 30-44min 1 stable chronic or 2 minor; add modifier 95 for video, modifier 93 for phone [facility] 01/21/2024 New patient, 30-44min 1 stable chronic or 2 minor; add modifier 95 for video, modifier 93 for phone [facility] New patient, 30-44min 1 stable chronic or 2 minor; add modifier 95 for video, modifier 93 for phone [facility] [place] New patient, 30-44min 1 stable chronic or 2 minor; add modifier 95 for video, modifier 93 for phone [facility] [place]2024 New patient, 30-44min 1 stable chronic or 2 minor; add modifier 95 for video, modifier 93 for phone [facility] [place] 01/21/2024 New patient, 30-44min 1 stable chronic or 2 minor; add modifier 95 for video, modifier 93 for phone [facility] [place] New patient, 30-44min 1 stable chronic or 2 minor; add modifier 95 for video, modifier 93 for phone [facility] [place] 01/21/2024 Estab. patient 20-29min; 1 stable chronic or 2 minor; add add modifier 95 for video, modifier 93 for phone [facility] 05/30/2024 Gout, unspecifiedErectile dy [...] 95 for video, modifier 93 for phone [facility] [place] 05/30/[facility] Estab. patient 20-29min; 1 stable chronic or 2 minor; add add modifier 95 for video, modifier 93 for phone [facility], [place] 05/30/2024 Estab. patient 20-29min; 1 stable chronic or 2 minor; add add modifier 95 for video, modifier 93 for phone [facility] 05/30/2024 Estab. patient 20-29min; 1 stable chronic or 2 minor; add add modifier 95 for video, modifier 93 for phone [facility] 05/30/2024 Vital Signs Date of Collection Vitals 2024-01-21 12:15:55 Height - 190.5 cmWei ght - 138.8 kgBody Mass Index (BMI) - 38.25 kg/m2BP Diastolic - 85.0 mm[Hg]BP Systolic - 122.0 mm[Hg] 2024-05-30 12:00:04 Weight - 140.62 kgBo dy Mass Index (BMI) - 38.75 kg/m2 Social History Social History Social History Observation Description Effec tive Time Current Smoking Status Never smoker 2025-02-06 3 Sex Male History of Procedures Procedures Service Procedure code Service date Servicing provider Phone# New patient, 30-44min 1 stable chronic or 2 minor; add modifier 95 for video, modifier 93 for phone [id number] 2024-01-21 No Data Available No Data Available [...] 95 for video, modifier 93 for phone [id number] 2024-05-30 No Data Available No Data Availa [...]
--- OUTSIDE RECORDS SUMMARY | 2025-02-27 11:09 | XMS_ITS | Encounter Summary ---
Author Organization [facility] Address [address] [place] [id number] Phone Care Team Providers Care Core Rescuer Name Role Phone Seth Jordan MD Primary Care Provider Encounter Details Date Type Department Care Team (Late st Contact Info) Description 05/20/2021 Procedure Pass [facility] Cardiac Marketing Representative [address] [place] [address] Social History Tobacco Use Types Packs/Day Years [...] Description 07/25/2025 10:00 AM EDT Office Visit [facility] Pulmonary Hypertension at the [facility] [address] [place] [address] Christian Steve MD, PhD [address] [phone] [email or web address] documented as of this encounter Visit Diagnoses Not on filedocumented in this encounter Care Teams Core Rescuer Relationship Specialty Start Date End Date Seth Jordan MD [address] [place] [address] PCP - General Internal Medicine 08/16/20 documented as of this encounter Additional Source Comments The information contained in this document represents components of the legal health record. It is not the complete legal health record.[facility]
--- OUTSIDE RECORDS SUMMARY | 2025-02-27 11:10 | XMS_ITS | Continuity of Care Document ---
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 Plan of Treatment Reminders Order Date Submit Date Provider Last Modified By Organization Details Last Modified Time Details Appointments [id number] 2025 11:00A M Seth Solorzano MD Not available Not available Not available Lab None recorded. Referral None recorded. Procedures nerve conductio n study/EMG , upper extremity (PROC) - rule out bilateral carpal tunnel 2024 025 [facility], [address] [facility], [place], [address], 01/30/2025 15:15:26 Surgeries None recorded. Imaging None recorded. Medication Orders None recorded. Patient TargetsNo targets recorded. Patient Instructions Encounter Date Encounter Id Patient Instructions Last Modified By Organization Details Last Modified Time 12/11/2024 [id number] high cholesterol: care instructions rena Not available 12/11/2024 12:12:16 Reason for Referral None Reported. Results Created Date Observation Date Name Description Value Unit Range Abnormal Flag Note LastModifiedBy Organization Detail LastModifiedTime 12/26/1912/25/2024 ECG 12-le ad No observ ation record ed. [facility]/S Dept [address] [place] [address], [address], 12/26/2024 06:47:48 12/26/19 ECG 12-le ad No observ ation record ed. [facility]/S Dept [address] [place] [address], [address], 12/26/2024 06:47:48 01/12/2001/08/2025 nm stres s test with myoca rdial perfu dex No observ ation record ed. [facility]/S Dept [address] [place] [address], [address], 01/12/2025 06:55:15 01/16/20 25 01/09/2025 nucle ar stres s test No observ ation record ed. [facility] (Human Resources) [id number] [facility], [place], [address], 01/16/2025 07:25:18 01/18/20 25 01/17/2025 US, thyro id No observ ation record ed. [facility] (Medical Records) [address] [facility], [place], [address], 01/18/2025 12:04:04 Result Notes None recorded. Problems Name Problem SNOMED Code Status Onset Date Resolution Date Notes Provider Name and Address Organization Details Recorded Time Pain of wrist region 01021918 Completed 07/13/2014 Seth Solorzano MD [address] [facility] [address], [place], [address] , [facility] 5 14:20:56 Dyspnea on exertion 65828991 Com[facility]13[facility] 7 12:55:52 Body mass index 30+ - obesity 899410818 Completed 07/21/2017 Seth Solorzano MD [address], [place], [address] , [facility] 8 11:57:46 Irregula r heart beat 628484735 Completed 11/10/2016 RALPH Aceves, [facility] 7 12:55:33 Atrial fibrilla tion and flutter 936965862 Completed 07/21/2017 Seth Solorzano MD [address] [facility] [address], [place], [address] , [facility] 8 11:59:07 Body mass index 40+ - severely obese 206142989 Completed 11/10/2016 Seth Solorzano MD [address] [facility] [address], [place], [address] , [facility] 1 09:19:07 Excessiv e thirst 63607810 Completed 11/10/2016 RALPH Aceves, [facility] 7 12:55:17 Dyspnea on exertion 40326039 Completed 11/10/2016 RALPH Aceves, [facility] 7 12:55:52 Increase d frequenc y of urinatio n 086203072 Completed 11/10/2016 RALPH Aceves, [facility] 7 12:55:11 Dyspnea 840519477 Completed 11/10/2016 RALPH Aceves, [facility] 7 12:55:23 Tinea pedis 3163046 Completed 201209/19/2013 RECORDED 04/06/19 13 2:51PM BY ANASTASIIA ISSA MA, ANNOTATI ON/ALINE Solorzano MD [address], [place], [address] , [facility] 5 14:20:56 Jeannine arteaga [id number] Completed 201210/16/2013 RECORDED 04/06/19 13 2:51PM BY ANASTASIIA ISSA MA, OSCARATI ON/ALINE Solorzano MD [address], [place], [address] , [facility] 5 14:20:56 Maryuri pulido hyperten dex 81225574 Completed 201209/19/2013 RECORDED 04/18/19 13 9:48AM BY WILMER MCELROY MA, HELEN ON/ALINE Solorzano MD [address], [place], [address] , [facility] 8 11:59:45 Screenin g procedur e Completed 201209/19/2013 IMPRESSI ON: GIVEN FAMILY HISTORY WILL CONTINUE SCREENIN G. EMIL DEFERRED TO NEXT APPT.; RECORDED 05/21/19 13 10:39AM BY WILMER MCELROY MA, HELEN ON/ALINE Solorzano MD [address] [facility] [address], [place], [address] , [facility] 5 14:20:57 Syncope and collapse 094146063 Completed 201209/19/2013 RESOLVED DATE: 02/25/20 12; IMPRESSI [...] [address], [place], [address] , [facility] 5 14:20:56 Screenin g procedur e Completed 201210/16/2013 IMPRESSI ON: GIVEN FAMILY HISTORY WILL CONTINUE SCREENIN G. EMIL DEFERRED TO NEXT APPT.; RECORDED 05/21/19 13 10:39AM BY WILMER MCELROY MA, HELEN ON/ALINE Solorzano MD [address], [place], [address] , [facility] 5 14:20:57 Syncope and collapse 006904637 Completed 201210/16/2013 RESOLVED DATE: 02/25/20 12; IMPRESSI [...] [address], [place], [address] , [facility] 5 14:20:56 Patient status finding [id number] Completed 201209/19/2013 RECORDED 08/26/19 13 9:30AM BY WILMER MCELROY MA, ANNOTATI ON/ALINE Solorzano MD [address], [place], [address] , [facility] 5 14:20:57 Adult health examinat ion Completed 201209/19/2013 IMPRESSI ON: IMMUNIZA TION STATUS UTD WILL SCREEN BASED ON RISK FACTORS. REGULAR DENTAL CARE AND SEATBELT USE ADVISED. DISTRACT ED DRIVING DISC[place]ki [place]; RECORDED 08/26/19 13 9:30AM BY WILMER MCELROY MA, OSCARATI ON/ALINE Solorzano MD [address], [place], [address] , [facility] 5 14:20:57 Disorder of upper respirat ory system Completed 201209/19/2013 IMPRESSI ON: TRY NASAL SALINE, IF PERSISTA NT TRY NASAL STEROID. ; RECORDED 08/26/19 13 9:30AM BY WILMER MCELROY MA, HELEN ON/ALINE Solorzano MD [address], [place], [address] , [facility] 5 14:20:57 Patient status finding [id number] Completed 201210/16/2013 RECORDED 08/26/19 13 9:30AM BY WILMER MCELROY MA, HELEN ON/ALINE Solorzano MD [address], [place], [address] , [facility] 5 14:20:57 Disorder of upper respirat ory system Completed 201210/16/2013 IMPRESSI ON: TRY NASAL SALINE, IF PERSISTA NT TRY NASAL STEROID. ; RECORDED 08/26/19 13 9:30AM BY WILMER MCELROY MA, HELEN ON/ALINE Solorzano MD [address] [facility] [address], [place], [address] , [facility] 5 14:20:57 Follow-u p encounte r Completed 201209/19/2013 RECORDED 12/21/19 13 10:31AM BY WILMER MCELROY MA, HELEN CABRERA/ALINE Solorzano MD [address], [place], [address] , [facility] 5 14:20:57 Influenz a vaccine needed 86702046372 06 Completed 201209/19/2013 RECORDED 12/21/19 13 10:31AM BY WILMER MCELROY MA, ANNOTPRIYA ON/ALNIE Solorzano MD [address] [facility] [address], [place], [address] , [facility] 5 14:20:57 Pain in limb 80096076 Completed 201209/19/2013 RECORDED 12/21/19 13 10:32AM BY WILMER MCELROY MA, HELEN ON/ALINE Solorzano MD [address] [facility] [address], [place], [address] , [facility] 5 14:20:56 Follow-u p encounte r Completed 201210/16/2013 RECORDED 12/21/19 13 10:31AM BY WILMER MCELROY MA, HELEN ON/ALINE Solorzano MD [address] [facility] [address], [place], [address] , [facility] 5 14:20:57 Influenz a vaccine needed 10024789575 06 Completed 201210/16/2013 RECORDED 12/21/19 13 10:31AM BY WILMER MCELROY MA, HELEN ON/ALINE Solorzano MD [address] [facility] [address], [place], [address] , [facility] 5 14:20:57 Pain in limb 86743409 Completed 201210/16/2013 RECORDED 12/21/19 13 10:32AM BY WILMER MCELROY MA, HELEN ON/ALINE Solorzano MD [address] [facility] [address], [place], [address] , [facility] 5 14:20:56 Localize d superfic ial swelling of skin 282614074 Completed 201309/19/2013 IMPRESSI ON: ? NEUROMA. WILL CONSULT PODIATRY .; RECORDED 06/03/19 14 12:59PM BY WILMER MCELROY MA, HELEN ON/ADDJESSICA Solorzano MD [address] [address], [place], [address] , [facility] 5 14:20:56 Neck sprain 732653639 Completed 201312/08/2013 IMPRESSI ON: RECURREN T ISSUE IN CONTEXT OF CHRONICA LLY ELEVATE CREATINE KINASE. WILL ASK RHEUM FOR RE-EVALU ATION NOW THAT SYMPTOMS HAVE DEVELOPE D.; RECORDED 06/03/19 14 2:24PM BY WILMER MCELROY MA, OFFICE VISIT Seth Solorzano MD [address] [address], [place], [address] , [facility] 5 14:20:57 Localize d superfic ial swelling of skin 733987809 Completed 201310/16/2013 IMPRESSI ON: ? NEUROMA. WILL CONSULT PODIATRY .; RECORDED 06/03/19 14 12:59PM BY WILMER MCELROY MA, ANNOTATI ON/ADDJESSICA DUM Seth Solorzano MD [address] [address], [place], [address] , [facility] 5 14:20:56 Renewal of prescrip tion Completed 201309/19/2013 RECORDED 07/06/19 14 9:12AM BY WILMER MCELROY MA, HELEN ON/ALINE Solorzano MD [address] [address], [place], [address] , [facility] 5 14:20:57 Renewal of prescrip tion Completed 201310/16/2013 RECORDED 07/06/19 14 9:12AM BY WILMER MCELROY MA, HELEN ON/ALINE Solorzano MD [address] [address], [place], [address] , [facility] 5 14:20:57 Joint pain in ankle and foot Completed 201307/13/2014 IMPRESSI ON: WEVENT WITH UNIMPRES SICE UA LEVEL, SYMPTOMS RESPONDE D TO COLCHICI NE. WILL CONTINUE PRN AND CONSIDER FURTHER EVAL IF RECURREN T/WORSE. ; RECORDED 08/19/19 14 12:55PM BY SETH Phipps MD, OFFICE VISIT Seth Solorzano MD [address], [place], [address] , [facility] 5 14:20:56 Asthma 051157060 Completed 201311/21/2019 Seth Solorzano MD [address] [facility] [address], [place], [address] , [facility] 0 11:16:59 Pure hypercho lesterol emia 939499684 Active 2013 Not Available [facility] 3 01:53:06 Essentia l hyperten dex 52144491 Active 2013 Not Available [facility] 3 01:53:07 Insomnia 261299603 Active 2013 Not Available [facility] 3 01:53:06 Fibromyo sitis 58056934 Completed 201312/08/2013 STORY: S/P RHEUM (REMI ) EVAL- PRESUMED PHYSIOLO GIC; IMPRESSI ON: PT ASYMPTOM ATIC, WILL RECHECK TO SEE IF LAB FINDINGS PERSISTA NT.; RECORDED 08/19/19 14 11:39AM BY ANASTASIIA ISSA MA, OFFICE VISIT Seth Solorzano MD [address] [facility] [address], [place], [address] , [facility] 5 14:20:56 Obesity 978244967 Completed 201307/21/2017 RECORDED 08/19/19 14 11:39AM BY ANASTASIIA ISSA MA, OFFICE VISIT Lilia winters, [facility] 0 16:49:59 Obstruct kaleigh sleep apnea syndrome 16447409 Active 2013 14cm H2O with 2L O2 Seth Solorzano MD [address], [place], [address] , [facility] 5 13:41:36 Allergic rhinitis 91846278 Active 2013 Not Available [facility] 3 01:53:07 Psychose xual dysfunct ion 682263829 Active 2013 Not Available [facility] 3 01:53:06 Vitamin D deficien cy 74140576 Active 2013 Not Available [facility] 3 01:53:06 Neck sprain 671860258 Completed 201310/16/2013 IMPRESSI ON: RECURREN T ISSUE IN CONTEXT OF CHRONICA LLY ELEVATE CREATINE KINASE. WILL ASK RHEUM FOR RE-EVALU ATION NOW THAT SYMPTOMS HAVE DEVELOPE D.; RECORDED 08/19/19 14 11:36AM BY ANASTASIIA ISSA MA, ANNOTATI ON/ADDEN DUM Seth Solorzano MD [address], [place], [address] , [facility] 5 14:20:57 Left ventricu lar hypertro phy 33084193 Active 2016 Not Available [facility] 3 01:53:07 Atrial paroxysm al tachycar victor m 783325788 Active 2017 Not Available [facility] 3 01:53:06 Arthriti s of hand 011567873 Completed 201711/21/2019 Seth Solorzano MD [address], [place], [address] , [facility] 0 11:17:38 Chronic atrial fibrilla tion 554000366 Active 2018 Not Available [facility] 3 01:53:07 Impingem ent syndrome of shoulder region 889769280 Completed 201801/31/2024 Seth Solorzano MD [address], [place], [address] , [facility] 4 13:42:11 Gout 49133546 Active 2019 Kelly Zuluaga MA null, [facility] 5 09:23:33 Paroxysm al atrial fibrilla tion 013038546 Active 2019 Not Available [facility] 3 01:53:06 Divertic ular disease 915241291 Active 2019 Not Available [facility] 3 01:53:07 Polyp of colon 45557426 Active 2019 Not Available [facility] 3 01:53:07 Family history of malignan t neoplasm of prostate 556980193 Active 2019 Not Available [facility] 3 01:53:07 History of asthma 614944823 Active 2019 Not Available [facility] 3 01:53:06 Prediabe gisell 874684787 Completed 201901/15/2023 Seth Solorzano MD [address], [place], [address] , [facility] 4 06:42:51 Prediabe gisell 275036943 Active 2019 Seth Solorzano MD [address], [place], [address] , [facility] 4 06:42:51 Morbid obesity 468285035 Active 2019 Not Available [facility] 3 01:53:06 Dyspnea on exertion 24967164 Active 2020 Kelly Zuluaga MA null, [facility] 5 09:23:33 Diastoli c heart failure 122913144 Active 2020 [facility] Available [facility] 3 01:53:07 Body mass index 40+ - severely obese 982516733 Active 2020 Not Available [facility] 3 01:53:07 Pulmonar y arterial hyperten dex 95404678 Active 2021 Not Available [facility] 3 01:53:06 Adjustme nt disorder with mixed emotiona l features 45593218 Completed 202101/31/2024 Seth Solorzano MD [address], [place], [address] , [facility] 4 13:42:14 Prostate specific antigen above referenc e range 283144175 Active 2022 Not Available [facility] 3 01:53:07 Cholecys titis 23831306 Completed 202212/24/2022 Seth Solorzano MD [address] [facility] [address], [place], [address] , [facility] 3 21:26:05 History of cholecys tectomy 311089734 Active 2022 Sourav Rivas PA-C [address] [facility] [address], [place], [address] , [facility] 3 15:25:56 Carcinom a of prostate 021929746 Active 2022 Nimco 3+4, unfavoir able intermed iate risk s/p radiatio n and ADT Seth Solorzano MD [address] [facility] [address], [place], [address] , [facility] 4 22:28:57 Thyroid nodule 599716509 Completed 202310/24/2024 right, 1.5cm Seth Solorzano MD [address], [place], [address] , [facility] 5 12:36:45 Mass of thyroid gland 248591242 Active 2023 Seth Solorzano MD [address] [facility] [address], [place], [address] , [facility] 4 19:26:16 Pain of bilatera l knee joints 99843967547 4104 Active 2023 Seth Solorzano MD [address] [facility] [address], [place], [address] , [facility] 4 06:43:43 Hypoxemi a 600805437 Active 2023 Seth Solorzano MD [address] [facility] [address], [place], [address] , [facility] 4 10:25:31 Moderate major depressi on, single episode 69441795 Active 2023 Seth Solorzano MD [address] [address], [place], [address] , [facility] 4 13:47:37 Pain of right shoulder joint 09313822436 938266 Active 2023 Seth Solorzano MD [address] [address], [place], [address] , [facility] 4 14:14:02 Alkaline phosphat ase above referenc e range 292292861 Active 2024 Seth Solorzano MD [address] [address], [place], [address] , [facility] 5 21:51:37 Paresthe bj of upper limb 94433951 Active 2024 Seth Solorzano MD [address] [address], [place], [address] , [facility] 5 11:01:17 Bilatera l carpal tunnel syndrome 29176875409 646893 Active 2024 Seth Solorzaon MD [address] [address], [place], [address] , [facility] 5 11:01:39 Notes:Some problems listed i n Document: #[id number] could not be added to this patient's chart. Please review this document and add these problems to the patient's chart manually as needed. Problem Notes None recorded. Procedures Surgical History Date Name Laterality Status Provider Name and Address Organization Details Recorded Time 01/10/20 25 radionuclide imaging of perfusion of myocardium under exercise stress completed Seth Solorzano MD [address], [address], [facility] 01/12/2025 06:54:44 02/02/20 24 Echo transthoracic completed Seth Solorzano MD [address], [address], [facility] 02/15/2024 07:26:27 01/13/20 23 needle biopsy of prostate completed Seth Solorzano MD [address], [address], [facility] 01/13/2023 08:05:06 12/21/19 23 laparoscopic cholecystectomy completed Nathaly Lacy [facility] 12/21/2022 11:22:23 05/21/19 22 catheterization of right heart completed Seth Solorzano MD [address], [address], [facility] 05/27/2021 12:57:10 07/07/19 21 stress echocardiography completed Seth Solorzano MD [address], [address], [facility] 06/01/2021 15:25:10 01/10/20 20 complete repair of rotator cuff completed Seth Solorzano MD [address], [address], [facility] 03/26/2020 14:24:20 01/05/20 20 Echo transthoracic completed Seth Solorzano MD [address], [address], [facility] 01/11/2020 19:41:20 10/23/19 20 Colonoscopy completed Seth Solorzano MD [address], [address], [facility] 10/23/2019 19:27:05 10/05/19 20 Cardiac Surgery completed Lisa Carmona CPPM [facility] 10/17/2019 09:23:32 10/05/19 20 Compre ep eval abltj atr fib completed [facility] 10/17/2019 09:25:03 10/05/19 20 Intracardiac ephys 3d mapg completed [facility] 10/17/2019 09:25:54 03/22/19 20 Cardioversion electric ext completed Seth Solorzano MD [address] [place] [address], [address], [facility] 04/02/2019 16:11:20 02/15/20 19 Echo transthoracic completed Seth Solorzano MD [address] [place] [address], [address], [facility] 02/26/2019 20:33:15 11/04/19 17 Echo transthoracic completed Seth Solorzano MD [address] [facility], [place], [address], [facility] 11/17/2016 11:31:41 01/23/20 16 Echo transthoracic completed Seth Solorzano MD [address] [facility], [place], [address], [facility] 02/02/2016 23:09:48 01/27/20 12 Echo Transthoracic completed Seth Solorzano MD [address] [place] [address], [address], [facility] 09/26/2015 16:35:39 03/08/19 08 Appendectomy completed Alla Smith MA [facility] 11/25/2020 08:29:52 Appendectomy completed Alla Smith MA [facility] 11/25/2020 08:29:52 Knee Surgery completed Aye Herrera [facility] 11/21/2019 09:56:32 Imaging Results None recorded. Procedure Notes None recorded. Medical Equipment None Reported. Allergies Allergen ID Allergen Name Allergen Category Reaction Reaction Severity Criticality Documentation Date Start Date Code Code System Note Provider Name and Address Organization Details Recorded Time 65594 aspirin medicatio n wheezing moderate Not available 04/03/20192020 1191 RxNorm RALPH Scott MA [facility] 3 10:54:50 4472 aspirin medicatio n respirato ry distress Not available Not available 09/19/20132013 1191 RxNorm not from 81 mg dose, only form 325 mg aller gic react ion Not Available [facility] 3 01:53:04 Medications Name Sig Start Date Stop Date Status Note LastModified by Organization Details LastModified Time d3-1000 25 mcg (1000 ut) caps 08/09 completed Not Available Not Available Not Available vitamin d 56392 unit caps active Not Available Not Available [...] e 50 mcg/actua tion nasal spray,kat[facility] [employer] [place] 2 sprays every day by intranas al [...] Updated DateTime 5 184.79 cm 40.2 kg/m2 016940. 49 g 68 /min 95 % 97.5 [degF] 117/74 mm[Hg] Kelly Zuluaga MA [facility] 5 11:42:14 Social History Question Answer Notes LastModified by Organizat ion Details LastModified Time Tobacco Smoking Status Never Smoker Not Available [facility] 01/09/2020 03:36:40 Do You Have An Advance Directive? Yes HCP/ Girlfriend-Caitlin eckert, Mother-Brandie aldrich Information not available 11/27/2021 Is Blood Transfusion Acceptable In An Emergency? Yes [id number] Information not available 01/09/2020 What Is Your Level Of Caffeine Consumption? Occasional Tea [email or web address] Information not available 12/01/2022 How Much Tobacco Do You Chew? None [id number] Information not available 01/09/2020 In The 14 [...] Low Sodium, Eating Better, Fruits And Veggies [id number] Information not available 01/09/2020 Which Illicit Or Recreational Drugs Have You Used? None [id number] Information not available 01/09/2020 Live Alone Or [...] Do You Have? 2 Son And Dtr [id number] Information not available 01/09/2020 Do You Use Protection During Sex? Always [id number] Information not available 01/09/2020 Do You Use Your Seat Belt Or Car Seat Routinely? No Information not available 11/25/2020 Seat Belts Used Routinely Yes Information not available 11/27/2021 Are You Sexually Active? Yes [id number] Information not available 01/09/2020 Smoke Alarm In Home Yes Information not available 11/27/2021 Do You Have Smoke And Carbon Monoxide Detectors In Your Home? Yes [email or web address] Information not available 11/25/2020 At What Age Did You Start Smoking Tobacco? 1 [id number] Information not available 01/09/2020 Are You Passively Exposed To Smoke? Yes Information not available 12/08/2013 How Much Tobacco Do You Smoke? No [id number] Information not available 01/09/2020 General Stress Level Medium Information not available 11/27/2021 Do You Use Sunscreen Routinely? Yes [id number] Information not available 01/09/2020 How Many Years Have You Smoked Tobacco? 0 [id number] Information not available 01/09/2020 Sex: Unknown Functional Status Question Answer Note LastModified by Organizat ion Details LastModified Time Do you use any illicit or recreational drugs? No Information not available 11/27/2021 Do you or have you ever used any other forms of tobacco or nicotine? No Information not available 11/27/2021 What is your level of alcohol consumption? Occasional [id number] Information not available 01/09/2020 Do you or have you ever used smokeless tobacco? Never used smokeless tobacco [id number] Information not available 01/09/2020 Are you currently employed? No disabled [id number] Information not available 01/09/2020 Are you able to walk independently without assistance or assistive devices? YESWOREST Information not available 11/27/2021 Are you able to care for yourself independently? Yes [id number] Information not available 01/09/2020 Do you or have you ever used e-cigarettes or vape? Never used electronic cigarettes Information not available 11/27/2021 What is your exercise level? Moderate [id number] Information not available 11/25/2020 Mental Status None [...] History Condition Response Coronary Artery Disease N Gout Y Other N Blood Diseases N Kidney Stones N Hyperthyroidism N Breast Cancer N mrsa exposure N Lung Disease N Hypothyroidism N Depression Y COPD N Defects or Inherited Disease N Developmental or Behavioral Disorders N Breast Problem N Anesthesia Complications N Headaches/Migraines N Varicose Veins N Anxiety Disorder N Muscle, Joint, or Bone Problems N Obesity Y Vision or Eye Problems N Arthritis N Head Injury/Concussion N Infertility N Polyps N Mental Disorder N Congenital Anomalies N Acid Reflux (GERD) N Cancer N Stroke N ADHD N Endometriosis N High Cholesterol Y Liver Disease N Headaches N Fibromyalgia N Kidney Disease N Heart Problems Y Ear or Hearing Problems N Hospitalizations N Thyroid Problems N GI Problems N Developmental Delay N Acne N Eating Disorder N Skin Problems N Anemia N Constipation N Bladder Problems N Mental Illness N Diabetes N Ovarian Cancer N Bedwetting N Blood Transfusions N Heart Problems/Murmur N Seizures/Epilepsy N Tuberculosis N AIDS/HIV N Congestive Heart Failure (CHF) N Eczema N Abuse/Domestic Violence N Diverticulitis N Asthma Y Allergies Y Reflux/GERD N Hepatitis N Heart Disease N Pulmonary Embolism N Hypertension Y Chicken Pox N Autism Spectrum Disorder (ASD) N Osteoporosis N Immunizations Vaccine Type Date Status Note Provider Name and Address Organization Details Recorded Time pneumococcal polysaccharide PPV23 017 completed Not Available [facility] 12/15/2022 01:53:07 pneumococcal polysaccharide PPV23 020 completed Not Available [facility] 12/15/2022 01:53:07 COVID-19, mRNA, LNP-S, PF, 30 mcg/0.3 mL dose 021 completed Not Available [facility] 12/15/2022 01:53:07 COVID-19, mRNA, LNP-S, PF, 30 mcg/0.3 mL dose 021 completed Not Available [facility] 12/15/2022 01:53:07 Influenza, split virus, quadrivalent, PF 020 completed Not Available [facility] 12/15/2022 01:53:07 COVID-19, mRNA, LNP-S, PF, 30 mcg/0.3 mL dose 021 completed Not Available [facility] 12/15/2022 01:53:07 Influenza, split virus, trivalent, PF 014 completed Not Available [facility] 12/15/2022 01:53:07 Influenza, split virus, quadrivalent, PF 015 completed Not Available [facility] 12/15/2022 01:53:07 Influenza, split virus, quadrivalent, PF 018 completed Not Available [facility] 12/15/2022 01:53:07 Influenza, split virus, quadrivalent, PF 020 completed Not Available [facility] 12/15/2022 01:53:08 Influenza, split virus, quadrivalent, PF 016 completed Not Available [facility] 12/15/2022 01:53:08 COVID-19, mRNA, LNP-S, bivalent, PF, 30 mcg/0.3 mL dose 022 completed Not Available [facility] 12/15/2022 01:53:07 Td (adult), 2 Lf tetanus toxoid, preservative free, adsorbed 005 completed Not Available [facility] 12/15/2022 01:53:07 Tdap 012 completed Not Available [facility] 12/15/2022 01:53:07 Influenza, split virus, trivalent, preservative 012 completed Not Available [facility] 12/15/2022 01:53:07 influenza, seasonal, intradermal, preservative free 013 completed Not Available [facility] 12/15/2022 01:53:07 Td (adult), 2 Lf tetanus toxoid, preservative free, adsorbed 022 completed RALPH Deutsch, [facility] 11/27/2021 13:20:56 Influenza, split virus, quadrivalent, PF 022 [facility] 13:22:40 Influenza, split virus, quadrivalent, PF 023 completed Seth Solorzano MD [address] [address], [place], [phone], [facility] 12/01/2022 10:22:09 Influenza, split virus, trivalent, PF 024 cancelled patient objection Seth Solorzano MD [address] [address], [place], [phone], [facility] 01/31/2024 14:10:48 Influenza, split virus, trivalent, PF 025 [facility] 11:43:14 Past Encounters Encounter ID Performer Location Encounter Start Date Encounter Closed Date Diagnosis/Indication Diagnosis SNOMED-CT Code Diagnosis ICD10 Code Diagnosis IMO Codes Diagnosis Note [id number] Seth Solorzano MD Main Office [address] [facility] [place] [id number] 12/11/2024 11:20:01 12/11/2024 12:18:28 Bilateral carpal tunnel syndrome 6260159809 1411114 G56.03 Persistent issue with shoulder pain, will refer for EMG to differenti ate between brachial plexopathy vs CTS vs cervical radiculopa thy. Needs infl uenza immunization 320674140 Z23 19 YEARS AND OLDER ONLY Pure hypercholesterolemia 387429654 E78.00 [id number] Well controlled on low dose statin. Will continue current dose and monitor. Mass of thyroid gland 23 1589795 E04.9 Labs and f/u imaging have been normal. Will monitor clinically for now. Chronic at rial fibrillation 975239037 I48.21 Rate well controlled on DOAC. Following with cardiology . Health Concerns Section Related Observation LastModified by Organization Detai ls LastModified Time None Recorded Concern Status LastModified by Organization Details LastModified Time None Recorded Payers Encounter Date Sequence Insurance Name Policy Number Policy Martinez Covered Member ID Martinez Member ID Guarantor Name 12/11/2024 1 [facility] (MEDICARE REPLACEMENT/A DVANTAGE - HMO) MAM[employer] Oscar Dark [id number] Oscar Dark 12/11/2024 2 [place] [facility] Oscar Dark [id number] Oscar Dark Notes Date Note Type Note [...] NEOS for shoulder pain, Referral made to [place] [facility] but pt did not connect with [...] dyspnea/orthopnea more from DOREEN. Seth Solorzano MD [address] [address], [place], [phone], [facility] 12/11/2024 12:28:12
== END 2025-02-27 10:08 | disposition home or self-care (01) ==
LOC: HO.NEURO 10:07
PROVIDERS: PCP Pediatrics; Visit Provider Pediatrics
DX: G56.03 Carpal tunnel syndrome, bilateral upper limbs (principal)
CPT/HCPCS: 95886; 95911

== ENCOUNTER → 2025-02-27 10:13 | Outpatient (BNV) | payer MEDICARE, SELFPAY | PROVIDERS: PCP Pediatrics; Visit Provider Psychiatry & Neurology Neurology | DX: G56.01 Carpal tunnel syndrome, right upper limb (principal); M79.642 Pain in left hand | CPT/HCPCS: 95886; 95911 ==